=== PATIENT | female | born 1945 | race Caucasian/White ===

== ENCOUNTER 2018-12-09 05:10 | Inpatient (IN) ==
--- NOTE | 2018-12-04 08:43 | Anesthesiology Consultation ---
Date of Service December 04, 2018 Uneventful [place] on 10/28 for Cystoscopy with ureteral dilitation. #4 LMA Assessment & Plan (1) Encounter for pre-operative examination: Chart Review Chart Review: Acceptable Risk for Surgery and Patient NOT seen in Pre Admission Testing Consults Requested none History Surgery Operation Date: 12/09/18 08:50 Proposed Procedures p Robotic Assisted Right Ureteral Excision with Ureto-Ureterostomy and Right Ureteroscopy - Sam King MD Height/Weight Height: 5 ft 4 in Weight: 59.879 kg Allergies Allergy/AdvReac Type Severity Reaction Status Date / Time No Known Allergies Allergy Verified 11/18/18 14:56 Medications Home Medications Medication Instructions Recorded Confirmed Last Taken aspirin 81 mg PO DAILY 10/07/18 11/18/18 10/27/18 07:00 cyanocobalamin (vitamin B-12) 1 ml SUBCUT UD 10/07/18 11/18/18 10/20/18 07:00 duloxetine 30 mg PO QAM 10/07/18 11/18/18 10/28/18 05:00 duloxetine [Cymbalta] 60 mg PO QAM 10/07/18 11/18/18 10/28/18 05:00 isosorbide mononitrate 30 mg PO QAM 10/07/18 11/18/18 10/28/18 05:00 lisinopril 10 mg PO QAM 10/07/18 11/18/18 10/27/18 07:00 scqmtyim-mrw-lzyg-FA-lutein 1 tab PO DAILY 10/07/18 11/18/18 1 Week Ago [Centrum Upatoi Women] ~10/21/18 omeprazole 40 mg PO BID 10/07/18 11/18/18 10/28/18 05:00 pravastatin 40 mg PO HS 10/07/18 11/18/18 10/27/18 23:00 Past Medical History Medical History CVA (cerebral vascular accident) 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 NO FURTHER INVESTIGATION WITH NEEDED. Hyperlipidemia Hypertension Kidney stones Migraine Osteoarthritis Peripheral neuropathy Scoliosis Ureter injury RIGHT URETER "SCARRING" Past Family History Family History Grandfather Family history of diabetes mellitus Mother Family hx of colon cancer Past Surgical History Surgical History History of arm fracture RIGHT UE ORIF History of cataract surgery RT/LEFT History of colonoscopy History of cystoscopy WITH STENT INSERTIONS (TOTAL OF 5) History of dilatation and curettage MULTIPLE History of esophagogastroduodenoscopy (EGD) History of hysterectomy History of tooth extraction Social History Smoking Status: Former smoker Smoking cigarettes per day: QUIT 43 YEARS AGO Do You Dip or Chew Tobacco: No Hx Alcohol Use: Yes Alcohol type: other alcohol intake frequency: holidays/special occasions only Hx Substance Use: No substance use type: does not use Testing Electrocardiogram Date: 08/20/18 Findings: + NSR @ (67) Chest X-Ray Date: 10/13/18 Findings: + NAD Laboratory Results Laboratory Tests 11/22/18 11/22/18 11:39 11:39 WBC 8.32 Hgb 13.9 Hct 40.5 Plt Count 298 Sodium 138 Potassium 3.6 Chloride 107 Carbon Dioxide 27 BUN 18 Creatinine 1.03 Glucose 170 H
[2018-12-09] MEDS ORDERED: CEFAZOLIN 2000MG 2,000 MG/15 ML SYR IV SCH (06:00)
[2018-12-09] MEDS ORDERED: LR 15ML/HR IV SCH (06:00)
[2018-12-09] MEDS ORDERED: BUPIVACAINE 0.5 % 5 MG/1 ML MPF 30ML VIAL ONE (07:01)
[2018-12-09] MEDS ORDERED: DEXAMETHASONE SOD INJ 4 MG/ML VIAL ONE (07:12)
[2018-12-09] MEDS ORDERED: fentaNYL citrate 100 MCG/2 ML VIAL ONE ×2 (07:12→09:23)
[2018-12-09] MEDS ORDERED: LIDOCAINE HCL 2% 2 ML VIAL/AMP(20MG/ML) INFIL ONE (07:12)
[2018-12-09] MEDS ORDERED: ONDANSETRON INJ 2 MG/ML 2 ML VIAL ONE ×2 (07:12→08:22)
[2018-12-09] MEDS ORDERED: NEOSTIGMINE METHYLSULFATE 5 MG/5 ML SYR ONE (07:12)
[2018-12-09] MEDS ORDERED: PROPOFOL IV EMULSION 10 MG/ML 20 ML VIAL IV ONE (07:12)
[2018-12-09] MEDS ORDERED: GLYCOPYRROLATE 0.2 MG/ML VIAL ONE ×2 (07:12→08:22)
[2018-12-09] MEDS ORDERED: MIDAZOLAM HCL 1 MG/ML 2ML VIAL ONE (07:12)
--- NOTE | 2018-12-09 07:21 | History & Physical Bridge Note ---
Date of Service December 09, 2018 History & Physical Bridge Note I have examined the patient, reviewed the History & Physical and in the interval since the performance of the History & Physical I have noted the following changes of clinical significance: no changes noted
[2018-12-09] MEDS ORDERED: ONDANSETRON INJ 2 MG/ML 2 ML VIAL IV PRN ×2 (07:26→15:48)
[2018-12-09] MEDS ORDERED: ePHEDrine sulfate 50 MG/ML AMP IV PRN (07:26)
[2018-12-09] MEDS ORDERED: PHENYLEPHRINE 100MCG/ML 5ML SYR IV PRN (07:26)
[2018-12-09] MEDS ORDERED: HYDROmorphone INJ 1 MG/ML SYRINGE IV PRN (07:26)
[2018-12-09] MEDS ORDERED: MEPERIDINE HCL 25 MG/ML CARP IV PRN (07:26)
[2018-12-09] MEDS ORDERED: ATROPINE SULFATE 0.1 MG/ML 10ML SYR IV PRN (07:26)
[2018-12-09] MEDS ORDERED: fentaNYL citrate 100 MCG/2 ML VIAL IV PRN (07:26)
[2018-12-09] MEDS ORDERED: LABETALOL HCL IV 5 MG/ML 20ML IV PRN (07:26)
[2018-12-09] MEDS ORDERED: PHENYLEPHRINE 100MCG/ML 5ML SYR ONE ×2 (08:22→12:49)
[2018-12-09] MEDS ORDERED: ePHEDrine sulfate 50 MG/ML SYR ONE (08:46)
[2018-12-09] MEDS ORDERED: SURGICEL ABSORB HEMOSTAT 2IN X 14IN TOP ONE (09:46)
[2018-12-09] MEDS: TISSEEL FIBRIN SEALANT 10ML TOP ONE ×2 (09:47→13:49)
[2018-12-09] MEDS ORDERED: LABETALOL HCL IV 5 MG/ML 20ML IV ONE ×2 (10:05→13:29)
[2018-12-09] MEDS ORDERED: HYDROmorphone INJ 2 MG/ML SYR/VIAL ONE (11:47)
[2018-12-09] MEDS ORDERED: PHENYLEPHRINE HCL 10 MG/ML VIAL ONE (12:49)
[2018-12-09] MEDS ORDERED: KETOROLAC 30 MG/ML VIAL ONE (13:47)
[2018-12-09] MEDS ORDERED: ROCURONIUM BROMIDE 10 MG/ML 5 ML VIAL ONE (13:47)
--- NOTE | 2018-12-09 13:55 | Post Operative Brief Note ---
Immediate Post Op Note v1 Date of Surgery December 09, 2018 Pre & Post Diagnosis Operation Date: 12/09/18 07:30 Pre-Op Diagnosis: Right Ureteral Stricture Post-Op Diagnosis: Right Ureteral Stricture Procedure Operation Date: 12/09/18 07:30 Actual Procedures p Right Robotic Assisted Ureteral Excision with Ureto-Ureterostomy, Cystoscopy, Right Ureteroscopy with Right Stent Exchange (Right) - Sam King MD Surgeon Kenney King MD Photographer Scientific Katlyn Mccall MD; Edgar Ortiz Estimated Blood Loss 400 Findings Consistent with Post-Op Diagnosis Drains Mcfarlane Catheter and Giuliano-Luque Drain (10 flat)
[2018-12-09 14:32] LABS: Hematocrit (blood only) 30.4 % (37-47); Hemoglobin 10.4 g/dL (12.0-16.0); Mean Corpuscular Volume 87.6 fL (80-100); Mean Platelet Volume 9.6 fL (7.4-10.4); Platelet Count 247 K/uL (130-400); RDW Coefficient of Variation 12.9 % (11.5-14.5); RDW Standard Deviation 41.7 fL (36.4-46.3); Red Blood Count 3.47 M/uL (4.2-5.4); White Blood Count 17.85 K/uL (4.8-10.8)
--- NOTE | 2018-12-09 14:32 | Operative Report ---
Post Operative Report Pre & Post Diagnosis Operation Date: 12/09/18 07:30 Pre-Op Diagnosis: Right Ureteral Stricture Post-Op Diagnosis: Right Ureteral Stricture Procedure Operation Date: 12/09/18 07:30 Actual Procedures p Cystoscopy, Right Ureteroscopy, Right Ureteral Stent Exchange, Robotic Assisted Laparoscopic/Conversion to open Lysis of Extensive Right Ureteral Adhesions, Excision of portion of Right Ureter, with Uretero-ureterostomy(Right ) - Sam King MD Surgeon Kenney King MD Coordinator Integrated Marketing Katlyn Mccall MD; Edgar Ortiz Estimated Blood Loss 400 Findings Consistent with Post-Op Diagnosis Specimens Portion of right ureter Description of Procedure The patient was identified in the preoperative holding area, appropriate informed consents reviewed and completed and the patient was transported to the operating suite. Upon arrival she received appropriate preoperative antibiotics in the form of Ancef. Adequate general anesthesia was achieved and the patient was placed in dorsal lithotomy position where she was sterilely prepped and draped in standard fashion. I began the case by performing a cystoscopic evaluation and withdrawal of her indwelling right ureteral stent. I utilized the stent to pass a wire into the kidney. I then passed a 10 Green[place]ic double-lumen catheter to the maximal extent possible for placing a second wire. I do not believe this wire bypassed the strictured area of the mid ureter. I then withdrew the 10 [place]ic double-lumen catheter and passed a flexible ureteroscope up to the level of the stricture and left it in place. I placed a Mcfarlane catheter and I used an umbilical tape to tight a flexible ureteroscope to the Mcfarlane catheter. We then turned our attention to the abdominal portion of the case. I began this case by passing a Veress needle per umbilicus and insufflating the abdomen to 15 mmHg. I then placed a supraumbilical port utilizing a 12 mm Visiport and 0 degree lens. Inspection of the abdominal wall revealed no evidence of significant stricture disease. I placed ports in a standard fashion as would be used for robotic prostatectomy with the exception of an absent 5 mm right upper quadrant port. I then docked the robot begin the laparoscopic part of the case. Became very clear that there was some adhesive disease from the cecum to the iliac vessels in the right lower quadrant. I worked cautiously around these areas and attempted to mobilize the cecum medially. Unfortunately , this was extremely adherent and dense. I was able to identify the ureter distal to this area and circumferentially dissected, however superior to the area of adherence, I was uncertain if I identified the ureter accurately. We worked for nearly an hour trying this carefully worked through the scar tissue before deciding that the best approach would be to convert from robotic to open. At that time we counted instruments, undocked the robot, withdrew the ports and we made a right Caba style incision. After retractors were placed, we identified the area of concern, and palpably confirm that this was an extremely dense scar affecting the ureter and tissue immediately overlying the external iliac vessels. I was able to identify the ureter superior to this area of adherence, we controlled this with a vessel loop. We additionally controlled the distal aspect of the ureter with a vessel loop. We cautiously worked from superior to inferior and then again from inferior to superior until we had thinned the area of scar tissue maximally. This took several hours. As we reached the densest area of scarring, this was the most distal aspect of the area, and it was closely adherent posteriorly to the internal iliac vessels. We did encounter some bleeding at this time and had a small injury to 1 of the branches of the hypogastric vein. Initial attempts to control this with clips proved unsuccessful and was ultimately sutured closed. After confirming good hemostasis, we continued our dissection. Unfortunately, the area of densest adherence ultimately did not proved to be safely dissectible, and we left this area intact. We thought we had enough length on the remaining aspects of the ureter ureteroureterostomy and in turn we transected the ureter just below the densest level of scarring as well as just above. Ultimately improved at the upper aspect of this ureter was still quite densely scarred, we excised an area of approximately a centimeter and 1/2-2 cm until he saw open lumen of ureter. The segment that was excised was passed off the table as a specimen. We then spatulated the proximal and distal ureters. I was fearful that there would be too much tension to anastomose these up directly in their current position, therefore we mobilize slightly distally as well as superiorly until we felt that we had enough length to adequately reapproximate the ureter. Utilizing a 2 -0 Vicryl suture placed through the superficial tissues on the outside of the ureters, I tied these together to reapproximate the ureter loosely. I then placed 2 running 2 running 4-0 Vicryl sutures into the ureter on the opposite edges. I run the posterior wall first and then placed a ureteral stent through our incision. We then closed the anterior wall of the ureter completing the closure. I used one additional 2-[address] a buttressing suture suture on the anterior surface of the ureter. There was excellent hemostasis at that time. A PRASAD drain was guided in through 1 of her previous robotic ports. Then began closure of the incisions. Supraumbilical port was closed utilizing 0 Vicryl and then skin marito, other robotic ports were closed with skin marito, the drain was sutured in place with a 0 silk. The Caba style incision was closed in multiple layers, with a 0 Vicryl reapproximating the internal oblique followed by a 0 Vicryl reapproximating the external oblique and then clips across the skin. All and wounds were infiltrated with half percent Marcaine before closure. Dressings were placed over top of the incisions and the case concluded. A Mcfarlane catheter was left in place. There were no complications aside from the need to convert to open secondary to failure to progress with the robotic portion of the case. The patient tolerated the procedure well. Dr. Mccall assisted me from incision to closure and all aspects of the surgery including reapproximation of the ureter. TODD Watkins - served as a second quality assistant throughout the surgery. I attest to the content of the Intraoperative Record and any orders documented therein. Any exceptions are noted below.
--- NOTE | 2018-12-09 14:33 | XRay Report ---
XR KUB CLINICAL HISTORY: post op, ureteral stent placement COMPARISON STUDY: No previous studies for comparison. FINDINGS: Postsurgical changes are present. There are scattered skin marito. There is a right-sided double pigtail nephroureteral stent. There is a surgical drain projecting over the right mid abdomen. There is no pathologic bowel dilatation. There is soft tissue gas within the upper right thigh, like ly postsurgical. Additional areas of soft tissue gas are felt to be postsurgical IMPRESSION: 1. No evidence of pathologic bowel dilatation 2. Double-pigtail right-sided nephroureteral stent Electronically signed by: Ace Chacon M.D. 12/09/2018 2:32 PM
[2018-12-09 14:34] LABS: Mean Corpuscular Hgb Conc 34.2 g/dL (32-36)
--- NOTE | 2018-12-09 14:49 | Anesthesiology Progress Note ---
Date of Service December 09, 2018 Anesthesia Post Procedure Vital Signs Vital Signs: Temp Pulse Pulse Resp BP BP Pulse Ox 12/09/18 14:40 82 16 105/55 L 100 12/09/18 14:30 83 16 108/53 L 100 12/09/18 14:20 83 16 114/68 100 12/09/18 14:11 36.3 C L 95 H 16 101/57 L 99 12/09/18 05:50 36.6 C 75 18 146/81 H 97 Notes Mental Status: alert / awake / arousable Patient Amnestic to Procedure: Yes Nausea / Vomiting: adequately controlled Pain: adequately controlled Airway Patency, RR, SpO2: stable & adequate BP & HR: stable & adequate Hydration State: stable & adequate Anesthetic Complications: no major complications apparent and Pt Satisfied with anesthetic care
[2018-12-09 14:50] LABS: Calcium 7.9 mg/dl (8.5-10.1); Creatinine Clr Calc Pharmacy 57.8 ml/min; Est GFR (African American) 90.8; Est GFR (Non-African American) 78.4
[2018-12-09 15:04] LABS: Immature Granulocytes # (auto) 0.04 K/uL (0.00-0.02); Immature Granulocytes % (auto) 0.2 %; Lymphocytes # (auto) 0.88 K/uL (1.2-3.4); Lymphocytes % (auto) 4.9 %; Monocytes # (auto) 0.88 K/uL (0.11-0.59); Monocytes % (auto) 4.9 %; Neutrophils # (auto) 16.05 K/uL (1.4-6.5)
[2018-12-09] MEDS ORDERED: OXYCODONE HCL IR 5 MG TAB (IMMEDIATE RELEASE) PO PRN (15:48)
[2018-12-09] MEDS ORDERED: MoRPHine SULFATE 4 MG/ML 1 ML CARP\\VIAL IV PRN (15:48)
[2018-12-09 16:46] LABS: Hematocrit (blood only) 30.7 % (37-47); Hemoglobin 10.6 g/dL (12.0-16.0)
[2018-12-09] MEDS: LACTATED RINGER'S 1,000 ML IV SCH (16:46)
[2018-12-09] MEDS: CEFAZOLIN 2000MG 2,000 MG/15 ML SYR IV SCH ×2 (16:47→23:33)
[2018-12-09] MEDS: FAMOTIDINE 20 MG in SYRINGE 3 ML IV SCH (19:47)
[2018-12-09] MEDS: HEPARIN SOD 5,000 UNIT/0.5 ML VIAL SQ SCH (20:44)
[2018-12-09] MEDS: PRAVASTATIN SOD 40 MG TAB PO SCH (20:46)
[2018-12-09] MEDS: PANTOprazole 40 MG TAB PO SCH (20:46)
[2018-12-09] MEDS: DOCUSATE SODIUM 100 MG CAP PO SCH (20:46)
[2018-12-09] MEDS: OXYCODONE HCL IR 5 MG TAB (IMMEDIATE RELEASE) PO PRN (21:08)
[2018-12-09] MEDS: ACETAMINOPHEN 1,000 MG/100 ML VIAL IV PRN (23:41)
[2018-12-10] MEDS: LACTATED RINGER'S 1,000 ML IV SCH ×4 (00:01→16:17)
[2018-12-10] MEDS: OXYCODONE HCL IR 5 MG TAB (IMMEDIATE RELEASE) PO PRN ×2 (03:44→07:55)
--- NOTE | 2018-12-10 07:49 | Urology Progress Note ---
Date of Service December 10, 2018 Assessment & Plan (1) Ureteral stricture: POD #1 s/p ureterolysis/excision/uretero-ureterostomy - progressing appropriately - await labs this AM - VSS - ambulate - slow diet progression - rooney out this AM, cont PRASAD for now Subjective doing ok - some pain - OOB to chair last night - no nausea/vomiting - didn't sleep well Physical Exam 2 Vital Signs (Past 24 Hours): Last Vital Signs Temp 37.6 C H 12/10/18 07:02 Pulse 88 12/10/18 07:02 Resp 16 12/10/18 07:02 BP 110/69 12/10/18 07:02 Pulse Ox 93 12/10/18 07:02 Physical Exam: Comfortable appearing - no apparent distress RRR no resp distress abd soft dressings in place - CDI - PRASAD - scant - serosang rooney - clear no edema
[2018-12-10 08:30] LABS: Hematocrit (blood only) 34.9 % (37-47); Hemoglobin 11.8 g/dL (12.0-16.0); Mean Corpuscular Hgb Conc 33.8 g/dL (32-36); Mean Platelet Volume 10.1 fL (7.4-10.4); Platelet Count 308 K/uL (130-400); RDW Coefficient of Variation 13.2 % (11.5-14.5); RDW Standard Deviation 42.5 fL (36.4-46.3); Red Blood Count 3.92 M/uL (4.2-5.4); White Blood Count 14.94 K/uL (4.8-10.8)
[2018-12-10 08:56] LABS: BUN Creatinine Ratio 18.5 (10-20); Calcium 8.3 mg/dl (8.5-10.1); Creatinine Clr Calc Pharmacy 40.3 ml/min; Est GFR (African American) 58.7; Est GFR (Non-African American) 50.7; Potassium 4.3 mmol/L (3.5-5.1)
[2018-12-10 09:11] LABS: Immature Granulocytes # (auto) 0.02 K/uL (0.00-0.02); Immature Granulocytes % (auto) 0.1 %; Lymphocytes # (auto) 1.38 K/uL (1.2-3.4); Lymphocytes % (auto) 9.2 %; Monocytes # (auto) 0.77 K/uL (0.11-0.59); Monocytes % (auto) 5.2 %; Neutrophils # (auto) 12.77 K/uL (1.4-6.5); Neutrophils % (auto) 85.5 %
[2018-12-10] MEDS: PANTOprazole 40 MG TAB PO SCH ×2 (09:27→20:54)
[2018-12-10] MEDS: DOCUSATE SODIUM 100 MG CAP PO SCH ×2 (09:28→20:54)
[2018-12-10] MEDS: DULOXETINE HCL 30 MG CAP PO SCH (09:28)
[2018-12-10] MEDS: LISINOPRIL 10 MG TAB PO SCH (09:28)
[2018-12-10] MEDS: HEPARIN SOD 5,000 UNIT/0.5 ML VIAL SQ SCH ×2 (09:28→20:55)
[2018-12-10] MEDS: MULTIVITAMIN TAB PO SCH (09:28)
[2018-12-10] MEDS: DULOXETINE HCL 60 MG CAP PO SCH (09:29)
[2018-12-10] MEDS: ISOSORBIDE MONO EXTENDED REL 30 MG TABCR PO SCH (09:30)
[2018-12-10] MEDS: CEFAZOLIN 2000MG 2,000 MG/15 ML SYR IV SCH (09:31)
[2018-12-10] MEDS: FAMOTIDINE 20 MG in SYRINGE 3 ML IV SCH (09:31)
[2018-12-10] MEDS: ACETAMINOPHEN 1,000 MG/100 ML VIAL IV PRN (16:34)
[2018-12-10] MEDS: PRAVASTATIN SOD 40 MG TAB PO SCH (20:54)
[2018-12-11] MEDS: LACTATED RINGER'S 1,000 ML IV SCH ×2 (00:19→08:00)
[2018-12-11] MEDS: OXYCODONE HCL IR 5 MG TAB (IMMEDIATE RELEASE) PO PRN ×2 (02:10→08:00)
[2018-12-11 07:38] LABS: Hematocrit (blood only) 27.7 % (37-47); Hemoglobin 9.4 g/dL (12.0-16.0); Mean Corpuscular Hgb Conc 33.9 g/dL (32-36); Mean Corpuscular Volume 87.7 fL (80-100); Mean Platelet Volume 9.8 fL (7.4-10.4); Platelet Count 214 K/uL (130-400); RDW Coefficient of Variation 13.2 % (11.5-14.5); RDW Standard Deviation 42.8 fL (36.4-46.3); Red Blood Count 3.16 M/uL (4.2-5.4); White Blood Count 17.18 K/uL (4.8-10.8)
[2018-12-11] MEDS: DULOXETINE HCL 30 MG CAP PO SCH (07:57)
[2018-12-11] MEDS: DULOXETINE HCL 60 MG CAP PO SCH (07:57)
[2018-12-11] MEDS: PANTOprazole 40 MG TAB PO SCH (07:57)
[2018-12-11] MEDS: LISINOPRIL 10 MG TAB PO SCH (07:57)
[2018-12-11] MEDS: ISOSORBIDE MONO EXTENDED REL 30 MG TABCR PO SCH (07:57)
[2018-12-11] MEDS: MULTIVITAMIN TAB PO SCH (07:57)
[2018-12-11] MEDS: HEPARIN SOD 5,000 UNIT/0.5 ML VIAL SQ SCH (07:58)
[2018-12-11] MEDS: DOCUSATE SODIUM 100 MG CAP PO SCH (07:58)
[2018-12-11 08:14] LABS: BUN Creatinine Ratio 19.9 (10-20); Creatinine Clr Calc Pharmacy 50.5 ml/min; Est GFR (African American) 77.1; Est GFR (Non-African American) 66.6
[2018-12-11 08:16] LABS: Basophils # (auto) 0.01 K/uL (0-0.2); Basophils % (auto) 0.1 %; Immature Granulocytes # (auto) 0.05 K/uL (0.00-0.02); Immature Granulocytes % (auto) 0.3 %; Lymphocytes # (auto) 1.05 K/uL (1.2-3.4); Lymphocytes % (auto) 6.1 %; Monocytes # (auto) 1.12 K/uL (0.11-0.59); Monocytes % (auto) 6.5 %; Neutrophils # (auto) 14.95 K/uL (1.4-6.5)
--- NOTE | 2018-12-11 10:20 | Urology Progress Note ---
Date of Service December 11, 2018 Assessment & Plan (1) Ureteral stricture: POD #2 s/p ureterolysis/excision/uretero-ureterostomy - clinically looks good - labs have fluctuated, but no clinical signs of bleeding - d/c drain - d/c home later today Subjective Progressing appropriately - ambulated without difficulty -pain is ok - voiding well - tolerating diet - anxious to go home Physical Exam 2 Vital Signs (Past 24 Hours): Last Vital Signs Temp 37.0 C 12/11/18 07:14 Pulse 96 H 12/11/18 07:14 Resp 17 12/11/18 07:14 BP 114/66 12/11/18 07:14 Pulse Ox 93 12/11/18 07:14 Physical Exam: NAD AAOx3 no resp distress dressings removed - incisions appropriate - no signs of infection, etc - drain - serosang (mostly serous) - no lower ext edema
--- NOTE | 2018-12-19 10:22 | Discharge Summary ---
Date of Service December 19, 2018 Admission HPI Per Admitting Provider chronic right ureteral stricture - managed with stent changes, but increasingly difficult to place stents Principal Diagnosis ureteral stricture Discharge Data Allergies Allergy/AdvReac Type Severity Reaction Status Date / Time No Known Allergies Allergy Verified 12/09/18 05:43 Procedures Performed Operation Date: 12/09/18 07:30 Actual Procedures s Robotic Assisted Laparoscopic(Right) - Sam King MD s Cystoscopy, Right Ureteroscopy, Right Ureteral Stent Exchange - Sam King MD p Conversion to open Lysis of Extensive Right Ureteral Adhesions, Excision of portion of Right Ureter, with Uretero-ureterostomy - Sam King MD Hospital Course (1) Ureteral stricture: Pt underwent very challenging R ureterolysis/segmental ureterectomy with uretero-ureterostomy. Extensive scarring in the retroperitoneum. Progressed well during her hospitalization. Drain output was low, serosang. Pain was controlled. Tolerated a diet, ambulatory. D/c'ed home in stable condition Total Time Total Time Spent Total Time Spent (In Minutes): 30 Total Time Includes: Examination of the Patient, Discharge Planning, Medication Reconciliation, Communication With Other Providers and Other Discharge Plan Discharge Items Patient Disposition: Home - Self-Care Reason For Visit: Ureteral Stricture Discharge Diagnosis: ureteral stricture Condition: Good Discharge Goals: Improve disease control and Improve function Activity: As commented below Activity Comment: walking and steps in your home are okay Lifting: No more than 10 pounds Bathing: Keep incision dry Bathing Comment: okay to shower tomorrow. please do not pick/rub marito Sexual Activity: Wait until after follow-up appointment Exercise/Sports: Rest today and Wait until after follow-up appointment Driving/Machine Use: Resume 1 day after discharge Driving/Machine Use Comment: please do not drive while taking prescription pain medication. Non-emergency contact: Urologist Call non-emergency contact if: your pain is not controlled, your pain is worsening, your pain is concerning for you, your temperature is above 101, your wound has increased redness, your wound has increased drainage and your wound pain has increased Follow-up/Referrals: Anibal Salazar [Primary Care Provider] - Diet: Regular Addtl Provider Instructions: Please keep all follow-up appointments as scheduled. Feel free to contact our office with any questions concerns, or need to change followup appointments at [phone]. Please do not drive or operate machinery while taking prescription pain medication. Please use a stool softener (colace) twice a day for two weeks to prevent straining/constipation. It is okay to use AZO over the counter for burning with urination periodically. dry gauze over drain site is okay, change if saturated. Prescriptions: New oxycodone 5 mg capsule 5 mg PO TID PRN (Reason: pain) Qty: 14 RF: 0 docusate sodium [Colace] 100 mg capsule 100 mg PO BID Qty: 60 RF: 0 Continue isosorbide mononitrate 30 mg Tablet Extended Release 24 Hr 30 mg PO QAM RF: 0 omeprazole 40 mg Capsule,Delayed Release(Dr/Ec) 40 mg PO BID RF: 0 duloxetine 30 mg Capsule,Delayed Release(Dr/Ec) 30 mg PO QAM RF: 0 duloxetine [Cymbalta] 60 mg Capsule,Delayed Release(Dr/Ec) 60 mg PO QAM RF: 0 Stand-Alone Forms: [facility] Discharge Orders: Discharge Order (Routine); Ordered 12/11/18 Ordered By: Mini Jason Admission Data Admit Date/Time: 12/09/18 14:05 Attending Provider: Sam King Admit Provider: Sam King Primary Care Provider: Anibal Salazar Service: Surgical Services Other Interventions: Discharge Summary Assessment (RN) Last Done: 12/11/18 11:23 DC Date/Time DO NOT enter until pt leaves facility: 12/11/18 15:05
== END 2018-12-11 15:05 | disposition home or self-care (01) | DRG 659 ==
LOC: ASU 05:10 → 3W 14:05

== ENCOUNTER 2018-12-17 10:35 | Inpatient (IN) ==
[2018-12-17] MEDS ORDERED: ONDANSETRON INJ 2 MG/ML 2 ML VIAL IV STA (11:21)
[2018-12-17] MEDS ORDERED: MoRPHine SULFATE 4 MG/ML 1 ML CARP\\VIAL IV STA (11:21)
[2018-12-17] MEDS ORDERED: SODIUM CHLORIDE 0.9% 500 ML IV SCH (11:30)
[2018-12-17 11:57] LABS: Basophils # (auto) 0.03 K/uL (0-0.2); Basophils % (auto) 0.1 %; Eosinophils # (auto) 0.04 K/uL (0-0.5); Eosinophils % (auto) 0.2 %; Hematocrit (blood only) 27.7 % (37-47); Hemoglobin 9.3 g/dL (12.0-16.0); Immature Granulocytes # (auto) 0.36 K/uL (0.00-0.02); Immature Granulocytes % (auto) 1.7 %; Lymphocytes % (auto) 5.3 %; Mean Corpuscular Hgb Conc 33.6 g/dL (32-36); Mean Corpuscular Volume 88.2 fL (80-100); Mean Platelet Volume 9.3 fL (7.4-10.4); Monocytes # (auto) 1.15 K/uL (0.11-0.59); Monocytes % (auto) 5.5 %; Neutrophils # (auto) 18.18 K/uL (1.4-6.5); Neutrophils % (auto) 87.2 %; Platelet Count 483 K/uL (130-400); RDW Coefficient of Variation 13.5 % (11.5-14.5); RDW Standard Deviation 43.3 fL (36.4-46.3); Red Blood Count 3.14 M/uL (4.2-5.4); White Blood Count 20.86 K/uL (4.8-10.8)
[2018-12-17 12:03] LABS: Albumin Level 2.2 gm/dl (3.4-5.0); BUN Creatinine Ratio 17.4 (10-20); Calcium 8.3 mg/dl (8.5-10.1); Creatinine Clr Calc Pharmacy 64.6 ml/min; Est GFR (African American) 101.3; Est GFR (Non-African American) 87.4; Potassium 3.7 mmol/L (3.5-5.1)
[2018-12-17 12:12] LABS: Albumin Globulin Ratio 0.6 (0.9-2); Bilirubin,Total 0.5 mg/dl (0.2-1); Globulin 3.9 gm/dl (2.5-4.0); Total Protein 6.1 gm/dl (6.4-8.2); Troponin I 1.57 ng/ml (0-0.045)
[2018-12-17] MEDS ORDERED: PIPERACILL/TAZOBAC CONSULT ACTIVE PRN ×2 (12:13→19:39)
[2018-12-17] MEDS ORDERED: PIPERACILLIN/TAZOBACTAM 4.5 GM/120 ML BAG IV ONE (12:13)
[2018-12-17] MEDS ORDERED: OPTIRAY 320 125ml IV PRN (13:08)
--- NOTE | 2018-12-17 13:14 | CT Scan Report ---
CT ANGIOGRAM OF THE CHEST CLINICAL HISTORY: Dyspnea. COMPARISON STUDY: Chest x-ray dated 10/13/2018. TECHNIQUE: Following the IV administration of 120 cc of Optiray 320, CT angiogram of the chest was pe rformed from the upper abdomen to the thoracic inlet utilizing the pulmonary embolus protocol. Images are reviewed in the axial, sagittal, and coronal planes. 3-D MIPS images are created and assessed. I V contrast was administered without complication. A dose lowering technique was utilized adhering to the principles of ALARA. CT DOSE: 792.15 mGycm FINDINGS: Thyroid: Imaged portions of the thyroid gland are normal in size and attenuation. Thoracic aorta: The thoracic aorta is normal in caliber and demonstrates standard 3-vessel arch anato my. No dissection is seen. Pulmonary vasculature: The pulmonary trunk is normal in caliber. There are no filling defects identif ied in main, lobar, or segmental pulmonary branches to suggest pulmonary embolus. Heart: The heart is enlarged and without pericardial effusion. Lungs and pleural spaces: There are small pleural effusions with bibasilar atelectasis. Mild diffuse intraocular septal thickening suggests congestive failure. Atelectasis/scarring is seen in the right middle lobe. Patchy tree-in-bud airspace opacities are seen in the right middle and lower lobes, with dependent consolidation noted at the right lung base. The trachea and central airways are clear. Mediastinum: There is no mediastinal lymphadenopathy. Nely: Clear. Axillae: There is no axillary lymphadenopathy. Upper abdomen: There is a small hiatal hernia. Right-sided hydronephrosis is partially imaged. Trace abdominal ascites is noted in the left upper quadrant. Skeletal structures: The skeletal structures are osteopenic. Degenerative change and hyperkyphosis ar e noted in the thoracic spine. Arthritic change is also seen in the shoulders. There are moderate com pression deformities of T4 and L1. Mild compression deformities are noted involving T1, T6, T7, T8, T 11, and L2. A hemangioma is seen in the body of T10. No lytic or blastic bony lesions are seen. IMPRESSION: 1. There is no evidence of pulmonary embolus in the main, lobar, or segmental pulmonary arteries. 2. Cardiomegaly with evidence of mild congestive failure. 3. Small pleural effusions. 4. There are tree-in-bud airspace opacities identified in the right middle and right lower lobes with airspace consolidation at the right lung base. Correlate clinically for evidence of a mild infectiou s/inflammatory pneumonitis. 5. There is trace ascites noted in the left upper quadrant. 6. Additional findings as above. Electronically signed by: Obed Vazquez M.D. 12/17/2018 1:12 PM
--- NOTE | 2018-12-17 13:23 | CT Scan Report ---
CT abd pelvis IV con only CLINICAL HISTORY: 73 years-old Female presenting with postop, abdominal pain, eval for abscess. TECHNIQUE: Multidetector CT of the abdomen and pelvis was performed after the administration of intra venous contrast. IV contrast: 120 mL of Optiray 320. One or more dose lowering techniques were used c onsistent with the principles of ALARA (as low as reasonably achievable), including automatic exposur e control, mA or kV adjustment to individual patient size, and/or use of iterative reconstruction. COMPARISON: None. CT DOSE (mGy.cm): The estimated cumulative dose is 792.15. FINDINGS: Veterinary Bacteriologist topogram: Skin marito noted along the right abdomen. Right ureteral stent. Gaseous distended l oops of bowel in the left abdomen. Lung bases: Dependent consolidation, in part passive atelectasis in the setting of the small bilatera l simple pleural effusions. Tree-in-bud opacities also noted in the right lower and right middle lobe s. Mild multichamber enlargement of the heart. Aortic valve and mitral annular calcification. No conchita cardial effusion. Liver: Peripheral wedgelike heterogeneously hypodense region in segment 6. This does not exert mass e ffect on the transiting vessels or regional architecture. Similar though less extensive vague hypoden sity along the fissure for the ligamentum teres. Patent vasculature. Biliary: No intrahepatic or extrahepatic biliary ductal dilatation. Gallbladder contains gallstones. The gallbladder is distended. Borderline gallbladder wall thickening. No evidence of tension on the o verlying abdominal wall. Pancreas: Moderate parenchymal atrophy. Prominence of the pancreatic duct at the level of the neck. Spleen: Normal. Splenule noted. Adrenal glands: Normal. Kidneys and ureters: Severe right pelvocaliectasis and distention of the proximal right ureter. A rig ht ureteral stent is in place. Gas is noted within the right renal pelvis with mild urothelial thicke henny of the renal pelvis and proximal right ureter. Cortical thinning of the right kidney consistent with chronic atrophic change. Parenchyma otherwise normal. Normal left renal parenchyma. Mild left pe lviectasis with trace left urothelial thickening suggested. No convincing left hydronephrosis or hydr oureter. Bladder: Distended and containing intraluminal gas likely related to instrumentation. Pelvic organs: Uterus surgically absent. Ovaries normal. Bowel: Diverticulosis of the sigmoid colon with no focal wall thickening or pericolonic inflammatory change. Remainder of the colon is decompressed apart from the cecum. The cecum significant wall thick ening with surrounding interdigitating gas and fluid containing collection. There is suggestion of a gross discontinuity of the terminal ileum (series 6 image 225). The collection tracks to the distal s igmoid colon (series 6 image 245). Several loops of small bowel are abutted by the collection and are thick walled. No clear appendix is visualized. Proximal small bowel is mildly distended with fluid w ith no clear transition point. Peritoneal cavity: Small volume of abdominopelvic free fluid. Rim-enhancing collection in the right l ower quadrant. No free intraperitoneal gas though there is extraluminal gas in the right lower quadra nt collection. Lymph nodes: No enlarged lymph nodes in the abdomen or pelvis. Vasculature: Aorta and IVC patent and normal in caliber. Abdominal wall: Postsurgical changes in the right lower quadrant with gas and fluid and a laminar dis tribution at the surgical incision site with overlying skin marito. Mild inflammatory change of the subjacent abdominal wall musculature of the right abdomen. Mild diffuse body wall edema. Musculoskeletal: Moderate vertebral body height loss of L1 in the setting of osteopenia. IMPRESSION: 1. Rim-enhancing gas and fluid containing collection in the right lower quadrant compatible with abs cess. The appendix is not visualized. Given the presence of overlying postsurgical change, the report ed recent surgery may be appendectomy. Nonetheless, this collection is consistent with a complex absc ess with concern for perforation of terminal ileum and possible fistulization with adjacent loops of bowel, distal sigmoid colon not excluded. Evaluation limited by lack of oral contrast. Surgical consu ltation advised. 2. Extensive inflammatory changes of the adjacent loops of small bowel in the right lower quadrant. 3. No high-grade partial or complete bowel obstruction. 4. Diverticulosis. 5. Hepatic hypodensities, likely geographic hepatic steatosis or perfusional variation. 6. Moderate vertebral body height loss of L1 in the setting of osteopenia. Correlate for point tende rness to exclude acute compression fracture. Electronically signed by: Dejuan Rutledge M.D. 12/17/2018 1:22 PM
--- NOTE | 2018-12-17 14:26 | History & Physical Report ---
Date of Service December 17, 2018 Assessment & Plan (1) Acute abdomen: Small bowel (TI) perforation with fistula/abscess. Will require exploratory laparotomy for small bowel repair versus partial small bowel resection or possible ileostomy. Cardiology was contacted by the ER for EKG changes, elevated troponin. Plan for ICU bed postoperatively. as above. pt with perforated bowel/abcess. discussed options. will need emergent ex-lap. pt very high risk for complications--bleeding/infection/sepsis/dvt/pe/mi/cva/ injury to other organs/possible need for bowel resection or stoma creation etc... questions answered to OR belinda. History of Present Illness Primary Care Provider: Anibal Salazar 73 y/o female POD 8 Cystoscopy, Right Ureteroscopy, Right Ureteral Stent Exchange, Robotic Assisted Laparoscopic/Conversion to open Lysis of Extensive Right Ureteral Adhesions, Excision of portion of Right Ureter, with Uretero- ureterostomy returns to ED today with increasing abdominal pain and anorexia for the past 4 days. No fevers or chills, bowels have been moving. Denies chest pain but some RAMIREZ. CT consistent with terminal ileum perforation with fistula/ abscess. Allergies Allergy/AdvReac Type Severity Reaction Status Date / Time No Known Allergies Allergy Verified 12/09/18 05:43 Home Medications Home Medications Medication Instructions Recorded Confirmed Type duloxetine 30 mg PO QAM 10/07/18 12/17/18 History duloxetine [Cymbalta] 60 mg PO QAM 10/07/18 12/17/18 History isosorbide mononitrate 30 mg PO QAM 10/07/18 12/17/18 History omeprazole 40 mg PO BID 10/07/18 12/17/18 History docusate sodium [Colace] 100 mg PO BID #60 cap 12/11/18 12/17/18 Rx oxycodone 5 mg PO TID PRN #14 cap 12/11/18 12/17/18 Rx Past Med/Surg History Medical History Ureteral stricture CVA (cerebral vascular accident) 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 NO FURTHER INVESTIGATION WITH NEEDED. Hyperlipidemia Hypertension Kidney stones Migraine Osteoarthritis Peripheral neuropathy Scoliosis Ureter injury RIGHT URETER "SCARRING" Surgical History Hx of ureter repair History of arm fracture RIGHT UE ORIF History of cataract surgery RT/LEFT History of colonoscopy History of cystoscopy WITH STENT INSERTIONS (TOTAL OF 5) History of dilatation and curettage MULTIPLE History of esophagogastroduodenoscopy (EGD) History of hysterectomy History of tooth extraction Family History Grandfather Family history of diabetes mellitus Mother Family hx of colon cancer Social History marital status: Current Living Situation: Family current occupational status: retired Feels Safe at Home: Yes Smoking Status: Never smoker Cigarettes per Day: QUIT 43 YEARS AGO Hx Alcohol Use: Yes Alcohol type: other Alcohol Intake Frequency: holidays/ special occasions only Hx Substance Use: No Beliefs That Will Affect Care: None Preferred Language: Mozambican Review of Systems Constitutional: + malaise and + anorexia; no fever and no chills Respiratory: + dyspnea on exertion; no dyspnea Cardiovascular: no chest pain and no chest pain with activity Gastrointestinal: + abdominal pain; no nausea and no vomiting Physical Exam 2 Vital Signs (Past 24 Hours): Last Vital Signs Temp 37.2 C 12/17/18 10:46 Pulse 86 12/17/18 13:00 Resp 21 12/17/18 13:00 BP 129/69 12/17/18 13:00 Pulse Ox 95 12/17/18 13:00 Results & Data Diagnostic Findings CT abd pelvis IV con only CLINICAL HISTORY: 73 years-old Female presenting with postop, abdominal pain, eval for abscess. TECHNIQUE: Multidetector CT of the abdomen and pelvis was performed after the administration of intravenous contrast. IV contrast: 120 mL of Optiray 320. One or more dose lowering techniques were used consistent with the principles of ALARA (as low as reasonably achievable), including automatic exposure control, mA or kV adjustment to individual patient size, and/or use of iterative reconstruction. COMPARISON: None. CT DOSE (mGy.cm): The estimated cumulative dose is 792.15. FINDINGS: Delivery Of Shopping News topogram: Skin marito noted along the right abdomen. Right ureteral stent. Gaseous distended loops of bowel in the left abdomen. Lung bases: Dependent consolidation, in part passive atelectasis in the setting of the small bilateral simple pleural effusions. Tree-in-bud opacities also noted in the right lower and right middle lobes. Mild multichamber enlargement of the heart. Aortic valve and mitral annular calcification. No pericardial effusion. Liver: Peripheral wedgelike heterogeneously hypodense region in segment 6. This does not exert mass effect on the transiting vessels or regional architecture. Similar though less extensive vague hypodensity along the fissure for the ligamentum teres. Patent vasculature. Biliary: No intrahepatic or extrahepatic biliary ductal dilatation. Gallbladder contains gallstones. The gallbladder is distended. Borderline gallbladder wall thickening. No evidence of tension on the overlying abdominal wall. Pancreas: Moderate parenchymal atrophy. Prominence of the pancreatic duct at the level of the neck. Spleen: Normal. Splenule noted. Adrenal glands: Normal. Kidneys and ureters: Severe right pelvocaliectasis and distention of the proximal right ureter. A right ureteral stent is in place. Gas is noted within the right renal pelvis with mild urothelial thickening of the renal pelvis and proximal right ureter. Cortical thinning of the right kidney consistent with chronic atrophic change. Parenchyma otherwise normal. Normal left renal parenchyma. Mild left pelviectasis with trace left urothelial thickening suggested. No convincing left hydronephrosis or hydroureter. Bladder: Distended and containing intraluminal gas likely related to instrumentation. Pelvic organs: Uterus surgically absent. Ovaries normal. Bowel: Diverticulosis of the sigmoid colon with no focal wall thickening or pericolonic inflammatory change. Remainder of the colon is decompressed apart from the cecum. The cecum significant wall thickening with surrounding interdigitating gas and fluid containing collection. There is suggestion of a gross discontinuity of the terminal ileum (series 6 image 225). The collection tracks to the distal sigmoid colon (series 6 image 245). Several loops of small bowel are abutted by the collection and are thick walled. No clear appendix is visualized. Proximal small bowel is mildly distended with fluid with no clear transition point. Peritoneal cavity: Small volume of abdominopelvic free fluid. Rim-enhancing collection in the right lower quadrant. No free intraperitoneal gas though there is extraluminal gas in the right lower quadrant collection. Lymph nodes: No enlarged lymph nodes in the abdomen or pelvis. Vasculature: Aorta and IVC patent and normal in caliber. Abdominal wall: Postsurgical changes in the right lower quadrant with gas and fluid and a laminar distribution at the surgical incision site with overlying skin marito. Mild inflammatory change of the subjacent abdominal wall musculature of the right abdomen. Mild diffuse body wall edema. Musculoskeletal: Moderate vertebral body height loss of L1 in the setting of osteopenia. IMPRESSION: 1. Rim-enhancing gas and fluid containing collection in the right lower quadrant compatible with abscess. The appendix is not visualized. Given the presence of overlying postsurgical change, the reported recent surgery may be appendectomy. Nonetheless, this collection is consistent with a complex abscess with concern for perforation of terminal ileum and possible fistulization with adjacent loops of bowel, distal sigmoid colon not excluded. Evaluation limited by lack of oral contrast. Surgical consultation advised. 2. Extensive inflammatory changes of the adjacent loops of small bowel in the right lower quadrant. 3. No high-grade partial or complete bowel obstruction. 4. Diverticulosis. 5. Hepatic hypodensities, likely geographic hepatic steatosis or perfusional variation. 6. Moderate vertebral body height loss of L1 in the setting of osteopenia. Correlate for point tenderness to exclude acute compression fracture. Electronically signed by: Dejuan Rutledge M.D. 12/17/2018 1:22 PM
[2018-12-17 14:30] LABS: Appearance Urine Clear (Clear); Bilirubin Urine Negative (Negative); Blood Urine Negative (Negative); Color Urine Yellow; Glucose Urine UA Negative (Negative); Ketones Urine Negative (Negative); Leukocyte Esterase Urine Negative (Negative); Nitrite Urine Negative (Negative); Protein Urine Negative (Negative); Specific Gravity Urine 1.017 (1.000-1.030); Urobilinogen Urine Negative (Negative); pH Urine 8.5 (4.5-7.5)
[2018-12-17] MEDS ORDERED: MIDAZOLAM HCL 1 MG/ML 2ML VIAL ONE (14:38)
[2018-12-17] MEDS ORDERED: DEXAMETHASONE SOD INJ 4 MG/ML VIAL ONE (14:38)
[2018-12-17] MEDS ORDERED: SUCCINYLCHOLINE CHLORIDE 20 MG/ML 10 ML VIAL ONE (14:38)
[2018-12-17] MEDS ORDERED: LIDOCAINE HCL 2% 2 ML VIAL/AMP(20MG/ML) INFIL ONE (14:38)
[2018-12-17] MEDS ORDERED: PROPOFOL IV EMULSION 10 MG/ML 20 ML VIAL IV ONE ×2 (14:38→15:57)
[2018-12-17] MEDS ORDERED: fentaNYL citrate 100 MCG/2 ML VIAL ONE ×3 (14:38→15:53)
[2018-12-17] MEDS ORDERED: CISATRACURIUM BESYLATE IV SOLN 2 MG/ML 10 ML VIAL IV ONE (14:38)
[2018-12-17] MEDS ORDERED: ONDANSETRON INJ 2 MG/ML 2 ML VIAL ONE (14:38)
[2018-12-17] MEDS: LACTATED RINGER'S 1,000 ML IV SCH ×2 (15:01→23:37)
--- NOTE | 2018-12-17 15:08 | Anesthesiology Consultation ---
Date of Service December 17, 2018 Assessment & Plan Chart Review Chart Review: Acceptable Risk for Surgery and Patient NOT seen in Pre Admission Testing Consults Requested none ASA [id number] Proposed Anesthesia Anesthesia Type: General Anesthesia Line Insertion: Arterial line Risk / Benefits Reviewed With: PT / POA / Parent / Guardian, Accepts Plan and Informed Consent Obtained NPO Date Last Intake of Fluids: 12/16/18 Time Last Intake of Fluids: 18:30 Date Last Intake of Solids: 12/16/18 Time Last Intake of Solids: 18:30 History Surgery Operation Date: 12/17/18 11:00 Proposed Procedures p Exploratory Laparotomy, Possible Ileostomy - Chet Stephen, DO Height/Weight Height: 5 ft 4 in Weight: 65.6 kg Allergies Allergy/AdvReac Type Severity Reaction Status Date / Time No Known Allergies Allergy Verified 12/09/18 05:43 Medications Home Medications Medication Instructions Recorded Confirmed Last Taken duloxetine 30 mg PO QAM 10/07/18 12/17/18 12/08/18 06:00 duloxetine [Cymbalta] 60 mg PO QAM 10/07/18 12/17/18 12/08/18 06:00 isosorbide mononitrate 30 mg PO QAM 10/07/18 12/17/18 12/09/18 03:00 omeprazole 40 mg PO BID 10/07/18 12/17/18 12/08/18 06:00 docusate sodium [Colace] 100 mg PO BID #60 cap 12/11/18 12/17/18 Unknown oxycodone 5 mg PO TID PRN #14 cap 12/11/18 12/17/18 12/15/18 Active Medications Generic Name Dose Route Start Last Admin Trade Name Freq PRN Reason Stop Dose Admin Lactated Ringer's 1,000 mls @ 125 mls/hr 12/17/18 15:00 12/17/18 15:07 Lr IV 01/16/19 14:59 Infused .Q8H EUNICE Titration Ioversol 120 ml 12/17/18 13:08 12/17/18 13:08 Optiray 320 125ml IV 12/21/18 13:07 120 ml ONCE PRN Administration Interaction Checking Past Medical History Medical History Ureteral stricture Elevated troponin CVA (cerebral vascular accident) 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 NO FURTHER INVESTIGATION WITH NEEDED. Hyperlipidemia Hypertension Kidney stones Migraine Osteoarthritis Peripheral neuropathy Scoliosis Ureter injury RIGHT URETER "SCARRING" Past Family History Family History Grandfather Family history of diabetes mellitus Mother Family hx of colon cancer Past Surgical History Surgical History Hx of ureter repair History of arm fracture RIGHT UE ORIF History of cataract surgery RT/LEFT History of colonoscopy History of cystoscopy WITH STENT INSERTIONS (TOTAL OF 5) History of dilatation and curettage MULTIPLE History of esophagogastroduodenoscopy (EGD) History of hysterectomy History of tooth extraction Past Anesthesia History No Hx of Anesthesia Complications and No Family Hx of Anesthesia Complications History of PONV No Motion Sickness Screening History of Motion Sickness: No Social History Smoking Status: Never smoker Smoking cigarettes per day: QUIT 43 YEARS AGO Hx Alcohol Use: Yes Alcohol type: other alcohol intake frequency: holidays/special occasions only Hx Substance Use: No substance use type: does not use Exercise / Class Metabolic Activity III < 4 Walking/Shop/Light housework Physical Exam Vital Signs Last Vital Signs Temp 37 C 12/17/18 14:42 Pulse 92 H 12/17/18 14:42 Resp 22 12/17/18 14:42 BP 141/72 H 12/17/18 14:42 Pulse Ox 100 12/17/18 14:42 ENMT Mouth: no dentition abnormality Thyromental Distance: < 3.5 Finger Breadths Mallampati Class: II Neck normal visual inspection and trachea midline; neck extension not limited Respiratory normal respiratory effort Auscultation: lungs clear to auscultation bilaterally Cardiovascular Rate/Rhythm: regular rate and regular rhythm Heart Sounds: no murmur Vessels: no carotid bruit Neurologic moves all extremities Motor/Sensory: + sensory deficit Psychiatric Orientation: alert and oriented x 3 Testing Electrocardiogram Date: 12/17/18 Findings: + NSR @ (SR w/ PVC's at 92;ST and T wave abnormalities;inferolateral ischemia) Chest X-Ray Date: 12/17/18 Findings: + cardiomegaly and + pulmonary vascular congestion Laboratory Results 12/17/18 11:35 12/17/18 11:35 Urine Color Yellow 12/17/18 13:54 Urine Appearance Clear (Clear) 12/17/18 13:54 Urine pH 8.5 (4.5-7.5) H 12/17/18 13:54 Ur Specific [place] 1.017 (1.000-1.030) 12/17/18 13:54 Urine Protein Negative (Negative) 12/17/18 13:54 Urine Glucose (UA) Negative (Negative) 12/17/18 13:54 Urine Ketones Negative (Negative) 12/17/18 13:54 Urine Nitrite Negative (Negative) 12/17/18 13:54 Ur Leukocyte Esterase Negative (Negative) 12/17/18 13:54
[2018-12-17] MEDS ORDERED: ALBUMIN HUMAN 5% 12.5 GM/250 ML VIAL IV ONE (15:40)
[2018-12-17] MEDS ORDERED: PHENYLEPHRINE 100MCG/ML 5ML SYR ONE (15:47)
[2018-12-17] MEDS ORDERED: HYDROmorphone INJ 2 MG/ML SYR/VIAL ONE (16:05)
[2018-12-17] MEDS ORDERED: SODIUM CHLORIDE 0.9% 250 ML IV PRN ×2 (16:06→18:00)
[2018-12-17 16:42] LABS: Hematocrit (blood only) 24.5 % (37-47); Hemoglobin 8.4 g/dL (12.0-16.0)
[2018-12-17] MEDS ORDERED: ePHEDrine sulfate 50 MG/ML AMP IV PRN (16:53)
[2018-12-17] MEDS ORDERED: ATROPINE SULFATE 0.1 MG/ML 10ML SYR IV PRN (16:53)
[2018-12-17] MEDS ORDERED: PROMETHAZINE HCL 12.5 MG in SODIUM CHLORIDE 0.9% 50 ML IV PRN (16:53)
[2018-12-17] MEDS ORDERED: NALOXONE HCL 0.4 MG/1 ML VIAL/CARP IV PRN (16:53)
[2018-12-17] MEDS ORDERED: FLUMAZENIL 0.1 MG/1 ML 10 ML VIAL IV PRN (16:53)
[2018-12-17] MEDS ORDERED: LABETALOL HCL IV 5 MG/ML 20ML IV PRN (16:53)
[2018-12-17] MEDS ORDERED: ONDANSETRON INJ 2 MG/ML 2 ML VIAL IV PRN (16:53)
--- NOTE | 2018-12-17 17:15 | Operative Report ---
Post Operative Report Pre & Post Diagnosis Operation Date: 12/17/18 11:00 <No data on this case meets the specified criteria> Pre: perforated viscous post: perforated/ischemic cecum. abdominal abcess Procedure Operation Date: 12/17/18 11:00 Actual Procedures p Exploratory Laparotomy; right hemicolectomy; enterolysis; abdominal washout- Chet Stephen DO Surgeon Chet Stephen DO Prop Cutter michel Sherwood Estimated Blood Loss 20 Findings Consistent with Post-Op Diagnosis Specimens terminal ileum, cecum, right colon Description of Procedure After informed consent was obtained the patient was taken to the operating room and placed in supine position. After successful intubation a Mcfarlane catheter was placed and the abdomen was sterilely prepped and draped in usual fashion. I began with a midline incision from just above the umbilicus down around to the suprapubic region with a 10 blade scalpel. This was carried down through the soft tissue using cautery. We opened the anterior fascia using cautery. We then elevated the peritoneum with hemostats and incised under direct vision using a Metzenbaum scissor. We extended the incision to both poles using cautery. Initially the abdomen looked pristine other than some serous fluid. However I was able to feel a masslike inflammatory process in the right lower quadrant. I finger fractionated the terminal ileum and cecum and immediately encountered a rather large abscess pocket. This did have some stool and succus within it but fortunately was contained and walled off to the right lower quadrant. We did take some cultures. I continued to suction this out and irrigated it as we mobilized the terminal ileum and cecum. We were able to keep this contained to the right lower quadrant manually. I was able to primarily use blunt dissection to free up the white line of Toldt. A lot of this is already been done I suspect during the primary procedure. I was able to identify a very large perforation in the cecum itself. The cecum and proximal portion of the right colon were ischemic for no obvious reason. I found an area of the transverse colon proximal to the middle colic vessels and transected this using a DOUGLAS purple cartridge stapler. I then found a portion of distal small bowel that was proximal to the inflammatory process and also transected this using a DOUGLAS brown cartridge stapler. We then used the LigaSure device to take down the mesentery. We passed off the specimen which included distal small bowel, cecum, right colon and proximal transverse colon. At this point we suctioned out any purulent fluid and then changed our gloves. We then thoroughly irrigated primarily of the right side of the abdomen and pelvis with multiple liters of warm irrigation. At this point in time Dr. King did scrub into the case. We were able to readily identify the ureter as well as his anastomosis. His anastomosis appeared viable. There was no evidence of a leak and there was no evidence of any ischemia. Next I performed a side to side small bowel to transverse colon anastomosis using a DOUGLAS purple cartridge 60 mm stapler. The common enterotomy was closed using a TA 60 stapling device. 3-0 [address] was used to place a crotch stitch as well as to oversew all the staple lines in Lembert fashion. We closed the mesenteric defect using 2-0 Vicryl in a running fashion. The anastomosis was nice and pink and viable. I felt we would be able to perform the primary anastomosis since all of the contamination was contained to the right lower quadrant. Once the anastomosis was made we did several more liters of warm irrigation. There is adequate hemostasis at the end of the procedure. No other gross abnormalities were identified. 2 Delta drains were placed one on each side of the incision 1 angled into the pelvis down the left paracolic gutter and the other up the right paracolic gutter to the subphrenic space. We then closed the fascia using #1 looped PDS in running fashion. Soft tissue was irrigated and closed using skin marito. A silver dressing was applied. The patient was awakened extubated and transferred to the intensive care unit in guarded condition. My physician's itinerant teacher assistant was present for the entire case. He helped prep the patient. Help with exposure during the entire process. Also helped with wound closure and dressing placement. I attest to the content of the Intraoperative Record and any orders documented therein. Any exceptions are noted below.
--- NOTE | 2018-12-17 17:17 | Urology Consultation ---
Date of Consultation December 17, 2018 Assessment & Plan (1) Acute abdomen: History of Present Illness Attending Physician: Chet Stephen, DO Pt 1 weeks /p segmental ureterectomy with uretero-ureterostomy - progressed appropriately for the first 3-4 days post op and then became progressively more ill - stopped eating - increasing abdominal discomfort - denies CP or SOB - presented to ER today - CT - abscess and possible bowel perf near the TI/cecum - Chest - question of pneumonia - EKG - with acute changes, elevated troponin - pt seen and evaluated by Gen Surg who consented and immediately moved to OR for ex lap - I joined them in the OR - Ureter intact - indurate/full, but healthy appearing. Perforation in the cecum - some surrounding ischemia. Subsequent resection of cecum/right colon and TI - no diversion required. Abd irrigated copiously and drained Allergies Allergy/AdvReac Type Severity Reaction Status Date / Time No Known Allergies Allergy Verified 12/09/18 05:43 Home Medications Home Medications Medication Instructions Recorded Confirmed Type duloxetine 30 mg PO QAM 10/07/18 12/17/18 History duloxetine [Cymbalta] 60 mg PO QAM 10/07/18 12/17/18 History isosorbide mononitrate 30 mg PO QAM 10/07/18 12/17/18 History omeprazole 40 mg PO BID 10/07/18 12/17/18 History docusate sodium [Colace] 100 mg PO BID #60 cap 12/11/18 12/17/18 Rx oxycodone 5 mg PO TID PRN #14 cap 12/11/18 12/17/18 Rx Patient History Medical History Ureteral stricture Elevated troponin CVA (cerebral vascular accident) 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 NO FURTHER INVESTIGATION WITH NEEDED. Hyperlipidemia Hypertension Kidney stones Migraine Osteoarthritis Peripheral neuropathy Scoliosis Ureter injury RIGHT URETER "SCARRING" Surgical History Hx of ureter repair History of arm fracture RIGHT UE ORIF History of cataract surgery RT/LEFT History of colonoscopy History of cystoscopy WITH STENT INSERTIONS (TOTAL OF 5) History of dilatation and curettage MULTIPLE History of esophagogastroduodenoscopy (EGD) History of hysterectomy History of tooth extraction Family History Grandfather Family history of diabetes mellitus Mother Family hx of colon cancer Social History marital status: Current Living Situation: Family current occupational status: retired Feels Safe at Home: Yes Smoking Status: Never smoker Cigarettes per Day: QUIT 43 YEARS AGO Hx Alcohol Use: Yes Alcohol type: other Alcohol Intake Frequency: holidays/ special occasions only Hx Substance Use: No Beliefs That Will Affect Care: None Preferred Language: Wolof Review of Systems Constitutional: + fever Eyes: no diplopia Respiratory: no cough and no change in sputum Cardiovascular: no chest pain and no dyspnea at rest Gastrointestinal: + abdominal pain, + bloating and + early satiety Genitourinary (Female): no dysuria and no urinary frequency Musculoskeletal: no back pain and no neck pain Integumentary: no rash Neurologic: no gait abnormality Physical Exam 2 Vital Signs (Past 24 Hours): Last Vital Signs Temp 37 C 12/17/18 14:42 Pulse 92 H 12/17/18 14:42 Resp 22 12/17/18 14:42 BP 141/72 H 12/17/18 14:42 Pulse Ox 100 12/17/18 14:42
[2018-12-17] MEDS: HYDROmorphone INJ 1 MG/ML SYRINGE IV PRN ×5 (17:37→23:51)
[2018-12-17] MEDS ORDERED: HydrALAZINE HCL 20 MG/ML VIAL IV STA ×2 (18:01→18:22)
[2018-12-17] MEDS ORDERED: HydrALAZINE HCL 20 MG/ML VIAL ONE (18:15)
[2018-12-17 18:16] LABS: Hematocrit (blood only) 27.8 % (37-47); Hemoglobin 8.9 g/dL (12.0-16.0)
[2018-12-17 18:26] LABS: BUN Creatinine Ratio 15.2 (10-20); Calcium 7.3 mg/dl (8.5-10.1); Creatinine Clr Calc Pharmacy 67.6 ml/min; Est GFR (African American) 102.8; Est GFR (Non-African American) 88.7
--- NOTE | 2018-12-17 18:26 | Emergency Department Note ---
Entered by Jasmin Goff acting as a scribe for History of Present Illness General Chief complaint: Abdominal Pain Source: patient History of Present Illness Onset (ago): day(s) 8 Location: abdomen (right lower) Pain Consistency: + other (worsening) Maximum Pain Intensity: 9 Quality: + other (radiating) Exacerbated By: + movement Associated symptoms: + denies other symptoms (hematuria), + loss of appetite, + nausea/vomiting (vomiting) and + other (difficult to breathe and talk, overly sensitive skin on legs); no chest pain and no fever/chills (fever) The patient is a 73 year old female who presents to the Emergency Room with complaints of worsening right lower abdominal pain starting 8 days ago. The patient states that she was to have a laparoscopic ureteral surgery [address] King, but when they started the surgery, they realized she had more scar tissue than expected. She states that they ended up having to completely open her up. She reports that they removed the chunk of ureter that had scar tissue that was causing blockages into the kidney and reattached it. She states that since then she has had right lower abdominal pain, but notes that it radiates throughout. She states that the pain is worse with movement. She notes that the pain makes it difficult for her to breathe and talk at the same time. She states that she was on Hydrocodone, but has run out. She notes that she has not been able to eat or drink well and vomited once. She notes that she still has been urinating and that her skin on her legs feels overly sensitive. She notes that is painful even to touch. The patient denies fever, hematuria, seeing Dr. King for this pain, and chest pain. She notes that her follow up appointment is December 22. Home Medications Home Medications Medication Instructions Recorded Confirmed Type duloxetine 30 mg PO QAM 10/07/18 12/17/18 History duloxetine [Cymbalta] 60 mg PO QAM 10/07/18 12/17/18 History isosorbide mononitrate 30 mg PO QAM 10/07/18 12/17/18 History omeprazole 40 mg PO BID 10/07/18 12/17/18 History docusate sodium [Colace] 100 mg PO BID #60 cap 01/31/19 02/06/19 Rx oxycodone 5 mg PO TID PRN #14 cap 12/11/18 12/17/18 Rx Allergies Allergy/AdvReac Type Severity Reaction Status Date / Time No Known Allergies Allergy Verified 12/09/18 05:43 Past Med/Surg History Medical History Ureteral stricture Elevated troponin CVA (cerebral vascular accident) 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 NO FURTHER INVESTIGATION WITH NEEDED. Hyperlipidemia Hypertension Kidney stones Migraine Osteoarthritis Peripheral neuropathy Scoliosis Ureter injury RIGHT URETER "SCARRING" Surgical History Hx of ureter repair History of arm fracture RIGHT UE ORIF History of cataract surgery RT/LEFT History of colonoscopy History of cystoscopy WITH STENT INSERTIONS (TOTAL OF 5) History of dilatation and curettage MULTIPLE History of esophagogastroduodenoscopy (EGD) History of hysterectomy History of tooth extraction Family History Grandfather Family history of diabetes mellitus Mother Family hx of colon cancer Social History marital status: Current Living Situation: Family current occupational status: retired Feels Safe at Home: Yes Smoking Status: Never smoker Cigarettes per Day: QUIT 43 YEARS AGO Hx Alcohol Use: Yes Alcohol type: other Alcohol Intake Frequency: holidays/ special occasions only Hx Substance Use: No Beliefs That Will Affect Care: None Preferred Language: Kazakh Review of Systems See HPI for pertinent positives & negatives. and A total of 10 systems reviewed and were otherwise negative Physical Exam Vital Signs Vital Signs - 24 hr 12/17/18 10:46 12/17/18 11:21 12/17/18 12:19 Temperature 37.2 C Temperature Source Oral Sepsis Recent Fever Within 48 Hours No Sepsis New/Unexplained Change in Mental Status No Sepsis Action Taken by Nursing No Action Required Pulse Rate 84 Pulse Rate [Apical] Pulse Rate [Left Finger] 87 Pulse Rhythm Pulse Rhythm [Apical] Pulse Rhythm [Left Finger] Pulse Strength [Left Finger] Respiratory Rate 12 20 Respiratory Effort / Characteristics Non-Labored Spontaneous Respiratory Depth Normal Respiratory Pattern Regular Blood Pressure 151/79 H Blood Pressure [Right Arm] 146/82 H Blood Pressure Mean 103 Blood Pressure Mean [Right Arm] 103 Blood Pressure Position [Right Arm] Lying Pulse Oximetry 98 96 96 Oxygen Delivery Method Room Air Room Air Room Air Oxygen Flow Rate 12/17/18 13:00 12/17/18 14:31 12/17/18 14:42 Temperature 37 C Temperature Source Oral Sepsis Recent Fever Within 48 Hours Sepsis New/Unexplained Change in Mental Status Sepsis Action Taken by Nursing Pulse Rate 87 Pulse Rate [Apical] Pulse Rate [Left Finger] 86 92 H Pulse Rhythm Pulse Rhythm [Apical] Pulse Rhythm [Left Finger] Regular Pulse Strength [Left Finger] Normal Respiratory Rate 21 20 22 Respiratory Effort / Characteristics Non-Labored Spontaneous Non-Labored Spontaneous Respiratory Depth Normal Normal Respiratory Pattern Regular Regular Blood Pressure 129/69 Blood Pressure [Right Arm] 129/69 141/72 H Blood Pressure Mean Blood Pressure Mean [Right Arm] 89 95 Blood Pressure Position [Right Arm] Lying Sitting Pulse Oximetry 95 95 100 Oxygen Delivery Method Room Air Room Air Room Air Oxygen Flow Rate 12/17/18 17:16 12/17/18 17:25 12/17/18 17:35 Temperature 36.1 C L Temperature Source Temporal Artery Scan Sepsis Recent Fever Within 48 Hours Sepsis New/Unexplained Change in Mental Status Sepsis Action Taken by Nursing Pulse Rate Pulse Rate [Apical] 68 68 64 Pulse Rate [Left Finger] Pulse Rhythm Pulse Rhythm [Apical] Regular Regular Regular Pulse Rhythm [Left Finger] Pulse Strength [Left Finger] Respiratory Rate 17 13 21 Respiratory Effort / Characteristics Non-Labored Non-Labored Non-Labored Respiratory Depth Normal Normal Normal Respiratory Pattern Blood Pressure Blood Pressure [Right Arm] 137/68 150/78 H 162/63 H Blood Pressure Mean Blood Pressure Mean [Right Arm] 91 102 96 Blood Pressure Position [Right Arm] Pulse Oximetry 100 100 99 Oxygen Delivery Method Oxymask Oxymask Oxymask Oxygen Flow Rate 10 10 10 12/17/18 17:45 12/17/18 17:55 12/17/18 18:10 Temperature 36.6 C Temperature Source Temporal Artery Scan Sepsis Recent Fever Within 48 Hours Sepsis New/Unexplained Change in Mental Status Sepsis Action Taken by Nursing Pulse Rate 66 Pulse Rate [Apical] 68 66 Pulse Rate [Left Finger] Pulse Rhythm Regular Pulse Rhythm [Apical] Regular Regular Pulse Rhythm [Left Finger] Pulse Strength [Left Finger] Respiratory Rate 16 15 13 Respiratory Effort / Characteristics Non-Labored Non-Labored Respiratory Depth Normal Normal Respiratory Pattern Blood Pressure 181/85 H Blood Pressure [Right Arm] 160/87 H 170/81 H Blood Pressure Mean 117 Blood Pressure Mean [Right Arm] 111 110 Blood Pressure Position [Right Arm] Pulse Oximetry 100 100 99 Oxygen Delivery Method Oxymask Oxymask Oxygen Flow Rate 10 10 Constitutional: Vital signs reviewed. Eyes: Pupils are equal round reactive to light. Conjunctiva are noninjected. ENT: Pharynx is clear without erythema or exudate. Mucous membranes are moist. Neck supple without meningeal signs. Respiratory: Clear to auscultation bilaterally. Breath sounds are equal bilaterally. Cardiovascular: Regular rate and rhythm. No rubs or gallops. GI: Soft, nondistended. Diffuse abdominal tenderness. No guarding. Incisions are clean, dry, and intact. Bowel sounds are present. Musculoskeletal: No peripheral edema. Diffuse tenderness throughout her lower extremities. Integumentary: No cyanosis. Neurological: The patient is awake and alert. No focal deficits. Psychiatric: Normal affect. Course 1115: Past medical records reviewed. The patient was evaluated in room C8, and a complete history and physical examination were performed. 1217: I reevaluated the patient and she still denies chest pain. She states that she still is short of breath. I discussed test results with her. She is awaiting her CT scans. We are attempting to get an old EKG from her primary care office. 1333: I reevaluated the patient and updated her on her test results. She currently denies any chest pain or shortness of breath. 1336: I discussed the patient's case with Dr. King- Urology. He recommends talking to radiology to determine if she can have a drain placed. He also notes that her heart should take priority and she can be anticoagulated. 1344: I discussed the patient's case with Dr. Rutledge- Radiology. He states that he is uncomfortable doing a drain because there is a donna perforation of the terminal ileum and there is a lot of bowel in the way in terms of the approach for the drain placement. 1351: I discussed the patient's case with Roby Sherwood PA-C -General Surgeon. He states that he has to talk to Dr. Stephen and he will call back. 1358: I discussed the patient's case with Dr. Zhang- Cardiology. He will order an echo for the patient. 1406: I discussed the patient's case with Roby Sherwood PA-C-General Surgeon. He is going to take the patient to the OR. 1414: I went to reevaluate and update the patient on the treatment plan, but ESSENCE Ramirez was already in the room speaking with her. Consultations Consultation #1: I discussed the patient's case with Dr. King- Urology. He recommends talking to radiology to determine if she can have a drain placed. He also notes that her heart should take priority and she can be anticoagulated. Time: 13:36 Consultation #2: I discussed the patient's case with Dr. Rutledge- Radiology. He states that he is uncomfortable doing a drain because there is a donna perforation of the terminal ileum and there is a lot of bowel in the way in terms of the approach for the drain placement. Time: 13:44 Consultation #3: I discussed the patient's case with Roby Sherwood PA-C - Surgeon. He states that he has to talk to Dr. Stephen and he will call back. Time: 13:51 Additional Consultation(s): 1358: I discussed the patient's case with Dr. Zhang - [place]. He will order an echo for the patient. 1406: I discussed the patient's case with Roby Sherwood PA-C-General Surgeon. He is going to take the patient to the OR. Administered Medications Hydromorphone HCl (Dilaudid) 0.25 mg IV Q5M PRN PRN Reason: PACU Use Only-Pain Stop: 12/17/18 21:53 Last Admin: 12/17/18 17:54 Dose: 0.25 mg Admin: 12/17/18 17:47 Dose: 0.25 mg Admin: 12/17/18 17:42 Dose: 0.25 mg Admin: 12/17/18 17:37 Dose: 0.25 mg Lactated Ringer's (Lr) 1,000 mls @ 125 mls/hr IV .Q8H EUNICE Stop: 01/16/19 14:59 Last Infusion: 12/17/18 15:07 Dose: 0 mls/hr Admin: 12/17/18 15:01 Dose: 125 mls/hr Ioversol (Optiray 320 125ml) 120 ml IV ONCE PRN PRN Reason: Interaction Checking Stop: 12/21/18 13:07 Last Admin: 12/17/18 13:08 Dose: 120 ml Discontinued Medications Hydralazine HCl (Hydralazine Hcl) Confirm Administered Dose 20 mg .ROUTE .STK- MED ONE Stop: 12/17/18 18:16 Last Increment: 12/17/18 18:16 Dose: 10 mg Sodium Chloride (Nss) 500 mls @ 999 mls/hr IV .Q31M EUNICE Stop: 12/17/18 12:00 Last Infusion: 12/17/18 12:24 Dose: 0 mls/hr Admin: 12/17/18 11:42 Dose: 999 mls/hr Piperacillin Sod/Tazobactam Sod (Zosyn) 4.5 gm in 120 mls @ 240 mls/hr IV NOW ONE Stop: 12/17/18 12:42 Last Infusion: 12/17/18 13:36 Dose: 0 mls/hr Admin: 12/17/18 12:21 Dose: 240 mls/hr Morphine Sulfate (Morphine Sulfate) 4 mg IV NOW STA Stop: 12/17/18 11:22 Last Admin: 12/17/18 11:41 Dose: 4 mg Ondansetron HCl (Zofran) 4 mg IV NOW STA Stop: 12/17/18 11:22 Last Admin: 12/17/18 11:41 Dose: 4 mg Medical Decision Making Differential Diagnosis Differential diagnoses include post op pain, ileus, bowel obstruction, abscess, UTI. Medical Records Attestation: I reviewed the patient's medical records. Home Medications Current Medication List: was personally reviewed by me Laboratory Data Attestation: I reviewed the patient's lab results. Result diagrams: 12/17/18 17:58 12/17/18 11:35 Lab Results 12/17/18 12/17/18 12/17/18 Range/Units 11:35 11:35 13:54 WBC 20.86 H (4.8-10.8) K/uL RBC 3.14 L (4.2-5.4) M/uL Hgb 9.3 L (12.0-16.0) g/dL Hct 27.7 L (37-47) % MCV 88.2 (80-100) fL MCH 29.6 (25-34) pg MCHC 33.6 (32-36) g/dL RDW Std Deviation 43.3 (36.4-46.3) fL RDW Coeff of Lainey 13.5 (11.5-14.5) % Plt Count 483 H (130-400) K/uL MPV 9.3 (7.4-10.4) fL Immature Gran % (Auto) 1.7 % Neut % (Auto) 87.2 % Lymph % (Auto) 5.3 % [place] % (Auto) 5.5 % Eos % (Auto) 0.2 % Baso % (Auto) 0.1 % Immature Gran # (Auto) 0.36 H (0.00-0.02) K/uL Neut # (Auto) 18.18 H (1.4-6.5) K/uL Lymph # (Auto) 1.10 L (1.2-3.4) K/uL [place] # (Auto) 1.15 H (0.11-0.59) K/uL Eos # (Auto) 0.04 (0-0.5) K/uL Baso # (Auto) 0.03 (0-0.2) K/uL Sodium 139 (136-145) mmol/L Potassium 3.7 (3.5-5.1) mmol/L Chloride 105 (98-107) mmol/L Carbon Dioxide 25 (21-32) mmol/L Anion Gap 9.0 (3-11) BUN 12 (7-18) mg/dl Creatinine 0.68 (0.6-1.2) mg/dl Est Cr Clr Drug Dosing 64.6 ml/min Est GFR ( Amer) 101.3 Est GFR (Non-Af Amer) 87.4 BUN/Creatinine Ratio 17.4 (10-20) Glucose 105 H (70-99) mg/dl Calcium 8.3 L (8.5-10.1) mg/dl Total Bilirubin 0.5 (0.2-1) mg/dl AST 30 (15-37) U/L ALT 96 H (12-78) U/L Alkaline Phosphatase 131 H (45-117) U/L Troponin I 1.570 H* (0-0.045) ng/ml Total Protein 6.1 L (6.4-8.2) gm/dl Albumin 2.2 L (3.4-5.0) gm/dl Globulin 3.9 (2.5-4.0) gm/dl Albumin/Globulin Ratio 0.6 L (0.9-2) Lipase 144 (73-393) U/L Urine Color Yellow Urine Appearance Clear (Clear) Urine pH 8.5 H (4.5-7.5) Ur Specific [place] 1.017 (1.000-1.030) Urine Protein Negative (Negative) Urine Glucose (UA) Negative (Negative) Urine Ketones Negative (Negative) Urine Blood Negative (Negative) Urine Nitrite Negative (Negative) Urine Bilirubin Negative (Negative) Urine Urobilinogen Negative (Negative) Ur Leukocyte Esterase Negative (Negative) Blood Type Antibody Screen Crossmatch 12/17/18 12/17/18 12/17/18 Range/Units 16:05 16:34 17:58 WBC (4.8-10.8) K/uL RBC (4.2-5.4) M/uL Hgb 8.4 L 8.9 L (12.0-16.0) g/dL Hct 24.5 L 27.8 L (37-47) % MCV (80-100) fL MCH (25-34) pg MCHC (32-36) g/dL RDW Std Deviation (36.4-46.3) fL RDW Coeff of Lainey (11.5-14.5) % Plt Count (130-400) K/uL MPV (7.4-10.4) fL Immature Gran % (Auto) % Neut % (Auto) % Lymph % (Auto) % [place] % (Auto) % Eos % (Auto) % Baso % (Auto) % Immature Gran # (Auto) (0.00-0.02) K/uL Neut # (Auto) (1.4-6.5) K/uL Lymph # (Auto) (1.2-3.4) K/uL [place] # (Auto) (0.11-0.59) K/uL Eos # (Auto) (0-0.5) K/uL Baso # (Auto) (0-0.2) K/uL Sodium (136-145) mmol/L Potassium (3.5-5.1) mmol/L Chloride (98-107) mmol/L Carbon Dioxide (21-32) mmol/L Anion Gap (3-11) BUN (7-18) mg/dl Creatinine (0.6-1.2) mg/dl Est Cr Clr Drug Dosing ml/min Est GFR ( Amer) Est GFR (Non-Af Amer) BUN/Creatinine Ratio (10-20) Glucose (70-99) mg/dl Calcium (8.5-10.1) mg/dl Total Bilirubin (0.2-1) mg/dl AST (15-37) U/L ALT (12-78) U/L Alkaline Phosphatase (45-117) U/L Troponin I (0-0.045) ng/ml Total Protein (6.4-8.2) gm/dl Albumin (3.4-5.0) gm/dl Globulin (2.5-4.0) gm/dl Albumin/Globulin Ratio (0.9-2) Lipase (73-393) U/L Urine Color Urine Appearance (Clear) Urine pH (4.5-7.5) Ur Specific [place] (1.000-1.030) Urine Protein (Negative) Urine Glucose (UA) (Negative) Urine Ketones (Negative) Urine Blood (Negative) Urine Nitrite (Negative) Urine Bilirubin (Negative) Urine Urobilinogen (Negative) Ur Leukocyte Esterase (Negative) Blood Type O Positive Antibody Screen NEGATIVE Crossmatch See Detail Imaging Data Radiologist's Impression: Radiology results as stated below per my review and the radiologist's interpretation: CT ANGIOGRAM OF THE CHEST CLINICAL HISTORY: Dyspnea. COMPARISON STUDY: Chest x-ray dated 10/13/2018. TECHNIQUE: Following the IV administration of 120 cc of Optiray 320, CT angiogram of the chest was performed from the upper abdomen to the thoracic inlet utilizing the pulmonary embolus protocol. Images are reviewed in the axial , sagittal, and coronal planes. 3-D MIPS images are created and assessed. IV contrast was administered without complication. A dose lowering technique was utilized adhering to the principles of ALARA. CT DOSE: 792.15 mGycm FINDINGS: Thyroid: Imaged portions of the thyroid gland are normal in size and attenuation. Thoracic aorta: The thoracic aorta is normal in caliber and demonstrates standard 3-vessel arch anatomy. No dissection is seen. Pulmonary vasculature: The pulmonary trunk is normal in caliber. There are no filling defects identified in main, lobar, or segmental pulmonary branches to suggest pulmonary embolus. Heart: The heart is enlarged and without pericardial effusion. Lungs and pleural spaces: There are small pleural effusions with bibasilar atelectasis. Mild diffuse intraocular septal thickening suggests congestive failure. Atelectasis/scarring is seen in the right middle lobe. Patchy tree-in- bud airspace opacities are seen in the right middle and lower lobes, with dependent consolidation noted at the right lung base. The trachea and central airways are clear. Mediastinum: There is no mediastinal lymphadenopathy. Nely: Clear. Axillae: There is no axillary lymphadenopathy. Upper abdomen: There is a small hiatal hernia. Right-sided hydronephrosis is partially imaged. Trace abdominal ascites is noted in the left upper quadrant. Skeletal structures: The skeletal structures are osteopenic. Degenerative change and hyperkyphosis are noted in the thoracic spine. Arthritic change is also seen in the shoulders. There are moderate compression deformities of T4 and L1. Mild compression deformities are noted involving T1, T6, T7, T8, T11, and L2. A hemangioma is seen in the body of T10. No lytic or blastic bony lesions are seen. IMPRESSION: 1. There is no evidence of pulmonary embolus in the main, lobar, or segmental pulmonary arteries. 2. Cardiomegaly with evidence of mild congestive failure. 3. Small pleural effusions. 4. There are tree-in-bud airspace opacities identified in the right middle and right lower lobes with airspace consolidation at the right lung base. Correlate clinically for evidence of a mild infectious/inflammatory pneumonitis. 5. There is trace ascites noted in the left upper quadrant. 6. Additional findings as above. Electronically signed by: Obed Vazquez M.D. 12/17/2018 1:[address] abd pelvis IV con only CLINICAL HISTORY: 73 years-old Female presenting with postop, abdominal pain, eval for abscess. TECHNIQUE: Multidetector CT of the abdomen and pelvis was performed after the administration of intravenous contrast. IV contrast: 120 mL of Optiray 320. One or more dose lowering techniques were used consistent with the principles of ALARA (as low as reasonably achievable), including automatic exposure control, mA or kV adjustment to individual patient size, and/or use of iterative reconstruction. COMPARISON: None. CT DOSE (mGy.cm): The estimated cumulative dose is 792.15. FINDINGS: Or Manager topogram: Skin marito noted along the right abdomen. Right ureteral stent. Gaseous distended loops of bowel in the left abdomen. Lung bases: Dependent consolidation, in part passive atelectasis in the setting of the small bilateral simple pleural effusions. Tree-in-bud opacities also noted in the right lower and right middle lobes. Mild multichamber enlargement of the heart. Aortic valve and mitral annular calcification. No pericardial effusion. Liver: Peripheral wedgelike heterogeneously hypodense region in segment 6. This does not exert mass effect on the transiting vessels or regional architecture. Similar though less extensive vague hypodensity along the fissure for the ligamentum teres. Patent vasculature. Biliary: No intrahepatic or extrahepatic biliary ductal dilatation. Gallbladder contains gallstones. The gallbladder is distended. Borderline gallbladder wall thickening. No evidence of tension on the overlying abdominal wall. Pancreas: Moderate parenchymal atrophy. Prominence of the pancreatic duct at the level of the neck. Spleen: Normal. Splenule noted. Adrenal glands: Normal. Kidneys and ureters: Severe right pelvocaliectasis and distention of the proximal right ureter. A right ureteral stent is in place. Gas is noted within the right renal pelvis with mild urothelial thickening of the renal pelvis and proximal right ureter. Cortical thinning of the right kidney consistent with chronic atrophic change. Parenchyma otherwise normal. Normal left renal parenchyma. Mild left pelviectasis with trace left urothelial thickening suggested. No convincing left hydronephrosis or hydroureter. Bladder: Distended and containing intraluminal gas likely related to instrumentation. Pelvic organs: Uterus surgically absent. Ovaries normal. Bowel: Diverticulosis of the sigmoid colon with no focal wall thickening or pericolonic inflammatory change. Remainder of the colon is decompressed apart from the cecum. The cecum significant wall thickening with surrounding interdigitating gas and fluid containing collection. There is suggestion of a gross discontinuity of the terminal ileum (series 6 image 225). The collection tracks to the distal sigmoid colon (series 6 image 245). Several loops of small bowel are abutted by the collection and are thick walled. No clear appendix is visualized. Proximal small bowel is mildly distended with fluid with no clear transition point. Peritoneal cavity: Small volume of abdominopelvic free fluid. Rim-enhancing collection in the right lower quadrant. No free intraperitoneal gas though there is extraluminal gas in the right lower quadrant collection. Lymph nodes: No enlarged lymph nodes in the abdomen or pelvis. Vasculature: Aorta and IVC patent and normal in caliber. Abdominal wall: Postsurgical changes in the right lower quadrant with gas and fluid and a laminar distribution at the surgical incision site with overlying skin marito. Mild inflammatory change of the subjacent abdominal wall musculature of the right abdomen. Mild diffuse body wall edema. Musculoskeletal: Moderate vertebral body height loss of L1 in the setting of osteopenia. IMPRESSION: 1. Rim-enhancing gas and fluid containing collection in the right lower quadrant compatible with abscess. The appendix is not visualized. Given the presence of overlying postsurgical change, the reported recent surgery may be appendectomy. Nonetheless, this collection is consistent with a complex abscess with concern for perforation of terminal ileum and possible fistulization with adjacent loops of bowel, distal sigmoid colon not excluded. Evaluation limited by lack of oral contrast. Surgical consultation advised. 2. Extensive inflammatory changes of the adjacent loops of small bowel in the right lower quadrant. 3. No high-grade partial or complete bowel obstruction. 4. Diverticulosis. 5. Hepatic hypodensities, likely geographic hepatic steatosis or perfusional variation. 6. Moderate vertebral body height loss of L1 in the setting of osteopenia. Correlate for point tenderness to exclude acute compression fracture. Electronically signed by: Dejuan Rutledge M.D. 12/17/2018 1:22 PM ECG Data Attestation: I personally reviewed and interpreted this ECG as follows: Indication: abdominal pain Rate (beats per minute): 85 Rhythm: normal sinus Findings: + ST depression (inferior and lateral leads) and + T-wave inversion ( inferior and lateral leads); no ST elevation Comparison ECG Date: no prior available Additional Comments: REPEAT EKG: Sinus rhythm at a rate of 92. Persistent ST depression and TWI in the inferior and lateral leads. No ST elevations. Blood Pressure Blood Pressure Findings: Elevated blood pressure Blood Pressure Disposition: Referred to patients primary care provider DEE Junior I did perform a limited focused review of portions of the patient's old chart on the electronic medical record. The patient had ureteral surgery on December [address] King. I did evaluate the patient as noted above. The patient is presenting with right -sided abdominal pain after having recent right ureteral surgery. She also complains of shortness of breath and pain to both legs. She denies any chest pain. IV access was established. The patient was placed on a continuous monitoring manager. I did treat her with IV morphine and Zofran. She was given normal I did order and personally review the patient's 12-lead EKG as described above. Her twelve-lead EKG shows T wave inversions and ST depressions inferior laterally. No old EKG was available for comparison and she denies any chest discomfort. I did order and review the patient's blood work as noted in the electronic medical record. Her white count is significantly elevated. Her troponin is also elevated. I did treat the patient with Zosyn IV. I did obtain a second 12-lead EKG which showed persistent ST-T wave changes. I was able to obtain an old EKG from June from her PCP which did not show these findings. I did discuss the test results with the patient. She is feeling better at this time. She continues to deny any chest pain. She states she feels short of breath when she is talking. She is not hypoxemic. I did order a CT of the chest, abdomen and pelvis. I did review the images myself as well as the radiology report as described above. She has no evidence of pulmonary embolus but she does have pneumonia in the right lower and middle lobe. She also has an abscess and perforation of the ileum. I did discuss case with Dr. King. He recommended talking to radiology for percutaneous drainage of the abscess. I did speak to the radiologist who stated that she would not really be a candidate for percutaneous drainage as she has an obvious bowel perforation. I therefore spoke to general surgery who assessed her and took her immediately to the operating room. I did also speak to Dr. Zhang of cardiology regarding her EKG findings and elevated troponin. He did order a echocardiogram and will assess her once she is out of the operating room. She was also has not started on IV anticoagulation given she is going to the OR. I did discuss the test results with the patient. Impression & Plan Intra-abdominal abscess, Perforated bowel, Multifocal pneumonia, Acute coronary syndrome Critical Care Time I have personally spent 44 minutes of critical care time in the direct management of this patient. This includes bedside care, interpretation of diagnostic studies, and testing, discussion with consultants, patient, and family members, and other required patient management activities. This 44 minutes is in excess of all separately billable procedures. Critical Care Time: Yes Total Critical Care Time: 44 Discharge Plan Visit Data *Final* Discharge Date/Time: 12/17/18 14:37 Chief Complaint: Abdominal Pain ED Provider: Eh Aguilar Discharge Problem: Intra-abdominal abscess, Perforated bowel, Multifocal pneumonia, Acute coronary syndrome Patient Disposition: Admitted As Inpatient Discharge Instructions Interventions: ED Discharge Assessment Last Done: 12/17/18 14:31 The scribe's documentation has been prepared under my direction and personally reviewed by me in its entirety. I confirm that the note above accurately reflects all work, treatment, procedures, and medical decision making performed by me.
[2018-12-17 18:35] LABS: Troponin I 1.27 ng/ml (0-0.045)
--- NOTE | 2018-12-17 18:54 | Anesthesiology Progress Note ---
Date of Service December 17, 2018 Anesthesia Post Procedure Vital Signs Vital Signs: Temp Pulse Pulse Pulse Resp BP BP 12/17/18 18:35 36.8 C 77 15 139/72 12/17/18 18:30 36.8 C 69 15 176/77 H 12/17/18 18:25 73 15 174/71 H 12/17/18 18:15 62 14 173/92 H 12/17/18 18:10 36.6 C 66 13 181/85 H 12/17/18 18:05 70 18 189/87 H 12/17/18 17:55 66 15 12/17/18 17:45 36.7 C 83 68 16 141/58 H 12/17/18 17:35 64 21 12/17/18 17:25 68 13 12/17/18 17:16 36.1 C L 68 17 12/17/18 14:42 37 C 92 H 22 12/17/18 14:31 87 20 129/69 12/17/18 13:00 86 21 12/17/18 12:19 87 20 12/17/18 11:21 12/17/18 10:46 37.2 C 84 12 151/79 H BP Pulse Ox 12/17/18 18:35 157/66 H 98 12/17/18 18:30 99 12/17/18 18:25 169/80 H 97 12/17/18 18:15 173/92 H 99 12/17/18 18:10 99 12/17/18 18:05 177/97 H 98 12/17/18 17:55 170/81 H 100 12/17/18 17:45 160/87 H 97 12/17/18 17:35 162/63 H 99 12/17/18 17:25 150/78 H 100 12/17/18 17:16 137/68 100 12/17/18 14:42 141/72 H 100 12/17/18 14:31 95 12/17/18 13:00 129/69 95 12/17/18 12:19 146/82 H 96 12/17/18 11:21 96 12/17/18 10:46 98 Pain Intensity Right Lower Abdomen: Pain Intensity: 4 Notes Mental Status: alert / awake / arousable Patient Amnestic to Procedure: Yes Nausea / Vomiting: adequately controlled Pain: adequately controlled Airway Patency, RR, SpO2: stable & adequate BP & HR: stable & adequate Hydration State: stable & adequate Anesthetic Complications: no major complications apparent
[2018-12-17 20:25] LABS: Prothrombin Time 10.4 Seconds (9.0-12.0)
[2018-12-17] MEDS: PIPERACILLIN/TAZOBACTAM 3.375 GM in DEXTROSE 5% 100 ML IV SCH (20:49)
[2018-12-17] MEDS: ACETAMINOPHEN 1,000 MG/100 ML VIAL IV SCH (20:49)
[2018-12-17] MEDS ORDERED: CALCIUM CHLORIDE 10% 1,000 MG in SODIUM CHLORIDE 0.9% 50 ML IV STA (21:12)
[2018-12-17 21:15] LABS: Hemoglobin 11.8 g/dL (12.0-16.0)
[2018-12-17] MEDS ORDERED: FUROSEMIDE 20 MG in SYRINGE 0 ML IV ONE (21:30)
[2018-12-17] MEDS: HYDROmorphone INJ 0.5 MG/0.5 ML SYR IV PRN (21:35)
--- NOTE | 2018-12-18 00:10 | Consultation Report ---
DATE OF CONSULTATION: 12/17/2018 CONSULTATION REQUESTED BY: Chet Stephen DO REASON FOR CONSULTATION: The patient status post right hemicolectomy. SUBJECTIVE: A 73-year-old female who was recently operated upon, urological procedure about 8 days ago. Postoperative day #8. Cystoscopy, right ureteroscopy, right ureteral stent exchange, robotic assisted laparoscopic/conversion to open lysis of extensive right ureteral elevations, excision of the portion of the right ureter, with ureterostomy, returns to Emergency Room with increasing abdominal pain, anorexia for the past 4 days. The patient did not have any nausea, vomiting, fever, chills. She has been having a bowel movement. She did not have any shortness of breath. While in the Emergency Room, she had a CT scan done, which revealed terminal ileum perforation with fistula and abscess formation. Currently, patient is postoperative and in to PACU still under sedation. She is not able to give us any kind of information. The patient is status post exploratory laparotomy, right hemicolectomy, enterolysis, abdominal washout by Dr. Stephen. Currently, the patient is hemodynamically stable and there are no issues going on. REVIEW OF SYSTEMS: Unable to obtain secondary to her current medical condition. ALLERGIES: She is not allergic to any medications. HOME MEDICATIONS: She was on duloxetine/Cymbalta also isosorbide mononitrate, omeprazole, Colace, and oxycodone. CURRENT MEDICATIONS: As per the chart, currently, she is getting lactated Ringer's at 125 mL per hour. She is also on pain medications as prescribed by the surgery. PAST MEDICAL HISTORY: Ureteral stricture, CVA, depression, gastroesophageal reflux disease, history of cardiac murmur, hyperlipidemia, hypertension, kidney stones, migraine, osteoarthritis, peripheral neuropathy, scoliosis, ureter injury, right ureter scarring.. PAST SURGICAL HISTORY: History of ureter repair, history of arm fracture, right upper extremity ORIF, history of cataract surgery right/left, history of colonoscopy, history of cystoscopy with stent insertion, history of dilatation and curettage multiple times, history of esophagogastroduodenoscopy EGD, history of hysterectomy, and history of tooth extraction. FAMILY HISTORY: Nothing contributory, apart from grandfather has history of diabetes and mother with colon cancer. SOCIAL HISTORY: She is retired. There is no smoking history, which she quit 43 years ago. She uses alcohol occasionally. Substance abuse, none. OBJECTIVE: GENERAL: Elderly female. Postoperatively, lying in the bed, not in any acute distress. VITAL SIGNS: Her blood pressure is 157/66, pulse is 77, respiratory rate is 15, temperature is 36.8, oxygen saturation is 98 x 4 L nasal cannula O2. Her input is 2970, output is 900. LABORATORY DATA: WBC 20.86, H and H 8.9/27.8 platelets are 483. Differential count is normal. Her sodium is 139, potassium 4.0, chloride 108, CO2 25, anion gap was 6, BUN 10, creatinine 0.65, glucose 144, calcium 7.3, total bili 0.5, AST 30, ALT 96, alkaline phosphatase 131, albumin 3.9. Urine is negative for any abnormalities. Chest CTA, there is no evidence of pulmonary embolus in the main lobar or segmental pulmonary arteries, cardiomegaly with evidence of mild congestive failure, small pleural effusions, tree-in-bud airspace opacities identified in the right middle and right lower lungs with airspace consolidation at the right lung base, trace ascites in the left upper quadrant . Abdominal CT rim-enhancing gas and fluid containing collection and the right lower quadrant compatible with abscess. The appendix is not visualized given the presence of overlying postsurgical change. The reported recent surgery maybe appendectomy. This collection is consistent with complex abscess with concern for perforation of terminal ileum and possible fistulization with adjacent loops of the bowel, distal sigmoid colon, not excluded. Extensive inflammatory changes of the adjacent loops of the small bowel in the right lower quadrant, no high grade partial or complete bowel obstruction, diverticulosis, hepatic hypodensities likely geographic hepatic steatosis and perfusion radiation. IMPRESSION AND PLAN: Acute abdomen, small bowel perforation with fistula/abscess. The patient was taken to the Operating Room, status post right hemicolectomy, exploratory laparotomy, right hemicolectomy, enterolysis, abdominal washout by Dr. Stephen. The patient seems to be stable. 1. Acute abdomen/perforation as above postoperatively. 2. Hypertension. The patient remains on hydralazine on a p.r.n. basis 10 mg q. 6 hours IV. 3. Protonix IV 40 mg. 4. Anemia. She is also being transfused. Will check the H and H. 5. Urological procedure, status post urological procedure seems to be comfortable. We are going to continue with current management as prescribed. We will monitor the patient very closely. I have spent greater than 55 minutes. Thank you very much for allowing me to participate in the care of your patient. If you have got any further questions, please do not hesitate to contact me. TABBY
[2018-12-18] MEDS: HYDROmorphone INJ 1 MG/ML SYRINGE IV PRN ×5 (02:29→12:31)
[2018-12-18] MEDS ORDERED: PNEUMOCOCCAL POLYSACCHARIDES 25 MCG/0.5 ML VIAL/SYR IM ONE (03:45)
[2018-12-18] MEDS ORDERED: PNEUMOCOCCAL ADMINISTRATION CHARGE ONE (03:45)
[2018-12-18] MEDS: ACETAMINOPHEN 1,000 MG/100 ML VIAL IV SCH ×3 (04:51→21:55)
[2018-12-18] MEDS: PIPERACILLIN/TAZOBACTAM 3.375 GM in DEXTROSE 5% 100 ML IV SCH ×3 (04:53→21:42)
[2018-12-18 05:16] LABS: BUN Creatinine Ratio 16.5 (10-20); Creatinine Clr Calc Pharmacy 70.1 ml/min; Est GFR (African American) 101.3; Est GFR (Non-African American) 87.4; Potassium 4.2 mmol/L (3.5-5.1)
[2018-12-18 05:20] LABS: Hematocrit (blood only) 33.9 % (37-47); Hemoglobin 11.9 g/dL (12.0-16.0); Mean Corpuscular Hgb Conc 35.1 g/dL (32-36); Mean Corpuscular Volume 86.5 fL (80-100); Mean Platelet Volume 9.4 fL (7.4-10.4); Platelet Count 518 K/uL (130-400); RDW Coefficient of Variation 13.9 % (11.5-14.5); RDW Standard Deviation 43.9 fL (36.4-46.3); Red Blood Count 3.92 M/uL (4.2-5.4)
[2018-12-18 05:21] LABS: Basophils # (auto) 0.07 K/uL (0-0.2); Basophils % (auto) 0.2 %; Echinocytes 2+; Eosinophils # (auto) 0.01 K/uL (0-0.5); Immature Granulocytes # (auto) 0.45 K/uL (0.00-0.02); Immature Granulocytes % (auto) 1.1 %; Lymphocytes # (auto) 1.01 K/uL (1.2-3.4); Lymphocytes % (auto) 2.5 %; Monocytes # (auto) 1.63 K/uL (0.11-0.59); Monocytes % (auto) 4.1 %; Neutrophils # (auto) 36.73 K/uL (1.4-6.5); Neutrophils % (auto) 92.1 %; Polychromasia 1+; Toxic Granulation 1+
[2018-12-18] MEDS: LACTATED RINGER'S 1,000 ML IV SCH ×2 (07:53→16:28)
--- NOTE | 2018-12-18 08:21 | Surgery Progress Note ---
Date of Service December 18, 2018 Assessment & Plan (1) Perforated bowel: POD 1 doing well so far WBC likely reactive can transfer to floor today ice chips only for now Subjective doing better than expected. states she feels better than before surgery. some incisional pain as expected. Physical Exam 2 Vital Signs (Past 24 Hours): Last Vital Signs Temp 36.4 C L 12/18/18 04:01 Pulse 82 12/18/18 04:30 Resp 14 12/18/18 04:30 BP 124/67 12/18/18 04:00 Pulse Ox 96 12/18/18 04:30 Physical Exam: alert/oriented. nad abd: soft. expected tenderness. PRASAD's both scant/serous.
[2018-12-18] MEDS: ONDANSETRON INJ 2 MG/ML 2 ML VIAL IV PRN (08:22)
--- NOTE | 2018-12-18 08:46 | Critical Care Progress Note ---
Date of Service December 18, 2018 Assessment & Plan (1) Right lower quadrant abscess: 73-year-old female was admitted on 17 December 2018 for multiple days of abdominal pain, anorexia, and found to have a terminal ileal perforation with abscess. TATTOOER: ICU negative. PMH old CVA without deficits, depression, peripheral neuropathy. Presently on Dilaudid and Tylenol (both as needed) for pain postoperatively. Pulm: Currently asymptomatic. CTA chest showed small pleural effusions and question of right-sided opacities. On antibiotics. Received a single dose of Lasix. CVS: Currently asymptomatic. EKG is sinus rhythm rate 92, with occasional PVCs and question of ST depression inferior-laterally. TnI max 1.57, trending downwards. PMH HTN and HLD. Received labetalol and hydralazine for HTN. Cardiology consulted. Echocardiogram pending. ID: Afebrile. WBC trending up to 39 post-op, likely reactive. Abdominal culture pending. On Zosyn. Endo: No known DM or thyroid disease. Monitoring blood sugars. Renal/Lytes: Cr and electrolytes are normal with exception of hypocalcemia. PMH ureteral stricture. 29Jan underwent ureteral lysis, excision, and uretero- ureterostomy. 06Feb intra-op the ureter was intact. UA clear. See urology notes. On maintenance IVF with good urine output. GI: Presented with abdominal pain. CT a/p suggestive of RLQ abscess. 06Feb underwent emergent ex lap, right hemicolectomy, enterolysis, and abdominal washout. See general surgery notes. PMH GERD, on Protonix. Starting on ice chips. Side note: CT a/p suggestive of hepatic steatosis. Heme: Admit Hb 8.4. Transfused 1 unit PRBCs post-op. Presently stable in 11' s. Monitoring. DVT prophy: Lovenox and SCDs. Skin/MSK: CT a/p suggestive of L1 compression fracture. Patient denies acute low back pain. PMH scoliosis. Lines: PIV, left arterial line, Mcfarlane catheter, two abdominal PRASAD drains. Code status: Full code. PT/OT: Deferred. Disposition: Admitted to ICU. Likely transfer to [facility] later today. (2) Perforated bowel: (3) History of CVA (cerebrovascular accident): (4) Depression: (5) Peripheral neuropathy: (6) Pleural effusion: (7) Elevated troponin: (8) Ureteral stricture: (9) Anemia: (10) Compression fracture of L1 vertebra: Supervising Physician Co-Signing Physician Notes Resident Physician Supervision Note: I was present with Dr. Escobedo during the history and exam. I discussed the case with the resident and agree with the findings and plan as documented in the note. Any exceptions or clarifications are listed here: The patient was transfused with 1 unit of packed red blood cell transfusion last night. Overall she did very well. She is hemodynamically stable. Surgery as well as urology has seen this patient this morning and they feel that she has improved significantly and she will be continued on current plan of care including the antibiotics. Cultures are still pending. The antibiotics will be changed according to the culture results. In the meantime she will be transferred to the stepdown unit from the ICU. The patient is also putting out good urine. I have spent greater than 35 minutes of clinical time. Documented By: Olive Boyce Subjective Found patient lying semiupright in bed. She smiles but says that her abdomen continues to hurt. She denies any chest pain, shortness of breath, or other pains. She denies any other particular acute concerns. Physical Exam 2 Vital Signs (Past 24 Hours): Last Vital Signs Temp 36.4 C L 12/18/18 04:01 Pulse 82 12/18/18 04:30 Resp 14 12/18/18 04:30 BP 124/67 12/18/18 04:00 Pulse Ox 96 12/18/18 04:30 Physical Exam: General Appearance: Awake, alert & oriented, mildly uncomfortable due to abdominal pain, but in NAD. CV: +S1S2 RRR, no murmur. Pulm: Diminished throughout. Abdomen: +BS, soft, appropriately tender postop, with large bulky dressing in place. Two PRASAD drains with serosanguineous drainage. Extremities: 1+ bilateral leg edema. No calf tenderness. Moving all extremities naturally and easily. Neuro: No gross neuro deficits. Results & Data Laboratory Results 12/18/18 12/18/18 12/17/18 Range/Units 04:46 04:46 Unknown WBC 39.90 H* D (4.8-10.8) K/uL RBC 3.92 L (4.2-5.4) M/uL Hgb 11.9 L (12.0-16.0) g/dL Hct 33.9 L (37-47) % MCV 86.5 (80-100) fL MCH 30.4 (25-34) pg MCHC 35.1 (32-36) g/dL RDW Std Deviation 43.9 (36.4-46.3) fL RDW Coeff of Lainey 13.9 (11.5-14.5) % Plt Count 518 H (130-400) K/uL MPV 9.4 (7.4-10.4) fL Immature Gran % (Auto) 1.1 % Neut % (Auto) 92.1 % Lymph % (Auto) 2.5 % Fallon % (Auto) 4.1 % Eos % (Auto) 0.0 % Baso % (Auto) 0.2 % Immature Gran # (Auto) 0.45 H (0.00-0.02) K/uL Neut # (Auto) 36.73 H (1.4-6.5) K/uL Lymph # (Auto) 1.01 L (1.2-3.4) K/uL Fallon # (Auto) 1.63 H (0.11-0.59) K/uL Eos # (Auto) 0.01 (0-0.5) K/uL Baso # (Auto) 0.07 (0-0.2) K/uL Toxic Granulation 1+ Polychromasia 1+ Echinocytes 2+ PT (9.0-12.0) Seconds INR (0.9-1.1) Sodium 138 (136-145) mmol/L Potassium 4.2 (3.5-5.1) mmol/L Chloride 106 (98-107) mmol/L Carbon Dioxide 25 (21-32) mmol/L Anion Gap 7.0 (3-11) BUN 11 (7-18) mg/dl Creatinine 0.68 (0.6-1.2) mg/dl Est Cr Clr Drug Dosing 70.1 ml/min Est GFR ( Amer) 101.3 Est GFR (Non-Af Amer) 87.4 BUN/Creatinine Ratio 16.5 (10-20) Glucose 125 H (70-99) mg/dl Calcium 8.0 L (8.5-10.1) mg/dl Total Bilirubin (0.2-1) mg/dl AST (15-37) U/L ALT (12-78) U/L Alkaline Phosphatase (45-117) U/L Troponin I (0-0.045) ng/ml Total Protein (6.4-8.2) gm/dl Albumin (3.4-5.0) gm/dl Globulin (2.5-4.0) gm/dl Albumin/Globulin Ratio (0.9-2) Lipase (73-393) U/L Urine Color Urine Appearance (Clear) Urine pH (4.5-7.5) Ur Specific [place] (1.000-1.030) Urine Protein (Negative) Urine Glucose (UA) (Negative) Urine Ketones (Negative) Urine Blood (Negative) Urine Nitrite (Negative) Urine Bilirubin (Negative) Urine Urobilinogen (Negative) Ur Leukocyte Esterase (Negative) Nasal Screen MRSA (PCR) Negative (Negative) Blood Type Antibody Screen Crossmatch 12/17/18 12/17/18 12/17/18 Range/Units 20:55 17:58 17:58 WBC (4.8-10.8) K/uL RBC (4.2-5.4) M/uL Hgb 11.8 L 8.9 L (12.0-16.0) g/dL Hct 34.0 L 27.8 L (37-47) % MCV (80-100) fL MCH (25-34) pg MCHC (32-36) g/dL RDW Std Deviation (36.4-46.3) fL RDW Coeff of Lainey (11.5-14.5) % Plt Count (130-400) K/uL MPV (7.4-10.4) fL Immature Gran % (Auto) % Neut % (Auto) % Lymph % (Auto) % Fallon % (Auto) % Eos % (Auto) % Baso % (Auto) % Immature Gran # (Auto) (0.00-0.02) K/uL Neut # (Auto) (1.4-6.5) K/uL Lymph # (Auto) (1.2-3.4) K/uL Fallon # (Auto) (0.11-0.59) K/uL Eos # (Auto) (0-0.5) K/uL Baso # (Auto) (0-0.2) K/uL Toxic Granulation Polychromasia Echinocytes PT (9.0-12.0) Seconds INR (0.9-1.1) Sodium 139 (136-145) mmol/L Potassium 4.0 (3.5-5.1) mmol/L Chloride 108 H (98-107) mmol/L Carbon Dioxide 25 (21-32) mmol/L Anion Gap 6.0 (3-11) BUN 10 (7-18) mg/dl Creatinine 0.65 (0.6-1.2) mg/dl Est Cr Clr Drug Dosing 67.6 ml/min Est GFR ( Amer) 102.8 Est GFR (Non-Af Amer) 88.7 BUN/Creatinine Ratio 15.2 (10-20) Glucose 144 H (70-99) mg/dl Calcium 7.3 L (8.5-10.1) mg/dl Total Bilirubin (0.2-1) mg/dl AST (15-37) U/L ALT (12-78) U/L Alkaline Phosphatase (45-117) U/L Troponin I 1.270 H* (0-0.045) ng/ml Total Protein (6.4-8.2) gm/dl Albumin (3.4-5.0) gm/dl Globulin (2.5-4.0) gm/dl Albumin/Globulin Ratio (0.9-2) Lipase (73-393) U/L Urine Color Urine Appearance (Clear) Urine pH (4.5-7.5) Ur Specific [place] (1.000-1.030) Urine Protein (Negative) Urine Glucose (UA) (Negative) Urine Ketones (Negative) Urine Blood (Negative) Urine Nitrite (Negative) Urine Bilirubin (Negative) Urine Urobilinogen (Negative) Ur Leukocyte Esterase (Negative) Nasal Screen MRSA (PCR) (Negative) Blood Type Antibody Screen Crossmatch 12/17/18 12/17/18 12/17/18 Range/Units 16:34 16:05 13:54 WBC (4.8-10.8) K/uL RBC (4.2-5.4) M/uL Hgb 8.4 L (12.0-16.0) g/dL Hct 24.5 L (37-47) % MCV (80-100) fL MCH (25-34) pg MCHC (32-36) g/dL RDW Std Deviation (36.4-46.3) fL RDW Coeff of Lainey (11.5-14.5) % Plt Count (130-400) K/uL MPV (7.4-10.4) fL Immature Gran % (Auto) % Neut % (Auto) % Lymph % (Auto) % Fallon % (Auto) % Eos % (Auto) % Baso % (Auto) % Immature Gran # (Auto) (0.00-0.02) K/uL Neut # (Auto) (1.4-6.5) K/uL Lymph # (Auto) (1.2-3.4) K/uL Fallon # (Auto) (0.11-0.59) K/uL Eos # (Auto) (0-0.5) K/uL Baso # (Auto) (0-0.2) K/uL Toxic Granulation Polychromasia Echinocytes PT (9.0-12.0) Seconds INR (0.9-1.1) Sodium (136-145) mmol/L Potassium (3.5-5.1) mmol/L Chloride (98-107) mmol/L Carbon Dioxide (21-32) mmol/L Anion Gap (3-11) BUN (7-18) mg/dl Creatinine (0.6-1.2) mg/dl Est Cr Clr Drug Dosing ml/min Est GFR ( Amer) Est GFR (Non-Af Amer) BUN/Creatinine Ratio (10-20) Glucose (70-99) mg/dl Calcium (8.5-10.1) mg/dl Total Bilirubin (0.2-1) mg/dl AST (15-37) U/L ALT (12-78) U/L Alkaline Phosphatase (45-117) U/L Troponin I (0-0.045) ng/ml Total Protein (6.4-8.2) gm/dl Albumin (3.4-5.0) gm/dl Globulin (2.5-4.0) gm/dl Albumin/Globulin Ratio (0.9-2) Lipase (73-393) U/L Urine Color Yellow Urine Appearance Clear (Clear) Urine pH 8.5 H (4.5-7.5) Ur Specific [place] 1.017 (1.000-1.030) Urine Protein Negative (Negative) Urine Glucose (UA) Negative (Negative) Urine Ketones Negative (Negative) Urine Blood Negative (Negative) Urine Nitrite Negative (Negative) Urine Bilirubin Negative (Negative) Urine Urobilinogen Negative (Negative) Ur Leukocyte Esterase Negative (Negative) Nasal Screen MRSA (PCR) (Negative) Blood Type O Positive Antibody Screen NEGATIVE Crossmatch See Detail 12/17/18 12/17/18 12/17/18 Range/Units 11:35 11:35 11:35 WBC 20.86 H (4.8-10.8) K/uL RBC 3.14 L (4.2-5.4) M/uL Hgb 9.3 L (12.0-16.0) g/dL Hct 27.7 L (37-47) % MCV 88.2 (80-100) fL MCH 29.6 (25-34) pg MCHC 33.6 (32-36) g/dL RDW Std Deviation 43.3 (36.4-46.3) fL RDW Coeff of Lainey 13.5 (11.5-14.5) % Plt Count 483 H (130-400) K/uL MPV 9.3 (7.4-10.4) fL Immature Gran % (Auto) 1.7 % Neut % (Auto) 87.2 % Lymph % (Auto) 5.3 % Fallon % (Auto) 5.5 % Eos % (Auto) 0.2 % Baso % (Auto) 0.1 % Immature Gran # (Auto) 0.36 H (0.00-0.02) K/uL Neut # (Auto) 18.18 H (1.4-6.5) K/uL Lymph # (Auto) 1.10 L (1.2-3.4) K/uL Fallon # (Auto) 1.15 H (0.11-0.59) K/uL Eos # (Auto) 0.04 (0-0.5) K/uL Baso # (Auto) 0.03 (0-0.2) K/uL Toxic Granulation Polychromasia Echinocytes PT 10.4 (9.0-12.0) Seconds INR 1.0 (0.9-1.1) Sodium 139 (136-145) mmol/L Potassium 3.7 (3.5-5.1) mmol/L Chloride 105 (98-107) mmol/L Carbon Dioxide 25 (21-32) mmol/L Anion Gap 9.0 (3-11) BUN 12 (7-18) mg/dl Creatinine 0.68 (0.6-1.2) mg/dl Est Cr Clr Drug Dosing 64.6 ml/min Est GFR ( Amer) 101.3 Est GFR (Non-Af Amer) 87.4 BUN/Creatinine Ratio 17.4 (10-20) Glucose 105 H (70-99) mg/dl Calcium 8.3 L (8.5-10.1) mg/dl Total Bilirubin 0.5 (0.2-1) mg/dl AST 30 (15-37) U/L ALT 96 H (12-78) U/L Alkaline Phosphatase 131 H (45-117) U/L Troponin I 1.570 H* (0-0.045) ng/ml Total Protein 6.1 L (6.4-8.2) gm/dl Albumin 2.2 L (3.4-5.0) gm/dl Globulin 3.9 (2.5-4.0) gm/dl Albumin/Globulin Ratio 0.6 L (0.9-2) Lipase 144 (73-393) U/L Urine Color Urine Appearance (Clear) Urine pH (4.5-7.5) Ur Specific [place] (1.000-1.030) Urine Protein (Negative) Urine Glucose (UA) (Negative) Urine Ketones (Negative) Urine Blood (Negative) Urine Nitrite (Negative) Urine Bilirubin (Negative) Urine Urobilinogen (Negative) Ur Leukocyte Esterase (Negative) Nasal Screen MRSA (PCR) (Negative) Blood Type Antibody Screen Crossmatch Medications Administered Current Inpatient Medications Enoxaparin Sodium (Lovenox) 40 mg SQ Q24H [facility] Stop: 01/17/19 20:59 Hydromorphone HCl (Dilaudid) 0.5 mg IV Q1H PRN PRN Reason: MILD Pain (Scale 1,2,3) Stop: 12/31/18 19:29 Last Admin: 12/17/18 21:35 Dose: 0.5 mg Hydromorphone HCl (Dilaudid) 1 mg IV Q1H PRN PRN Reason: MODERATE Pain (Scale 4,5,6) Stop: 12/31/18 19:29 Last Admin: 12/18/18 07:53 Dose: 1 mg Lactated Ringer's (Lr) 1,000 mls @ 125 mls/hr IV .Q8H [facility] Stop: 01/16/19 14:59 Last Admin: 12/18/18 07:53 Dose: 125 mls/hr Sodium Chloride (Nss 250ml) 250 mls @ 15 mls/hr IV .[id number] PRN PRN Reason: For Transfusion Stop: 01/16/19 17:59 Acetaminophen (Ofirmev) 1,000 mg in 100 mls @ 400 mls/hr IV Q8H [facility] Stop: 01/16/19 19:59 Last Infusion: 12/18/18 05:20 Dose: Infused Piperacillin Sod/Tazobactam (Sod 3.375 gm/ Dextrose) 115 mls @ 28.75 mls/hr IV Q8H [facility]; Protocol Stop: 12/27/18 19:59 Last Admin: 12/18/18 04:53 Dose: 28.8 mls/hr Pantoprazole Sodium 40 mg/ (Syringe) 10 mls @ 5 mls/min IV DAILY@1100 [facility] Stop: 01/17/19 10:59 Miscellaneous Information (Consult) 1 ea N/A UD PRN PRN Reason: Consult Stop: 01/16/19 19:38 Ondansetron HCl (Zofran) 4 mg IV Q4H PRN PRN Reason: Nausea And Vomiting Stop: 01/16/19 19:29 Last Admin: 12/18/18 08:22 Dose: 4 mg Resident Activity Tracking Resident Involvement: Resident Care Provided Care Provided: Adult Hospital Medicine
[2018-12-18] MEDS: METOPROLOL TARTRATE 1 MG/ML VIAL IV SCH ×4 (10:34→21:47)
[2018-12-18] MEDS: PANTOprazole 40 MG in SYRINGE 0 ML IV SCH (11:22)
--- NOTE | 2018-12-18 11:33 | Urology Progress Note ---
Date of Service December 18, 2018 Assessment & Plan (1) Perforated bowel: POD#1 s/p emergent ex lap for cecal/colonic leak/abscess - progressing as well as could be expected at this stage - transfer out of ICU - rooney out later today - supportive management - slow diet advance Subjective Progressed very well overnight asking for food this AM - pain - predominantly in the RUQ today - urine clear - pending transfer to standard tele bed Physical Exam 2 Vital Signs (Past 24 Hours): Last Vital Signs Temp 36.4 C L 12/18/18 08:59 Pulse 79 12/18/18 10:34 Resp 17 12/18/18 08:01 BP 134/65 12/18/18 08:00 Pulse Ox 99 12/18/18 08:01 Physical Exam: Comfortable appearing no resp distress AAOx3 sinus rhythm incisions dressed, PRASAD serosang rooney clear abd soft/appropriate
--- NOTE | 2018-12-18 12:39 | Cardiology Consultation ---
Date of Consultation December 18, 2018 Assessment & Plan (1) Elevated troponin: Troponin elevation appears to be secondary to acute illness and demand based stress. Echocardiogram demonstrates at least moderate left hypertrophy with very hyperdynamic LV systolic function and no wall motion abnormalities, LV cavity size is small. Hypertrophic nonobstructive cardiomyopathy not excluded but the patient carries a history of prior hypertension. Findings currently do not support acute coronary syndrome Would initiate beta-abelardo therapy with IV metoprolol 2.5 mg every 4 hours. Support blood pressure with volume and treat underlying infectious process (2) Left ventricular hypertrophy: More pronounced on current EKGs. Echocardiogram confirms present. Strain pattern in the basis of elevated blood pressures, elevated heart rate and acute illness (3) Right lower quadrant abscess: As per primary and critical care service History of Present Illness Reason for Consultation: Elevated troponin abnormal EKG Requesting Physician: Dr. Stephen Attending Physician: Chet Stephen, DO History of Present Illness Patient is a 73-year-old female admitted with terminal ileum perforation/pelvic abscess approximately 1 week status post urethral surgery. Initial preoperative screening demonstrated EKG with LV strain pattern, elevated troponin patient is referred for further evaluation. She did undergo emergent hemicolectomy last evening without hemodynamic compromise. Complains of abdominal pain but no chest pain. Notes no prior history of ischemic heart disease. Was evaluated for heart murmur at [facility] and no further investigations had an initial assessment performed per patient she does carry a history of hypertension. And has been maintained on isosorbide for a long period of time per patient. Notes no prior myocardial infarction angina or congestive heart failure. Notes no history of hyperlipidemia. Notes no tachypalpitations syncope or near syncope. Acute infection and bleeding concerns as noted above in urology and surgical consultations. Patient remains n.p.o. postsurgically Allergies Allergy/AdvReac Type Severity Reaction Status Date / Time No Known Allergies Allergy Verified 12/09/18 05:43 Home Medications Home Medications Medication Instructions Recorded Confirmed Type duloxetine 30 mg PO QAM 10/07/18 12/17/18 History duloxetine [Cymbalta] 60 mg PO QAM 10/07/18 12/17/18 History isosorbide mononitrate 30 mg PO QAM 10/07/18 12/17/18 History omeprazole 40 mg PO BID 10/07/18 12/17/18 History docusate sodium [Colace] 100 mg PO BID #60 cap 12/11/18 12/17/18 Rx oxycodone 5 mg PO TID PRN #14 cap 12/11/18 12/17/18 Rx Patient History Medical History Ureteral stricture Elevated troponin CVA (cerebral vascular accident) 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 NO FURTHER INVESTIGATION WITH NEEDED. Hyperlipidemia Hypertension Kidney stones Migraine Osteoarthritis Peripheral neuropathy Scoliosis Ureter injury RIGHT URETER "SCARRING" Surgical History Hx of ureter repair History of arm fracture RIGHT UE ORIF History of cataract surgery RT/LEFT History of colonoscopy History of cystoscopy WITH STENT INSERTIONS (TOTAL OF 5) History of dilatation and curettage MULTIPLE History of esophagogastroduodenoscopy (EGD) History of hysterectomy History of tooth extraction Family History Grandfather Family history of diabetes mellitus Mother Family hx of colon cancer Social History marital status: Current Living Situation: Family Current Living Situation Comment: Lives with son current occupational status: retired Other Information That Helps Us Care for You: No Feels Safe at Home: Yes Safety Concerns: Feels Safe At This Time Smoking Status: Former smoker Do You Dip or Chew Tobacco: No Second Hand Exposure: Yes Tobacco Cessation Education Requested by Patient: No Hx Alcohol Use: Yes Alcohol type: beer and wine Alcohol Intake Frequency: holidays/special occasions only Hx Substance Use: No Beliefs That Will Affect Care: None Preferred Language: Cook Islander Communication Ability: Effective Rn Residential Required: No Review of Systems As per HPI. Physical Exam 2 Vital Signs (Past 24 Hours): Last Vital Signs Temp 36.4 C L 12/18/18 08:59 Pulse 87 12/18/18 12:32 Resp 17 12/18/18 08:01 BP 134/65 12/18/18 08:00 Pulse Ox 99 12/18/18 08:01 Constitutional: + ill appearing Eyes: PERRL, conjunctivae normal, anicteric sclerae ENMT: external ear and nose normal, oropharynx normal Neck: Thin no distinct jugular venous distention, no carotid bruit Respiratory: Mildly diminished breath sounds at right base with crackles with cough Cardiovascular: Rate/Rhythm: regular rate and regular rhythm Heart Sounds: normal S1, normal S2 and + murmur (Grade 2/6 systolic, no diastolic); no gallop Vessels: normal peripheral pulses, normal carotid upstroke and femoral pulses present; no carotid bruit and no abdominal aortic bruit Extremities: + pedal edema (Trace to 1+ pedal) Gastrointestinal (Abdomen): Abdomen is bandaged bowel sounds are quiet PRASAD drains are present Neurologic: PERRL, EOMI, accommodation nl, no face palsy, no dysarthria Psychiatric: Patient mildly sedate but answering questions appropriately Results & Data Laboratory Results Laboratory Results - last 24 hr 12/17/18 12/17/18 12/17/18 11:35 13:54 16:05 WBC RBC Hgb Hct MCV MCH MCHC RDW Std Deviation RDW Coeff of Lainey Plt Count MPV Immature Gran % (Auto) Neut % (Auto) Lymph % (Auto) [place] % (Auto) Eos % (Auto) Baso % (Auto) Immature Gran # (Auto) Neut # (Auto) Lymph # (Auto) [place] # (Auto) Eos # (Auto) Baso # (Auto) Toxic Granulation Polychromasia Echinocytes PT 10.4 INR 1.0 Sodium Potassium Chloride Carbon Dioxide Anion Gap BUN Creatinine Est Cr Clr Drug Dosing Est GFR ( Amer) Est GFR (Non-Af Amer) BUN/Creatinine Ratio Glucose Calcium Troponin I Urine Color Yellow Urine Appearance Clear Urine pH 8.5 H Ur Specific [employer] 1.017 Urine Protein Negative Urine Glucose (UA) Negative Urine Ketones Negative Urine Blood Negative Urine Nitrite Negative Urine Bilirubin Negative Urine Urobilinogen Negative Ur Leukocyte Esterase Negative Nasal Screen MRSA (PCR) Blood Type O Positive Antibody Screen NEGATIVE Crossmatch See Detail 12/17/18 12/17/18 12/17/18 16:34 17:58 17:58 WBC RBC Hgb 8.4 L 8.9 L Hct 24.5 L 27.8 L MCV MCH MCHC RDW Std Deviation RDW Coeff of [place] Plt Count MPV Immature Gran % (Auto) Neut % (Auto) Lymph % (Auto) [place] % (Auto) Eos % (Auto) Baso % (Auto) Immature Gran # (Auto) Neut # (Auto) Lymph # (Auto) [place] # (Auto) Eos # (Auto) Baso # (Auto) Toxic Granulation Polychromasia Echinocytes PT INR Sodium 139 Potassium 4.0 Chloride 108 H Carbon Dioxide 25 Anion Gap 6.0 BUN 10 Creatinine 0.65 Est Cr Clr Drug Dosing 67.6 Est GFR ( Amer) 102.8 Est GFR (Non-Af Amer) 88.7 BUN/Creatinine Ratio 15.2 Glucose 144 H Calcium 7.3 L Troponin I 1.270 H* Urine Color Urine Appearance Urine pH Ur Specific [employer] Urine Protein Urine Glucose (UA) Urine Ketones Urine Blood Urine Nitrite Urine Bilirubin Urine Urobilinogen Ur Leukocyte Esterase Nasal Screen MRSA (PCR) Blood Type Antibody Screen Crossmatch 12/17/18 12/17/18 12/18/18 20:55 Unknown 04:46 WBC 39.90 H* D RBC 3.92 L Hgb 11.8 L 11.9 L Hct 34.0 L 33.9 L MCV 86.5 MCH 30.4 MCHC 35.1 RDW Std Deviation 43.9 RDW Coeff of [place] 13.9 Plt Count 518 H MPV 9.4 Immature Gran % (Auto) 1.1 Neut % (Auto) 92.1 Lymph % (Auto) 2.5 [place] % (Auto) 4.1 Eos % (Auto) 0.0 Baso % (Auto) 0.2 Immature Gran # (Auto) 0.45 H Neut # (Auto) 36.73 H Lymph # (Auto) 1.01 L [place] # (Auto) 1.63 H Eos # (Auto) 0.01 Baso # (Auto) 0.07 Toxic Granulation 1+ Polychromasia 1+ Echinocytes 2+ PT INR Sodium Potassium Chloride Carbon Dioxide Anion Gap BUN Creatinine Est Cr Clr Drug Dosing Est GFR ( Amer) Est GFR (Non-Af Amer) BUN/Creatinine Ratio Glucose Calcium Troponin I Urine Color Urine Appearance Urine pH Ur Specific [employer] Urine Protein Urine Glucose (UA) Urine Ketones Urine Blood Urine Nitrite Urine Bilirubin Urine Urobilinogen Ur Leukocyte Esterase Nasal Screen MRSA (PCR) Negative Blood Type Antibody Screen Crossmatch 12/18/18 04:46 WBC RBC Hgb Hct MCV MCH MCHC RDW Std Deviation RDW Coeff of [place] Plt Count MPV Immature Gran % (Auto) Neut % (Auto) Lymph % (Auto) [place] % (Auto) Eos % (Auto) Baso % (Auto) Immature Gran # (Auto) Neut # (Auto) Lymph # (Auto) [place] # (Auto) Eos # (Auto) Baso # (Auto) Toxic Granulation Polychromasia Echinocytes PT INR Sodium 138 Potassium 4.2 Chloride 106 Carbon Dioxide 25 Anion Gap 7.0 BUN 11 Creatinine 0.68 Est Cr Clr Drug Dosing 70.1 Est GFR ( Amer) 101.3 Est GFR (Non-Af Amer) 87.4 BUN/Creatinine Ratio 16.5 Glucose 125 H Calcium 8.0 L Troponin I Urine Color Urine Appearance Urine pH Ur Specific [employer] Urine Protein Urine Glucose (UA) Urine Ketones Urine Blood Urine Nitrite Urine Bilirubin Urine Urobilinogen Ur Leukocyte Esterase Nasal Screen MRSA (PCR) Blood Type Antibody Screen Crossmatch Diagnostic Findings Echocardiogram: Small left atrial cavity size with at least moderate left hypertrophy and hyperdynamic LV function EF greater than 70% there is a basilar to mid cavity obliteration in systole. There are no wall motion abnormalities there is moderate aortic sclerosis without stenosis
--- NOTE | 2018-12-18 13:08 | Consultation ---
Date of Consultation December 18, 2018 Assessment & Plan (1) Perforated bowel: Status post OR, appears to be doing well, continue antibiotics and supportive care (2) Acute abdomen: As above, also will try to gently adjust pain regimen (3) History of CVA (cerebrovascular accident): She notes this was found incidentally on a CT done for other reasons, and is never noted symptoms from this. Continue secondary risk reduction (4) Peripheral neuropathy: Ongoing outpatient management (5) Elevated troponin: Is almost certainly demand ischemia due to the sepsis from her perforated abdomen. However given her lack of a known cardiac history, her EKG changes, and her troponin elevation, we will check an echocardiogram and serial EKGs. Depending on the findings she may need physiologic testing when she is recovered from the current problem. Supportive care otherwise (6) Anemia: Follow (7) Compression fracture of L1 vertebra: Outpatient management (8) Left ventricular hypertrophy: LVH with strain may also be accounting for her EKG changes and elevated troponin given the extra physiologic demand in her situation (9) DVT prophylaxis: Per surgery History of Present Illness Attending Physician: Chet Stephen, DO She is feeling okay overall, she notes that she does have a decent amount of abdominal pain. She notes the pain meds and not really helping all that much. However she does note that the pain is definitely better than it was whenever she first came in. It is predominantly in her right upper abdomen as well as to a degree epigastric. She denies any overt shortness of breath, noting that she does not feel any air hunger whenever she is at rest. She does note whenever she is talking she has a hard time talking and breathing at the same time, although on directed questioning this seems to be due to abdominal pain. She denies any chest pain pressure or shortness of breath otherwise Allergies Allergy/AdvReac Type Severity Reaction Status Date / Time No Known Allergies Allergy Verified 12/09/18 05:43 Home Medications Home Medications Medication Instructions Recorded Confirmed Type duloxetine 30 mg PO QAM 10/07/18 12/17/18 History duloxetine [Cymbalta] 60 mg PO QAM 10/07/18 12/17/18 History isosorbide mononitrate 30 mg PO QAM 10/07/18 12/17/18 History omeprazole 40 mg PO BID 10/07/18 12/17/18 History docusate sodium [Colace] 100 mg PO BID #60 cap 12/11/18 12/17/18 Rx oxycodone 5 mg PO TID PRN #14 cap 12/11/18 12/17/18 Rx Patient History Medical History Ureteral stricture Elevated troponin CVA (cerebral vascular accident) 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 NO FURTHER INVESTIGATION WITH NEEDED. Hyperlipidemia Hypertension Kidney stones Migraine Osteoarthritis Peripheral neuropathy Scoliosis Ureter injury RIGHT URETER "SCARRING" Surgical History Hx of ureter repair History of arm fracture RIGHT UE ORIF History of cataract surgery RT/LEFT History of colonoscopy History of cystoscopy WITH STENT INSERTIONS (TOTAL OF 5) History of dilatation and curettage MULTIPLE History of esophagogastroduodenoscopy (EGD) History of hysterectomy History of tooth extraction Family History Grandfather Family history of diabetes mellitus Mother Family hx of colon cancer Social History marital status: Current Living Situation: Family Current Living Situation Comment: Lives with son current occupational status: retired Other Information That Helps Us Care for You: No Feels Safe at Home: Yes Safety Concerns: Feels Safe At This Time Smoking Status: Former smoker Do You Dip or Chew Tobacco: No Second Hand Exposure: Yes Tobacco Cessation Education Requested by Patient: No Hx Alcohol Use: Yes Alcohol type: beer and wine Alcohol Intake Frequency: holidays/special occasions only Hx Substance Use: No Beliefs That Will Affect Care: None Preferred Language: French Communication Ability: Effective Experience Specialist Required: No Review of Systems Review of systems otherwise negative except for as above Physical Exam 2 Vital Signs (Past 24 Hours): Last Vital Signs Temp 37 C 12/18/18 12:56 Pulse 81 12/18/18 12:56 Resp 17 12/18/18 12:56 BP 119/66 12/18/18 12:56 Pulse Ox 98 12/18/18 12:56 Physical Exam: General she is awake alert oriented x3, pleasant a bit fatigued appearing, at first she is asleep and resting comfortably and does not appear in any distress, when I wake her up and she is talking she does appear mildly labored breathing although it seems to be focused on abdominal pain. HEENT normal cephalic atraumatic mucous membranes are moist. Cardio is regular without rubs murmurs or gallops. Lungs are diminished throughout most diminished at the bases, but no overt rales rhonchi or wheezes with good effort. Abdomen is surprisingly soft although tender predominantly upper abdomen but not any guarding rebound or rigidity. Extremities show no sinus clubbing or edema. Skin shows no rashes no pallor or icterus. Neuro shows cranial nerves II through XII be grossly intact gross motor and sensory appear intact, mental status shows good recent and remote recall normal mood and affect.
[2018-12-18] MEDS: HYDROmorphone INJ 2 MG/ML SYR/VIAL IV PRN ×3 (14:41→18:37)
[2018-12-18] MEDS: ENOXAPARIN INJ 40 MG/0.4 ML SYR SQ SCH (21:56)
[2018-12-19] MEDS: HYDROmorphone INJ 0.5 MG/0.5 ML SYR IV PRN ×3 (00:02→06:58)
[2018-12-19] MEDS: METOPROLOL TARTRATE 1 MG/ML VIAL IV SCH ×6 (01:17→20:39)
[2018-12-19] MEDS: LACTATED RINGER'S 1,000 ML IV SCH ×2 (01:18→07:49)
[2018-12-19] MEDS: PIPERACILLIN/TAZOBACTAM 3.375 GM in DEXTROSE 5% 100 ML IV SCH ×3 (04:45→20:44)
[2018-12-19] MEDS: ACETAMINOPHEN 1,000 MG/100 ML VIAL IV SCH ×3 (04:48→20:41)
[2018-12-19 07:04] LABS: Hematocrit (blood only) 33.8 % (37-47); Hemoglobin 11.3 g/dL (12.0-16.0); Mean Corpuscular Hgb Conc 33.4 g/dL (32-36); Mean Corpuscular Volume 88.7 fL (80-100); Mean Platelet Volume 9.3 fL (7.4-10.4); Platelet Count 569 K/uL (130-400); RDW Coefficient of Variation 14.2 % (11.5-14.5); RDW Standard Deviation 46.5 fL (36.4-46.3); Red Blood Count 3.81 M/uL (4.2-5.4); White Blood Count 43.55 K/uL (4.8-10.8)
[2018-12-19 07:23] LABS: BUN Creatinine Ratio 22.2 (10-20); Calcium 7.9 mg/dl (8.5-10.1); Creatinine Clr Calc Pharmacy 54.9 ml/min; Est GFR (African American) 85.4; Est GFR (Non-African American) 73.7; Potassium 3.9 mmol/L (3.5-5.1)
--- NOTE | 2018-12-19 07:25 | Urology Progress Note ---
Date of Service December 19, 2018 Assessment & Plan (1) Perforated bowel: POD#2 s/p emergent ex lap for cecal/colonic leak/abscess -Continues gradual recovery -Slow diet advance -Continue ambulation Subjective Gradual improvement from yesterday, ambulated slightly but is uncomfortable with right upper quadrant pain her predominant issue Has some cough, no chest pain Physical Exam 2 Vital Signs (Past 24 Hours): Last Vital Signs Temp 37.4 C 12/19/18 03:57 Pulse 85 12/19/18 03:57 Resp 18 12/19/18 03:57 BP 112/62 12/19/18 03:57 Pulse Ox 94 12/19/18 03:57 Physical Exam: No apparent distress No respiratory distress Tender in the right upper quadrant, appropriateJP serosanguineous Still dressed, other incisions without signs of infection
[2018-12-19 07:27] LABS: Basophils # (auto) 0.04 K/uL (0-0.2); Basophils % (auto) 0.1 %; Eosinophils # (auto) 0.04 K/uL (0-0.5); Eosinophils % (auto) 0.1 %; Immature Granulocytes # (auto) 0.37 K/uL (0.00-0.02); Immature Granulocytes % (auto) 0.8 %; Lymphocytes # (auto) 1.03 K/uL (1.2-3.4); Lymphocytes % (auto) 2.4 %; Monocytes # (auto) 1.66 K/uL (0.11-0.59); Monocytes % (auto) 3.8 %; Neutrophils # (auto) 40.41 K/uL (1.4-6.5); Neutrophils % (auto) 92.8 %; Toxic Granulation 1+
[2018-12-19] MEDS ORDERED: NALOXONE HCL 0.4 MG/1 ML VIAL/CARP IV PRN (08:11)
--- NOTE | 2018-12-19 08:17 | Surgery Progress Note ---
Date of Service December 19, 2018 Assessment & Plan (1) Perforated bowel: POD 2 WBC remains elevated but HR improved, afebrile cont Zosyn will add POT FIREMAN PT/OT keep on sips for now Subjective having more incision pain overnight, no nausea, no flatus, taking some ice Physical Exam 2 Vital Signs (Past 24 Hours): Last Vital Signs Temp 36.9 C 12/19/18 08:00 Pulse 77 12/19/18 08:00 Resp 18 12/19/18 08:00 BP 118/63 12/19/18 08:00 Pulse Ox 99 12/19/18 08:00 Gastrointestinal (Abdomen): Inspection/Auscultation: + abdomen distended (mild ) and + abdominal surgical drain present (approx 40 cc each per shift) Percussion/Palpation: abdomen soft
[2018-12-19] MEDS: SODIUM CHLORIDE 0.9% 1000ML 1,000 ML IV SCH ×2 (09:07→19:00)
[2018-12-19] MEDS: D5W AND 1/2NSS + 20MEQ KCL 20 MEQ/1,000 ML BAG IV SCH ×3 (09:07→20:32)
[2018-12-19] MEDS: HYDROmorphone HCL 0.5MG/ML 50 ML CASSETTE IV PRN ×2 (10:06→14:00)
--- NOTE | 2018-12-19 10:07 | Family Medicine Progress Note ---
Date of Service December 19, 2018 Assessment & Plan (1) Right lower quadrant abscess: Le is a 73 year old female with a PMH of CVA, peripheral neuropathy, L1 compression fracture that presented to [facility] with a RLQ abscess secondary to a urological procedure. She is currently POD #2 for emergent ex lap, right hemicolectomy, enterolysis, and abdominal washout. She is continuing to have significant RLQ pain and is also having a worsening cough and WCC. RLQ abdominal abscess s/p right hemicolectomy, enterolysis and ab washout- patient currently with increased pain overnight requiring large amount of dilaudid, CLASSROOM MONITOR pump ordered for primary team, patient on IV Zosyn, will order KUB to evaluate for post op ileus, advance diet as tolerated Worsening cough and elevated WCC- will order CXR to evaluate for post op pneumonia, currently on Zosyn but this would not cover gram +'s, continue incentive spirometer Hx of CVA - denies any symptoms currently Peripheral neuropathy secondary to vertebral compression fractures- continue duloxetine Elevated troponin- currently trending down, denies any significant chest pain, echo showed LVH and elevated RVSP >40-50mmhg. will need to ask patient about sleep apnea symptoms when better DVT prophylaxis - lovenox Supervising Physician Co-Signing Physician Notes I personally examined the patient and verified all ward points of history and exam, discussed case, and agree with decision making with Dr Willard. Continues to feel slightly better; belly does still hurt but CLASSROOM MONITOR pump is helping quite a bit. Breathing is improving Vitals noted, in general she is less distressed than yesterday, although she does still appear uncomfortable to degree. Breathing is less labored. She does have right basilar rales. Chest x-ray noted to have a right basilar infiltrate Pneumoniagiven that she was vomiting prior to coming in, quite likely this is aspiration in the Zosyn is covering it. However given that she has not diagnosed now, we will need to give consideration to healthcare associated, MRSA nares has been ordered, if negative vancomycin will be needed, otherwise vancomycin coverage on top of the Zosyn would be warranted. Otherwise as above Subjective Patient notes that she was in a lot of pain overnight and required a good amount of dilaudid. She has a CLASSROOM MONITOR pump ordered by the surgical team this morning. The patient also notes that she has had a productive cough and she feels more subjectively short of breath than she did yesterday. She denies any fevers or chills. She still has not had a bowel movement since being admitted. Review of Systems All systems reviewed & are unremarkable except as noted in HPI & below Physical Exam 2 Vital Signs (Past 24 Hours): Last Vital Signs Temp 36.9 C 12/19/18 08:00 Pulse 77 12/19/18 08:00 Resp 18 12/19/18 08:00 BP 118/63 12/19/18 08:00 Pulse Ox 99 12/19/18 08:00 Physical Exam: Gen: patient wincing and appears uncomfortable, non toxic appearing Abdomen: Large bandage over abdomen with drain in place, draining light pink liquid from drain, tender to palpation throughout abdomen with decreased bowel sounds Cardiac: RRR, no murmurs rubs or gallops Lungs: no wheezes, decreased air entry at the bases, RLL crackles Lower extremities: no obvious swelling or edema noted
--- NOTE | 2018-12-19 10:57 | XRay Report ---
XR chest 1V portable CLINICAL HISTORY: Cough, RLL crackles dyspnea COMPARISON STUDY: 10/13/2018 FINDINGS: Mild cardiomegaly. Small parenchymal infiltrate right base. Trace pleural effusions bilater ally. Upper lungs are clear. IMPRESSION: Cardiomegaly with small parenchymal infiltrate right base. Trace pleural fluid/pleural e ffusions bilaterally. The above report was generated using voice recognition software. It may contain grammatical, syntax or spelling errors. Electronically signed by: Wally Steward M.D. 12/19/2018 10:56 AM
--- NOTE | 2018-12-19 11:04 | XRay Report ---
KUB HISTORY: Acute generalized abdominal pain with recent surgery Worsening ab pain COMPARISON: KUB 12/09/2018, CT abdomen and pelvis 12/17/2018. FINDINGS: Surgical clips project about the midline abdomen. Right ureteral stent appears unchanged. Additional surgical clips project about the lower right abdominal wall. Surgical drainage catheter about the lef t abdomen distal tip projects of the central pelvis. Additional drainage catheter is noted, distal ti p about the abdominal right upper quadrant. Nonobstructive bowel gas pattern. No gross pneumatosis or pneumoperitoneum. No urolith or acute fracture. Degenerative changes of the pelvis, hips and spine. IMPRESSION: 1. Nonobstructive bowel gas pattern. 2. Postoperative changes with surgical drainage catheters as above. 3. Stable positioning of the right ureteral stent. Electronically signed by: Av Bautista M.D. 12/19/2018 11:02 AM
--- NOTE | 2018-12-19 11:59 | Cardiology Progress Note ---
Date of Service December 19, 2018 Assessment & Plan (1) Elevated troponin: Troponin elevation appears to be secondary to acute illness and demand based stress. Echocardiogram demonstrates at least moderate left hypertrophy with very hyperdynamic LV systolic function and no wall motion abnormalities, LV cavity size is small. Hypertrophic nonobstructive cardiomyopathy not excluded but the patient carries a history of prior hypertension. Findings currently do not support acute coronary syndrome Would initiate beta-abelardo therapy with IV metoprolol 2.5 mg every 4 hours. Support blood pressure with volume and treat underlying infectious process Plan continue IV metoprolol today when patient consistently taking p.o. we will switch to oral dosing No evidence of ongoing ischemia though EKG abnormal. (2) Left ventricular hypertrophy: More pronounced on current EKGs. Echocardiogram confirms present. Strain pattern in the basis of elevated blood pressures, elevated heart rate and acute illness (3) Right lower quadrant abscess: As per primary and critical care service Subjective Patient seen and examined chart medications telemetry reviewed. Patient appears slightly less ill this morning sitting out of bed in chair but notes nausea and abdominal pain last night. Notes no chest pains or tachypalpitations notes no dizziness or lightheadedness. Physical Exam 2 Vital Signs (Past 24 Hours): Last Vital Signs Temp 36.9 C 12/19/18 08:00 Pulse 77 12/19/18 08:00 Resp 18 12/19/18 10:57 BP 118/74 12/19/18 10:57 Pulse Ox 97 12/19/18 10:57 Constitutional: Less ill-appearing this morning. Eyes: PERRL, conjunctivae normal, anicteric sclerae ENMT: external ear and nose normal, oropharynx normal Cardiovascular: Rate/Rhythm: regular rate and regular rhythm Heart Sounds: normal S1, normal S2 and + murmur (Grade 2/6 systolic, no diastolic); no gallop Vessels: normal peripheral pulses, normal carotid upstroke and femoral pulses present; no carotid bruit and no abdominal aortic bruit Extremities: + pedal edema (Trace to 1+ pedal) Neurologic: PERRL, EOMI, accommodation nl, no face palsy, no dysarthria Results & Data Laboratory Results Laboratory Results - last 24 hr 12/19/18 12/19/18 06:43 06:43 WBC 43.55 H* RBC 3.81 L Hgb 11.3 L Hct 33.8 L MCV 88.7 MCH 29.7 MCHC 33.4 RDW Std Deviation 46.5 H RDW Coeff of Lainey 14.2 Plt Count 569 H MPV 9.3 Immature Gran % (Auto) 0.8 Neut % (Auto) 92.8 Lymph % (Auto) 2.4 Dawes % (Auto) 3.8 Eos % (Auto) 0.1 Baso % (Auto) 0.1 Immature Gran # (Auto) 0.37 H Neut # (Auto) 40.41 H Lymph # (Auto) 1.03 L Dawes # (Auto) 1.66 H Eos # (Auto) 0.04 Baso # (Auto) 0.04 Toxic Granulation 1+ Sodium 137 Potassium 3.9 Chloride 106 Carbon Dioxide 24 Anion Gap 7.0 BUN 18 D Creatinine 0.80 Est Cr Clr Drug Dosing 54.9 Est GFR ( Amer) 85.4 Est GFR (Non-Af Amer) 73.7 BUN/Creatinine Ratio 22.2 H Glucose 89 Calcium 7.9 L ECG Additional Comments: 19-DEC-2018 06:11:50 [facility] Normal sinus rhythm ST & T wave abnormality, consider inferior ischemia ST & T wave abnormality, consider anterolateral ischemia Abnormal ECG When compared with ECG of 17-DEC-2018 12:22, Premature ventricular complexes are no longer Present
[2018-12-19] MEDS: PANTOprazole 40 MG in SYRINGE 0 ML IV SCH (12:21)
--- NOTE | 2018-12-19 12:53 | Surgery Progress Note ---
Date of Service December 19, 2018 Assessment & Plan (1) Perforated bowel: POD 2 ex-lap, right hemicolectomy, abdominal washout clinically improving ok to have some clears. wait for Bowel fx for food WBC increased...?reactive. clinically improving so will wait one more day to further eval. no bowel fx yet Dr. Torres covering for weekend. Subjective feeling better than yesterday. no new complaints. hungry Physical Exam 2 Vital Signs (Past 24 Hours): Last Vital Signs Temp 36.3 C L 12/19/18 12:00 Pulse 93 H 12/19/18 12:00 Resp 18 12/19/18 12:00 BP 102/62 12/19/18 12:00 Pulse Ox 94 12/19/18 12:00 Physical Exam: alert. NAD abdomen: wounds look good. no erythema. no drainage PRASAD's both serous.
[2018-12-19] MEDS ORDERED: VANCOMYCIN CONSULT ACTIVE PRN (14:47)
[2018-12-19] MEDS ORDERED: VANCOMYCIN HCL 1,750 MG in SODIUM CHLORIDE 0.9% 500 ML IV ONE (15:00)
--- NOTE | 2018-12-19 15:23 | Pharmacy Report ---
Pharmacy Abx Initial Consult - Date of Service December 19, 2018 - Pharmacy Dosing Scope Date of Consult: 12/19/18 Consultation requested by: Dr. Willard Pharmacy is consulted to initiate Vancomycin IV dosing therapy, order appropriate labs and adjust drug dose/frequency. - Subjective The patient is a 73 year old F admitted on 12/17/18 17:18 with Right lower quadrant abscess secondary to urological procedure, POD #2 for emergent ex lap, right hemicolectomy, enterolysis, and abdominal washout. She is continuing to have significant RLQ pain and is also having a worsening cough and WBC. Starting IV Vancomycin for postop pneumonia. PMH of CVA, peripheral neuropathy, L1 compression fracture. Patient on IV Zosyn for abscess. - Objective Height: 5 ft 4 in Weight: 65.6 kg Vital Signs (Past 12hrs): Vital Signs Temp Pulse Pulse Resp BP Pulse Ox 12/19/18 14:00 36.8 C 98 H 18 120/68 98 12/19/18 13:00 36.6 C 97 H 20 122/79 98 12/19/18 12:00 36.3 C L 93 H 18 102/62 94 12/19/18 10:57 18 118/74 97 12/19/18 08:00 36.9 C 77 18 118/63 99 12/19/18 03:57 37.4 C 85 18 112/62 94 Lab Results (24hrs): Laboratory Tests (24 Hours) 12/19/18 12/19/18 06:43 06:43 WBC 43.55 H* Neut # (Auto) 40.41 H Creatinine 0.80 Est Cr Clr Drug Dosing 54.9 Micro Results: 12/17/18 Unknown Gram Stain - Final Abdomen Microbiology 12/17/18 Unknown Abdomen Gram Stain - Final 12/17/18 Unknown Abdomen Aerobic and Anaerobic Culture - Preliminary Alpha strep. not enterococcus Probable scout gram neg bacilli - Risk Factors for Resistance * Antimicrobial use within the last 90 days - IV zosyn for abdominal abscess - Assessment & Plan Assessment 73 year old F POD #2 for emergent ex lap, right hemicolectomy, enterolysis, and abdominal washout. She is continuing to have significant RLQ pain and is also having a worsening cough and WBC, starting IV Vancomycin for possible postop pneumonia. Chest Xray ordered. Plan Vancomycin IV for treatment of possible postop pneumonia. Vancomycin IV * Estimated PK Parameters: Vd 0.7 L/kg, Nelson 0.05 hr-1, t1/2 13.9hr * Loading dose: 1750 mg (26.6 mg/kg) * Maintenance dose: 1000 mg IV (15.2 mg/kg) every 18 hours * Goal trough level for pneumonia : 15 to 20 mcg/mL * Trough level ordered for 12/21/18 * Ordered MRSA Nasal swab Piperacillin/tazobactam * 3.375 g IV extended infusion every 8 hours for CrCl greater than 20 mL/min Pharmacy will continue to follow and will adjust dose/frequency as necessary. Thank you.
[2018-12-19] MEDS: ENOXAPARIN INJ 40 MG/0.4 ML SYR SQ SCH (20:43)
[2018-12-20] MEDS: METOPROLOL TARTRATE 1 MG/ML VIAL IV SCH ×6 (00:04→20:26)
[2018-12-20] MEDS: ACETAMINOPHEN 1,000 MG/100 ML VIAL IV SCH ×3 (03:57→20:25)
[2018-12-20] MEDS: PIPERACILLIN/TAZOBACTAM 3.375 GM in DEXTROSE 5% 100 ML IV SCH ×3 (04:05→20:32)
[2018-12-20] MEDS: D5W AND 1/2NSS + 20MEQ KCL 20 MEQ/1,000 ML BAG IV SCH ×3 (04:40→22:31)
[2018-12-20 06:10] LABS: Albumin Level 1.7 gm/dl (3.4-5.0); Calcium 7.4 mg/dl (8.5-10.1); Est GFR (African American) 98.6; Est GFR (Non-African American) 85.1; Potassium 3.7 mmol/L (3.5-5.1)
[2018-12-20 06:13] LABS: Albumin Globulin Ratio 0.5 (0.9-2); Bilirubin,Total 0.4 mg/dl (0.2-1); Globulin 3.6 gm/dl (2.5-4.0); Total Protein 5.3 gm/dl (6.4-8.2)
[2018-12-20 06:15] LABS: Hematocrit (blood only) 29.8 % (37-47); Hemoglobin 9.9 g/dL (12.0-16.0); Mean Corpuscular Hgb Conc 33.2 g/dL (32-36); Mean Corpuscular Volume 89.5 fL (80-100); Platelet Count 583 K/uL (130-400); RDW Coefficient of Variation 14.1 % (11.5-14.5); RDW Standard Deviation 46.4 fL (36.4-46.3); Red Blood Count 3.33 M/uL (4.2-5.4)
[2018-12-20 06:20] LABS: Basophils # (auto) 0.01 K/uL (0-0.2); Echinocytes 1+; Eosinophils # (auto) 0.09 K/uL (0-0.5); Eosinophils % (auto) 0.3 %; Immature Granulocytes # (auto) 0.22 K/uL (0.00-0.02); Immature Granulocytes % (auto) 0.7 %; Lymphocytes # (auto) 1.06 K/uL (1.2-3.4); Lymphocytes % (auto) 3.3 %; Monocytes # (auto) 1.37 K/uL (0.11-0.59); Monocytes % (auto) 4.3 %; Neutrophils # (auto) 28.95 K/uL (1.4-6.5); Neutrophils % (auto) 91.4 %; Polychromasia 1+
[2018-12-20] MEDS ORDERED: PIPERACILL/TAZOBAC CONSULT ACTIVE PRN (09:18)
[2018-12-20] MEDS ORDERED: PIPERACILLIN/TAZOBACTAM 3.375 GM in DEXTROSE 5% 100 ML IV SCH (09:30)
--- NOTE | 2018-12-20 09:36 | Family Medicine Progress Note ---
Date of Service December 20, 2018 Assessment & Plan (1) Right lower quadrant abscess: (1) Right lower quadrant abscess: Le is a 73 year old female with a PMH of CVA, peripheral neuropathy, L1 compression fracture that presented to [facility] with a RLQ abscess secondary to a urological procedure. She is currently POD #2 for emergent ex lap, right hemicolectomy, enterolysis, and abdominal washout. Her WCC is improving today and her pain seems to be better controlled with the WINDSURFING INSTRUCTOR pump RLQ abdominal abscess s/p right hemicolectomy, enterolysis and ab washout- WINDSURFING INSTRUCTOR pump ordered for primary team, patient on IV Zosyn, KUB did not show any obstruction, advance diet as tolerated Worsening cough and elevated WCC- CXR did show a RLL pneumnonia, MRSA nares negative, likely from aspiration event due to vomiting prior to coming into hospital. continue with zosyn, continue incentive spirometer Hx of CVA - denies any symptoms currently Peripheral neuropathy secondary to vertebral compression fractures- continue duloxetine Elevated troponin- currently trending down, denies any significant chest pain, echo showed LVH and elevated RVSP >40-50mmhg. DVT prophylaxis - lovenox Dispo- PT/OT ordered, will likely need acute rehab once doing better medically Supervising Physician Co-Signing Physician Notes I personally examined the patient and verified all ward points of history and exam, discussed case, and agree with decision making with Dr Willard. sleeping comfortably. Vitals noted, sleeping in chair, no distress. breathing unlabored no pallor or icterus. no other acute findings Pneumoniagiven that she was vomiting prior to coming in, quite likely this is aspiration in the Zosyn is covering it. continue supportive care. Otherwise as above Subjective Le appears to be feeling much better this morning. She is sitting in a chair at the bedside. She states she was up all night using her WINDSURFING INSTRUCTOR pump. She notes that her pain has improved to a 3/10. She says she has been tolerating a diet. She still has not had a bowel movement since she arrived and has not been passing gas. She denies any nausea, vomiting. She has been urinating frequently. Physical Exam 2 Vital Signs (Past 24 Hours): Last Vital Signs Temp 36.6 C 12/20/18 07:07 Pulse 77 12/20/18 07:07 Resp 18 12/20/18 07:07 BP 116/74 12/20/18 07:07 Pulse Ox 95 12/20/18 07:07 Physical Exam: Gen: patient sitting in chair next to the bed, appears to be in no distress Abdomen: Large bandage over abdomen with drain in place, draining light pink liquid from drain, tender to palpation throughout abdomen with decreased bowel sounds Cardiac: RRR, no murmurs rubs or gallops Lungs: no wheezes, decreased air entry at the bases, RLL crackles Lower extremities: no obvious swelling or edema noted
[2018-12-20] MEDS ORDERED: VANCOMYCIN HCL 1,000 MG in SODIUM CHLORIDE 0.9% 250 ML IV SCH (10:00)
--- NOTE | 2018-12-20 10:09 | Urology Progress Note ---
Date of Service December 20, 2018 Assessment & Plan (1) Perforated bowel: progressing cr stable cont to follow Subjective improving no nausea pain better no flatus/BM yet - oob to chair, minimal ambulation so far Physical Exam 2 Vital Signs (Past 24 Hours): Last Vital Signs Temp 36.6 C 12/20/18 07:07 Pulse 77 12/20/18 07:07 Resp 18 12/20/18 07:07 BP 116/74 12/20/18 07:07 Pulse Ox 95 12/20/18 07:07 Physical Exam: PRASAD mostly serous abd soft, approp tender incisions look ok
[2018-12-20] MEDS: SODIUM CHLORIDE 0.9% 1000ML 1,000 ML IV SCH (10:12)
[2018-12-20] MEDS: PANTOprazole 40 MG in SYRINGE 0 ML IV SCH (12:12)
--- NOTE | 2018-12-20 13:33 | Cardiology Progress Note ---
Date of Service December 20, 2018 Assessment & Plan (1) Elevated troponin: Troponin elevation appears to be secondary to acute illness and demand based stress. Echocardiogram demonstrates at least moderate left hypertrophy with very hyperdynamic LV systolic function and no wall motion abnormalities, LV cavity size is small. Hypertrophic nonobstructive cardiomyopathy not excluded but the patient carries a history of prior hypertension. Findings currently do not support acute coronary syndrome Would initiate beta-abelardo therapy with IV metoprolol 2.5 mg every 4 hours. Support blood pressure with volume and treat underlying infectious process tolerating clears currently will change metoprolol to po once consistently taking po no further cardiac testing necessary ok to d/c tele from cardiac standpoint. (2) Left ventricular hypertrophy: More pronounced on current EKGs. Echocardiogram confirms present. Strain pattern in the basis of elevated blood pressures, elevated heart rate and acute illness (3) Right lower quadrant abscess: As per primary team Subjective Pt seen and examined, states that she's feeling much better this AM. Abdominal pain is controlled with GRADES 1 THROUGH 5 TEACHER. Does have an appetite, currently eating clears. Denies cp, sob, palpitations, lightheadedness or dizziness. Tele reviewed: sinus rhythm without arrhythmia or significant ectopy. Review of Systems All systems reviewed & are unremarkable except as noted in HPI & below Physical Exam 2 Vital Signs (Past 24 Hours): Last Vital Signs Temp 36.2 C L 12/20/18 10:44 Pulse 93 H 12/20/18 10:44 Resp 18 12/20/18 10:44 BP 125/73 12/20/18 10:44 Pulse Ox 99 12/20/18 10:44 Physical Exam: General: Awake, alert and oriented x 3. No acute distress. HEENT: Normocephalic, atraumatic. Pupils equal, round and reactive to light and accommodation. Extraocular muscles are intact. Anicteric sclera. Moist mucous membranes. Neck: No JVD. No bruit. Cardiovascular: Regular. Positive S-4. Normal S-1 and S-2. No S-3. No murmurs or rubs. Pulmonary: Clear to auscultation B/L. No rales, rhonchi or wheezing Abdomen: Bowel sounds x 4, soft. No rebound, guarding or tenderness. No organomegaly. Extremities: No clubbing, cyanosis or edema. +2 pedal pulses bilaterally. Skin: Warm and dry.
--- NOTE | 2018-12-20 15:19 | Surgery Progress Note ---
Date of Service December 20, 2018 Assessment & Plan (1) Perforated bowel: POD # 3 s/p ex lap, right hemicolectomy for cecal-terminal ileum perforation - vitals stable - Leukocytosis improving to 31K today, afebrile - moderate pain, better controlled with ANIMAL CHIROPRACTOR - No return of bowel function Plan: Continue clear liquids Continue ANIMAL CHIROPRACTOR for pain management Continue IV Abx Continue IV fluids Continue solitario drain to bulb suction repeat am labs SCDs and Lovenox for DVT prophylaxis Protonix IV Dr. Torres has seen and examined pt, agrees with above Subjective Feeling better today, pain is better controlled with ANIMAL CHIROPRACTOR + reflux no nausea or vomiting tolerating clears no flatus or bowel movement urinating without difficulty Physical Exam 2 Vital Signs (Past 24 Hours): Last Vital Signs Temp 36.2 C L 12/20/18 10:44 Pulse 93 H 12/20/18 10:44 Resp 18 12/20/18 10:44 BP 125/73 12/20/18 10:44 Pulse Ox 99 12/20/18 10:44 Constitutional: WD/WN, vitals as above no acute distress and not ill appearing Respiratory: normal respiratory effort, lungs clear to auscultation Cardiovascular: RRR, no murmur, no edema Gastrointestinal (Abdomen): Inspection/Auscultation: abdomen not distended and + abnormal bowel sounds Percussion/Palpation: + abdomen tender and abdomen soft; no guarding and abdomen not rigid Skin: no rashes, warm and dry Psychiatric: A+Ox3, euthymic affect Results & Data Laboratory Results 12/20/18 12/20/18 12/20/18 Range/Units 05:25 05:25 00:08 WBC 31.70 H* D (4.8-10.8) K/uL RBC 3.33 L (4.2-5.4) M/uL Hgb 9.9 L (12.0-16.0) g/dL Hct 29.8 L (37-47) % MCV 89.5 (80-100) fL MCH 29.7 (25-34) pg MCHC 33.2 (32-36) g/dL RDW Std Deviation 46.4 H (36.4-46.3) fL RDW Coeff of Lainey 14.1 (11.5-14.5) % Plt Count 583 H (130-400) K/uL MPV 9.0 (7.4-10.4) fL Immature Gran % (Auto) 0.7 % Neut % (Auto) 91.4 % Lymph % (Auto) 3.3 % Swain % (Auto) 4.3 % Eos % (Auto) 0.3 % Baso % (Auto) 0.0 % Immature Gran # (Auto) 0.22 H (0.00-0.02) K/uL Neut # (Auto) 28.95 H (1.4-6.5) K/uL Lymph # (Auto) 1.06 L (1.2-3.4) K/uL Swain # (Auto) 1.37 H (0.11-0.59) K/uL Eos # (Auto) 0.09 (0-0.5) K/uL Baso # (Auto) 0.01 (0-0.2) K/uL Polychromasia 1+ Echinocytes 1+ Sodium 137 (136-145) mmol/L Potassium 3.7 (3.5-5.1) mmol/L Chloride 108 H (98-107) mmol/L Carbon Dioxide 26 (21-32) mmol/L Anion Gap 3.0 (3-11) BUN 14 (7-18) mg/dl Creatinine 0.71 (0.6-1.2) mg/dl Est Cr Clr Drug Dosing 67.0 ml/min Est GFR ( Amer) 98.6 Est GFR (Non-Af Amer) 85.1 BUN/Creatinine Ratio 20.0 (10-20) Glucose 129 H (70-99) mg/dl Calcium 7.4 L (8.5-10.1) mg/dl Total Bilirubin 0.4 (0.2-1) mg/dl AST 12 L (15-37) U/L ALT 34 (12-78) U/L Alkaline Phosphatase 104 (45-117) U/L Total Protein 5.3 L (6.4-8.2) gm/dl Albumin 1.7 L (3.4-5.0) gm/dl Globulin 3.6 (2.5-4.0) gm/dl Albumin/Globulin Ratio 0.5 L (0.9-2) Nasal Screen MRSA (PCR) Negative (Negative) Crossmatch 12/17/18 Range/Units 16:05 WBC (4.8-10.8) K/uL RBC (4.2-5.4) M/uL Hgb (12.0-16.0) g/dL Hct (37-47) % MCV (80-100) fL MCH (25-34) pg MCHC (32-36) g/dL RDW Std Deviation (36.4-46.3) fL RDW Coeff of Lainey (11.5-14.5) % Plt Count (130-400) K/uL MPV (7.4-10.4) fL Immature Gran % (Auto) % Neut % (Auto) % Lymph % (Auto) % Swain % (Auto) % Eos % (Auto) % Baso % (Auto) % Immature Gran # (Auto) (0.00-0.02) K/uL Neut # (Auto) (1.4-6.5) K/uL Lymph # (Auto) (1.2-3.4) K/uL Swain # (Auto) (0.11-0.59) K/uL Eos # (Auto) (0-0.5) K/uL Baso # (Auto) (0-0.2) K/uL Polychromasia Echinocytes Sodium (136-145) mmol/L Potassium (3.5-5.1) mmol/L Chloride (98-107) mmol/L Carbon Dioxide (21-32) mmol/L Anion Gap (3-11) BUN (7-18) mg/dl Creatinine (0.6-1.2) mg/dl Est Cr Clr Drug Dosing ml/min Est GFR ( Amer) Est GFR (Non-Af Amer) BUN/Creatinine Ratio (10-20) Glucose (70-99) mg/dl Calcium (8.5-10.1) mg/dl Total Bilirubin (0.2-1) mg/dl AST (15-37) U/L ALT (12-78) U/L Alkaline Phosphatase (45-117) U/L Total Protein (6.4-8.2) gm/dl Albumin (3.4-5.0) gm/dl Globulin (2.5-4.0) gm/dl Albumin/Globulin Ratio (0.9-2) Nasal Screen MRSA (PCR) (Negative) Crossmatch See Detail
[2018-12-20] MEDS: ENOXAPARIN INJ 40 MG/0.4 ML SYR SQ SCH (20:28)
[2018-12-20] MEDS: CALCIUM CARBONATE 500 MG CHEWABLE TAB PO PRN (22:30)
[2018-12-20] MEDS: HYDROmorphone HCL 0.5MG/ML 50 ML CASSETTE IV PRN ×2 (23:02→23:55)
[2018-12-21] MEDS: METOPROLOL TARTRATE 1 MG/ML VIAL IV SCH ×6 (00:25→19:45)
[2018-12-21] MEDS: ACETAMINOPHEN 1,000 MG/100 ML VIAL IV SCH ×3 (04:20→19:38)
[2018-12-21] MEDS: PIPERACILLIN/TAZOBACTAM 3.375 GM in DEXTROSE 5% 100 ML IV SCH ×3 (05:00→20:05)
[2018-12-21 06:45] LABS: Hematocrit (blood only) 30.7 % (37-47); Mean Corpuscular Hgb Conc 32.6 g/dL (32-36); Mean Corpuscular Volume 89.8 fL (80-100); Platelet Count 583 K/uL (130-400); RDW Standard Deviation 46.3 fL (36.4-46.3); Red Blood Count 3.42 M/uL (4.2-5.4); White Blood Count 31.64 K/uL (4.8-10.8)
[2018-12-21 06:51] LABS: Basophils # (auto) 0.02 K/uL (0-0.2); Basophils % (auto) 0.1 %; Eosinophils % (auto) 0.3 %; Immature Granulocytes # (auto) 0.21 K/uL (0.00-0.02); Immature Granulocytes % (auto) 0.7 %; Lymphocytes # (auto) 1.04 K/uL (1.2-3.4); Lymphocytes % (auto) 3.3 %; Monocytes # (auto) 1.23 K/uL (0.11-0.59); Monocytes % (auto) 3.9 %; Neutrophils # (auto) 29.04 K/uL (1.4-6.5); Neutrophils % (auto) 91.7 %
[2018-12-21] MEDS: HYDROmorphone HCL 0.5MG/ML 50 ML CASSETTE IV PRN (06:54)
[2018-12-21 06:57] LABS: BUN Creatinine Ratio 15.5 (10-20); Calcium 7.5 mg/dl (8.5-10.1); Creatinine Clr Calc Pharmacy 69.9 ml/min; Est GFR (African American) 101.3; Est GFR (Non-African American) 87.4; Potassium 3.6 mmol/L (3.5-5.1)
[2018-12-21] MEDS: SODIUM CHLORIDE 0.9% 1000ML 1,000 ML IV SCH (07:56)
[2018-12-21] MEDS: D5W AND 1/2NSS + 20MEQ KCL 20 MEQ/1,000 ML BAG IV SCH ×2 (08:02→19:27)
--- NOTE | 2018-12-21 09:37 | Surgery Progress Note ---
Date of Service December 21, 2018 Assessment & Plan (1) Perforated bowel: Postoperative day #5 status post right hemicolectomy Ambulating Peristalsis returning slowly. Would continue clear liquids Pain level has not yet reduced, blood pressure acceptable No tachycardia Doubt diffuse peritonitis at this time Would continue with present measures Present on Admission?: Yes Subjective Postoperative day 5 States having pain mostly on right side near her lateral abdominal wall incision Nursing reports that she is ambulating better however Denies flatus or bowel movements Physical Exam 2 Vital Signs (Past 24 Hours): Last Vital Signs Temp 36.8 C 12/21/18 07:26 Pulse 93 H 12/21/18 07:53 Resp 16 12/21/18 07:26 BP 134/75 12/21/18 07:53 Pulse Ox 97 12/21/18 07:26 Gastrointestinal (Abdomen): Inspection/Auscultation: abdomen not distended Percussion/Palpation: + abdomen tender (Minimal incisional) and abdomen soft Results & Data Laboratory Results 12/21/18 12/21/18 12/17/18 Range/Units 06:09 06:09 16:05 WBC 31.64 H* (4.8-10.8) K/uL RBC 3.42 L (4.2-5.4) M/uL Hgb 10.0 L (12.0-16.0) g/dL Hct 30.7 L (37-47) % MCV 89.8 (80-100) fL MCH 29.2 (25-34) pg MCHC 32.6 (32-36) g/dL RDW Std Deviation 46.3 (36.4-46.3) fL RDW Coeff of Lainey 14.0 (11.5-14.5) % Plt Count 583 H (130-400) K/uL MPV 9.0 (7.4-10.4) fL Immature Gran % (Auto) 0.7 % Neut % (Auto) 91.7 % Lymph % (Auto) 3.3 % Grady % (Auto) 3.9 % Eos % (Auto) 0.3 % Baso % (Auto) 0.1 % Immature Gran # (Auto) 0.21 H (0.00-0.02) K/uL Neut # (Auto) 29.04 H (1.4-6.5) K/uL Lymph # (Auto) 1.04 L (1.2-3.4) K/uL Grady # (Auto) 1.23 H (0.11-0.59) K/uL Eos # (Auto) 0.10 (0-0.5) K/uL Baso # (Auto) 0.02 (0-0.2) K/uL Sodium 137 (136-145) mmol/L Potassium 3.6 (3.5-5.1) mmol/L Chloride 109 H (98-107) mmol/L Carbon Dioxide 24 (21-32) mmol/L Anion Gap 4.0 (3-11) BUN 10 (7-18) mg/dl Creatinine 0.68 (0.6-1.2) mg/dl Est Cr Clr Drug Dosing 69.9 ml/min Est GFR ( Amer) 101.3 Est GFR (Non-Af Amer) 87.4 BUN/Creatinine Ratio 15.5 (10-20) Glucose 111 H (70-99) mg/dl Calcium 7.5 L (8.5-10.1) mg/dl Crossmatch See Detail
--- NOTE | 2018-12-21 10:02 | Urology Progress Note ---
Date of Service December 21, 2018 Assessment & Plan (1) Perforated bowel: slow progression leukocytosis stable cr stable slow diet progression cont supportive care Subjective minimal change overnight tolerating some PO still with pain ambulating no flatus/BM yet Physical Exam 2 Vital Signs (Past 24 Hours): Last Vital Signs Temp 36.8 C 12/21/18 07:26 Pulse 93 H 12/21/18 07:53 Resp 16 12/21/18 07:26 BP 134/75 12/21/18 07:53 Pulse Ox 97 12/21/18 07:26 Physical Exam: AFVSS uncomfortable appearing no resp distress RRR abd tender, soft - JPs serous moderate lower ext edema
--- NOTE | 2018-12-21 11:41 | Surgery Progress Note ---
Date of Service December 21, 2018 Subjective Postoperative day 5 States having pain mostly on right side near her lateral abdominal wall incision Nursing reports that she is ambulating better however Denies flatus or bowel movements Physical Exam 2 Vital Signs (Past 24 Hours): Last Vital Signs Temp 36.9 C 12/21/18 11:25 Pulse 97 H 12/21/18 11:25 Resp 18 12/21/18 11:25 BP 125/70 12/21/18 11:25 Pulse Ox 97 12/21/18 11:25
[2018-12-21] MEDS: PANTOprazole 40 MG in SYRINGE 0 ML IV SCH (12:07)
--- NOTE | 2018-12-21 18:10 | Family Medicine Progress Note ---
Date of Service December 21, 2018 Assessment & Plan (1) Right lower quadrant abscess: Le is a 73 year old female with a PMH of CVA, peripheral neuropathy, L1 compression fracture admitted for treatment and management of a RLQ abscess that occurred secondary to a recent urological procedure. She is currently POD # 2 for emergent ex lap, right hemicolectomy, enterolysis, and abdominal washout. Her WCC is improving today and her pain seems to be better controlled with the COMMISSION ASSOCIATE pump 1. RLQ abdominal abscess: -Occurred after urterolysis and segmental ureterectomy on 12/10/18 -s/p right hemicolectomy, enterolysis and abdominal washout -POD #4 -WBC 31.46 with left shift 29.0, afebrile, BP stable -Complains of abdominal pain today and WBC has not improved much from 12/20/[address] of abdomen to evaluate for abscess if not improved on but prior to 1899 she complained of worsened abdominal pain and CT abdomen with contrast ordered to evaluate for abscess -Continue COMMISSION ASSOCIATE pump -Continue IV Zosyn -Continue Clear liquids as tolerated 2. RLL Pneumonia -Likely secondary to aspiration as the pt had an episode of vomiting prior to admission -Symptomatic cough with confirmatory CXR findings on 12/19 -MRSA nares negative -Continue zosyn -Continue IS to be used concomittantly with COMMISSION ASSOCIATE pump usage 3. Peripheral neuropathy - secondary to vertebral compression fractures - continue duloxetine 4. Elevated troponin -Last check on 12/17/18 -Likely secondary to acute illness -ECHO showed LVH -Currently denies chest pain -Appreciate recommendations from cards: Metoprolol 2.5mg IV q4hr with change to PO when tolerating PO well FEN/GI Fluids: D5W +1/2NSS + 20KCL at 75cc/hr Electrolytes: Monitor and replace as needed Nutrition: Clear liquids GI PPX: Protonix DVT prophylaxis: lovenox and SCD Dispo: Continue inpatient admission. PT/OT ordered. Will need to discharge to rehab facility. (2) Peripheral neuropathy: Supervising Physician Co-Signing Physician Notes I personally examined the patient and verified all ward points of history and exam, discussed case, and agree with decision making with Dr Greene. pain feels about the same. still needing COMMISSION ASSOCIATE. Vitals noted, sleeping in chair, no distress. breathing unlabored no pallor or icterus. no other acute findings abdominal pain /peritonitis - continue current care. if not improving into tomorrow, would get CT abd/pelvis to look for new abscess Pneumoniagiven that she was vomiting prior to coming in, quite likely this is aspiration in the Zosyn is covering it. continue supportive care. Otherwise as above late addendum - paged that pain is worse. CT abd/pelvis stat, signed out to night coverage, informed surgery. Subjective No acute events overnight per nursing. This morning she is sitting up in chair. Complains of right sided abdominal pain. She has been using her COMMISSION ASSOCIATE pump and it does improve pain symptoms. Also has lower extremity edema that is not usually present. She feels tired. Is tolerating clear liquids. Denies n/v. Constitutional: no fever and no chills Respiratory: no cough, no dyspnea and no pain on inspiration Cardiovascular: no chest pain, no palpitations and no syncope Gastrointestinal: + abdominal pain; no heartburn, no vomiting and no constipation Genitourinary (Female): no dysuria and no difficulty urinating Musculoskeletal: no back pain, no neck pain and no joint pain Integumentary: no rash and no lesions Neurologic: no tingling, no numbness and no dizziness Physical Exam 2 Vital Signs (Past 24 Hours): Last Vital Signs Temp 36.8 C 12/21/18 15:20 Pulse 87 12/21/18 16:02 Resp 16 12/21/18 15:20 BP 114/71 12/21/18 16:02 Pulse Ox 97 12/21/18 15:20 Constitutional: WD/WN, vitals as above + ill appearing, average body habitus and cooperative; no acute distress and + uncomfortable sitting up in chair Eyes: EOM intact bilaterally ENMT: external ear and nose normal, oropharynx normal Respiratory: no respiratory distress and no cough Auscultation: + rales; no wheezes slight rales in bilateral lower lobes Cardiovascular: Rate/Rhythm: regular rate and regular rhythm Heart Sounds: normal S1 and normal S2 Extremities: + edema (dependent, non-pitting edema) Gastrointestinal (Abdomen): large abdominal dressing place without drainage J-P drain with serous fluid approximately 30cc Abdomen soft and tender to palpation in RUQ abdominal sounds hypoactive Musculoskeletal: no cyanosis or clubbing, extremities motor strength 5/5 full ROM of all extremities Skin: no rashes, warm and dry Neurologic: moves all extremities and awake
[2018-12-21] MEDS: ENOXAPARIN INJ 40 MG/0.4 ML SYR SQ SCH (21:02)
[2018-12-21] MEDS ORDERED: VANCOMYCIN TROUGH ONE (21:30)
[2018-12-21] MEDS ORDERED: IOVERSOL 100ml IV PRN (22:53)
--- NOTE | 2018-12-21 23:25 | CT Scan Report ---
CT OF THE ABDOMEN AND PELVIS WITH CONTRAST CLINICAL HISTORY: Worsening abdominal pain. COMPARISON STUDY: CT of the abdomen and pelvis December 17, 2018. KUB December 19, 2018. TECHNIQUE: Following IV administration of 92 mL of Optiray-320, axial images of the abdomen and pelvi s were obtained from the lung bases to the proximal femurs. Images were reviewed in the axial, sagitt al, and coronal planes. IV contrast was administered without complication. Automated exposure contro l was utilized for the study. A dose lowering technique was utilized adhering to the principles of A NGA. Oral contrast was administered. CT DOSE: 416.61 mGy.cm FINDINGS: Visualized portions of the lower chest demonstrate moderate cardiomegaly. Small bilateral p leural effusions are noted. Associated airspace opacities favor atelectasis. The liver, spleen, adren al glands, left kidney and pancreas are unremarkable. Gallbladder is mildly distended. There are gall stones within the gallbladder. There is no left hydronephrosis. A right ureteral stent remains in penny ce. Severe right hydronephrosis is unchanged. Urothelial thickening gas within the right collecting s ystem is again noted. The amount of gas has diminished compared to CT of December 17, 2018. Colonic di verticulosis is noted without evidence for acute diverticulitis. There is anasarca. Note is made of i nterval right hemicolectomy. Mild small and large bowel dilatation is noted. This favors an ileus. Op acification of the distal small bowel is suboptimal however contrast likely reaches the colon. There is no transition point to suggest a bowel obstruction. Multiple right abdominal fluid collections are noted, several of which demonstrate mild rim enhancement. These include a subhepatic fluid collectio n that measures 5 x 3.3 cm. A right lower quadrant fluid collection measures approximately 8.9 x 6.9 cm. An additional right lower quadrant fluid collection measures 6.6 x 4.3 cm. Several of these colle ctions may communicate. The dominant abscess shown on CT of December 17, 2018 is no longer identified. Surgical drains are in place. Small amount of extraluminal gas with the operative bed is likely post surgical status post recent laparotomy. IMPRESSION: 1. Status post interval right hemicolectomy. Mild small and large bowel dilatation. The appearance fa vors an ileus. A bowel obstruction could appear similar although is considered less likely. Small rony unt of extraluminal gas which is likely postsurgical. 2. Multiple right abdominal fluid collections, several of which demonstrate mild rim enhancement and several may communicate. Sterility cannot be assessed by CT however rim enhancement raises the possib ility of developing abscesses. 3. Right ureteral stent in place. No change in right hydronephrosis with gas within the collecting sy stem. 4. Anasarca. 5. Small bilateral pleural effusions with bibasilar opacities which favor atelectasis. 6. Cholelithiasis. Mild gallbladder distention. No convincing evidence for acute cholecystitis. Electronically signed by: Kenneth Hurtado M.D. 12/21/2018 11:23 PM
[2018-12-22] MEDS: METOPROLOL TARTRATE 1 MG/ML VIAL IV SCH ×6 (00:53→21:45)
--- NOTE | 2018-12-22 02:01 | Post Operative Brief Note ---
Immediate Post Op Note v1 Date of Surgery December 22, 2018 Pre & Post Diagnosis Operation Date: 12/17/18 11:00 Pre-Op Diagnosis: perforated cecum Post-Op Diagnosis: perforated cecum Procedure Operation Date: 12/17/18 11:00 Actual Procedures p Exploratory Laparotomy,Right sharad- coloectomy, enterlysis and abdominal washout (Not Applicable) - Chet Stephen DO Surgeon Wally Torres MD Steam Clean Machine Operator None Estimated Blood Loss 20 Findings Consistent with Post-Op Diagnosis Specimens None Drains Delta Drain (19fr x2) and Mcfarlane Catheter Anesthesia Type General Complications none
[2018-12-22] MEDS: ACETAMINOPHEN 1,000 MG/100 ML VIAL IV SCH ×3 (03:26→20:36)
[2018-12-22] MEDS: PIPERACILLIN/TAZOBACTAM 3.375 GM in DEXTROSE 5% 100 ML IV SCH ×3 (03:26→20:38)
[2018-12-22 06:27] LABS: Hematocrit (blood only) 26.9 % (37-47); Hemoglobin 8.9 g/dL (12.0-16.0); Mean Corpuscular Hgb Conc 33.1 g/dL (32-36); Mean Corpuscular Volume 89.7 fL (80-100); Platelet Count 607 K/uL (130-400); White Blood Count 24.64 K/uL (4.8-10.8)
[2018-12-22 06:49] LABS: Basophils # (auto) 0.01 K/uL (0-0.2); Eosinophils # (auto) 0.08 K/uL (0-0.5); Eosinophils % (auto) 0.3 %; Immature Granulocytes # (auto) 0.13 K/uL (0.00-0.02); Immature Granulocytes % (auto) 0.5 %; Lymphocytes # (auto) 0.94 K/uL (1.2-3.4); Lymphocytes % (auto) 3.8 %; Monocytes # (auto) 1.06 K/uL (0.11-0.59); Monocytes % (auto) 4.3 %; Neutrophils # (auto) 22.42 K/uL (1.4-6.5); Neutrophils % (auto) 91.1 %; RBC Morphology Unremarkable
[2018-12-22 06:55] LABS: BUN Creatinine Ratio 13.3 (10-20); Calcium 7.3 mg/dl (8.5-10.1); Creatinine Clr Calc Pharmacy 73.1 ml/min; Est GFR (African American) 102.8; Est GFR (Non-African American) 88.7; Potassium 3.5 mmol/L (3.5-5.1)
--- NOTE | 2018-12-22 10:37 | Urology Progress Note ---
Date of Service December 22, 2018 Assessment & Plan (1) Perforated bowel: (2) Ureteral stricture: Progressing slowly. In somewhat low spirits today. Appears generally uncomfortable but states pain is somewhat improved. Using INTERIOR SURFACE INSULATION WORKER appropriately. VS stable, afebrile. Leukocytosis continuing to improve. Encouraged to use IS, ambulate. Working with PT. Will continue to monitor with primary service. Subjective Pt sitting in chair at side of bed at time of evaluation. States incisional pain is better controlled today than yesterday. Reports pain with deep inspiration as well. Using INTERIOR SURFACE INSULATION WORKER appropriately for pain control. Denies significant stent irritation or voiding bother. Voiding spontaneously with adequate output. Tolerating clears okay. Denies nausea/vomiting. Low appetite. Physical Exam 2 Vital Signs (Past 24 Hours): Last Vital Signs Temp 36.8 C 12/22/18 07:48 Pulse 87 12/22/18 08:18 Resp 22 12/22/18 07:48 BP 117/62 12/22/18 08:18 Pulse Ox 98 12/22/18 07:48 Physical Exam: Alert and oriented x3 RRR Moderate serous drainage from incision site. Bilateral PRASAD draining moderate amount of serous. Bilateral lower extremities edematous but no erythema, tenderness. Using RIN hoses off and on.
[2018-12-22] MEDS: D5W AND 1/2NSS + 20MEQ KCL 20 MEQ/1,000 ML BAG IV SCH (11:22)
[2018-12-22] MEDS: PANTOprazole 40 MG in SYRINGE 0 ML IV SCH (11:53)
--- NOTE | 2018-12-22 12:31 | Surgery Progress Note ---
Date of Service December 22, 2018 Assessment & Plan (1) Perforated bowel: POD [address] reviewed. PRASAD's serous will monitor closely clinically. potential for needing to have the abcesses drained awaiting bowel fx keep on clears for now Subjective pt started developing more pain last night. nonspecific. no nausea. CT showed ? abcesses developing otherwise no acute findings. Physical Exam 2 Vital Signs (Past 24 Hours): Last Vital Signs Temp 37.1 C 12/22/18 11:54 Pulse 94 H 12/22/18 11:54 Resp 20 12/22/18 11:54 BP 114/58 L 12/22/18 11:54 Pulse Ox 98 12/22/18 11:54 Physical Exam: alert. mildly uncomfortable abd: soft. incisions look ok. PRASAD's both serous.
--- NOTE | 2018-12-22 17:33 | Family Medicine Progress Note ---
Date of Service December 22, 2018 Assessment & Plan (1) Right lower quadrant abscess: 73-year-old female past medical history of CVA, depression is being consulted by our service for medical management following a emergent ex lap, right hemicolectomy, enterolysis and abdominal washout. Right lower quadrant abdominal abscess following urologic procedure Continue IV Zosyn and CANDY CUTTER MACHINE pump Continue clears as tolerated Occurred following urologic procedure on 12/10/2018 Patient is status post right hemicolectomy, enteral lysis and abdominal washout , postop day 5 The patient remains afebrile and her white count is trending down today to 24.64 from 31.64 Other vital signs have been stable and the patient is expressing less pain compared to yesterday CT of the abdomen last night did show possibility of developing abscesses versus fluidsurgery currently following. Will consider drainage of the abscess of clinical condition begins to deteriorate Right lower lobe pneumonia Likely secondary to aspiration Continue Zosyn Peripheral neuropathy Continue duloxetine Elevated troponin Likely secondary to demand ischemia in the setting of acute illness -no concern of ACS FEN Continuing IV fluids D5 plus half normal saline +20 KCl at 75 cc/h DVT prophylaxis Lovenox and SCDs (2) Acute abdomen: (3) DVT prophylaxis: (4) Anemia: (5) Depression: (6) History of CVA (cerebrovascular accident): (7) Perforated bowel: Supervising Physician Co-Signing Physician Notes Resident Physician Supervision Note: I independently interviewed and examined the patient and verified the ward history and physical, reviewed labs and image studies, discussed the case with the resident Dr. Dubose and agree with the findings and care plan. Subjective 73-year-old female consulted to our service for medical management status post emergent ex lapthe patient's pain is improving, but she continues to use the pain pump. She is tolerating clear liquid diet. She does state that she is quite drowsy and attributes this to the pain medications. She denies any fevers or chills overnight Constitutional: + fatigue; no fever, no chills and no body aches Respiratory: no cough, no chest congestion, no dyspnea, no dyspnea on exertion and no wheezing Cardiovascular: + dyspnea; no chest pain, no radiating jaw, neck or arm pain and no palpitations Gastrointestinal: + abdominal pain; no bloating, no nausea and no vomiting Physical Exam 2 Vital Signs (Past 24 Hours): Last Vital Signs Temp 36.5 C 12/22/18 15:14 Pulse 94 H 12/22/18 16:52 Resp 18 12/22/18 15:14 BP 122/66 12/22/18 16:52 Pulse Ox 92 12/22/18 15:14 Physical Exam: General; patient is resting comfortably, and out of sleep throughout the interview, no acute distress, normocephalic/atraumatic HEENT; neck is supple, nontender, no LAD of the cervical or supraclavicular nodes Cardio; regular rate and rhythm, normal S1-S2, no murmurs rubs or gallops GI; large abdominal dressing, clean, intact, PRASAD drain intact MSK; no cyanosis, clubbing, no deformity, no calf tenderness Psych/neuro; answering questions properly, normal mood/affect, alert and oriented x3, cranial nerves grossly intact Results & Data Laboratory Results Laboratory Last Values WBC 24.64 K/uL (4.8-10.8) H 12/22/18 06:01 RBC 3.00 M/uL (4.2-5.4) L 12/22/18 06:01 Hgb 8.9 g/dL (12.0-16.0) L 12/22/18 06:01 Hct 26.9 % (37-47) L 12/22/18 06:01 MCV 89.7 fL (80-100) 12/22/18 06:01 MCH 29.7 pg (25-34) 12/22/18 06:01 MCHC 33.1 g/dL (32-36) 12/22/18 06:01 RDW Std Deviation 46.0 fL (36.4-46.3) 12/22/18 06:01 RDW Coeff of Lainey 14.0 % (11.5-14.5) 12/22/18 06:01 Plt Count 607 K/uL (130-400) H 12/22/18 06:01 MPV 9.0 fL (7.4-10.4) 12/22/18 06:01 Immature Gran % (Auto) 0.5 % 12/22/18 06:01 Neut % (Auto) 91.1 % 12/22/18 06:01 Lymph % (Auto) 3.8 % 12/22/18 06:01 Sampson % (Auto) 4.3 % 12/22/18 06:01 Eos % (Auto) 0.3 % 12/22/18 06:01 Baso % (Auto) 0.0 % 12/22/18 06:01 Immature Gran # (Auto) 0.13 K/uL (0.00-0.02) H 12/22/18 06:01 Neut # (Auto) 22.42 K/uL (1.4-6.5) H 12/22/18 06:01 Lymph # (Auto) 0.94 K/uL (1.2-3.4) L 12/22/18 06:01 Sampson # (Auto) 1.06 K/uL (0.11-0.59) H 12/22/18 06:01 Eos # (Auto) 0.08 K/uL (0-0.5) 12/22/18 06:01 Baso # (Auto) 0.01 K/uL (0-0.2) 12/22/18 06:01 Toxic Granulation 1+ 12/19/18 06:43 RBC Morphology Unremarkable 12/22/18 06:01 Polychromasia 1+ 12/20/18 05:25 Echinocytes 1+ 12/20/18 05:25 PT 10.4 Seconds (9.0-12.0) 12/17/18 11:35 INR 1.0 (0.9-1.1) 12/17/18 11:35 Sodium 140 mmol/L (136-145) 12/22/18 06:01 Potassium 3.5 mmol/L (3.5-5.1) 12/22/18 06:01 Chloride 109 mmol/L (98-107) H 12/22/18 06:01 Carbon Dioxide 24 mmol/L (21-32) 12/22/18 06:01 Anion Gap 8.0 (3-11) 12/22/18 06:01 BUN 9 mg/dl (7-18) 12/22/18 06:01 Creatinine 0.65 mg/dl (0.6-1.2) 12/22/18 06:01 Est Cr Clr Drug Dosing 73.1 ml/min 12/22/18 06:01 Est GFR ( Amer) 102.8 12/22/18 06:01 Est GFR (Non-Af Amer) 88.7 12/22/18 06:01 BUN/Creatinine Ratio 13.3 (10-20) 12/22/18 06:01 Glucose 122 mg/dl (70-99) H 12/22/18 06:01 Calcium 7.3 mg/dl (8.5-10.1) L 12/22/18 06:01 Total Bilirubin 0.4 mg/dl (0.2-1) 12/20/18 05:25 AST 12 U/L (15-37) L 12/20/18 05:25 ALT 34 U/L (12-78) 12/20/18 05:25 Alkaline Phosphatase 104 U/L (45-117) 12/20/18 05:25 Troponin I 1.270 ng/ml (0-0.045) H* 12/17/18 17:58 Total Protein 5.3 gm/dl (6.4-8.2) L 12/20/18 05:25 Albumin 1.7 gm/dl (3.4-5.0) L 12/20/18 05:25 Globulin 3.6 gm/dl (2.5-4.0) 12/20/18 05:25 Albumin/Globulin Ratio 0.5 (0.9-2) L 12/20/18 05:25 Lipase 144 U/L (73-393) 12/17/18 11:35 Urine Color Yellow 12/17/18 13:54 Urine Appearance Clear (Clear) 12/17/18 13:54 Urine pH 8.5 (4.5-7.5) H 12/17/18 13:54 Ur Specific Emerson 1.017 (1.000-1.030) 12/17/18 13:54 Urine Protein Negative (Negative) 12/17/18 13:54 Urine Glucose (UA) Negative (Negative) 12/17/18 13:54 Urine Ketones Negative (Negative) 12/17/18 13:54 Urine Blood Negative (Negative) 12/17/18 13:54 Urine Nitrite Negative (Negative) 12/17/18 13:54 Urine Bilirubin Negative (Negative) 12/17/18 13:54 Urine Urobilinogen Negative (Negative) 12/17/18 13:54 Ur Leukocyte Esterase Negative (Negative) 12/17/18 13:54 Nasal Screen MRSA (PCR) Negative (Negative) 12/20/18 00:08 Blood Type O Positive 12/17/18 16:05 Antibody Screen NEGATIVE 12/17/18 16:05 Crossmatch See Detail 12/17/18 16:05 Resident Activity Tracking Resident Involvement: Resident Care Provided Care Provided: Adult Hospital Medicine
[2018-12-22] MEDS: ENOXAPARIN INJ 40 MG/0.4 ML SYR SQ SCH (20:49)
[2018-12-22] MEDS: HYDROmorphone HCL 0.5MG/ML 50 ML CASSETTE IV PRN (23:49)
[2018-12-23] MEDS: METOPROLOL TARTRATE 1 MG/ML VIAL IV SCH ×3 (00:28→08:41)
[2018-12-23] MEDS: ACETAMINOPHEN 1,000 MG/100 ML VIAL IV SCH ×3 (03:12→19:51)
[2018-12-23] MEDS: PIPERACILLIN/TAZOBACTAM 3.375 GM in DEXTROSE 5% 100 ML IV SCH ×3 (03:33→19:58)
[2018-12-23] MEDS: D5W AND 1/2NSS + 20MEQ KCL 20 MEQ/1,000 ML BAG IV SCH (05:27)
[2018-12-23 07:09] LABS: Basophils # (auto) 0.01 K/uL (0-0.2); Eosinophils # (auto) 0.09 K/uL (0-0.5); Eosinophils % (auto) 0.4 %; Hematocrit (blood only) 30.3 % (37-47); Hemoglobin 10.1 g/dL (12.0-16.0); Immature Granulocytes # (auto) 0.14 K/uL (0.00-0.02); Immature Granulocytes % (auto) 0.7 %; Lymphocytes # (auto) 0.87 K/uL (1.2-3.4); Lymphocytes % (auto) 4.1 %; Mean Corpuscular Hgb Conc 33.3 g/dL (32-36); Mean Corpuscular Volume 89.6 fL (80-100); Mean Platelet Volume 9.2 fL (7.4-10.4); Monocytes # (auto) 1.11 K/uL (0.11-0.59); Monocytes % (auto) 5.2 %; Neutrophils # (auto) 19.07 K/uL (1.4-6.5); Neutrophils % (auto) 89.6 %; Platelet Count 664 K/uL (130-400); RDW Coefficient of Variation 13.9 % (11.5-14.5); RDW Standard Deviation 46.1 fL (36.4-46.3); Red Blood Count 3.38 M/uL (4.2-5.4); White Blood Count 21.29 K/uL (4.8-10.8)
[2018-12-23 07:42] LABS: BUN Creatinine Ratio 12.7 (10-20); Calcium 7.5 mg/dl (8.5-10.1); Creatinine Clr Calc Pharmacy 79.2 ml/min; Est GFR (African American) 105.5; Est GFR (Non-African American) 91.1; Potassium 3.6 mmol/L (3.5-5.1)
--- NOTE | 2018-12-23 09:41 | Surgery Progress Note ---
Date of Service December 23, 2018 Assessment & Plan (1) Perforated bowel: POD 6 WBC improving, PRASAD's still serous will discuss with radiology fro possible drainage of fluid collection seen with Dr. Stephen as above. pain primarily on right side. IR just drained collection. several marito removed from midline incision with small amount of purulent drainage. no redness to skin or warmth. continue antibiotics +bowel movment today. no n/v. will advance to full liquids. Subjective right sided pain, bowels moved, having new drainage from incision Physical Exam 2 Vital Signs (Past 24 Hours): Last Vital Signs Temp 36.2 C L 12/23/18 07:07 Pulse 85 12/23/18 08:41 Resp 18 12/23/18 07:07 BP 126/76 12/23/18 08:41 Pulse Ox 97 12/23/18 07:07 Gastrointestinal (Abdomen): Inspection/Auscultation: + abdominal surgical incision (no erythema, few marito removed, some purulent drainage) and + abdominal surgical drain present (left 75 cc, right 45 cc overnight still serous ) Percussion/Palpation: abdomen soft
[2018-12-23] MEDS ORDERED: FLUCONAZOLE 200 MG/100 ML BAG IV SCH (10:30)
--- NOTE | 2018-12-23 12:01 | CT Scan Report ---
CT abscess drainage CLINICAL HISTORY: abscess drainage, post op abdominal fluid COMPARISON STUDY: CT of the abdomen and pelvis December 21, 2018. PROCEDURE: Initially, axial unenhanced images through the mid to lower abdomen and pelvis were obtain ed which again demonstrated a right lower quadrant fluid collection that measures approximately 9 x 5 .4 cm. Mild small and large bowel dilatation is noted. There is contrast within the colon. Extralumin al gas is noted. There is moderate gallbladder distention. Gallstones are noted. Right ureteral stent is in place with persistent right hydroureteronephrosis. The right lower quadrant fluid collection w as targeted for drainage. The procedure, risks and benefits were discussed with the patient including the risk of bleeding, infection and injury to adjacent structures. The patient agreed to the procedu re and informed written consent was obtained. The procedure was performed by Dr. Hurtado following a timeout. Skin of the right lower quadrant was prepped and draped in sterile fashion and local anest hesia was achieved with 1% lidocaine. Under intermittent CT guidance, a 22-gauge needle was directed into the fluid collection. Using Seldinger technique, a 10 Lao locking pigtail catheter was insert ed. 90 cc of fluid was aspirated. Initially, the fluid was serous but then became cloudy. Fluid was s ent for analysis. The catheter was secured in place. The patient tolerated the procedure well and no immediate complications were evident. Post procedure CT demonstrated marked decrease in size of the f luid collection. IMPRESSION: 1. Successful CT-guided placement of a 10 Lao locking pigtail catheter with a right lower quadrant fluid collection. 90 cc of fluid sent to the laboratory for analysis. Initially, fluid was serous bu t became cloudy. 2. Moderate gallbladder distention. No significant pericholecystic infiltration. Cholelithiasis. If p ersistent right upper quadrant pain, an ultrasound or hepatobiliary scan is recommended. 3. Multiple small large bowel dilatation which favors an ileus. Several locules of extraluminal gas w hich are likely postsurgical. Electronically signed by: Kenneth Hurtado M.D. 12/23/2018 11:59 AM
--- NOTE | 2018-12-23 12:03 | Family Medicine Progress Note ---
Date of Service December 23, 2018 Assessment & Plan (1) Right lower quadrant abscess: 73-year-old female past medical history of CVA, depression is being consulted by our service for medical management following a emergent ex lap, right hemicolectomy, enterolysis and abdominal washout. Right lower quadrant abdominal abscess following urologic procedure Continue IV Zosyn - Pain control with PROCESSING ARCHIVIST pump Diet advanced to full liquid Occurred following urologic procedure on 12/10/2018 Patient is status post right hemicolectomy, enteral lysis and abdominal washout , postop day 6 The patient remains afebrile and her white count continues to trend down Vital signs remain stable and pain is controlled CT of the abdomen did show possibility of developing abscesses versus fluid 90 cc drained today via CT guided abscess drainagecultures pending Right lower lobe pneumonia Likely secondary to aspiration Continue Zosyn Thrush -Fluconazole Peripheral neuropathy Continue duloxetine Elevated troponin - ? Type 2 VT Evaluated by cardiology. Likely secondary to demand ischemia in the setting of acute illness FEN Continuing IV fluids D5 plus half normal saline +20 KCl at 75 cc/h DVT prophylaxis Lovenox and SCDs (2) Acute abdomen: (3) DVT prophylaxis: (4) Anemia: (5) Depression: (6) History of CVA (cerebrovascular accident): (7) Perforated bowel: Supervising Physician Co-Signing Physician Notes Resident Physician Supervision Note: I independently interviewed and examined the patient and verified the ward history and physical, reviewed labs and image studies, discussed the case with the resident Dr. Dubose and agree with the findings and care plan. Subjective 73-year-old female consulted to our service for medical management status post emergent ex lap-persistent abdominal pain, abdominal abscess plan to drain today. Checking on the patient this evening following the procedure. Constitutional: + fatigue; no fever, no chills and no body aches Cardiovascular: + dyspnea; no chest pain, no radiating jaw, neck or arm pain and no palpitations Gastrointestinal: + abdominal pain; no bloating, no nausea and no vomiting Physical Exam 2 Vital Signs (Past 24 Hours): Last Vital Signs Temp 36.9 C 12/23/18 11:58 Pulse 97 H 12/23/18 11:58 Resp 18 12/23/18 11:58 BP 134/66 12/23/18 11:58 Pulse Ox 96 12/23/18 11:58 Physical Exam: General; patient is resting comfortably, in and out of sleep throughout the interview, no acute distress, normocephalic/atraumatic HEENT; neck is supple, nontender, no LAD of the cervical or supraclavicular nodes Cardio; regular rate and rhythm, normal S1-S2, no murmurs rubs or gallops GI; large abdominal dressing, clean, intact, PRASAD drain intact MSK; no cyanosis, clubbing, no deformity, no calf tenderness Psych/neuro; answering questions properly, normal mood/affect, alert and oriented x3, cranial nerves grossly intact Results & Data Laboratory Results Laboratory Last Values WBC 21.29 K/uL (4.8-10.8) H 12/23/18 06:50 RBC 3.38 M/uL (4.2-5.4) L 12/23/18 06:50 Hgb 10.1 g/dL (12.0-16.0) L 12/23/18 06:50 Hct 30.3 % (37-47) L 12/23/18 06:50 MCV 89.6 fL (80-100) 12/23/18 06:50 MCH 29.9 pg (25-34) 12/23/18 06:50 MCHC 33.3 g/dL (32-36) 12/23/18 06:50 RDW Std Deviation 46.1 fL (36.4-46.3) 12/23/18 06:50 RDW Coeff of Lainey 13.9 % (11.5-14.5) 12/23/18 06:50 Plt Count 664 K/uL (130-400) H 12/23/18 06:50 MPV 9.2 fL (7.4-10.4) 12/23/18 06:50 Immature Gran % (Auto) 0.7 % 12/23/18 06:50 Neut % (Auto) 89.6 % 12/23/18 06:50 Lymph % (Auto) 4.1 % 12/23/18 06:50 Placer % (Auto) 5.2 % 12/23/18 06:50 Eos % (Auto) 0.4 % 12/23/18 06:50 Baso % (Auto) 0.0 % 12/23/18 06:50 Immature Gran # (Auto) 0.14 K/uL (0.00-0.02) H 12/23/18 06:50 Neut # (Auto) 19.07 K/uL (1.4-6.5) H 12/23/18 06:50 Lymph # (Auto) 0.87 K/uL (1.2-3.4) L 12/23/18 06:50 Placer # (Auto) 1.11 K/uL (0.11-0.59) H 12/23/18 06:50 Eos # (Auto) 0.09 K/uL (0-0.5) 12/23/18 06:50 Baso # (Auto) 0.01 K/uL (0-0.2) 12/23/18 06:50 Toxic Granulation 1+ 12/19/18 06:43 RBC Morphology Unremarkable 12/22/18 06:01 Polychromasia 1+ 12/20/18 05:25 Echinocytes 1+ 12/20/18 05:25 PT 10.4 Seconds (9.0-12.0) 12/17/18 11:35 INR 1.0 (0.9-1.1) 12/17/18 11:35 Sodium 139 mmol/L (136-145) 12/23/18 06:50 Potassium 3.6 mmol/L (3.5-5.1) 12/23/18 06:50 Chloride 109 mmol/L (98-107) H 12/23/18 06:50 Carbon Dioxide 23 mmol/L (21-32) 12/23/18 06:50 Anion Gap 7.0 (3-11) 12/23/18 06:50 BUN 8 mg/dl (7-18) 12/23/18 06:50 Creatinine 0.60 mg/dl (0.6-1.2) 12/23/18 06:50 Est Cr Clr Drug Dosing 79.2 ml/min 12/23/18 06:50 Est GFR ( Amer) 105.5 12/23/18 06:50 Est GFR (Non-Af Amer) 91.1 12/23/18 06:50 BUN/Creatinine Ratio 12.7 (10-20) 12/23/18 06:50 Glucose 105 mg/dl (70-99) H 12/23/18 06:50 Calcium 7.5 mg/dl (8.5-10.1) L 12/23/18 06:50 Total Bilirubin 0.4 mg/dl (0.2-1) 12/20/18 05:25 AST 12 U/L (15-37) L 12/20/18 05:25 ALT 34 U/L (12-78) 12/20/18 05:25 Alkaline Phosphatase 104 U/L (45-117) 12/20/18 05:25 Troponin I 1.270 ng/ml (0-0.045) H* 12/17/18 17:58 Total Protein 5.3 gm/dl (6.4-8.2) L 12/20/18 05:25 Albumin 1.7 gm/dl (3.4-5.0) L 12/20/18 05:25 Globulin 3.6 gm/dl (2.5-4.0) 12/20/18 05:25 Albumin/Globulin Ratio 0.5 (0.9-2) L 12/20/18 05:25 Lipase 144 U/L (73-393) 12/17/18 11:35 Urine Color Yellow 12/17/18 13:54 Urine Appearance Clear (Clear) 12/17/18 13:54 Urine pH 8.5 (4.5-7.5) H 12/17/18 13:54 Ur Specific [place] 1.017 (1.000-1.030) 12/17/18 13:54 Urine Protein Negative (Negative) 12/17/18 13:54 Urine Glucose (UA) Negative (Negative) 12/17/18 13:54 Urine Ketones Negative (Negative) 12/17/18 13:54 Urine Blood Negative (Negative) 12/17/18 13:54 Urine Nitrite Negative (Negative) 12/17/18 13:54 Urine Bilirubin Negative (Negative) 12/17/18 13:54 Urine Urobilinogen Negative (Negative) 12/17/18 13:54 Ur Leukocyte Esterase Negative (Negative) 12/17/18 13:54 Fluid Creatinine 0.47 mg/dl 12/23/18 11:05 Nasal Screen MRSA (PCR) Negative (Negative) 12/20/18 00:08 Blood Type O Positive 12/17/18 16:05 Antibody Screen NEGATIVE 12/17/18 16:05 Crossmatch See Detail 12/17/18 16:05 Resident Activity Tracking Resident Involvement: Resident Care Provided Care Provided: Adult [facility]
--- NOTE | 2018-12-23 12:04 | Urology Progress Note ---
Date of Service December 23, 2018 Assessment & Plan (1) Perforated bowel: POD #6 s/p p exp lap; right hemicolectomy; enterolysis; abdominal washout S/p CT guided abscess drainage, 10 Fr locking pigtail catheter to RLQ - 90cc serous to cloudy drained initially. -awaiting cx and creatinine results. Having pain, uncomfortable. using MEDICAL ADMINISTRATIVE TECHNICIAN. Dx with thrush, iv fluconazole added to regimen. Pt asking for sips/chips - RN to clear with general surgery. Will continue to follow. Creatinine from ct nl at 0.47. Continue to follow and monitor drainage Subjective Pt having worsening R sided abdominal pain yesterday into today. AM dressing change with purulent/foul smelling drainage per nursing. CT imaging reviewed, right lower quadrant fluid collection that measures approximately 9 x 5.4 cm, ? abscess. Pt just arrived back to floor at time of evaluation s/p CT guided abscess drainage of this area, removed 90cc serious to cloudy fluid, Sending for Cx and Creatinine. Having significant pain at the present, using MEDICAL ADMINISTRATIVE TECHNICIAN. Denies CP/SOB. Voiding spontaneously without difficulty. Review of Systems All systems reviewed & are unremarkable except as noted in HPI & below Physical Exam 2 Vital Signs (Past 24 Hours): Last Vital Signs Temp 36.9 C 12/23/18 11:58 Pulse 97 H 12/23/18 11:58 Resp 18 12/23/18 11:58 BP 134/66 12/23/18 11:58 Pulse Ox 96 12/23/18 11:58 Physical Exam: a&ox3 uncomfortable RRR, some deep breathing with pain abd tender incisions covered with abd pads
[2018-12-23] MEDS: PANTOprazole 40 MG in SYRINGE 0 ML IV SCH (12:52)
[2018-12-23] MEDS: ENOXAPARIN INJ 40 MG/0.4 ML SYR SQ SCH (21:02)
[2018-12-24] MEDS: D5W AND 1/2NSS + 20MEQ KCL 20 MEQ/1,000 ML BAG IV SCH (03:16)
[2018-12-24] MEDS: PIPERACILLIN/TAZOBACTAM 3.375 GM in DEXTROSE 5% 100 ML IV SCH ×3 (04:06→21:19)
[2018-12-24] MEDS: ACETAMINOPHEN 1,000 MG/100 ML VIAL IV SCH ×3 (04:08→21:19)
[2018-12-24 07:56] LABS: Hematocrit (blood only) 29.9 % (37-47); Hemoglobin 9.9 g/dL (12.0-16.0); Mean Corpuscular Hgb Conc 33.1 g/dL (32-36); Mean Corpuscular Volume 90.6 fL (80-100); Mean Platelet Volume 9.3 fL (7.4-10.4); Platelet Count 783 K/uL (130-400); RDW Coefficient of Variation 14.1 % (11.5-14.5); RDW Standard Deviation 46.4 fL (36.4-46.3); White Blood Count 23.16 K/uL (4.8-10.8)
[2018-12-24 08:21] LABS: Basophils # (auto) 0.03 K/uL (0-0.2); Basophils % (auto) 0.1 %; Eosinophils # (auto) 0.05 K/uL (0-0.5); Eosinophils % (auto) 0.2 %; Immature Granulocytes # (auto) 0.11 K/uL (0.00-0.02); Immature Granulocytes % (auto) 0.5 %; Lymphocytes # (auto) 0.98 K/uL (1.2-3.4); Lymphocytes % (auto) 4.2 %; Neutrophils # (auto) 20.59 K/uL (1.4-6.5); Rouleaux 1+
[2018-12-24 08:22] LABS: Albumin Level 1.7 gm/dl (3.4-5.0); BUN Creatinine Ratio 12.4 (10-20); Calcium 7.9 mg/dl (8.5-10.1); Creatinine Clr Calc Pharmacy 74.3 ml/min; Est GFR (African American) 103.3; Est GFR (Non-African American) 89.2; Potassium 3.5 mmol/L (3.5-5.1)
[2018-12-24 08:25] LABS: Albumin Globulin Ratio 0.4 (0.9-2); Bilirubin,Total 0.6 mg/dl (0.2-1); Globulin 3.8 gm/dl (2.5-4.0); Total Protein 5.5 gm/dl (6.4-8.2)
--- NOTE | 2018-12-24 08:51 | Surgery Progress Note ---
Date of Service December 24, 2018 Assessment & Plan (1) Perforated bowel: POD 7 WBC 23, afebrile, PRASAD's still serous add Boost pudding Subjective tolerating full liquids, no recent BM, pain better Physical Exam 2 Vital Signs (Past 24 Hours): Last Vital Signs Temp 37.1 C 12/24/18 03:46 Pulse 101 H 12/24/18 03:46 Resp 20 12/24/18 03:46 BP 149/64 H 12/24/18 03:46 Pulse Ox 96 12/24/18 03:46 Gastrointestinal (Abdomen): Inspection/Auscultation: + abdominal surgical incision (some drainage on dressing) and + abdominal surgical drain present ( JPs serous 10 & 30 cc, pigtail serosang) Percussion/Palpation: abdomen soft
--- NOTE | 2018-12-24 10:02 | Surgery Progress Note ---
Date of Service December 24, 2018 Assessment & Plan (1) Perforated bowel: slow improvement will let her try light diet today need agressive PT/OT/OOB continue current management otherwise. Keep all 3 drains for now. Subjective states she is feeling improved today. The right sided abdominal pain is much better and she is hungry. Physical Exam 2 Vital Signs (Past 24 Hours): Last Vital Signs Temp 37.1 C 12/24/18 03:46 Pulse 101 H 12/24/18 03:46 Resp 20 12/24/18 03:46 BP 149/64 H 12/24/18 03:46 Pulse Ox 96 12/24/18 03:46 Physical Exam: NAD. alert oral thrush much improved abdomen: soft. expected tenderness. still having some light hogan drainage from midline PRASAD's all putting out only yellow/pink serous fluid.
[2018-12-24] MEDS: FLUCONAZOLE 100 MG/50 ML BAG IV SCH (10:49)
[2018-12-24] MEDS: PANTOprazole 40 MG in SYRINGE 0 ML IV SCH (10:49)
--- NOTE | 2018-12-24 11:48 | Urology Progress Note ---
Date of Service December 24, 2018 Assessment & Plan (1) Perforated bowel: POD #7 s/p p exp lap; right hemicolectomy; enterolysis; abdominal washout pain better controlled today. 3 drains, serosang/serous output PO diet, having to chew very slowly to "get it down". Denies nausea, more of a swallow concern? Will continue to monitor. Subjective POD #7 s/p p exp lap; right hemicolectomy; enterolysis; abdominal washout Pt appears to be in better spirits today Pain better controlled today than yesterday Increased diet, has a better appetite denies CP/N/V. Pain with deep breathing Currently working with OT at time of evaluation Review of Systems All systems reviewed & are unremarkable except as noted in HPI & below Physical Exam 2 Vital Signs (Past 24 Hours): Last Vital Signs Temp 37.1 C 12/24/18 03:46 Pulse 101 H 12/24/18 03:46 Resp 20 12/24/18 03:46 BP 149/64 H 12/24/18 03:46 Pulse Ox 96 12/24/18 03:46 Results & Data Laboratory Results Laboratory Results - last 48 hr 12/23/18 12/23/18 12/23/18 06:50 06:50 11:05 WBC 21.29 H RBC 3.38 L Hgb 10.1 L Hct 30.3 L MCV 89.6 MCH 29.9 MCHC 33.3 RDW Std Deviation 46.1 RDW Coeff of Lainey 13.9 Plt Count 664 H MPV 9.2 Immature Gran % (Auto) 0.7 Neut % (Auto) 89.6 Lymph % (Auto) 4.1 [place] % (Auto) 5.2 Eos % (Auto) 0.4 Baso % (Auto) 0.0 Immature Gran # (Auto) 0.14 H Neut # (Auto) 19.07 H Lymph # (Auto) 0.87 L [place] # (Auto) 1.11 H Eos # (Auto) 0.09 Baso # (Auto) 0.01 Rouleaux Sodium 139 Potassium 3.6 Chloride 109 H Carbon Dioxide 23 Anion Gap 7.0 BUN 8 Creatinine 0.60 Est Cr Clr Drug Dosing 79.2 Est GFR ( Amer) 105.5 Est GFR (Non-Af Amer) 91.1 BUN/Creatinine Ratio 12.7 Glucose 105 H Calcium 7.5 L Total Bilirubin AST ALT Alkaline Phosphatase Total Protein Albumin Globulin Albumin/Globulin Ratio Fluid Creatinine 0.47 12/24/18 12/24/18 07:23 07:23 WBC 23.16 H RBC 3.30 L Hgb 9.9 L Hct 29.9 L MCV 90.6 MCH 30.0 MCHC 33.1 RDW Std Deviation 46.4 H RDW Coeff of Lainey 14.1 Plt Count 783 H MPV 9.3 Immature Gran % (Auto) 0.5 Neut % (Auto) 89.0 Lymph % (Auto) 4.2 [place] % (Auto) 6.0 Eos % (Auto) 0.2 Baso % (Auto) 0.1 Immature Gran # (Auto) 0.11 H Neut # (Auto) 20.59 H Lymph # (Auto) 0.98 L [place] # (Auto) 1.40 H Eos # (Auto) 0.05 Baso # (Auto) 0.03 Rouleaux 1+ Sodium 139 Potassium 3.5 Chloride 106 Carbon Dioxide 25 Anion Gap 8.0 BUN 8 Creatinine 0.64 Est Cr Clr Drug Dosing 74.3 Est GFR ( Amer) 103.3 Est GFR (Non-Af Amer) 89.2 BUN/Creatinine Ratio 12.4 Glucose 104 H Calcium 7.9 L Total Bilirubin 0.6 AST 20 ALT 29 Alkaline Phosphatase 210 H Total Protein 5.5 L Albumin 1.7 L Globulin 3.8 Albumin/Globulin Ratio 0.4 L Fluid Creatinine
--- NOTE | 2018-12-24 16:13 | Family Medicine Progress Note ---
Date of Service December 24, 2018 Assessment & Plan (1) Perforated bowel: ((1) Right lower quadrant abscess: 73-year-old female past medical history of CVA, depression is being consulted by our service for medical management following a emergent ex lap, right hemicolectomy, enterolysis and abdominal washout. Hospitalist team is currently signing off, will see the patient on a as needed basis. Right lower quadrant abdominal abscess following urologic procedure Continue IV Zosyn - Pain control with WOOL WASHER pump Diet advanced to full liquid Occurred following urologic procedure on 12/10/2018 Patient is status post right hemicolectomy, enteral lysis and abdominal washout , postop day 7 The patient remains afebrile and her white count continues to trend down Vital signs remain stable and pain is controlled CT of the abdomen did show possibility of developing abscesses versus fluid 90 cc drained 12/23/[address] guided abscess drainagecultures pending Right lower lobe pneumonia Likely secondary to aspiration Continue Zosyn Thrush -Fluconazole Peripheral neuropathy Continue duloxetine Elevated troponin - ? Type 2 VT Evaluated by cardiology. Likely secondary to demand ischemia in the setting of acute illness FEN patient's showing signs of lower extremity edema, vitals within normal limits , tolerating clear liquids Stop fluids at this time Dispo; patient was working with PT/OT today and will likely need inpatient rehab. 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 (2) Acute abdomen: (3) History of CVA (cerebrovascular accident): (4) Depression: (5) Elevated troponin: Supervising Physician Co-Signing Physician Notes Resident Physician Supervision Note: I independently interviewed and examined the patient and verified the ward history and physical, reviewed labs and image studies, discussed the case with the resident Dr. Dubose and agree with the findings and care plan. Subjective 73-year-old female consulted to our service for medical management status post emergent ex lap. Patient was up in chair today when I came on rounds expresses that she is tolerating clear liquids fine, and will be attempting to advance diet today. Her pain is persistent, but improved. She is working with PT todaywill likely need inpatient rehab. 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 Constitutional: + fatigue; no fever, no chills and no body aches Cardiovascular: + dyspnea; no chest pain, no radiating jaw, neck or arm pain and no palpitations Gastrointestinal: + abdominal pain; no bloating, no nausea and no vomiting Physical Exam 2 Vital Signs (Past 24 Hours): Last Vital Signs Temp 37.1 C 12/24/18 15:42 Pulse 95 H 12/24/18 15:42 Resp 18 12/24/18 15:42 BP 149/81 H 12/24/18 15:42 Pulse Ox 98 12/24/18 15:42 Physical Exam: General; patient is resting comfortably, in and out of sleep throughout the interview, no acute distress, normocephalic/atraumatic HEENT; neck is supple, nontender, no LAD of the cervical or supraclavicular nodes Cardio; regular rate and rhythm, normal S1-S2, no murmurs rubs or gallops GI; large abdominal dressing, clean, intact, PRASAD drain intact MSK; no cyanosis, clubbing, no deformity, no calf tenderness Psych/neuro; answering questions properly, normal mood/affect, alert and oriented x3, cranial nerves grossly intact Results & Data Laboratory Results Laboratory Last Values WBC 23.16 K/uL (4.8-10.8) H 12/24/18 07:23 RBC 3.30 M/uL (4.2-5.4) L 12/24/18 07:23 Hgb 9.9 g/dL (12.0-16.0) L 12/24/18 07:23 Hct 29.9 % (37-47) L 12/24/18 07:23 MCV 90.6 fL (80-100) 12/24/18 07:23 MCH 30.0 pg (25-34) 12/24/18 07:23 MCHC 33.1 g/dL (32-36) 12/24/18 07:23 RDW Std Deviation 46.4 fL (36.4-46.3) H 12/24/18 07:23 RDW Coeff of Lainey 14.1 % (11.5-14.5) 12/24/18 07:23 Plt Count 783 K/uL (130-400) H 12/24/18 07:23 MPV 9.3 fL (7.4-10.4) 12/24/18 07:23 Immature Gran % (Auto) 0.5 % 12/24/18 07:23 Neut % (Auto) 89.0 % 12/24/18 07:23 Lymph % (Auto) 4.2 % 12/24/18 07:23 [place] % (Auto) 6.0 % 12/24/18 07:23 Eos % (Auto) 0.2 % 12/24/18 07:23 Baso % (Auto) 0.1 % 12/24/18 07:23 Immature Gran # (Auto) 0.11 K/uL (0.00-0.02) H 12/24/18 07:23 Neut # (Auto) 20.59 K/uL (1.4-6.5) H 12/24/18 07:23 Lymph # (Auto) 0.98 K/uL (1.2-3.4) L 12/24/18 07:23 [place] # (Auto) 1.40 K/uL (0.11-0.59) H 12/24/18 07:23 Eos # (Auto) 0.05 K/uL (0-0.5) 12/24/18 07:23 Baso # (Auto) 0.03 K/uL (0-0.2) 12/24/18 07:23 Toxic Granulation 1+ 12/19/18 06:43 RBC Morphology Unremarkable 12/22/18 06:01 Polychromasia 1+ 12/20/18 05:25 Echinocytes 1+ 12/20/18 05:25 Rouleaux 1+ 12/24/18 07:23 PT 10.4 Seconds (9.0-12.0) 12/17/18 11:35 INR 1.0 (0.9-1.1) 12/17/18 11:35 Sodium 139 mmol/L (136-145) 12/24/18 07:23 Potassium 3.5 mmol/L (3.5-5.1) 12/24/18 07:23 Chloride 106 mmol/L (98-107) 12/24/18 07:23 Carbon Dioxide 25 mmol/L (21-32) 12/24/18 07:23 Anion Gap 8.0 (3-11) 12/24/18 07:23 BUN 8 mg/dl (7-18) 12/24/18 07:23 Creatinine 0.64 mg/dl (0.6-1.2) 12/24/18 07:23 Est Cr Clr Drug Dosing 74.3 ml/min 12/24/18 07:23 Est GFR ( Amer) 103.3 12/24/18 07:23 Est GFR (Non-Af Amer) 89.2 12/24/18 07:23 BUN/Creatinine Ratio 12.4 (10-20) 12/24/18 07:23 Glucose 104 mg/dl (70-99) H 12/24/18 07:23 Calcium 7.9 mg/dl (8.5-10.1) L 12/24/18 07:23 Total Bilirubin 0.6 mg/dl (0.2-1) 12/24/18 07:23 AST 20 U/L (15-37) 12/24/18 07:23 ALT 29 U/L (12-78) 12/24/18 07:23 Alkaline Phosphatase 210 U/L (45-117) H 12/24/18 07:23 Troponin I 1.270 ng/ml (0-0.045) H* 12/17/18 17:58 Total Protein 5.5 gm/dl (6.4-8.2) L 12/24/18 07:23 Albumin 1.7 gm/dl (3.4-5.0) L 12/24/18 07:23 Globulin 3.8 gm/dl (2.5-4.0) 12/24/18 07:23 Albumin/Globulin Ratio 0.4 (0.9-2) L 12/24/18 07:23 Lipase 144 U/L (73-393) 12/17/18 11:35 Urine Color Yellow 12/17/18 13:54 Urine Appearance Clear (Clear) 12/17/18 13:54 Urine pH 8.5 (4.5-7.5) H 12/17/18 13:54 Ur Specific [place] 1.017 (1.000-1.030) 12/17/18 13:54 Urine Protein Negative (Negative) 12/17/18 13:54 Urine Glucose (UA) Negative (Negative) 12/17/18 13:54 Urine Ketones Negative (Negative) 12/17/18 13:54 Urine Blood Negative (Negative) 12/17/18 13:54 Urine Nitrite Negative (Negative) 12/17/18 13:54 Urine Bilirubin Negative (Negative) 12/17/18 13:54 Urine Urobilinogen Negative (Negative) 12/17/18 13:54 Ur Leukocyte Esterase Negative (Negative) 12/17/18 13:54 Fluid Creatinine 0.47 mg/dl 12/23/18 11:05 Nasal Screen MRSA (PCR) Negative (Negative) 12/20/18 00:08 Blood Type O Positive 12/17/18 16:05 Antibody Screen NEGATIVE 12/17/18 16:05 Crossmatch See Detail 12/17/18 16:05 Resident Activity Tracking Resident Involvement: Resident Care Provided Care Provided: Adult Hospital Medicine
[2018-12-24] MEDS: SODIUM CHLORIDE 0.9% 1000ML 1,000 ML IV SCH (18:30)
[2018-12-24] MEDS: ENOXAPARIN INJ 40 MG/0.4 ML SYR SQ SCH (21:21)
[2018-12-25] MEDS: HYDROmorphone HCL 0.5MG/ML 50 ML CASSETTE IV PRN (03:34)
[2018-12-25] MEDS: PIPERACILLIN/TAZOBACTAM 3.375 GM in DEXTROSE 5% 100 ML IV SCH ×3 (04:31→20:57)
[2018-12-25] MEDS: ACETAMINOPHEN 1,000 MG/100 ML VIAL IV SCH ×3 (04:31→22:10)
--- NOTE | 2018-12-25 08:13 | Surgery Progress Note ---
Date of Service December 25, 2018 Assessment & Plan (1) Perforated bowel: POD 8 labs pending no growth on cx from IR drainage Keep all 3 drains for now. as above. continue current care. pt/ot/ambulate. Subjective loose BM, still having some RUQ pain, not much appetite, using MOLASSES FEED MIXER every couple of hours Physical Exam 2 Vital Signs (Past 24 Hours): Last Vital Signs Temp 36.9 C 12/25/18 07:10 Pulse 102 H 12/25/18 07:10 Resp 15 12/25/18 07:10 BP 118/71 12/25/18 07:10 Pulse Ox 98 12/25/18 07:10 Gastrointestinal (Abdomen): Inspection/Auscultation: + abdominal surgical incision (some drainage on dressing, no erythema) and + abdominal surgical drain present (serous drainage) Percussion/Palpation: abdomen soft
[2018-12-25 08:28] LABS: Hematocrit (blood only) 33.3 % (37-47); Hemoglobin 11.1 g/dL (12.0-16.0); Mean Corpuscular Hgb Conc 33.3 g/dL (32-36); RDW Coefficient of Variation 14.2 % (11.5-14.5); RDW Standard Deviation 46.3 fL (36.4-46.3); White Blood Count 25.09 K/uL (4.8-10.8)
[2018-12-25 08:36] LABS: Mean Platelet Volume 9.6 fL (7.4-10.4); Platelet Count 1023 K/uL (130-400); Platelet Estimate Increased (Normal)
[2018-12-25] MEDS: D5W AND 1/2NSS + 20MEQ KCL 20 MEQ/1,000 ML BAG IV SCH ×2 (09:43→10:55)
[2018-12-25] MEDS: FLUCONAZOLE 100 MG/50 ML BAG IV SCH (09:43)
[2018-12-25] MEDS: PANTOprazole 40 MG in SYRINGE 0 ML IV SCH (09:44)
[2018-12-25] MEDS: ENOXAPARIN INJ 40 MG/0.4 ML SYR SQ SCH (22:16)
[2018-12-26] MEDS: ACETAMINOPHEN 1,000 MG/100 ML VIAL IV SCH ×3 (03:44→22:16)
[2018-12-26] MEDS: PIPERACILLIN/TAZOBACTAM 3.375 GM in DEXTROSE 5% 100 ML IV SCH ×3 (04:09→20:10)
[2018-12-26] MEDS: CALCIUM CARBONATE 500 MG CHEWABLE TAB PO PRN ×2 (04:19→08:36)
[2018-12-26] MEDS: HYDROmorphone HCL 0.5MG/ML 50 ML CASSETTE IV PRN ×2 (07:14→15:26)
[2018-12-26] MEDS ORDERED: FUROSEMIDE 20 MG in SYRINGE 0 ML IV ONE (07:27)
[2018-12-26 08:42] LABS: Hematocrit (blood only) 33.9 % (37-47); Hemoglobin 11.4 g/dL (12.0-16.0); Mean Corpuscular Hgb Conc 33.6 g/dL (32-36); Mean Corpuscular Volume 90.9 fL (80-100); Mean Platelet Volume 9.7 fL (7.4-10.4); Platelet Count 1207 K/uL (130-400); RDW Coefficient of Variation 14.3 % (11.5-14.5); RDW Standard Deviation 46.1 fL (36.4-46.3); Red Blood Count 3.73 M/uL (4.2-5.4); White Blood Count 27.16 K/uL (4.8-10.8)
--- NOTE | 2018-12-26 08:49 | Surgery Progress Note ---
Date of Service December 26, 2018 Assessment & Plan (1) Perforated bowel: POD 9 beginning to improve WBC 27, afebrile, consider removing more marito no growth on cx from IR drainage Keep all 3 drains for now hematology consult. as above. +BM's. poor appetite. "weak" PRASAD's all serous. continue to encourage PO intake. aggressive PT/OT Dr. Heller covering for weekend. Subjective feels a little better, less RUQ pain, had regular food, no BM since yesterday morning, ambulating with PT, using BARN WORKER every couple of hours Physical Exam 2 Vital Signs (Past 24 Hours): Last Vital Signs Temp 36.8 C 12/26/18 07:18 Pulse 94 H 12/26/18 07:18 Resp 16 12/26/18 07:18 BP 125/76 12/26/18 07:18 Pulse Ox 96 12/26/18 07:18 Gastrointestinal (Abdomen): Inspection/Auscultation: + abdominal surgical incision (continues to drain) Percussion/Palpation: abdomen soft left 65 cc, right 40 cc serous, IR drain minimal serosang
[2018-12-26] MEDS: FLUCONAZOLE 100 MG/50 ML BAG IV SCH (08:51)
--- NOTE | 2018-12-26 08:53 | Consultation Report ---
DATE OF CONSULTATION: 12/26/2018 HEMATOLOGIC CONSULTATION REASON FOR CONSULTATION: Thrombocytosis. HISTORY OF PRESENT ILLNESS: Le is a very pleasant but unfortunate 73-year-old female patient who was admitted to [facility] on 17 of December at which time she was postoperative day #8 status post cystoscopy, right ureteroscopy, right ureteral stent exchange and robotic-assisted laparoscopic conversion to open lysis of extensive right ureteral adhesions and excision of portion of the right ureter. The patient apparently for the previous 4 days had suffered increasing abdominal pain and anorexia. She denied any fevers or chills. Emergent CT scan of the abdomen and pelvis confirmed the presence of the terminal ileum with fistula and abscess formation. She was subsequently taken to the operating room by Dr. Stephen who performed an exploratory laparotomy, right hemicolectomy, enterolysis and abdominal washout. The patient is now receiving broad-spectrum antibiotics and has multiple drains in place. She is now postoperative day #9. I have been asked to see her because of anomalies seen in her peripheral blood counts, particularly leukocytosis and progressive thrombocytosis. Her platelet count eclipsed to one million yesterday. She is currently on DVT prophylaxis. PAST MEDICAL HISTORY: Includes status post CVA, gastroesophageal reflux disease, cardiac murmur, hyperlipidemia, hypertension, renal lithiasis, migraine headaches, osteoarthritis, peripheral neuropathy, scoliosis and right ureteral scarring. PAST SURGICAL HISTORY: Includes tooth extraction; hysterectomy; EGD; multiple dilatations and curettage; cystoscopy with stent insertions, total of 5, colonoscopy; cataract surgery; and ORIF, right upper extremity; and history of ureteral repair. HOME MEDICATIONS: Include duloxetine 60 mg p.o. daily, Imdur 30 mg p.o. daily, omeprazole 40 mg p.o. daily, docusate sodium 100 mg p.o. b.i.d., oxycodone 5 mg p.o. t.i.d. p.r.n. ALLERGIES: No known drug allergies. SOCIAL HISTORY: The patient is retired, , quit cigarettes 43 years ago. She is social alcohol consumer. FAMILY HISTORY: Includes diabetes mellitus and colorectal cancer. REVIEW OF SYSTEMS: As per HPI. The patient had presented with acute progressing abdominal pain and the anorexia. She denied any fevers, chills or sweats. SKIN: No rashes or lesions. No history of dermatoses. HEENT: Negative for headaches, lightheadedness or dizziness. No visual or hearing deficits. No sinus symptoms, sore throat or dysphagia. LYMPH: No history of lymphoproliferative disease. CARDIAC: History of murmur. No current angina or palpitations. PULMONARY: Negative for COPD. No shortness of breath, dyspnea or orthopnea. No cough or hemoptysis. GASTROINTESTINAL: As per HPI. GENITOURINARY: As per HPI. MUSCULOSKELETAL: No history of rheumatologic disease. Denies generalized weakness. No arthralgias or myalgias. ENDOCRINE: Negative for diabetes or thyroid disease. NEUROLOGIC: Remote history of stroke. Negative for seizure disorder or migraine headaches. HEMATOLOGIC: Positive for leukocytosis and thrombocytosis. PHYSICAL EXAMINATION: GENERAL: An ill-appearing 73-year-old elderly female. Awake, alert and appropriate, in no acute distress. VITAL SIGNS: Temperature 36.8, pulse 94, respiratory rate 16, blood pressure 125/76. SKIN: Warm, dry, noncyanotic with petechiae, rash or ecchymosis. HEENT: Head is atraumatic, normocephalic. Eyes: PERRLA, EOMI. Sclerae nonicteric. Nares are patent. Throat clear. Tongue midline. No buccal lesions or ulcerations. NECK: Supple. Trachea is midline. HEART: Regular rate and rhythm. No clicks, rubs or murmurs. LUNGS: Clear to auscultation bilaterally. ABDOMEN: Exam limited because of her multiple drains. EXTREMITIES: No clubbing, cyanosis, or edema. Strength and pulses are equal in all 4 quadrants. NEUROLOGICAL: She is awake, alert and oriented x3. Cranial nerves are intact. LABORATORY DATA: These were from 12/25/2018. WBC count 25,090, hemoglobin 11.1, platelet count 1023, absolute neutrophil count 20,500. Chemistries from 12/24/2018. Sodium 139, potassium 3.5, chloride 106, carbon dioxide 25, BUN 8, creatinine 0.64, albumin 1.7. IMPRESSION: 1. Thrombocytosis (reactive). 2. Leukocytosis. 3. Status post right hemicolectomy/exploratory laparotomy, terminal ileal complex abscess, infected abdominal wound, alpha streptococcus, bacteroides and peptostreptococcus species. PLAN: I had the pleasure of visiting with Le at bedside today. This patient recently underwent extensive surgery for abscess formation of the right colon. She has an active wound infection and receiving broad-spectrum antibiotics. Her platelet count has risen exponentially which would suggest a reactive process. I would not work her up for myeloproliferative disorder in this setting. Her platelet count is now over a million and therefore should maintain adequate DVT prophylaxis. Inflammation, infection and iron deficiency are all causes for reactive thrombocytosis. Perhaps obtaining iron studies would be helpful, and if she is deficient, replace intravenously. Continued to treat her aggressively in the hopes of alleviating inflammatory process, thereafter, her platelets should begin to retreat. It would be premature to suggest a cytoreduction. However, when patient does fully recover, obviously her peripheral counts should be monitored. If they fail to spontaneously resolve, then I would pursue a myeloproliferative workup. Truly, nothing further to be done other than her current prescribed care. Thank you very much for allowing me to participate in her care. If any questions or concerns, feel free to contact me at any time.
[2018-12-26 08:55] LABS: BUN Creatinine Ratio 13.8 (10-20); Basophils # (auto) 0.03 K/uL (0-0.2); Basophils % (auto) 0.1 %; Creatinine Clr Calc Pharmacy 55.9 ml/min; Eosinophils # (auto) 0.08 K/uL (0-0.5); Eosinophils % (auto) 0.3 %; Est GFR (African American) 79.3; Est GFR (Non-African American) 68.5; Giant Platelets 1+; Immature Granulocytes # (auto) 0.15 K/uL (0.00-0.02); Immature Granulocytes % (auto) 0.6 %; Lymphocytes # (auto) 2.01 K/uL (1.2-3.4); Lymphocytes % (auto) 7.4 %; Monocytes # (auto) 1.71 K/uL (0.11-0.59); Monocytes % (auto) 6.3 %; Neutrophils # (auto) 23.18 K/uL (1.4-6.5); Neutrophils % (auto) 85.3 %; Potassium 3.2 mmol/L (3.5-5.1)
--- NOTE | 2018-12-26 10:28 | Urology Progress Note ---
Date of Service December 26, 2018 Assessment & Plan (1) Perforated bowel: POD #9 s/p p exp lap; right hemicolectomy; enterolysis; abdominal washout Afebrile, VSS Persistent leukocytosis, Surgery considering taking out more marito Plan to c/s hematology for abnormal platelet count x2days Cr stable, no difficulty with voiding. Continue 3 drains - deep would culture from RLQ on 12/23 final result - no growth. Still having pain, discomfort. Working with PT/OT Will continue to follow Subjective POD #9 s/p p exp lap; right hemicolectomy; enterolysis; abdominal washout Pt sitting up in chair, eating regular diet. Pt still having abd pain, discomfort. Using PRE SALES TECHNICAL ENGINEER frequently Having some difficulty swallowing toast per patient. Review of Systems All systems reviewed & are unremarkable except as noted in HPI & below Physical Exam 2 Vital Signs (Past 24 Hours): Last Vital Signs Temp 36.8 C 12/26/18 07:18 Pulse 94 H 12/26/18 07:18 Resp 16 12/26/18 07:18 BP 125/76 12/26/18 07:18 Pulse Ox 96 12/26/18 07:18 Physical Exam: A&Ox3 shallow resp rate, to prevent discomfort per patient Abd tender Gu: voiding spontaneously
[2018-12-26] MEDS: PANTOprazole 40 MG in SYRINGE 0 ML IV SCH (12:25)
[2018-12-26] MEDS: ONDANSETRON INJ 2 MG/ML 2 ML VIAL IV PRN (16:57)
[2018-12-26] MEDS: ENOXAPARIN INJ 40 MG/0.4 ML SYR SQ SCH (20:11)
[2018-12-27] MEDS: CALCIUM CARBONATE 500 MG CHEWABLE TAB PO PRN (03:23)
[2018-12-27] MEDS: PIPERACILLIN/TAZOBACTAM 3.375 GM in DEXTROSE 5% 100 ML IV SCH ×3 (04:51→21:09)
[2018-12-27] MEDS: ACETAMINOPHEN 1,000 MG/100 ML VIAL IV SCH ×3 (04:51→22:27)
--- NOTE | 2018-12-27 09:42 | Urology Progress Note ---
Date of Service December 27, 2018 Assessment & Plan (1) Perforated bowel: A/P 73 yo female POD# 18 from R open ureteroureterostomy with stent exchange, POD#10 s/p R hemicolectomy and washout, POD#4 s/p radiology drain placement. Continue stent. Continue abdominal drains per Gen Surg service. Slow recovery, some decompensation - PT consulted previously, I would suspect some subacute rehab might be indicated Continue pain control. Slow GI recovery - hopefully BM today with some improvement in appetite. Reactive blood titers - should improve with healing. Continue current care plan, no acute intervention. Findings and plan discussed with patient. Will follow. Subjective Unfortunate 73 yo female POD# 18 from R open ureteroureterostomy with stent exchange, POD#10 s/p R hemicolectomy and washout, POD#4 s/p radiology drain placement who continues her slow recovery. She is OOB on interview to ambulate with assistance to BR for sensation of BM. She notes she is taking small amounts of her regular diet and Boost, no emesis, continues to be limited in her activity and compain of RUQ pain as previous. Hematology consult noted - elevated platelet count felt to be reactive, no new management or evaluation planned. Prior progress notes and surgical service coverage noted. [address], CT images reviewed, R stent in place with functional kidney. No new acute events since last seen by our service. She remains afebrile currently. Physical Exam 2 Vital Signs (Past 24 Hours): Last Vital Signs Temp 36.8 C 12/27/18 07:42 Pulse 118 H 12/27/18 07:42 Resp 15 12/27/18 07:42 BP 137/61 12/27/18 07:42 Pulse Ox 94 12/27/18 07:42 Constitutional: average body habitus Neck: trachea midline; no anterior neck swelling Respiratory: no respiratory distress and does not use accessory muscles Cardiovascular: Vessels: radial pulses present Gastrointestinal (Abdomen): Inspection/Auscultation: abdomen not distended Percussion/Palpation: + abdomen tender and abdomen soft inc c/d/i, drains in place Skin: normal turgor Neurologic: CN's II-XI intact bilaterally and awake; not obtunded Psychiatric: Orientation: oriented x 3 Lymphatic: no lymphadenopathy Results & Data Laboratory Results Laboratory Results - last 48 hr 12/26/18 12/26/1812/26/19 08:10 08:10 17:17 WBC 27.16 H RBC 3.73 L Hgb 11.4 L Hct 33.9 L MCV 90.9 MCH 30.6 MCHC 33.6 RDW Std Deviation 46.1 RDW Coeff of Lainey 14.3 Plt Count 1207 H* MPV 9.7 Immature Gran % (Auto) 0.6 Neut % (Auto) 85.3 Lymph % (Auto) 7.4 [place] % (Auto) 6.3 Eos % (Auto) 0.3 Baso % (Auto) 0.1 Immature Gran # (Auto) 0.15 H Neut # (Auto) 23.18 H Lymph # (Auto) 2.01 [place] # (Auto) 1.71 H Eos # (Auto) 0.08 Baso # (Auto) 0.03 Giant Platelets 1+ Sodium 137 Potassium 3.2 L Chloride 102 Carbon Dioxide 24 Anion Gap 11.0 BUN 12 Creatinine 0.85 Est Cr Clr Drug Dosing 55.9 Est GFR ( Amer) 79.3 Est GFR (Non-Af Amer) 68.5 BUN/Creatinine Ratio 13.8 Glucose 102 H POC Glucose 117 H Calcium 8.0 L
[2018-12-27] MEDS: ONDANSETRON INJ 2 MG/ML 2 ML VIAL IV PRN ×2 (10:19→15:56)
[2018-12-27] MEDS: PANTOprazole 40 MG in SYRINGE 0 ML IV SCH (10:19)
--- NOTE | 2018-12-27 10:31 | Surgery Progress Note ---
Date of Service December 27, 2018 Assessment & Plan (1) Perforated bowel: POD #10 Pt seen and examined with Dr. Heller Reviewed Hematology consult Patient continues to improve slowly. Abdominal pain still present, but improving. Not hungry, feels weak. 3 drains present- continue Will recheck labs in AM. Please call with questions or concerns. POD 9 beginning to improve WBC 27, afebrile, consider removing more marito no growth on cx from IR drainage Keep all 3 drains for now hematology consult. as above. +BM's. poor appetite. "weak" PRASAD's all serous. continue to encourage PO intake. aggressive PT/OT Dr. Heller covering for weekend. Physical Exam 2 Vital Signs (Past 24 Hours): Last Vital Signs Temp 36.8 C 12/27/18 07:42 Pulse 118 H 12/27/18 07:42 Resp 15 12/27/18 07:42 BP 137/61 12/27/18 07:42 Pulse Ox 94 12/27/18 07:42
[2018-12-27 12:05] LABS: Hematocrit (blood only) 30.6 % (37-47); Hemoglobin 10.8 g/dL (12.0-16.0); Mean Corpuscular Hgb Conc 35.3 g/dL (32-36); Mean Corpuscular Volume 90.5 fL (80-100); Mean Platelet Volume 9.4 fL (7.4-10.4); Platelet Count 1086 K/uL (130-400); RDW Coefficient of Variation 14.3 % (11.5-14.5); RDW Standard Deviation 44.9 fL (36.4-46.3); Red Blood Count 3.38 M/uL (4.2-5.4); White Blood Count 21.27 K/uL (4.8-10.8)
[2018-12-27 12:08] LABS: Basophils # (auto) 0.02 K/uL (0-0.2); Basophils % (auto) 0.1 %; Eosinophils # (auto) 0.06 K/uL (0-0.5); Eosinophils % (auto) 0.3 %; Immature Granulocytes % (auto) 0.5 %; Lymphocytes # (auto) 1.13 K/uL (1.2-3.4); Lymphocytes % (auto) 5.3 %; Monocytes # (auto) 1.33 K/uL (0.11-0.59); Monocytes % (auto) 6.3 %; Neutrophils # (auto) 18.63 K/uL (1.4-6.5); Neutrophils % (auto) 87.5 %
--- NOTE | 2018-12-27 13:55 | Progress Note ---
DATE: 12/27/2018 HEMATOLOGY PROGRESS NOTE DIAGNOSES: 1. Reactive thrombocytosis. 2. Leukocytosis. 3. Status post right hemicolectomy/exploratory laparotomy, terminal ileal complex abscess, infected abdominal wound. 4. Alpha streptococcus, bacteroides and peptostreptococcus species. SUBJECTIVE: Le was seen and examined, sitting in chair this morning. She states her discomfort has certainly improved, but clearly has long way to go in the healing process. CBC was not ordered this morning and therefore took the liberty of ordering peripheral counts. Preliminary reading from the organic lab worker, platelets still remain slightly over a million, but certainly down from yesterday's 1.2 million. She continues broad-spectrum antibiotics. Nursing reports no overnight difficulties. PHYSICAL EXAMINATION: GENERAL: She is somewhat somnolent in chair, but does answer questions appropriately. VITAL SIGNS: Temperature 36.8, pulse 118, respiratory rate 15, blood pressure 137/61. SKIN: Without rash or lesion. HEENT: Oral mucosa dry. No buccal lesions or ulcerations. NECK: Supple. Trachea is midline. HEART: Tachy, but regular. LUNGS: Clear to auscultation. ABDOMEN: Deferred. EXTREMITIES: 2+ peripheral edema bilaterally. NEUROLOGIC: Grossly intact. LABORATORY DATA: CBC pending. Preliminary report, platelets slightly over 1 million, but heading in right direction. IMPRESSION: 1. Reactive thrombocytosis. 2. Leukocytosis. 3. Status post right hemicolectomy/exploratory laparotomy, terminal ileal complex abscess with infected abdominal wound. PLAN: Le was seen and examined at bedside today. She is making slow, but steady progress. As anticipated I believe her platelets are heading in the right direction and therefore cytoreduction is not necessary at this time. As she continues in healing process, I fully expect both her platelet and white count to retreat towards normal. Dr. Villela will be taking over service and will make sure Le is signed out to him to further follow. Thank you for allowing me to participate in her care, and if you have questions or concerns, contact me at any time.
[2018-12-27] MEDS ORDERED: METOPROLOL TARTRATE 1 MG/ML VIAL IV STA (15:04)
--- NOTE | 2018-12-27 15:24 | Family Medicine Progress Note ---
Date of Service December 27, 2018 Assessment & Plan (1) Atrial fibrillation: (1) Right lower quadrant abscess: Le is a 73 year old female with a PMH of CVA, peripheral neuropathy, L1 compression fracture that presented to [facility] with a RLQ abscess secondary to a urological procedure. She is currently POD #10 for emergent ex lap, right hemicolectomy, enterolysis, and abdominal washout. She is also POD#4 for abscess drainage. We were asked to see the patient again due to the new finding of atrial fibrillation. New onset Atrial fibrillation with RVR - Will give 25mg of metoprolol tartrate PO now - Start metoprolol succinate 25mg daily tomorrow AM - Patient has a [id number] score of 3 therefore would be an A/C candidate - Will wait to here back from surgery before deciding on A/C as patient may be high risk with recent surgeries - Patient had an echo on 12/18/18 which showed EF>70 with LVH, moderate aortic valve sclerosis and elevated R sided heart pressures Profuse foul smelling diarrhea - patient has been on zosyn for abscess - will check c diff - add daily probiotic PO Right lower quadrant abdominal abscess POD day #10 Continue IV Zosyn - Continue 40mg pantoprazole IV daily - Pain control with PATTERN WORKER pump Diet advanced to minced and moist Occurred following urologic procedure on 12/10/2018 CT of the abdomen did show possibility of developing abscesses versus fluid 90 cc drained 12/23/[address] guided abscess drainagecultures pending Right lower lobe pneumonia Likely secondary to aspiration Continue Zosyn - Lungs are clear now, will order CXR to assess for any worsening in pneumonia Thrush - Fluconazole Hx of CVA - no symptoms currently Peripheral neuropathy Continue duloxetine DVT prophylaxis - lovenox PT/OT following along Supervising Physician Co-Signing Physician Notes Resident Physician Supervision Note: I independently interviewed and examined the patient and verified the ward history and physical, reviewed labs and image studies, discussed the case with the resident Dr. Willard and agree with the findings and care plan. Subjective We were previously consulted on patient during this admission but had signed off. We were asked to see the patient today by the General Surgery team due to a new finding of atrial fibrillation on EKG yesterday evening. On an EKG yesterday evening she was found to have afib with RVR at 104 bpm. After looking at the records it does not appear that that she has a hx of similar. The nurse had also told me today that the patient has been having loose foul smelling bowel movements over the past day. The patient does note that she is fatigued and she is currently feeling nauseated. She has also noted that her lower extremities seem to be more swollen. She has an occasional cough but otherwise denies any chest pain, palpitations, shortness of breath, or dizziness Physical Exam 2 Vital Signs (Past 24 Hours): Last Vital Signs Temp 36.6 C 12/27/18 15:15 Pulse 106 H 12/27/18 15:15 Resp 18 12/27/18 15:15 BP 114/69 12/27/18 15:15 Pulse Ox 95 12/27/18 15:15 Physical Exam: Gen: fatigued appearing but in no acute distress Cardiac: Irregular rate and rhythm, loud 3/6 systolic murmur with radiation to carotids Lungs: clear to auscultation without any wheezes or rhonchi Abdomen: mild generalized tenderness with several drains in place Lower extremities: swollen but with minimal pitting, strong peripheral pulses
[2018-12-27] MEDS ORDERED: METOPROLOL TARTRATE 50 MG TAB PO STA (15:30)
[2018-12-27] MEDS: SODIUM CHLORIDE 0.9% 1000ML 1,000 ML IV SCH (16:30)
--- NOTE | 2018-12-27 16:34 | XRay Report ---
XR chest 1V portable HISTORY: Evaluation of pneumonia COMPARISON: Chest 12/19/2018. FINDINGS: No pneumothorax. Small bilateral pleural effusions have improved. The heart remains borderl ine enlarged. No evidence for pulmonary edema. No new focal lung consolidations to suggest pneumonia. IMPRESSION: Improvement in the small bilateral pleural effusions. No focal lung consolidations to suggest pneumon ia. Electronically signed by: Edgar Arias M.D. 12/27/2018 4:33 PM
[2018-12-27] MEDS: SACCHAROMYCES BOULARDII 250 MG CAP PO SCH (17:36)
[2018-12-27] MEDS ORDERED: Heparin IV Standard *NO* Bolus IV SCH (18:40)
[2018-12-27 19:31] LABS: Hematocrit (blood only) 28.3 % (37-47); Mean Corpuscular Volume 90.4 fL (80-100); Mean Platelet Volume 9.5 fL (7.4-10.4); Platelet Count 944 K/uL (130-400); RDW Coefficient of Variation 14.4 % (11.5-14.5); RDW Standard Deviation 45.6 fL (36.4-46.3); Red Blood Count 3.13 M/uL (4.2-5.4); White Blood Count 18.04 K/uL (4.8-10.8)
[2018-12-27 19:33] LABS: Mean Corpuscular Hgb Conc 35.3 g/dL (32-36)
[2018-12-27 19:50] LABS: INR 1.1 (0.9-1.1); Partial Thromboplastin Time 25.5 Seconds (21.0-31.0); Prothrombin Time 10.7 Seconds (9.0-12.0)
[2018-12-27] MEDS: HEPARIN STANDARD DEXTROSE 25,000 UNITS/500 ML IV SCH (19:51)
[2018-12-27 20:00] LABS: Basophils # (auto) 0.01 K/uL (0-0.2); Basophils % (auto) 0.1 %; Echinocytes 1+; Eosinophils # (auto) 0.06 K/uL (0-0.5); Eosinophils % (auto) 0.3 %; Immature Granulocytes # (auto) 0.08 K/uL (0.00-0.02); Immature Granulocytes % (auto) 0.4 %; Lymphocytes # (auto) 0.93 K/uL (1.2-3.4); Lymphocytes % (auto) 5.2 %; Monocytes # (auto) 1.12 K/uL (0.11-0.59); Monocytes % (auto) 6.2 %; Neutrophils # (auto) 15.84 K/uL (1.4-6.5); Neutrophils % (auto) 87.8 %; Toxic Granulation 1+
[2018-12-27] MEDS ORDERED: PIPERACILL/TAZOBAC CONSULT ACTIVE PRN (20:15)
[2018-12-27] MEDS: HYDROmorphone HCL 0.5MG/ML 50 ML CASSETTE IV PRN (23:12)
[2018-12-28 02:28] LABS: Partial Thromboplastin Ratio 1.5; Partial Thromboplastin Time 38.6 Seconds (21.0-31.0)
[2018-12-28] MEDS ORDERED: HEPARIN IV BOLUS 5,000 UNITS in SYRINGE 0 ML IV ONE (02:45)
[2018-12-28] MEDS: ACETAMINOPHEN 1,000 MG/100 ML VIAL IV SCH (03:23)
[2018-12-28] MEDS: PIPERACILLIN/TAZOBACTAM 3.375 GM in DEXTROSE 5% 100 ML IV SCH ×3 (05:39→18:24)
[2018-12-28 06:50] LABS: Basophils # (auto) 0.01 K/uL (0-0.2); Basophils % (auto) 0.1 %; Eosinophils # (auto) 0.07 K/uL (0-0.5); Eosinophils % (auto) 0.5 %; Hematocrit (blood only) 28.9 % (37-47); Hemoglobin 10.1 g/dL (12.0-16.0); Immature Granulocytes # (auto) 0.07 K/uL (0.00-0.02); Immature Granulocytes % (auto) 0.5 %; Lymphocytes # (auto) 1.21 K/uL (1.2-3.4); Lymphocytes % (auto) 8.4 %; Mean Corpuscular Hgb Conc 34.9 g/dL (32-36); Mean Corpuscular Volume 91.7 fL (80-100); Mean Platelet Volume 9.6 fL (7.4-10.4); Neutrophils # (auto) 12.02 K/uL (1.4-6.5); Neutrophils % (auto) 83.5 %; Platelet Count 964 K/uL (130-400); RDW Coefficient of Variation 14.5 % (11.5-14.5); RDW Standard Deviation 46.3 fL (36.4-46.3); Red Blood Count 3.15 M/uL (4.2-5.4); White Blood Count 14.38 K/uL (4.8-10.8)
[2018-12-28 07:00] LABS: INR 1.1 (0.9-1.1); Prothrombin Time 10.9 Seconds (9.0-12.0)
[2018-12-28] MEDS: CALCIUM CARBONATE 500 MG CHEWABLE TAB PO PRN (07:52)
[2018-12-28] MEDS: METOPROLOL SUCC 25MG EXT REL TAB PO SCH (07:52)
[2018-12-28] MEDS: SACCHAROMYCES BOULARDII 250 MG CAP PO SCH (07:53)
[2018-12-28 07:54] LABS: Albumin Globulin Ratio 0.5 (0.9-2); Albumin Level 1.6 gm/dl (3.4-5.0); BUN Creatinine Ratio 16.7 (10-20); Bilirubin,Total 0.3 mg/dl (0.2-1); Calcium 7.3 mg/dl (8.5-10.1); Creatinine Clr Calc Pharmacy 60.9 ml/min; Ferritin 179.6 ng/ml (8-388); Globulin 3.5 gm/dl (2.5-4.0); Potassium 2.6 mmol/L (3.5-5.1); Total Protein 5.1 gm/dl (6.4-8.2)
[2018-12-28] MEDS: HYDROmorphone HCL 0.5MG/ML 50 ML CASSETTE IV PRN (08:22)
--- NOTE | 2018-12-28 08:35 | Critical Care Consultation ---
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 by mouth every 6 hours as needed for pain Reported history of CVA as incidental finding on CT -Now with paroxysmal A. fib will require bubble study Resp: Presumptive right lower lobe aspiration pneumonia -Finished treatment course of Zosyn -Incentive spirometry CV: New onset atrial fibrillation (paroxysmal) -Agree with heparin for anticoagulation as she may need additional procedures in the near future -Will attempt to achieve rhythm control patient currently rate controlled -Optimize electrolytes, suspect this is an aspect of generalized illness, disease state, postoperative catecholamine surges -Fasting lipid panel -Amiodarone without bolus -Continue with beta-blockade started metoprolol 25 mg twice daily this morning Left ventricular hypertrophy -Metoprolol 12.5 mg twice daily Fluids/Renal: Hypokalemia -20 mEq potassium chloride IV -20 M EQ's potassium acetate -18 mmol potassium phosphate -Recheck electrolytes at 1600 after replacements Hypomagnesemia -2 g IV magnesium -400 mg Mag-Ox nightly with zinc sulfate nightly Diarrhea -C. difficile negative yesterday -Saccharomyces started by family medicine team -PPI started by general surgery ID: Intra-abdominal abscess - Zosyn day total then discontinue GI/Nutrition: Intra-abdominal abscess -Discussed with Dr. Heller -Encourage oral intake: Protein supplementation (boost) -Review CT scan Diarrhea -500 mg methylcellulose -Give with minimal water to act as bulk former Heme: Anemia -Low iron indices -Likely secondary to disease state -Feosol and vitamin C Thrombocytosis -Reviewed hematology consult -Heparin for CVA prevention in the setting of A. fib DVT prophylaxis: Heparin infusion Endocrine: ICU hyperglycemia protocol Vascular access: Patient requiring frequent blood draws, aggressive potassium replenishment, possible TPN will obtain PICC line -IV team unable to visualize vessel of adequate size for PICC placement, they have placed an ultrasound-guided IV Code status: Full code. PT/OT: Aggressive PT OT, out of bed to chair (2) Perforated bowel: (3) History of CVA (cerebrovascular accident): (4) Depression: (5) Peripheral neuropathy: (6) Pleural effusion: (7) Elevated troponin: (8) Ureteral stricture: (9) Anemia: (10) Compression fracture of L1 vertebra: Supervising Physician Co-Signing Physician Notes I have personally spent 100 minutes of critical care time in the direct management of this patient. This is a life/limb threatening event. This includes time spent evaluating patient, direct bedside care, chart review, placing orders, interpretation of diagnostic studies, discussion with consultants, patient, and/or family members regarding treatment decisions, as well as other required patient management activities. This time is exclusive of all separately billable procedures, and teaching time and separate from and in addition to any other critical care service time. History of Present Illness Attending Physician: Chet Stephen DO Patient is a 73-year-old female who was initially seen for stricture of a ureter causing hydronephrosis. December 09 she underwent robotic assisted laparoscopic conversion to open lysis of extensive right ureteral adhesions and excision of a portion of the right ureter with ureteroureterostomy. She was discharged on December 11, patient returned on December 17 with concern for a intra-abdominal abscess. She underwent exploratory laparotomy with a right hemicolectomy, enteral lysis of adhesions and abdominal washout. Abdominal wound cultures have been reviewed which revealed alpha strep, Bacteroides, and Peptostreptococcus. Repeat abdominal cultures from December 23 have been reviewed and there is no growth. Pathology specimens have been reviewed, ureteral specimen was negative for dysplasia or malignancy,: Specimen from December 17, 2018 was also reviewed no reports of malignancy. Patient was treated with Zosyn for intra-abdominal abscess which would also cover presumptive aspiration pneumonia per medicine notes December 20, 2018. The patient underwent IR drainage of an intra-abdominal fluid collection on December 23, 2018 Patient was discontinued from telemetry on December 20, 2018 however patient converted into atrial fibrillation which is new onset on December 27, 2018. Family medicine giving [id number] score of 3 and initiated heparin infusion Family medicine team initially signed off on December 24, 2018. I reviewed the hematology consultation from December 26, 2018 for thrombocytosis : Recommended iron studies all of the indices indicate relatively low iron stores. I asked the patient about cerebrovascular accidents she denied this to me and review of her past medical history there is a remote report of CVA. She also previously denied hypertension however she is on isosorbide which is a rather atypical antihypertensive and would also be a rather atypical antihypertensive if this were also used to treat migraines. Allergies Allergy/AdvReac Type Severity Reaction Status Date / Time No Known Allergies Allergy Verified 12/09/18 05:43 Home Medications Home Medications Medication Instructions Recorded Confirmed Type duloxetine 30 mg PO QAM 10/07/18 12/17/18 History duloxetine [Cymbalta] 60 mg PO QAM 10/07/18 12/17/18 History isosorbide mononitrate 30 mg PO QAM 10/07/18 12/17/18 History omeprazole 40 mg PO BID 10/07/18 12/17/18 History docusate sodium [Colace] 100 mg PO BID #60 cap 12/11/18 12/17/18 Rx oxycodone 5 mg PO TID PRN #14 cap 12/11/18 12/17/18 Rx Patient History Medical History Ureteral stricture Elevated troponin CVA (cerebral vascular accident) 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 NO FURTHER INVESTIGATION WITH NEEDED. Hyperlipidemia Hypertension Kidney stones Migraine Osteoarthritis Peripheral neuropathy Scoliosis Ureter injury RIGHT URETER "SCARRING" Surgical History Hx of ureter repair History of arm fracture RIGHT UE ORIF History of cataract surgery RT/LEFT History of colonoscopy History of cystoscopy WITH STENT INSERTIONS (TOTAL OF 5) History of dilatation and curettage MULTIPLE History of esophagogastroduodenoscopy (EGD) History of hysterectomy History of tooth extraction Family History Grandfather Family history of diabetes mellitus Mother Family hx of colon cancer Social History marital status: Current Living Situation: Family Current Living Situation Comment: Lives with son current occupational status: retired Other Information That Helps Us Care for You: No Feels Safe at Home: Yes Safety Concerns: Feels Safe At This Time Smoking Status: Former smoker Do You Dip or Chew Tobacco: No Second Hand Exposure: Yes Tobacco Cessation Education Requested by Patient: No Hx Alcohol Use: Yes Alcohol type: beer and wine Alcohol Intake Frequency: holidays/special occasions only Hx Substance Use: No Beliefs That Will Affect Care: None Communication Ability: Effective Review of Systems Patient generally feels unwell, no chest pain no shortness of breath. Multiple loose stool bowel movements. Generalized fatigue. No headaches no migraines. Physical Exam 2 Vital Signs (Past 24 Hours): Last Vital Signs Temp 36.6 C 12/28/18 07:35 Pulse 107 H 12/28/18 07:35 Resp 18 12/28/18 07:35 BP 123/74 12/28/18 07:35 Pulse Ox 93 12/28/18 07:35 Results & Data Diagnostic Findings Reviewed echocardiogram December 18, 2018 EF greater than 70% consistent with hypertensive changes given moderate concentric left ventricular hypertrophy and a small left ventricular cavity I have reviewed the cardiology consult December 18, 2018 I have reviewed the medicine consult December 18, 2018: Incidentally found CVA CT abdomen and pelvis December 28, 2018 IMPRESSION: 1. No evidence of bowel obstruction 2. Multiple fluid-filled bowel loops likely representing a postsurgical ileus 3. Postsurgical changes of a right hemicolectomy. Minor bowel wall thickening involving the transverse colon 4. Interval decrease in the size of the multiple intra-abdominal fluid collection status post percutaneous drainage. 5. Cholelithiasis Electronically signed by: Ace Chacon M.D. 12/28/2018 9:35 AM Chest x-ray from December 27, 2018: No active infiltrates, blunted costophrenic angles bilaterally most likely consistent with a small trace pleural effusions. ECG Additional Comments: EKG dated December 28, 2018 time 936: Atrial fibrillation rate [address] segment abnormalities, no comparison to prior. Abnormal EKG.
[2018-12-28] MEDS: ONDANSETRON INJ 2 MG/ML 2 ML VIAL IV PRN (08:36)
[2018-12-28] MEDS ORDERED: POTASSIUM PHOS 3 MMOL/1 ML INFUSION IV STA (09:21)
[2018-12-28] MEDS ORDERED: AMIODARONE / D5W 360 MG/200 ML BAG IV SCH (09:24)
[2018-12-28 09:28] LABS: Partial Thromboplastin Ratio 2.9
[2018-12-28] MEDS ORDERED: OXYCODONE HCL IR 5 MG TAB (IMMEDIATE RELEASE) PO PRN (09:33)
[2018-12-28 09:35] LABS: Partial Thromboplastin Time 74.6 Seconds (21.0-31.0)
--- NOTE | 2018-12-28 09:36 | CT Scan Report ---
CT SCAN OF THE ABDOMEN AND PELVIS WITHOUT CONTRAST CLINICAL HISTORY: Increasing abdominal pain. History of exploratory laparotomy with right hemicolecto my COMPARISON STUDY: December 21, 2018 TECHNIQUE: CT scan of the abdomen and pelvis was performed from the lung bases to the proximal femurs . Images are reviewed in the axial, sagittal, and coronal planes. IV contrast was not administered fo r this examination. A dose lowering technique was utilized adhering to the principles of ALARA. CT DOSE: 527.81 mGy.cm FINDINGS: Lower chest: There are small bilateral pleural effusions. There is minor dependent atelectasis. The h eart is mildly enlarged Liver: The unenhanced liver is normal in size, contour, and attenuation. There is no intrahepatic manuel iary ductal dilatation. Gallbladder: Cholelithiasis Spleen: Normal in size and attenuation. Pancreas: Unremarkable. Adrenal glands: Unremarkable. Kidneys: No renal calculi are visualized. There is a right-sided nephroureteral stent present. There is mild right renal atrophy. Bowel: Evaluation is limited given the lack of intravenous and oral contrast. There are multiple flui d-filled bowel loops. There are no transition zones indicate a high-grade bowel obstruction. There is colonic diverticulosis. There are postsurgical changes of a right hemicolectomy. There is mild bowel wall thickening with the transverse colon. Peritoneum: Multiple surgical drains are visualized. There is mesenteric edema. There is interval dec rease in the size of the peritoneal fluid collections. The right central mesenteric collection measur es 4.9 cm in diameter. This previously measured 6.6 cm. The lower abdominal fluid collection has near ly resolved, status post percutaneous drainage. There is decreasing fluid within the right paracolic gutter. There are postsurgical changes within the anterior abdominal wall with adjacent air bubbles l ikely postsurgical. Vasculature: The abdominal aorta is normal in course and caliber. Adenopathy: None. Pelvic viscera: The uterus is surgically absent. Skeletal structures: There is an old L1 compression fracture. IMPRESSION: 1. No evidence of bowel obstruction 2. Multiple fluid-filled bowel loops likely representing a postsurgical ileus 3. Postsurgical changes of a right hemicolectomy. Minor bowel wall thickening involving the transvers e colon 4. Interval decrease in the size of the multiple intra-abdominal fluid collection status post percuta neous drainage. 5. Cholelithiasis Electronically signed by: Ace Chacon M.D. 12/28/2018 9:35 AM
[2018-12-28 09:48] LABS: Magnesium 1.1 mg/dl (1.8-2.4); Phosphorus 3.5 mg/dl (2.5-4.9)
[2018-12-28] MEDS: PANTOprazole 40 MG in SYRINGE 0 ML IV SCH (10:40)
[2018-12-28] MEDS: NORMOSOL-R 1,000 ML IV SCH (10:45)
--- NOTE | 2018-12-28 10:46 | Urology Progress Note ---
Date of Service December 28, 2018 Assessment & Plan (1) Perforated bowel: A/P 73 yo female POD# 19 from R open ureteroureterostomy with stent exchange, POD#11 s/p R hemicolectomy and washout, POD#5 s/p radiology drain placement. ICU workup for new onset atrial fibrillation. Electrolyte correction. Consider parenteral nutrition depending on GI progress. Therapy for increasing activity. No acute surgical intervention, continue to monitor closely. Findings reviewed with patient. Subjective Unfortunate 73 yo female POD# 19 from R open ureteroureterostomy with stent exchange, POD#11 s/p R hemicolectomy and washout, POD#5 s/p radiology drain placement. Care d/w Gen Surg and ICU service, transferred to higher level care due to unexplained new onset afib and concern over abdominal pain. Her recent CT scan noncontrast is reviewed with Dr. Heller, concern over wound healing - no dehiscence noted, ? small collection in R paracolic gutter cephalad to drain, stent in good position. Hypokalemia noted, WBC and platelet count decreasing. Constitutional: + fatigue Ear, Nose, Mouth, Throat: no hearing loss Respiratory: no hemoptysis Cardiovascular: no chest pain Gastrointestinal: + abdominal pain, + bloating and + nausea Integumentary: no acne Neurologic: no paralysis Hematologic / Lymphatic: no easy bleeding Physical Exam 2 Vital Signs (Past 24 Hours): Last Vital Signs Temp 36.6 C 12/28/18 07:35 Pulse 107 H 12/28/18 07:35 Resp 18 12/28/18 07:35 BP 123/74 12/28/18 07:35 Pulse Ox 93 12/28/18 07:35 Constitutional: average body habitus ENMT: Ears: no external ear abnormality Neck: trachea midline; no anterior neck swelling Respiratory: no respiratory distress and does not use accessory muscles Cardiovascular: Vessels: radial pulses present Gastrointestinal (Abdomen): Inspection/Auscultation: abdomen not distended Percussion/Palpation: + abdomen tender and abdomen soft; no guarding small open area at inferior incision, otherwise c/d/i with marito, drains in place Skin: normal turgor Neurologic: CN's II-XI intact bilaterally and awake; not obtunded Psychiatric: Orientation: oriented x 3 Lymphatic: no lymphadenopathy Results & Data Laboratory Results Laboratory Results - last 48 hr 12/26/18 12/27/18 12/27/18 17:17 11:26 15:41 WBC 21.27 H RBC 3.38 L Hgb 10.8 L Hct 30.6 L MCV 90.5 MCH 32.0 MCHC 35.3 RDW Std Deviation 44.9 RDW Coeff of [place]ain[place] 14.3 Plt Count 1086 H* MPV 9.4 Immature Gran % (Auto) 0.5 Neut % (Auto) 87.5 Lymph % (Auto) 5.3 [place] % (Auto) 6.3 Eos % (Auto) 0.3 Baso % (Auto) 0.1 Immature Gran # (Auto) 0.10 H Neut # (Auto) 18.63 H Lymph # (Auto) 1.13 L [place] # (Auto) 1.33 H Eos # (Auto) 0.06 Baso # (Auto) 0.02 Toxic Granulation Echinocytes PT INR APTT PTT Ratio Sodium Potassium Chloride Carbon Dioxide Anion Gap BUN Creatinine Est Cr Clr Drug Dosing Est GFR ( Amer) Est GFR (Non-Af Amer) BUN/Creatinine Ratio Glucose POC Glucose 117 H Calcium Phosphorus Magnesium Iron TIBC Ferritin Total Bilirubin AST ALT Alkaline Phosphatase Total Protein Albumin Globulin Albumin/Globulin Ratio Stl C. diff Tox B Gene TNP 12/27/18 12/27/18 12/27/18 17:30 19:06 19:06 WBC 18.04 H RBC 3.13 L Hgb 10.0 L Hct 28.3 L MCV 90.4 MCH 31.9 MCHC 35.3 RDW Std Deviation 45.6 RDW Coeff of [place] 14.4 Plt Count 944 H MPV 9.5 Immature Gran % (Auto) 0.4 Neut % (Auto) 87.8 Lymph % (Auto) 5.2 [place] % (Auto) 6.2 Eos % (Auto) 0.3 Baso % (Auto) 0.1 Immature Gran # (Auto) 0.08 H Neut # (Auto) 15.84 H Lymph # (Auto) 0.93 L [place] # (Auto) 1.12 H Eos # (Auto) 0.06 Baso # (Auto) 0.01 Toxic Granulation 1+ Echinocytes 1+ PT 10.7 INR 1.1 APTT 25.5 PTT Ratio 1.0 Sodium Potassium Chloride Carbon Dioxide Anion Gap BUN Creatinine Est Cr Clr Drug Dosing Est GFR ( Amer) Est GFR (Non-Af Amer) BUN/Creatinine Ratio Glucose POC Glucose Calcium Phosphorus Magnesium Iron TIBC Ferritin Total Bilirubin AST ALT Alkaline Phosphatase Total Protein Albumin Globulin Albumin/Globulin Ratio Stl C. diff Tox B Gene Neg C.diff Toxin B 12/28/18 12/28/18 12/28/18 02:05 06:19 06:19 WBC 14.38 H RBC 3.15 L Hgb 10.1 L Hct 28.9 L MCV 91.7 MCH 32.1 MCHC 34.9 RDW Std Deviation 46.3 RDW Coeff of [place]ain[place] 14.5 Plt Count 964 H MPV 9.6 Immature Gran % (Auto) 0.5 Neut % (Auto) 83.5 Lymph % (Auto) 8.4 [place] % (Auto) 7.0 Eos % (Auto) 0.5 Baso % (Auto) 0.1 Immature Gran # (Auto) 0.07 H Neut # (Auto) 12.02 H Lymph # (Auto) 1.21 [place] # (Auto) 1.00 H Eos # (Auto) 0.07 Baso # (Auto) 0.01 Toxic Granulation Echinocytes PT INR APTT 38.6 H PTT Ratio 1.5 Sodium 139 Potassium 2.6 L D Chloride 103 Carbon Dioxide 28 Anion Gap 8.0 BUN 13 Creatinine 0.78 Est Cr Clr Drug Dosing 60.9 Est GFR ( Amer) 88.0 Est GFR (Non-Af Amer) 76.0 BUN/Creatinine Ratio 16.7 Glucose 108 H POC Glucose Calcium 7.3 L Phosphorus Magnesium Iron 23 L TIBC 170 L Ferritin 179.6 Total Bilirubin 0.3 AST 16 ALT 23 Alkaline Phosphatase 172 H Total Protein 5.1 L Albumin 1.6 L Globulin 3.5 Albumin/Globulin Ratio 0.5 L Stl C. diff Tox B Gene 12/28/18 12/28/18 12/28/18 06:19 06:19 08:35 WBC RBC Hgb Hct MCV MCH MCHC RDW Std Deviation RDW Coeff of [place]ainey Plt Count MPV Immature Gran % (Auto) Neut % (Auto) Lymph % (Auto) [place] % (Auto) Eos % (Auto) Baso % (Auto) Immature Gran # (Auto) Neut # (Auto) Lymph # (Auto) [place] # (Auto) Eos # (Auto) Baso # (Auto) Toxic Granulation Echinocytes PT 10.9 INR 1.1 APTT 74.6 H* PTT Ratio 2.9 Sodium Potassium Chloride Carbon Dioxide Anion Gap BUN Creatinine Est Cr Clr Drug Dosing Est GFR ( Amer) Est GFR (Non-Af Amer) BUN/Creatinine Ratio Glucose POC Glucose Calcium Phosphorus 3.5 Magnesium 1.1 L Iron TIBC Ferritin Total Bilirubin AST ALT Alkaline Phosphatase Total Protein Albumin Globulin Albumin/Globulin Ratio Stl C. diff Tox B Gene Diagnostic Findings CT Impression: IMPRESSION: 1. No evidence of bowel obstruction 2. Multiple fluid-filled bowel loops likely representing a postsurgical ileus 3. Postsurgical changes of a right hemicolectomy. Minor bowel wall thickening involving the transverse colon 4. Interval decrease in the size of the multiple intra-abdominal fluid collection status post percutaneous drainage. 5. Cholelithiasis
[2018-12-28] MEDS: POTASSIUM CHLORIDE / WTR 10 MEQ/100 ML PLCT IV SCH ×4 (10:51→18:09)
--- NOTE | 2018-12-28 10:55 | Surgery Progress Note ---
Date of Service December 28, 2018 Assessment & Plan (1) Perforated bowel: POD #11 Pt seen and examined with Dr. Heller. Midline incision examined, probed with q-tip, does not appear to have wound dehiscence. Abdomen tender with palpation- abdominal drains in place- serosang drainage. CT scan of abdomen/pelvis w/o contrast ordered- no evidence of wound dehiscence , Multiple fluid-filled bowel loops likely representing a postsurgical ileus; Minor bowel wall thickening involving the transverse colon; Interval decrease in the size of the multiple intra-abdominal fluid collection status post percutaneous drainage. PRASAD drain creatinine ordered. Patient transferred to ICU for close observation, management of new onset a.fib , and assistance with overall managment. patient NPO at this time. Dr. Heller personally spoke with Dr. Strange regarding care of patient. POD #10 Pt seen and examined with Dr. Heller Reviewed Hematology consult Patient continues to improve slowly. Abdominal pain still present, but improving. Not hungry, feels weak. 3 drains present- continue Will recheck labs in AM. Please call with questions or concerns. POD 9 beginning to improve WBC 27, afebrile, consider removing more marito no growth on cx from IR drainage Keep all 3 drains for now hematology consult. as above. +BM's. poor appetite. "weak" PRASAD's all serous. continue to encourage PO intake. aggressive PT/OT Dr. Heller covering for weekend. Subjective 12/27/2018- received word from nursing that patient had irregular heart rhythm. Hospitalist service had signed off on patient on 12/23/2018. Hospitalist consult was placed. Hospitalist notified and hospitalist ordered EKG. Pt was found to be in a. fib. Dr. Daniel Willard called me to ask if patient can be started on anticoagulation therapy. Dr. Heller ok with starting anticoagulation therapy. IV Heparin started. 12/28/2018 Patient not feeling well this AM- reports increasing abdominal pain, nausea. She is somnolent this AM, but easily arouses when saying her name. per nursing- patient continues to use [employer], but had not pressed [employer]ER since overnight. Physical Exam 2 Vital Signs (Past 24 Hours): Last Vital Signs Temp 36.6 C 12/28/18 07:35 Pulse 107 H 12/28/18 07:35 Resp 18 12/28/18 07:35 BP 123/74 12/28/18 07:35 Pulse Ox 93 12/28/18 07:35 Gastrointestinal (Abdomen): Inspection/Auscultation: + abdomen distended, + abdominal surgical incision (midline incision- distal end of incision is open with purulent drainage. Wound probed with q-tip to asses for possible wound dehiscence- do not believe that there is wound dehiscence. ) and + abdominal surgical drain present (x3 ) Percussion/Palpation: + abdomen tender
[2018-12-28] MEDS: MAGNESIUM SULFATE / D5W 1 GM/100 ML BAG IV SCH ×2 (10:56→11:50)
[2018-12-28] MEDS: ASCORBIC ACID 500 MG TAB PO SCH (10:58)
[2018-12-28] MEDS: FERROUS SULFATE 325 MG TAB PO SCH (10:58)
[2018-12-28] MEDS: METHYLCELLULOSE POWDER 454 GM JAR PO SCH ×2 (10:59→18:12)
[2018-12-28] MEDS: OXYCODONE HCL IR 5 MG TAB (IMMEDIATE RELEASE) PO PRN ×2 (11:02→20:31)
[2018-12-28] MEDS: ACETAMINOPHEN 500 MG TAB PO SCH ×2 (11:03→17:53)
[2018-12-28] MEDS: POTASSIUM ACETATE 10 MEQ in 0.9 % SODIUM CHLORIDE 100 ML IV SCH ×2 (12:42→13:45)
[2018-12-28] MEDS ORDERED: POTASSIUM PHOSPHATE 18 MMOL in SODIUM CHLORIDE 0.9% 500 ML IV ONE ×2 (13:30→19:30)
--- NOTE | 2018-12-28 15:40 | Surgery Progress Note ---
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 Heller. Midline incision examined, probed with q-tip, does not appear to have wound dehiscence. Abdomen tender with palpation- abdominal drains in place- serosang drainage. CT scan of abdomen/pelvis w/o contrast ordered- no evidence of wound dehiscence , Multiple fluid-filled bowel loops likely representing a postsurgical ileus; Minor bowel wall thickening involving the transverse colon; Interval decrease in the size of the multiple intra-abdominal fluid collection status post percutaneous drainage. PRASAD drain creatinine ordered. Patient transferred to ICU for close observation, management of new onset a.fib , and assistance with overall managment. patient NPO at this time. Dr. Heller personally spoke with Dr. Strange regarding care of patient. POD #10 Pt seen and examined with Dr. Heller Reviewed Hematology consult Patient continues to improve slowly. Abdominal pain still present, but improving. Not hungry, feels weak. 3 drains present- continue Will recheck labs in AM. Please call with questions or concerns. POD 9 beginning to improve WBC 27, afebrile, consider removing more marito no growth on cx from IR drainage Keep all 3 drains for now hematology consult. as above. +BM's. poor appetite. "weak" PRASAD's all serous. continue to encourage PO intake. aggressive PT/OT Dr. Heller covering for weekend. Physical Exam 2 Vital Signs (Past 24 Hours): Last Vital Signs Temp 36.4 C L 12/28/18 12:00 Pulse 75 12/28/18 13:00 Resp 16 12/28/18 13:00 BP 93/57 L 12/28/18 13:00 Pulse Ox 95 12/28/18 13:00
[2018-12-28] MEDS: AMIODARONE / D5W 360 MG/200 ML BAG IV SCH (15:56)
[2018-12-28] MEDS: HEPARIN STANDARD DEXTROSE 25,000 UNITS/500 ML IV SCH (15:57)
[2018-12-28 16:18] LABS: Calcium 6.6 mg/dl (8.5-10.1); Creatinine Clr Calc Pharmacy 69.9 ml/min; Est GFR (African American) 101.3; Est GFR (Non-African American) 87.4; Magnesium 1.6 mg/dl (1.8-2.4); Potassium 2.8 mmol/L (3.5-5.1)
[2018-12-28 16:19] LABS: Partial Thromboplastin Ratio 1.9; Phosphorus 3.6 mg/dl (2.5-4.9)
[2018-12-28 16:22] LABS: Partial Thromboplastin Time 49.5 Seconds (21.0-31.0)
[2018-12-28] MEDS ORDERED: MAGNESIUM SULFATE / D5W 1 GM/100 ML BAG IV STA (16:30)
[2018-12-28] MEDS ORDERED: Nursing to Pharmacy Communication ONE (19:11)
[2018-12-28] MEDS ORDERED: MAGNESIUM SULFATE / D5W 1 GM/100 ML BAG IV ONE (19:30)
[2018-12-28] MEDS ORDERED: POTASSIUM CHLORIDE 20 MEQ TABCR PO ONE (19:45)
[2018-12-28] MEDS ORDERED: POTASSIUM ACETATE IV SCH (20:00)
[2018-12-28] MEDS ORDERED: SODIUM CHLORIDE 0.9% IV SCH (20:00)
[2018-12-28] MEDS: MAGNESIUM OXIDE 400 MG TAB PO SCH (20:27)
[2018-12-28] MEDS: ZINC SULFATE 220 MG CAPSULE PO SCH (20:28)
[2018-12-28 20:47] LABS: BUN Creatinine Ratio 14.5 (10-20); Calcium 6.7 mg/dl (8.5-10.1); Creatinine Clr Calc Pharmacy 67.9 ml/min; Est GFR (African American) 100.3; Est GFR (Non-African American) 86.6; Potassium 2.9 mmol/L (3.5-5.1)
[2018-12-29] MEDS: ICU ELECTROLYTE REPLACEMENT PROTOCOL SCH ×4 (00:44→17:52)
[2018-12-29] MEDS: ACETAMINOPHEN 500 MG TAB PO SCH (01:04)
[2018-12-29] MEDS: HYDROmorphone INJ 0.5 MG/0.5 ML SYR IV PRN ×3 (01:34→15:03)
[2018-12-29] MEDS ORDERED: ACETAMINOPHEN 325 MG TAB PO PRN (01:45)
[2018-12-29] MEDS: PIPERACILLIN/TAZOBACTAM 3.375 GM in DEXTROSE 5% 100 ML IV SCH ×3 (02:17→19:36)
[2018-12-29] MEDS: AMIODARONE / D5W 360 MG/200 ML BAG IV SCH ×2 (03:23→16:33)
[2018-12-29 05:05] LABS: Partial Thromboplastin Ratio 2.1
[2018-12-29 05:08] LABS: Partial Thromboplastin Time 55.3 Seconds (21.0-31.0)
[2018-12-29 05:14] LABS: BUN Creatinine Ratio 13.4 (10-20); Calcium 6.3 mg/dl (8.5-10.1); Creatinine Clr Calc Pharmacy 75.5 ml/min; Est GFR (African American) 103.9; Est GFR (Non-African American) 89.6; Magnesium 1.9 mg/dl (1.8-2.4); Phosphorus 2.9 mg/dl (2.5-4.9)
[2018-12-29] MEDS ORDERED: MAGNESIUM SULFATE / D5W 1 GM/100 ML BAG IV ONE (05:44)
--- NOTE | 2018-12-29 07:42 | Critical Care Progress Note ---
Date of Service December 29, 2018 Physical Exam 2 Vital Signs (Past 24 Hours): Last Vital Signs Temp 36.6 C 12/29/18 04:00 Pulse 75 12/29/18 06:00 Resp 16 12/29/18 06:00 BP 120/65 12/29/18 06:00 Pulse Ox 94 12/29/18 06:00
[2018-12-29] MEDS: FERROUS SULFATE 325 MG TAB PO SCH (07:52)
[2018-12-29] MEDS: ASCORBIC ACID 500 MG TAB PO SCH (07:53)
[2018-12-29] MEDS: METOPROLOL SUCC 25MG EXT REL TAB PO SCH (07:53)
[2018-12-29] MEDS: ZINC SULFATE 220 MG CAPSULE PO SCH (07:53)
[2018-12-29] MEDS: MAGNESIUM OXIDE 400 MG TAB PO SCH (07:53)
[2018-12-29] MEDS: SACCHAROMYCES BOULARDII 250 MG CAP PO SCH (07:54)
[2018-12-29] MEDS: METHYLCELLULOSE POWDER 454 GM JAR PO SCH (08:04)
[2018-12-29] MEDS: ONDANSETRON INJ 2 MG/ML 2 ML VIAL IV PRN (08:47)
[2018-12-29] MEDS: DULOXETINE HCL 60 MG CAP PO SCH (08:53)
[2018-12-29] MEDS: PANTOprazole 40 MG TAB PO SCH (08:55)
[2018-12-29] MEDS ORDERED: ZINC SULFATE 220 MG CAPSULE PO SCH (09:00)
[2018-12-29] MEDS ORDERED: CALCIUM GLUCONATE 10% 1,000 MG in SODIUM CHLORIDE 0.9% 50 ML IV ONE (09:00)
[2018-12-29] MEDS: NORMOSOL-R 1,000 ML IV SCH ×3 (10:09→22:24)
--- NOTE | 2018-12-29 10:35 | Urology Progress Note ---
Date of Service December 29, 2018 Assessment & Plan (1) Perforated bowel: A/P 73 yo female POD# 20 from R open ureteroureterostomy with stent exchange, POD#12 s/p R hemicolectomy and washout, POD#6 s/p radiology drain placement. - Converted back to NSR last night - Diet back to clears, tolerating well. 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 - Continue IV electrolyte supplementation. [place] removed from R lateral incision only - Patient tolerated well. Derek were removed without difficulty. Wound well approximated. no ecchymosis, bleeding, erythema, discharge or stranding. Site gently cleansed with diluted hydrogen peroxide/saline to remove mild exudate, dried and steri-strips applied. Left open to air. No acute surgical intervention, continue to monitor closely. Subjective 73 yo female POD# 20 from R open ureteroureterostomy with stent exchange, POD# 12 s/p R hemicolectomy and washout, POD#6 s/p radiology drain placement. Pt more conversive and alert today. Pain largely controlled with PO options. 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 Denies n/v. Tolerating clears. Having some generalized abdominal pain with position changes but improved. Physical Exam 2 Vital Signs (Past 24 Hours): Last Vital Signs Temp 36.9 C 12/29/18 08:00 Pulse 71 12/29/18 09:01 Resp 23 12/29/18 09:01 BP 133/64 12/29/18 09:01 Pulse Ox 97 12/29/18 09:01 Constitutional: well developed and well nourished; no acute distress Eyes: no nystagmus ENMT: Ears: no hearing impairment Neck: trachea midline Respiratory: no respiratory distress and does not use accessory muscles Cardiovascular: Vessels: no JVD Gastrointestinal (Abdomen): Inspection/Auscultation: abdomen not distended and no abdominal edema Musculoskeletal: Head/Neck/Chest: normocephalic Skin: no rashes, warm and dry Neurologic: awake; not confused and not obtunded Psychiatric: Orientation: alert and oriented x 3 Lymphatic: no lymphadenopathy Results & Data Laboratory Results Laboratory Results - last 48 hr 12/27/18 12/27/18 12/27/18 15:41 17:30 19:06 WBC 18.04 H RBC 3.13 L Hgb 10.0 L Hct 28.3 L MCV 90.4 MCH 31.9 MCHC 35.3 RDW Std Deviation 45.6 RDW Coeff of Lainey 14.4 Plt Count 944 H MPV 9.5 Immature Gran % (Auto) 0.4 Neut % (Auto) 87.8 Lymph % (Auto) 5.2 [place] % (Auto) 6.2 Eos % (Auto) 0.3 Baso % (Auto) 0.1 Immature Gran # (Auto) 0.08 H Neut # (Auto) 15.84 H Lymph # (Auto) 0.93 L [place] # (Auto) 1.12 H Eos # (Auto) 0.06 Baso # (Auto) 0.01 Toxic Granulation 1+ Echinocytes 1+ PT INR APTT PTT Ratio Sodium Potassium Chloride Carbon Dioxide Anion Gap BUN Creatinine Est Cr Clr Drug Dosing Est GFR ( Amer) Est GFR (Non-Af Amer) BUN/Creatinine Ratio Glucose POC Glucose Calcium Ionized Calcium Phosphorus Magnesium Iron TIBC Ferritin Total Bilirubin AST ALT Alkaline Phosphatase Total Protein Albumin Globulin Albumin/Globulin Ratio Triglycerides Cholesterol LDL Cholesterol, Calc VLDL Cholesterol, Calc HDL Cholesterol Cholesterol/HDL Ratio Specimen Hemolysis Fluid Creatinine Nasal Screen MRSA (PCR) Stl C. diff Tox B Gene TNP Neg C.diff Toxin B 12/27/18 12/28/18 12/28/18 19:06 02:05 06:19 WBC 14.38 H RBC 3.15 L Hgb 10.1 L Hct 28.9 L MCV 91.7 MCH 32.1 MCHC 34.9 RDW Std Deviation 46.3 RDW Coeff of Lainey 14.5 Plt Count 964 H MPV 9.6 Immature Gran % (Auto) 0.5 Neut % (Auto) 83.5 Lymph % (Auto) 8.4 [place] % (Auto) 7.0 Eos % (Auto) 0.5 Baso % (Auto) 0.1 Immature Gran # (Auto) 0.07 H Neut # (Auto) 12.02 H Lymph # (Auto) 1.21 [place] # (Auto) 1.00 H Eos # (Auto) 0.07 Baso # (Auto) 0.01 Toxic Granulation Echinocytes PT 10.7 INR 1.1 APTT 25.5 38.6 H PTT Ratio 1.0 1.5 Sodium Potassium Chloride Carbon Dioxide Anion Gap BUN Creatinine Est Cr Clr Drug Dosing Est GFR ( Amer) Est GFR (Non-Af Amer) BUN/Creatinine Ratio Glucose POC Glucose Calcium Ionized Calcium Phosphorus Magnesium Iron TIBC Ferritin Total Bilirubin AST ALT Alkaline Phosphatase Total Protein Albumin Globulin Albumin/Globulin Ratio Triglycerides Cholesterol LDL Cholesterol, Calc VLDL Cholesterol, Calc HDL Cholesterol Cholesterol/HDL Ratio Specimen Hemolysis Fluid Creatinine Nasal Screen MRSA (PCR) Stl C. diff Tox B Gene 12/28/18 12/28/18 12/28/18 06:19 06:19 06:19 WBC RBC Hgb Hct MCV MCH MCHC RDW Std Deviation RDW Coeff of Lainey Plt Count MPV Immature Gran % (Auto) Neut % (Auto) Lymph % (Auto) [place] % (Auto) Eos % (Auto) Baso % (Auto) Immature Gran # (Auto) Neut # (Auto) Lymph # (Auto) [place] # (Auto) Eos # (Auto) Baso # (Auto) Toxic Granulation Echinocytes PT 10.9 INR 1.1 APTT PTT Ratio Sodium 139 Potassium 2.6 L D Chloride 103 Carbon Dioxide 28 Anion Gap 8.0 BUN 13 Creatinine 0.78 Est Cr Clr Drug Dosing 60.9 Est GFR ( Amer) 88.0 Est GFR (Non-Af Amer) 76.0 BUN/Creatinine Ratio 16.7 Glucose 108 H POC Glucose Calcium 7.3 L Ionized Calcium Phosphorus 3.5 Magnesium 1.1 L Iron 23 L TIBC 170 L Ferritin 179.6 Total Bilirubin 0.3 AST 16 ALT 23 Alkaline Phosphatase 172 H Total Protein 5.1 L Albumin 1.6 L Globulin 3.5 Albumin/Globulin Ratio 0.5 L Triglycerides Cholesterol LDL Cholesterol, Calc VLDL Cholesterol, Calc HDL Cholesterol Cholesterol/HDL Ratio Specimen Hemolysis Fluid Creatinine Nasal Screen MRSA (PCR) Stl C. diff Tox B Gene 12/28/18 12/28/18 12/28/18 08:35 15:45 15:45 WBC RBC Hgb Hct MCV MCH MCHC RDW Std Deviation RDW Coeff of Lainey Plt Count MPV Immature Gran % (Auto) Neut % (Auto) Lymph % (Auto) [place] % (Auto) Eos % (Auto) Baso % (Auto) Immature Gran # (Auto) Neut # (Auto) Lymph # (Auto) [place] # (Auto) Eos # (Auto) Baso # (Auto) Toxic Granulation Echinocytes PT INR APTT 74.6 H* PTT Ratio 2.9 Sodium 140 Potassium 2.8 L Chloride 103 Carbon Dioxide 27 Anion Gap 10.0 BUN 12 Creatinine 0.68 Est Cr Clr Drug Dosing 69.9 Est GFR ( Amer) 101.3 Est GFR (Non-Af Amer) 87.4 BUN/Creatinine Ratio 17.0 Glucose 112 H POC Glucose Calcium 6.6 L Ionized Calcium 0.99 L Phosphorus 3.6 Magnesium 1.6 L Iron TIBC Ferritin Total Bilirubin AST ALT Alkaline Phosphatase Total Protein Albumin Globulin Albumin/Globulin Ratio Triglycerides Cholesterol LDL Cholesterol, Calc VLDL Cholesterol, Calc HDL Cholesterol Cholesterol/HDL Ratio Specimen Hemolysis Fluid Creatinine Nasal Screen MRSA (PCR) Stl C. diff Tox B Gene 12/28/18 12/28/18 12/28/18 15:45 20:21 20:23 WBC RBC Hgb Hct MCV MCH MCHC RDW Std Deviation RDW Coeff of Lainey Plt Count MPV Immature Gran % (Auto) Neut % (Auto) Lymph % (Auto) [place] % (Auto) Eos % (Auto) Baso % (Auto) Immature Gran # (Auto) Neut # (Auto) Lymph # (Auto) [place] # (Auto) Eos # (Auto) Baso # (Auto) Toxic Granulation Echinocytes PT INR APTT 49.5 H* PTT Ratio 1.9 Sodium 139 Potassium 2.9 L Chloride 104 Carbon Dioxide 27 Anion Gap 8.0 BUN 10 Creatinine 0.70 Est Cr Clr Drug Dosing 67.9 Est GFR ( Amer) 100.3 Est GFR (Non-Af Amer) 86.6 BUN/Creatinine Ratio 14.5 Glucose 126 H POC Glucose 130 H Calcium 6.7 L Ionized Calcium Phosphorus Magnesium Iron TIBC Ferritin Total Bilirubin AST ALT Alkaline Phosphatase Total Protein Albumin Globulin Albumin/Globulin Ratio Triglycerides Cholesterol LDL Cholesterol, Calc VLDL Cholesterol, Calc HDL Cholesterol Cholesterol/HDL Ratio Specimen Hemolysis Fluid Creatinine Nasal Screen MRSA (PCR) Stl C. diff Tox B Gene 12/28/18 12/28/18 12/29/18 Unknown Unknown 04:17 WBC RBC Hgb Hct MCV MCH MCHC RDW Std Deviation RDW Coeff of Lainey Plt Count MPV Immature Gran % (Auto) Neut % (Auto) Lymph % (Auto) [place] % (Auto) Eos % (Auto) Baso % (Auto) Immature Gran # (Auto) Neut # (Auto) Lymph # (Auto) [place] # (Auto) Eos # (Auto) Baso # (Auto) Toxic Granulation Echinocytes PT INR APTT PTT Ratio Sodium 140 Potassium 4.0 D Chloride 108 H Carbon Dioxide 26 Anion Gap 6.0 BUN 8 Creatinine 0.63 Est Cr Clr Drug Dosing 75.5 Est GFR ( Amer) 103.9 Est GFR (Non-Af Amer) 89.6 BUN/Creatinine Ratio 13.4 Glucose 104 H POC Glucose Calcium 6.3 L Ionized Calcium Phosphorus 2.9 Magnesium 1.9 Iron TIBC Ferritin Total Bilirubin AST ALT Alkaline Phosphatase Total Protein Albumin Globulin Albumin/Globulin Ratio Triglycerides 97 Cholesterol 88 LDL Cholesterol, Calc 34 VLDL Cholesterol, Calc 19 HDL Cholesterol 35 Cholesterol/HDL Ratio 3 Specimen Hemolysis Fluid Creatinine 0.50 Nasal Screen MRSA (PCR) Negative Stl C. diff Tox B Gene 12/29/18 04:17 WBC RBC Hgb Hct MCV MCH MCHC RDW Std Deviation RDW Coeff of Lainey Plt Count MPV Immature Gran % (Auto) Neut % (Auto) Lymph % (Auto) [place] % (Auto) Eos % (Auto) Baso % (Auto) Immature Gran # (Auto) Neut # (Auto) Lymph # (Auto) [place] # (Auto) Eos # (Auto) Baso # (Auto) Toxic Granulation Echinocytes PT INR APTT 55.3 H* PTT Ratio 2.1 Sodium Potassium Chloride Carbon Dioxide Anion Gap BUN Creatinine Est Cr Clr Drug Dosing Est GFR ( Amer) Est GFR (Non-Af Amer) BUN/Creatinine Ratio Glucose POC Glucose Calcium Ionized Calcium Phosphorus Magnesium Iron TIBC Ferritin Total Bilirubin AST ALT Alkaline Phosphatase Total Protein Albumin Globulin Albumin/Globulin Ratio Triglycerides Cholesterol LDL Cholesterol, Calc VLDL Cholesterol, Calc HDL Cholesterol Cholesterol/HDL Ratio Specimen Hemolysis Fluid Creatinine Nasal Screen MRSA (PCR) Stl C. diff Tox B Gene
[2018-12-29] MEDS: OXYCODONE HCL IR 5 MG TAB (IMMEDIATE RELEASE) PO PRN (11:22)
[2018-12-29] MEDS: DULOXETINE HCL 30 MG CAP PO SCH (12:12)
[2018-12-29] MEDS: HEPARIN STANDARD DEXTROSE 25,000 UNITS/500 ML IV SCH (14:07)
--- NOTE | 2018-12-29 15:02 | Critical Care Progress Note ---
Date of Service December 29, 2018 Assessment & Plan (1) Atrial fibrillation: Impression: 1. A. fib, rate controlled on amiodarone. 2. Perforated bowel status post right hemicolectomy. Postop day 2. 3. History of hydronephrosis with ureteral stricture status post lysis of adhesion. 4. Diastolic heart failure. 5. History of CVA in the past. No neurologic residua. Plan: 1. Continue pain control. 2. Continue Zosyn due to perforated bowel for acute peritonitis. 3. Amiodarone for rate control. 4. Appreciate surgery and cardiology input. 5. Once the patient is able from a surgical standpoint to start on anticoagulation, she should do so. 6. The patient tolerating oral intake with liquid diet. 7. The patient can be dispositioned to telemetry floor. 8. Out of bed as tolerated. 9. ICU core measures are all metastases. Case discussed with the staff on rounds and details and with the patient, critical care time spent with the patient was 35 minutes. Subjective The patient has minimal abdominal pain, otherwise no nausea or vomiting, she has been stable, no events overnight, she is postop day 2, she remains in A. fib but rate controlled. Physical Exam 2 Vital Signs (Past 24 Hours): Last Vital Signs Temp 36.9 C 12/29/18 12:00 Pulse 72 12/29/18 14:30 Resp 16 12/29/18 14:30 BP 128/71 12/29/18 14:00 Pulse Ox 91 12/29/18 14:30 Physical Exam: Vital signs are stable, no fever reported, heart rate and blood pressure are stable, S1-S2 remains in A. fib, distant breath sounds bilaterally, abdomen is benign, little tenderness expected postop, no edema in the periphery. Neurologically she is intact. No skin rash. Oral mucosa is dry. Results & Data Laboratory Results I have reviewed her labs personally, reviewed also her I's and O's. Diagnostic Findings Reviewed her chest x-ray which did not show any infiltrate, reviewed her echocardiogram which showed ejection fraction more than 70%, LVH, there is no wall motion abnormality or valvular disease. PA pressure is not estimated.
--- NOTE | 2018-12-29 16:24 | Family Medicine Progress Note ---
Date of Service December 29, 2018 Assessment & Plan (1) Perforated bowel: 73-year-old female was admitted on 17 December 2018 for multiple days of abdominal pain, anorexia, and found to have a terminal ileal perforation with abscess. Perforated bowel, intra-abdominal abscess: 06Feb s/p emergent ex lap, right hemicolectomy, lysis, and washout. 12Feb s/p abscess drainage and placement of a drain by radiology. See ongoing general surgery notes. Likely has a postop ileus as suggested by repeat CT a/p. Initially abdomen grew alpha strep, Bacteroides, and Peptostreptococcus. No growth on repeat 12Feb wound cultures. Has transitioned off of Dilaudid PIGMENT PRESSER to oxycodone. Presumptive right lower lobe aspiration pneumonia: Is on Zosyn for planned 14- day course. Afebrile, improving leukocytosis. Encouraging IS. Latest CXR notes improvements in small bilateral pleural effusions. New onset paroxysmal A. fib with RVR: TTE on 17Feb noted EF greater than 70%, mild concentric LVH, no evidence of intra-arterial shunt. Presently rate controlled on amiodarone drip and metoprolol. Optimize electrolytes. On heparin. -We will transition from heparin drip to amiodarone PO daily. Ureteral stricture: [id number] s/p ureteral lysis, excision, and segmental uretero-ureterostomy. See related urology notes. Diarrhea: Resolved. 16Feb C diff negative. On Saccharomyces, pantoprazole, and methylcellulose. Iron deficiency anemia: Hemoglobin stable around 10's. Likely secondary to disease state. On iron and vitamin C. Electrolyte issues: - Hypokalemia: Replacing, monitoring. - Hypomagnesemia: Replace and on supplements. - Hypocalcemia: Replacing, monitoring. Reactive thrombocytosis: Platelets as high as 1207, improving. See hematology consult. Thought to be a reactive process. Peripheral neuropathy: Secondary to vertebral compression fractures. Continue duloxetine. Elevated troponin: On admission, max TnI 1.57, trended down. Likely demand ischemia due to acute illness. See related cardiology notes. Hepatic steatosis and cholelithiasis: As suggested on her CT a/p. L1 compression fracture: As suggested on her CT a/p. Outpatient management. PMH CVA: Incidental finding on CT head with no reported history of symptoms. Thrush: Prior concerns for same, given dose of fluconazole. Presently resolved. Access: PICC line placed. Code status: Full code. Diet: Advancing clear liquid diet per general surgery. DVT prophy: Heparin. PT/OT: Ongoing. Disbo: Stable for transfer out of the ICU to telemetry. Case management on board, referrals for rehab pending. (2) Right lower quadrant abscess: (3) Ileus following gastrointestinal surgery: (4) Aspiration pneumonia: (5) Atrial fibrillation: (6) Ureteral stricture: (7) Diarrhea: (8) Iron deficiency anemia: (9) Hypokalemia: (10) Hypomagnesemia: (11) Hypocalcemia: (12) Thrombocytosis: (13) Peripheral neuropathy: (14) Elevated troponin: (15) Hepatic steatosis: (16) Cholelithiasis: (17) Compression fracture of L1 vertebra: Supervising Physician Co-Signing Physician Notes I personally examined the patient and verified all ward points of history and exam, discussed case, and agree with decision making with Dr Toure. She is overall feeling a little better. She does note that her belly feels bad , but she relates this to having had marito removed earlier. Heart rates are improved. Vitals noted, in general she is very fatigued appearing but otherwise in no distress. Heart rates are in the 70s. Her breathing is unlabored no accessory muscle use good effort New onset A. fibshe is under good control with amiodarone. We can transition this to p.o. It is okay to move her from the ICU from the medical team perspective. Continue anticoagulation, anticipate transitioning her to a direct oral anticoagulant soon. Otherwise as above Subjective Found patient resting rather comfortably. She says her abdomen feels sore and that she has some nausea with movement. Overall she has no particular acute concerns. Physical Exam 2 Vital Signs (Past 24 Hours): Last Vital Signs Temp 36.4 C 12/29/18 16:00 Pulse 67 12/29/18 16:00 Resp 16 12/29/18 16:00 BP 116/65 12/29/18 16:00 Pulse Ox 97 12/29/18 16:00 Physical Exam: General Appearance: Awake, alert & oriented, comfortable in general when not moving about, NAD. CV: +S1S2, irregularly irregular this morning, 2/6 systolic murmur. Pulm: Clear to auscultation throughout. Abdomen: +BS, soft, mild tenderness with drains in place. Extremities: No pedal edema or calf tenderness. Moving all extremities naturally and easily. Neuro: No gross neuro deficits. Results & Data Laboratory Results Laboratory Results WBC 14.38 K/uL (4.8-10.8) H 12/28/18 06:19 RBC 3.15 M/uL (4.2-5.4) L 12/28/18 06:19 Hgb 10.1 g/dL (12.0-16.0) L 12/28/18 06:19 Hct 28.9 % (37-47) L 12/28/18 06:19 MCV 91.7 fL (80-100) 12/28/18 06:19 MCH 32.1 pg (25-34) 12/28/18 06:19 MCHC 34.9 g/dL (32-36) 12/28/18 06:19 RDW Std Deviation 46.3 fL (36.4-46.3) 12/28/18 06:19 RDW Coeff of Lainey 14.5 % (11.5-14.5) 12/28/18 06:19 Plt Count 964 K/uL (130-400) H 12/28/18 06:19 MPV 9.6 fL (7.4-10.4) 12/28/18 06:19 Immature Gran % (Auto) 0.5 % 12/28/18 06:19 Neut % (Auto) 83.5 % 12/28/18 06:19 Lymph % (Auto) 8.4 % 12/28/18 06:19 [place] % (Auto) 7.0 % 12/28/18 06:19 Eos % (Auto) 0.5 % 12/28/18 06:19 Baso % (Auto) 0.1 % 12/28/18 06:19 Immature Gran # (Auto) 0.07 K/uL (0.00-0.02) H 12/28/18 06:19 Neut # (Auto) 12.02 K/uL (1.4-6.5) H 12/28/18 06:19 Lymph # (Auto) 1.21 K/uL (1.2-3.4) 12/28/18 06:19 [place] # (Auto) 1.00 K/uL (0.11-0.59) H 12/28/18 06:19 Eos # (Auto) 0.07 K/uL (0-0.5) 12/28/18 06:19 Baso # (Auto) 0.01 K/uL (0-0.2) 12/28/18 06:19 Toxic Granulation 1+ 12/27/18 19:06 Platelet Estimate Increased (Normal) 12/25/18 07:38 Giant Platelets 1+ 12/26/18 08:10 RBC Morphology Unremarkable 12/22/18 06:01 Polychromasia 1+ 12/20/18 05:25 Echinocytes 1+ 12/27/18 19:06 [place]aux 1+ 12/24/18 07:23 PT 10.9 Seconds (9.0-12.0) 12/28/18 06:19 INR 1.1 (0.9-1.1) 12/28/18 06:19 APTT 55.3 Seconds (21.0-31.0) H* 12/29/18 04:17 PTT Ratio 2.1 12/29/18 04:17 Sodium 140 mmol/L (136-145) 12/29/18 04:17 Potassium 4.0 mmol/L (3.5-5.1) D 12/29/18 04:17 Chloride 108 mmol/L (98-107) H 12/29/18 04:17 Carbon Dioxide 26 mmol/L (21-32) 12/29/18 04:17 Anion Gap 6.0 (3-11) 12/29/18 04:17 BUN 8 mg/dl (7-18) 12/29/18 04:17 Creatinine 0.63 mg/dl (0.6-1.2) 12/29/18 04:17 Est Cr Clr Drug Dosing 75.5 ml/min 12/29/18 04:17 Est GFR ( Amer) 103.9 12/29/18 04:17 Est GFR (Non-Af Amer) 89.6 12/29/18 04:17 BUN/Creatinine Ratio 13.4 (10-20) 12/29/18 04:17 Glucose 104 mg/dl (70-99) H 12/29/18 04:17 POC Glucose 130 (70-99) H 12/28/18 20:23 Calcium 6.3 mg/dl (8.5-10.1) L 12/29/18 04:17 Ionized Calcium 0.99 mmol/L (1.12-1.32) L 12/28/18 15:45 Phosphorus 2.9 mg/dl (2.5-4.9) 12/29/18 04:17 Magnesium 1.9 mg/dl (1.8-2.4) 12/29/18 04:17 Iron 23 mcg/dl (35-150) L 12/28/18 06:19 TIBC 170 mcg/dl (250-450) L 12/28/18 06:19 Ferritin 179.6 ng/ml (8-388) 12/28/18 06:19 Total Bilirubin 0.3 mg/dl (0.2-1) 12/28/18 06:19 AST 16 U/L (15-37) 12/28/18 06:19 ALT 23 U/L (12-78) 12/28/18 06:19 Alkaline Phosphatase 172 U/L (45-117) H 12/28/18 06:19 Troponin I 1.270 ng/ml (0-0.045) H* 12/17/18 17:58 Total Protein 5.1 gm/dl (6.4-8.2) L 12/28/18 06:19 Albumin 1.6 gm/dl (3.4-5.0) L 12/28/18 06:19 Globulin 3.5 gm/dl (2.5-4.0) 12/28/18 06:19 Albumin/Globulin Ratio 0.5 (0.9-2) L 12/28/18 06:19 Triglycerides 97 mg/dl (0-150) 12/29/18 04:17 Cholesterol 88 mg/dl (0-200) 12/29/18 04:17 LDL Cholesterol, Calc 34 mg/dl 12/29/18 04:17 VLDL Cholesterol, Calc 19 mg/dl 12/29/18 04:17 HDL Cholesterol 35 mg/dl 12/29/18 04:17 Cholesterol/HDL Ratio 3 12/29/18 04:17 Lipase 144 U/L (73-393) 12/17/18 11:35 Specimen Hemolysis 12/29/18 04:17 Urine Color Yellow 12/17/18 13:54 Urine Appearance Clear (Clear) 12/17/18 13:54 Urine pH 8.5 (4.5-7.5) H 12/17/18 13:54 Ur Specific [place] 1.017 (1.000-1.030) 12/17/18 13:54 Urine Protein Negative (Negative) 12/17/18 13:54 Urine Glucose (UA) Negative (Negative) 12/17/18 13:54 Urine Ketones Negative (Negative) 12/17/18 13:54 Urine Blood Negative (Negative) 12/17/18 13:54 Urine Nitrite Negative (Negative) 12/17/18 13:54 Urine Bilirubin Negative (Negative) 12/17/18 13:54 Urine Urobilinogen Negative (Negative) 12/17/18 13:54 Ur Leukocyte Esterase Negative (Negative) 12/17/18 13:54 Fluid Creatinine 0.50 mg/dl 12/28/18 Unknown Nasal Screen MRSA (PCR) Negative (Negative) 12/28/18 Unknown Stl C. diff Tox B Gene Neg C.diff Toxin B (Neg) 12/27/18 17:30 Blood Type O Positive 12/17/18 16:05 Antibody Screen NEGATIVE 12/17/18 16:05 Crossmatch See Detail 12/17/18 16:05 Medications Administered Current Inpatient Medications Acetaminophen (Tylenol) 650 mg PO Q4H PRN PRN Reason: Fever/Mild Pain (Pain 1,2,3) Stop: 01/28/19 01:44 Amiodarone HCl (Cordarone) 200 mg PO [facility] Stop: 01/29/19 08:59 Ascorbic Acid (Vitamin C) 500 mg PO [facility] Stop: 01/27/19 09:59 Last Admin: 12/29/18 07:53 Dose: 500 mg Calcium Carbonate (Tums) 1,500 mg PO Q4H PRN PRN Reason: Indigestion Stop: 01/19/19 20:58 Last Admin: 12/28/18 07:52 Dose: 1,500 mg Duloxetine HCl (Cymbalta) 60 mg PO [facility] Stop: 01/28/19 08:59 Last Admin: 12/29/18 08:53 Dose: 60 mg Duloxetine HCl (Cymbalta) 30 mg PO [facility] Stop: 01/28/19 11:59 Last Admin: 12/29/18 12:12 Dose: 30 mg Ferrous Sulfate (Feosol) 325 mg PO [facility] Stop: 01/27/19 09:59 Last Admin: 12/29/18 07:52 Dose: 325 mg Hydromorphone HCl (Dilaudid) 0.5 mg IV Q4H PRN PRN Reason: Severe Pain (7,8,9,10) Stop: 01/11/19 09:32 Last Admin: 12/29/18 15:03 Dose: 0.5 mg Heparin Sodium/Dextrose (Heparin Sodium/Dextrose) 25,000 units in 500 mls @ 25 mls/hr IV .[id number] [facility]; Protocol Stop: 01/26/19 19:59 Last Titration: 12/29/18 15:14 Dose: 1,250 units/hr, 25 mls/hr Parenteral Electrolytes (Normosol-R) 1,000 mls @ 80 mls/hr IV .[id number] [facility] Stop: 01/27/19 09:29 Last Admin: 12/29/18 10:09 Dose: 80 mls/hr Piperacillin Sod/Tazobactam (Sod 3.375 gm/ Dextrose) 115 mls @ 28.75 mls/hr IV Q8H [facility] Stop: 12/30/18 10:59 Last Admin: 12/29/18 12:09 Dose: 29 mls/hr Magnesium Oxide (Mag-Ox) 400 mg PO [facility] Stop: 01/27/19 20:59 Last Admin: 12/29/18 07:53 Dose: 400 mg Methylcellulose (Citrucel) 19 gm PO DAILY [facility] Stop: 01/27/19 09:59 Last Admin: 12/29/18 08:04 Dose: 19 gm Metoprolol Succinate ([facility]rol Xl) [facility] Stop: 01/27/19 08:59 Last Admin: 12/29/18 07:53 Dose: 25 mg Miscellaneous (Icu Electrolyte Replacement Protocol) 0 ea N/A QS [facility] Stop: 01/05/19 00:00 Last Admin: 12/29/18 10:14 Dose: Not Given Miscellaneous Information (Consult) 1 ea N/A UD PRN PRN Reason: Consult Stop: 12/30/18 10:59 Ondansetron HCl (Zofran) 4 mg IV Q4H PRN PRN Reason: Nausea And Vomiting Stop: 01/16/19 19:29 Last Admin: 12/29/18 08:47 Dose: 4 mg Oxycodone HCl (Roxicodone Immediate Rel) 5 mg PO Q6H PRN PRN Reason: Moderate Pain (4,5,6) Stop: 01/11/19 09:32 Last Admin: 12/29/18 11:22 Dose: 5 mg Oxycodone HCl (Roxicodone Immediate Rel) 10 mg PO Q6H PRN PRN Reason: Severe Pain (7,8,9,10) Stop: 01/11/19 09:32 Pantoprazole Sodium (Protonix) 40 mg PO DAILY [facility] Stop: 01/28/19 08:59 Last Admin: 12/29/18 08:55 Dose: 40 mg Saccharomyces Boulardii (Florastor) 250 mg PO DAILY [facility] Stop: 01/26/19 15:44 Last Admin: 12/29/18 07:54 Dose: 250 mg Zinc Sulfate (Zinc Sulfate) 220 mg PO DAILY [facility] Stop: 01/27/19 20:59 Last Admin: 12/29/18 07:53 Dose: 220 mg Resident Activity Tracking Resident Involvement: Resident Care Provided Care Provided: Adult Hospital Medicine
--- NOTE | 2018-12-29 19:43 | Surgery Progress Note ---
Date of Service December 29, 2018 Assessment & Plan (1) Perforated bowel: continue current care. encourage po intake. if she doesn't start eating better, may need to start TPN aggressive PT/OT Subjective pt seen. doing a little better today. poor appetite. Physical Exam 2 Vital Signs (Past 24 Hours): Last Vital Signs Temp 36.4 C 12/29/18 17:00 Pulse 69 12/29/18 18:00 Resp 16 12/29/18 18:00 BP 104/59 L 12/29/18 18:00 Pulse Ox 100 12/29/18 18:00 Physical Exam: alert/oriented. nad. abd: soft. PRASAD's all have serous output. midline still with some lower pole drainage.
[2018-12-30] MEDS: HYDROmorphone INJ 0.5 MG/0.5 ML SYR IV PRN ×5 (00:42→23:23)
[2018-12-30] MEDS: PIPERACILLIN/TAZOBACTAM 3.375 GM in DEXTROSE 5% 100 ML IV SCH (03:31)
[2018-12-30] MEDS: OXYCODONE HCL IR 5 MG TAB (IMMEDIATE RELEASE) PO PRN ×3 (03:32→18:01)
--- NOTE | 2018-12-30 07:41 | Surgery Progress Note ---
Date of Service December 30, 2018 Assessment & Plan (1) Perforated bowel: slowly improving. d/w pt and nurse...need to improve caloric intake..if no improvement soon will need to supplement with TPN will check HIDA scan to eval gallbladder as etiology of pain. add nutritional supplements. pt/ot will need subacute rehab Subjective feeling better this AM than she has been. no new complaints. continues to have RUQ pain. Physical Exam 2 Vital Signs (Past 24 Hours): Last Vital Signs Temp 37.0 C 12/30/18 03:55 Pulse 68 12/30/18 03:55 Resp 18 12/30/18 03:55 BP 115/64 12/30/18 03:55 Pulse Ox 98 12/30/18 03:55 Physical Exam: alert/oriented. NAD. abd: soft. +RUQ ttp.
[2018-12-30] MEDS: DULOXETINE HCL 30 MG CAP PO SCH (08:00)
[2018-12-30] MEDS: DULOXETINE HCL 60 MG CAP PO SCH (08:00)
[2018-12-30] MEDS: SACCHAROMYCES BOULARDII 250 MG CAP PO SCH (08:01)
[2018-12-30] MEDS: PANTOprazole 40 MG TAB PO SCH (08:01)
[2018-12-30] MEDS: MAGNESIUM OXIDE 400 MG TAB PO SCH (08:01)
[2018-12-30] MEDS: ASCORBIC ACID 500 MG TAB PO SCH (08:02)
[2018-12-30] MEDS: FERROUS SULFATE 325 MG TAB PO SCH (08:02)
[2018-12-30 08:13] LABS: Basophils # (auto) 0.01 K/uL (0-0.2); Basophils % (auto) 0.1 %; Eosinophils # (auto) 0.06 K/uL (0-0.5); Eosinophils % (auto) 0.4 %; Hematocrit (blood only) 23.8 % (37-47); Hemoglobin 8.7 g/dL (12.0-16.0); Immature Granulocytes # (auto) 0.06 K/uL (0.00-0.02); Immature Granulocytes % (auto) 0.4 %; Lymphocytes # (auto) 1.15 K/uL (1.2-3.4); Lymphocytes % (auto) 8.4 %; Mean Corpuscular Hgb Conc 36.6 g/dL (32-36); Mean Corpuscular Volume 91.9 fL (80-100); Mean Platelet Volume 9.6 fL (7.4-10.4); Monocytes # (auto) 0.98 K/uL (0.11-0.59); Monocytes % (auto) 7.1 %; Neutrophils # (auto) 11.45 K/uL (1.4-6.5); Neutrophils % (auto) 83.6 %; Platelet Count 751 K/uL (130-400); RDW Standard Deviation 49.1 fL (36.4-46.3); Red Blood Count 2.59 M/uL (4.2-5.4); White Blood Count 13.71 K/uL (4.8-10.8)
[2018-12-30 08:22] LABS: Partial Thromboplastin Ratio 1.5; Partial Thromboplastin Time 39.6 Seconds (21.0-31.0)
[2018-12-30 08:38] LABS: BUN Creatinine Ratio 13.8 (10-20); Calcium 6.7 mg/dl (8.5-10.1); Creatinine Clr Calc Pharmacy 80.6 ml/min; Est GFR (African American) 106.1; Est GFR (Non-African American) 91.6; Magnesium 2.1 mg/dl (1.8-2.4); Potassium 3.6 mmol/L (3.5-5.1)
[2018-12-30 08:42] LABS: Echinocytes 1+
[2018-12-30 08:50] LABS: Phosphorus 2.2 mg/dl (2.5-4.9); T4 Free Thyroxine 1.3 ng/dl (0.8-1.6)
[2018-12-30] MEDS: HEPARIN STANDARD DEXTROSE 25,000 UNITS/500 ML IV SCH (09:07)
[2018-12-30] MEDS: METHYLCELLULOSE POWDER 454 GM JAR PO SCH (09:09)
--- NOTE | 2018-12-30 09:28 | Family Medicine Progress Note ---
Date of Service December 30, 2018 Assessment & Plan (1) Perforated bowel: 73-year-old female was admitted on 17 December 2018 for multiple days of abdominal pain, anorexia, and found to have a terminal ileal perforation with abscess. Perforated bowel, intra-abdominal abscess: 06Feb s/p emergent ex lap, right hemicolectomy, lysis, and washout. 12Feb s/p abscess drainage and placement of a drain by radiology. See ongoing general surgery notes. Likely has a postop ileus as suggested by repeat CT a/p. Initially abdomen grew multiple organisms. No growth (final) on repeat 12Feb wound cultures. Has transitioned off of Dilaudid [employer] to oxycodone. Concerns about her overall poor nutritional intake thus far. General surgery starting nutritional supplements and notes that she may need TPN. - Obtaining HIDA scan today to evaluate RUQ pain. Presumptive right lower lobe aspiration pneumonia: Is on Zosyn for planned 14- day course, final dose today (b). Afebrile, continued improving leukocytosis. Encouraging IS. Latest CXR notes improvements in small bilateral pleural effusions. New onset paroxysmal A. fib with RVR: TTE on noted EF greater than 70%, mild concentric LVH, no evidence of intra-arterial shunt. Presently rate controlled after amiodarone drip (now on PO only) and metoprolol. Optimize electrolytes. On heparin. Ureteral stricture: [id number] s/p ureteral lysis, excision, and segmental uretero-ureterostomy. See related urology notes. Diarrhea: Resolved. 16Feb C diff negative. On Saccharomyces, pantoprazole, and methylcellulose. Iron deficiency anemia: Hemoglobin stable around 10's. Likely secondary to disease state. On iron and vitamin C. Electrolyte issues: - Hypokalemia: Replaced, monitoring. - Hypomagnesemia: Replaced and on supplements. - Hypocalcemia: Replacing, monitoring. Reactive thrombocytosis: Platelets as high as 1207, improved/stable in 900s. See hematology consult. Thought to be a reactive process. Peripheral neuropathy: Secondary to vertebral compression fractures. Continue duloxetine. Elevated troponin: On admission, max TnI 1.57, trended down. Likely demand ischemia due to acute illness. See related cardiology notes. Hepatic steatosis and cholelithiasis: As suggested on her CT a/p. L1 compression fracture: As suggested on her CT a/p. Outpatient management. PMH CVA: Incidental finding on CT head with no reported history of symptoms. Thrush: Prior concerns for same, given dose of fluconazole. Presently resolved. Code status: Full code. Diet: Advanced to regular diet per general surgery. Started on nutrition supplements. DVT prophy: Heparin. PT/OT: Ongoing. Disbo: Will transfer to [facility] / [facility]. Case management on board, referrals for rehab pending. (2) Right lower quadrant abscess: (3) Ileus following gastrointestinal surgery: (4) Aspiration pneumonia: (5) Atrial fibrillation: (6) Ureteral stricture: (7) Diarrhea: (8) Iron deficiency anemia: (9) Hypokalemia: (10) Hypomagnesemia: (11) Hypocalcemia: (12) Thrombocytosis: (13) Peripheral neuropathy: (14) Elevated troponin: (15) Hepatic steatosis: (16) Cholelithiasis: (17) Compression fracture of L1 vertebra: Supervising Physician Co-Signing Physician Notes I personally examined the patient and verified all ward points of history and exam, discussed case, and agree with decision making with Dr Toure. still not eating well, has some RUQ pain. no other new complaints Vitals noted, in general she is very fatigued appearing but otherwise in no distress. Heart rates are in the 70s. Her breathing is unlabored no accessory muscle use good effort, skin no pallor or icterus New onset A. fibshe is under good control with amiodarone, continue. will need to transition to PO anticoagulation once she is clearly no longer at risk for needing further invasive procedures poor PO intake/concern on acute malnutrition - encouraged PO intake/emphasized importance thereof. will defer to surgery in regards to TPN, but certainly if her PO intake does not improve in ~1-2 days will probably need to initiate Otherwise as above Subjective Found patient resting comfortably upright in bed. She says that she does not have much of an appetite but was able to get in some broth and other fluids yesterday. Is passing gas. Says her pain is controlled and she has no immediate concerns. Physical Exam 2 Vital Signs (Past 24 Hours): Last Vital Signs Temp 37.0 C 12/30/18 03:55 Pulse 68 12/30/18 03:55 Resp 18 12/30/18 03:55 BP 115/64 12/30/18 03:55 Pulse Ox 98 12/30/18 03:55 Physical Exam: General Appearance: Awake, alert & oriented, comfortable in general when not moving about, NAD. CV: +S1S2, regular this morning, 2/6 systolic murmur. Pulm: Clear to auscultation throughout. Abdomen: +BS, soft, mild tenderness particularly in RUQ, with drains in place. Extremities: No pedal edema or calf tenderness. Moving all extremities naturally and easily. Neuro: No gross neuro deficits. Results & Data Laboratory Results Laboratory Results WBC 13.71 K/uL (4.8-10.8) H 12/30/18 07:36 RBC 2.59 M/uL (4.2-5.4) L 12/30/18 07:36 Hgb 8.7 g/dL (12.0-16.0) L 12/30/18 07:36 Hct 23.8 % (37-47) L 12/30/18 07:36 MCV 91.9 fL (80-100) 12/30/18 07:36 MCH 33.6 pg (25-34) 12/30/18 07:36 MCHC 36.6 g/dL (32-36) H 12/30/18 07:36 RDW Std Deviation 49.1 fL (36.4-46.3) H 12/30/18 07:36 RDW Coeff of [place] 15.0 % (11.5-14.5) H 12/30/18 07:36 Plt Count 751 K/uL (130-400) H 12/30/18 07:36 MPV 9.6 fL (7.4-10.4) 12/30/18 07:36 Immature Gran % (Auto) 0.4 % 12/30/18 07:36 Neut % (Auto) 83.6 % 12/30/18 07:36 Lymph % (Auto) 8.4 % 12/30/18 07:36 [place] % (Auto) 7.1 % 12/30/18 07:36 Eos % (Auto) 0.4 % 12/30/18 07:36 Baso % (Auto) 0.1 % 12/30/18 07:36 Immature Gran # (Auto) 0.06 K/uL (0.00-0.02) H 12/30/18 07:36 Neut # (Auto) 11.45 K/uL (1.4-6.5) H 12/30/18 07:36 Lymph # (Auto) 1.15 K/uL (1.2-3.4) L 12/30/18 07:36 [place] # (Auto) 0.98 K/uL (0.11-0.59) H 12/30/18 07:36 Eos # (Auto) 0.06 K/uL (0-0.5) 12/30/18 07:36 Baso # (Auto) 0.01 K/uL (0-0.2) 12/30/18 07:36 Toxic Granulation 1+ 12/27/18 19:06 Platelet Estimate Increased (Normal) 12/25/18 07:38 Giant Platelets 1+ 12/26/18 08:10 RBC Morphology Unremarkable 12/22/18 06:01 Polychromasia 1+ 12/20/18 05:25 Echinocytes 1+ 12/30/18 07:36 Rouleaux 1+ 12/24/18 07:23 PT 10.9 Seconds (9.0-12.0) 12/28/18 06:19 INR 1.1 (0.9-1.1) 12/28/18 06:19 APTT 39.6 Seconds (21.0-31.0) H 12/30/18 07:36 PTT Ratio 1.5 12/30/18 07:36 Sodium 138 mmol/L (136-145) 12/30/18 07:36 Potassium 3.6 mmol/L (3.5-5.1) 12/30/18 07:36 Chloride 103 mmol/L (98-107) 12/30/18 07:36 Carbon Dioxide 29 mmol/L (21-32) 12/30/18 07:36 Anion Gap 6.0 (3-11) 12/30/18 07:36 BUN 8 mg/dl (7-18) 12/30/18 07:36 Creatinine 0.59 mg/dl (0.6-1.2) L 12/30/18 07:36 Est Cr Clr Drug Dosing 80.6 ml/min 12/30/18 07:36 Est GFR ( Amer) 106.1 12/30/18 07:36 Est GFR (Non-Af Amer) 91.6 12/30/18 07:36 BUN/Creatinine Ratio 13.8 (10-20) 12/30/18 07:36 Glucose 96 mg/dl (70-99) 12/30/18 07:36 POC Glucose 130 (70-99) H 12/28/18 20:23 Calcium 6.7 mg/dl (8.5-10.1) L 12/30/18 07:36 Ionized Calcium 0.99 mmol/L (1.12-1.32) L 12/28/18 15:45 Phosphorus 2.2 mg/dl (2.5-4.9) L 12/30/18 07:36 Magnesium 2.1 mg/dl (1.8-2.4) 12/30/18 07:36 Iron 23 mcg/dl (35-150) L 12/28/18 06:19 TIBC 170 mcg/dl (250-450) L 12/28/18 06:19 Ferritin 179.6 ng/ml (8-388) 12/28/18 06:19 Total Bilirubin 0.3 mg/dl (0.2-1) 12/28/18 06:19 AST 16 U/L (15-37) 12/28/18 06:19 ALT 23 U/L (12-78) 12/28/18 06:19 Alkaline Phosphatase 172 U/L (45-117) H 12/28/18 06:19 Troponin I 1.270 ng/ml (0-0.045) H* 12/17/18 17:58 Total Protein 5.1 gm/dl (6.4-8.2) L 12/28/18 06:19 Albumin 1.6 gm/dl (3.4-5.0) L 12/28/18 06:19 Globulin 3.5 gm/dl (2.5-4.0) 12/28/18 06:19 Albumin/Globulin Ratio 0.5 (0.9-2) L 12/28/18 06:19 Triglycerides 97 mg/dl (0-150) 12/29/18 04:17 Cholesterol 88 mg/dl (0-200) 12/29/18 04:17 LDL Cholesterol, Calc 34 mg/dl 12/29/18 04:17 VLDL Cholesterol, Calc 19 mg/dl 12/29/18 04:17 HDL Cholesterol 35 mg/dl 12/29/18 04:17 Cholesterol/HDL Ratio 3 12/29/18 04:17 Lipase 144 U/L (73-393) 12/17/18 11:35 TSH 7.890 uIu/ml (0.300-4.500) H 12/30/18 07:36 Free T4 1.30 ng/dl (0.8-1.6) 12/30/18 07:36 Specimen Hemolysis 12/29/18 04:17 Urine Color Yellow 12/17/18 13:54 Urine Appearance Clear (Clear) 12/17/18 13:54 Urine pH 8.5 (4.5-7.5) H 12/17/18 13:54 Ur Specific [place] 1.017 (1.000-1.030) 12/17/18 13:54 Urine Protein Negative (Negative) 12/17/18 13:54 Urine Glucose (UA) Negative (Negative) 12/17/18 13:54 Urine Ketones Negative (Negative) 12/17/18 13:54 Urine Blood Negative (Negative) 12/17/18 13:54 Urine Nitrite Negative (Negative) 12/17/18 13:54 Urine Bilirubin Negative (Negative) 12/17/18 13:54 Urine Urobilinogen Negative (Negative) 12/17/18 13:54 Ur Leukocyte Esterase Negative (Negative) 12/17/18 13:54 Fluid Creatinine 0.50 mg/dl 12/28/18 Unknown Nasal Screen MRSA (PCR) Negative (Negative) 12/28/18 Unknown Stl C. diff Tox B Gene Neg C.diff Toxin B (Neg) 12/27/18 17:30 Blood Type O Positive 12/17/18 16:05 Antibody Screen NEGATIVE 12/17/18 16:05 Crossmatch See Detail 12/17/18 16:05 Medications Administered Current Inpatient Medications Acetaminophen (Tylenol) 650 mg PO Q4H PRN PRN Reason: Fever/Mild Pain (Pain 1,2,3) Stop: 01/28/19 01:44 Last Admin: 12/29/18 23:27 Dose: 650 mg [facility] HCl (Cordarone) [address] [facility]: 01/29/19 08:59 Ascorbic Acid (Vitamin C) [address] [facility] [place] Stop: 01/27/19 09:59 Last Admin: 12/30/18 08:02 Dose: 500 mg Calcium Carbonate (Tums) 1,500 mg PO Q4H PRN PRN Reason: Indigestion Stop: 01/19/19 20:58 Last Admin: 12/28/18 07:52 Dose: 1,500 mg Duloxetine HCl (Cymbalta) 60 mg PO [facility] Stop: 01/28/19 08:59 Last Admin: 12/30/18 08:00 Dose: 60 mg Duloxetine HCl (Cymbalta) 30 mg PO [facility] Stop: 01/28/19 11:59 Last Admin: 12/30/18 08:00 Dose: 30 mg Ferrous Sulfate (Feosol) 325 mg PO [facility] Stop: 01/27/19 09:59 Last Admin: 12/30/18 08:02 Dose: 325 mg Hydromorphone HCl (Dilaudid) 0.5 mg IV Q4H PRN PRN Reason: Severe Pain (7,8,9,10) Stop: 01/11/19 09:32 Last Admin: 12/30/18 05:02 Dose: 0.5 mg Heparin Sodium/Dextrose (Heparin Sodium/Dextrose) 25,000 units in 500 mls @ 25 mls/hr IV .[id number] [facility]; Protocol Stop: 01/26/19 19:59 Last Admin: 12/30/18 09:07 Dose: 1,250 units/hr, 25 mls/hr Parenteral Electrolytes (Normosol-R) 1,000 mls @ 80 mls/hr IV .[id number] [facility] Stop: 01/27/19 09:29 Last Infusion: 12/30/18 06:37 Dose: 80 mls/hr Piperacillin Sod/Tazobactam (Sod 3.375 gm/ Dextrose) 115 mls @ 28.75 mls/hr IV Q8H [facility] Stop: 12/30/18 10:59 Last Admin: 12/30/18 03:31 Dose: 28.8 mls/hr Heparin Sodium (Porcine) 5,000 (units/ Syringe) 5 mls @ 30 mls/min IV ONE ONE Stop: 12/30/18 09:13 Magnesium Oxide (Mag-Ox) 400 mg PO [facility] Stop: 01/27/19 20:59 Last Admin: 12/30/18 08:01 Dose: 400 mg Methylcellulose (Citrucel) 19 gm PO DAILY [facility] Stop: 01/27/19 09:59 Last Admin: 12/30/18 09:09 Dose: Not Given Metoprolol Succinate (Toprol Xl) 25 mg PO QAM [facility] Stop: 01/27/19 08:59 Last Admin: 12/29/18 07:53 Dose: 25 mg Miscellaneous Information (Consult) 1 ea N/A UD PRN PRN Reason: Consult Stop: 12/30/18 10:59 Ondansetron HCl (Zofran) 4 mg IV Q4H PRN PRN Reason: Nausea And Vomiting Stop: 01/16/19 19:29 Last Admin: 12/29/18 08:47 Dose: 4 mg Oxycodone HCl (Roxicodone Immediate Rel) 5 mg PO Q6H PRN PRN Reason: Moderate Pain (4,5,6) Stop: 01/11/19 09:32 Last Admin: 12/30/18 07:37 Dose: 5 mg Oxycodone HCl (Roxicodone Immediate Rel) 10 mg PO Q6H PRN PRN Reason: Severe Pain (7,8,9,10) Stop: 01/11/19 09:32 Last Admin: 12/29/18 17:30 Dose: 10 mg Pantoprazole Sodium (Protonix) 40 mg PO DAILY [facility] Stop: 01/28/19 08:59 Last Admin: 12/30/18 08:01 Dose: 40 mg Saccharomyces Boulardii (Florastor) 250 mg PO DAILY [facility] Stop: 01/26/19 15:44 Last Admin: 12/30/18 08:01 Dose: 250 mg Zinc Sulfate (Zinc Sulfate) 220 mg PO DAILY [facility] Stop: 01/27/19 20:59 Last Admin: 12/29/18 07:53 Dose: 220 mg Resident Activity Tracking Resident Involvement: Resident Care Provided Care Provided: Adult Hospital Medicine
[2018-12-30] MEDS ORDERED: HEPARIN IV BOLUS 5,000 UNITS in SYRINGE 0 ML IV ONE (10:00)
[2018-12-30] MEDS: METOPROLOL SUCC 25MG EXT REL TAB PO SCH (11:49)
[2018-12-30] MEDS: ZINC SULFATE 220 MG CAPSULE PO SCH (11:49)
[2018-12-30] MEDS: NORMOSOL-R 1,000 ML IV SCH ×2 (11:50→23:38)
[2018-12-30] MEDS: AMIODARONE 200 MG TAB PO SCH (11:50)
[2018-12-30] MEDS: ONDANSETRON INJ 2 MG/ML 2 ML VIAL IV PRN (13:38)
--- NOTE | 2018-12-30 14:57 | Nuclear Medicine Report ---
NUCLEAR HEPATOBILIARY SCAN CLINICAL HISTORY: Right upper quadrant abdominal pain. Nausea. COMPARISON STUDY: Abdominal CT dated 12/28/2018. TECHNIQUE: A nuclear hepatobiliary scan was initiated. Dynamic images of the liver and anterior abdom en were obtained at 5 and 10 minutes following the IV administration of 5mCi of technetium 99m [place] ec. The patient declined further imaging due to discomfort. The examination was discontinued at the p atient's request. FINDINGS: The acquired images at 5 and 10 minutes show prompt and homogeneous hepatic uptake. There i s no visualized activity within the biliary tree or the gallbladder by10 minutes. IMPRESSION: 1. A total of 5 mCi of technetium 99m Choletec was injected. 2. The patient discontinued the examination at 10 minutes due to discomfort. The examination is nondi agnostic for assessing acute cholecystitis. Electronically signed by: Obed Vazquez M.D. 12/30/2018 2:56 PM
[2018-12-30 16:23] LABS: Partial Thromboplastin Ratio > 5.1
[2018-12-30 16:27] LABS: Partial Thromboplastin Time > 139.0 Seconds (21.0-31.0)
--- NOTE | 2018-12-30 17:06 | Urology Progress Note ---
Date of Service December 30, 2018 Assessment & Plan (1) Ureteral stricture: gradual recovery after bowel resection and washout - cont rehabilitation - I wonder if her RUQ pain is related to drain position above the liver/ adjacent to diaphragm? Subjective slight progress could not tolerate therapy today secondary to pain some diarrhea tolerating a diet Physical Exam 2 Vital Signs (Past 24 Hours): Last Vital Signs Temp 36.8 C 12/30/18 15:11 Pulse 88 12/30/18 15:11 Resp 16 12/30/18 15:11 BP 150/78 H 12/30/18 15:11 Pulse Ox 90 12/30/18 15:11 Physical Exam: NAD no resp distress RRR - no afib abd soft, drains serous - tender in the extreme right upper quadrant no significant edema
[2018-12-30 18:08] LABS: Partial Thromboplastin Ratio 2.2
[2018-12-30 18:30] LABS: Partial Thromboplastin Time 58.7 Seconds (21.0-31.0)
[2018-12-31 01:07] LABS: Partial Thromboplastin Ratio 2.2
[2018-12-31] MEDS: OXYCODONE HCL IR 5 MG TAB (IMMEDIATE RELEASE) PO PRN ×2 (03:16→09:44)
[2018-12-31] MEDS: HEPARIN STANDARD DEXTROSE 25,000 UNITS/500 ML IV SCH ×2 (04:48→22:25)
[2018-12-31] MEDS: HYDROmorphone INJ 0.5 MG/0.5 ML SYR IV PRN ×2 (06:01→10:53)
[2018-12-31 06:57] LABS: Basophils # (auto) 0.01 K/uL (0-0.2); Basophils % (auto) 0.1 %; Eosinophils # (auto) 0.12 K/uL (0-0.5); Eosinophils % (auto) 0.9 %; Hematocrit (blood only) 27.1 % (37-47); Hemoglobin 9.5 g/dL (12.0-16.0); Immature Granulocytes % (auto) 0.8 %; Lymphocytes # (auto) 1.24 K/uL (1.2-3.4); Lymphocytes % (auto) 9.4 %; Mean Corpuscular Hgb Conc 35.1 g/dL (32-36); Mean Corpuscular Volume 92.5 fL (80-100); Mean Platelet Volume 9.6 fL (7.4-10.4); Monocytes # (auto) 1.23 K/uL (0.11-0.59); Monocytes % (auto) 9.3 %; Neutrophils # (auto) 10.53 K/uL (1.4-6.5); Neutrophils % (auto) 79.5 %; Platelet Count 898 K/uL (130-400); RDW Standard Deviation 48.4 fL (36.4-46.3); Red Blood Count 2.93 M/uL (4.2-5.4); White Blood Count 13.23 K/uL (4.8-10.8)
[2018-12-31 07:28] LABS: BUN Creatinine Ratio 12.6 (10-20); Calcium 7.4 mg/dl (8.5-10.1); Est GFR (African American) 113.6; Phosphorus 2.2 mg/dl (2.5-4.9); Potassium 3.7 mmol/L (3.5-5.1)
[2018-12-31 07:33] LABS: Partial Thromboplastin Ratio 1.9
[2018-12-31 07:37] LABS: Partial Thromboplastin Time 52.7 Seconds (21.0-31.0)
--- NOTE | 2018-12-31 07:44 | Urology Progress Note ---
Date of Service December 31, 2018 Assessment & Plan (1) Ureteral stricture: Ureteral stricture - recovery complicated - fortunately, seems to be improving - I am wondering if her RUQ pain is drain driven - GS discussing drain removals today - likely rehab stay Subjective subjectively improved today - asking when she can leave - feels she wants to get home DIO[place] - cont ambulation - still with RUQ pain Physical Exam 2 Vital Signs (Past 24 Hours): Last Vital Signs Temp 36.8 C 12/30/18 22:49 Pulse 77 12/30/18 22:49 Resp 16 12/30/18 22:49 BP 123/73 12/30/18 22:49 Pulse Ox 91 12/30/18 22:49 Physical Exam: comfortable appearing AFVSS clear/serous fluid in drains - tender in the extreme RUQ - incisions covered/dress mod edema of the lower extremities
--- NOTE | 2018-12-31 08:23 | XRay Report ---
XR chest 2V routine CLINICAL HISTORY: 73 years-old Female presenting with eval effusions. TECHNIQUE: PA and lateral views of the chest were obtained. COMPARISON: 12/27/2018 and CTA chest from 12/17/2018. FINDINGS: Atherosclerosis of the aortic arch. Prominence and tortuosity of the thoracic aorta. Cardiac silhouet te enlarged. Bilateral small pleural effusions stable to slightly increased from prior with slight in terval increase in bibasilar opacity. Underlying hyperinflation may be present. Pulmonary vasculature is not significantly changed. No large pneumothorax. Osteopenia. Degenerative changes of the spine. Partially visualized right ureteral stent and additional catheter or tube projecting over the upper q uadrant. IMPRESSION: 1. Slight interval increase in bilateral pleural effusions and worsened aeration of the lung bases. 2. Cardiomegaly. No evidence of pulmonary edema. Electronically signed by: Dejuan Rutledge M.D. 12/31/2018 8:21 AM
--- NOTE | 2018-12-31 08:27 | Surgery Progress Note ---
Date of Service December 31, 2018 Assessment & Plan (1) Perforated bowel: I can see clear improvement today. hopefully has turned the corner will d/c all 3 PRASAD drains pt/ot continue to encourage PO intake. unable to callum HIDA scan yesterday however pain improved today. will monitor. Subjective feeling better each day. no RUQ pain currently. callum diet. had boost breeze and some fish yesterday. Physical Exam 2 Vital Signs (Past 24 Hours): Last Vital Signs Temp 36.8 C 12/30/18 22:49 Pulse 77 12/30/18 22:49 Resp 16 12/30/18 22:49 BP 123/73 12/30/18 22:49 Pulse Ox 91 12/30/18 22:49 Physical Exam: alert. looks much better today abd: soft. PRASAD's all 3 putting out serous fluid.
[2018-12-31] MEDS: DULOXETINE HCL 60 MG CAP PO SCH (08:54)
[2018-12-31] MEDS: FERROUS SULFATE 325 MG TAB PO SCH (08:55)
[2018-12-31] MEDS: DULOXETINE HCL 30 MG CAP PO SCH (08:55)
[2018-12-31] MEDS: PANTOprazole 40 MG TAB PO SCH (08:56)
[2018-12-31] MEDS: MAGNESIUM OXIDE 400 MG TAB PO SCH (08:56)
[2018-12-31] MEDS: SACCHAROMYCES BOULARDII 250 MG CAP PO SCH (08:56)
[2018-12-31] MEDS: ZINC SULFATE 220 MG CAPSULE PO SCH (08:57)
[2018-12-31] MEDS: ASCORBIC ACID 500 MG TAB PO SCH (08:57)
[2018-12-31] MEDS: AMIODARONE 200 MG TAB PO SCH (09:00)
[2018-12-31] MEDS: METOPROLOL SUCC 25MG EXT REL TAB PO SCH (09:00)
[2018-12-31] MEDS: METHYLCELLULOSE POWDER 454 GM JAR PO SCH (09:01)
--- NOTE | 2018-12-31 09:38 | Family Medicine Progress Note ---
Date of Service December 31, 2018 Assessment & Plan (1) Perforated bowel: 73-year-old female was admitted on 17 December 2018 for multiple days of abdominal pain, anorexia, and found to have a terminal ileal perforation with abscess. Perforated bowel, intra-abdominal abscess: 06Feb s/p emergent ex lap, right hemicolectomy, lysis, and washout. 12Feb s/p abscess drainage and placement of a drain by radiology. See ongoing general surgery notes. Initially abdomen grew multiple organisms. No growth (final) on repeat 12Feb wound cultures. 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 Concerns about her overall poor nutritional intake. General surgery started nutritional supplements. 19Feb attempt at HIDA was unsuccessful due to discomfort. - Surgeons plan on removing drains today. Presumptive right lower lobe aspiration pneumonia: Completed 14 days of Zosyn. Afebrile, continued but stable leukocytosis. Latest CXR notes interval increase in bilateral (but still small) pleural effusions. Encouraging IS. New onset paroxysmal A. fib with RVR: TTE on 17Feb noted EF greater than 70%, mild concentric LVH, no evidence of intra-arterial shunt. Presently rate controlled after amiodarone drip (now on PO only) and metoprolol. Optimize electrolytes. On heparin, will transition to oral once no further procedures are needed. Ureteral stricture: [id number] s/p ureteral lysis, excision, and segmental uretero-ureterostomy. See related urology notes. Diarrhea: Resolved. 16Feb C diff negative. On Saccharomyces, pantoprazole, and methylcellulose. Reactive thrombocytosis: Platelets as high as 1207, improved/stable around 900. See hematology consult. Thought to be a reactive process. Elevated troponin: On admission, max TnI 1.57, trended down. Likely demand ischemia due to acute illness. See related cardiology notes. Thrush: Prior concerns for same, given dose of fluconazole. Presently resolved. Ongoing medical issues: - Iron deficiency anemia: Hemoglobin improving to 9s. Likely secondary to disease state. On iron and vitamin C. - Peripheral neuropathy: Secondary to vertebral compression fractures. Continue duloxetine. - Hepatic steatosis and cholelithiasis: As suggested on her CT a/p. - L1 compression fracture: As suggested on her CT a/p. Outpatient management. - PMH CVA: Incidental finding on CT head with no reported history of symptoms. Electrolyte issues: - Hypokalemia: Replaced, monitoring. - Hypomagnesemia: Replaced and on supplements. - Hypocalcemia: Replacing, monitoring. Code status: Full code. Diet: Advanced to regular diet per general surgery. Started on nutrition supplements. DVT prophy: Heparin. PT/OT: Ongoing. Disbo: Will transfer to [facility]. Case management onboard. Plan remains for patient to be discharged to [facility] when medically stable. (2) Right lower quadrant abscess: (3) Ileus following gastrointestinal surgery: (4) Aspiration pneumonia: (5) Atrial fibrillation: (6) Ureteral stricture: (7) Diarrhea: (8) Iron deficiency anemia: (9) Hypokalemia: (10) Hypomagnesemia: (11) Hypocalcemia: (12) Thrombocytosis: (13) Peripheral neuropathy: (14) Elevated troponin: (15) Hepatic steatosis: (16) Cholelithiasis: (17) Compression fracture of L1 vertebra: Supervising Physician Co-Signing Physician Notes I personally examined the patient and verified all ward points of history and exam, discussed case, and agree with decision making with Dr Toure. trying to eat more but still not really succeeding. does think pain is better since drain removed. Vitals noted, in general she is very fatigued appearing but otherwise in no distress. Heart rates controlled. Her breathing is unlabored no accessory muscle use good effort, skin no pallor or icterus. abd soft nd mild diffuse tender no focal findings no guarding/rebound New onset A. fibshe is under good control with amiodarone, continue. hopefully can transition to PO anticoagulation tomorrow poor PO intake/concern on acute malnutrition - continued to encourage PO intake/ emphasized importance thereof again. 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 otherwise as per surgery Otherwise as above Subjective Found patient sitting in her bedside chair. Overall she said she is comfortable but she continues to have some right upper quadrant pain. Notes no diarrhea today. Says that she is working on taking in more food and did drink a boost. Overall, she says eating continues to make her feel "bloated". Otherwise no acute concerns raised. Physical Exam 2 Vital Signs (Past 24 Hours): Last Vital Signs Temp 36.8 C 12/31/18 07:40 Pulse 76 12/31/18 08:59 Resp 14 12/31/18 07:40 BP 135/77 12/31/18 08:59 Pulse Ox 91 12/31/18 07:40 Physical Exam: General Appearance: Awake, alert & oriented, comfortable in general when not moving about, NAD. CV: +S1S2, regular, 2/6 systolic murmur. Pulm: Clear to auscultation throughout. Abdomen: +BS, soft, mild tenderness particularly in RUQ, with drains in place. Extremities: No pedal edema or calf tenderness. Moving all extremities naturally and easily. Neuro: No gross neuro deficits. Results & Data Laboratory Results Laboratory Results WBC 13.23 K/uL (4.8-10.8) H 12/31/18 06:35 RBC 2.93 M/uL (4.2-5.4) L 12/31/18 06:35 Hgb 9.5 g/dL (12.0-16.0) L 12/31/18 06:35 Hct 27.1 % (37-47) L 12/31/18 06:35 MCV 92.5 fL (80-100) 12/31/18 06:35 MCH 32.4 pg (25-34) 12/31/18 06:35 MCHC 35.1 g/dL (32-36) 12/31/18 06:35 RDW Std Deviation 48.4 fL (36.4-46.3) H 12/31/18 06:35 RDW Coeff of Lainey 15.0 % (11.5-14.5) H 12/31/18 06:35 Plt Count 898 K/uL (130-400) H 12/31/18 06:35 MPV 9.6 fL (7.4-10.4) 12/31/18 06:35 Immature Gran % (Auto) 0.8 % 12/31/18 06:35 Neut % (Auto) 79.5 % 12/31/18 06:35 Lymph % (Auto) 9.4 % 12/31/18 06:35 [place] % (Auto) 9.3 % 12/31/18 06:35 Eos % (Auto) 0.9 % 12/31/18 06:35 Baso % (Auto) 0.1 % 12/31/18 06:35 Immature Gran # (Auto) 0.10 K/uL (0.00-0.02) H 12/31/18 06:35 Neut # (Auto) 10.53 K/uL (1.4-6.5) H 12/31/18 06:35 Lymph # (Auto) 1.24 K/uL (1.2-3.4) 12/31/18 06:35 [place] # (Auto) 1.23 K/uL (0.11-0.59) H 12/31/18 06:35 Eos # (Auto) 0.12 K/uL (0-0.5) 12/31/18 06:35 Baso # (Auto) 0.01 K/uL (0-0.2) 12/31/18 06:35 Toxic Granulation 1+ 12/27/18 19:06 Platelet Estimate Increased (Normal) 12/25/18 07:38 Giant Platelets 1+ 12/26/18 08:10 RBC Morphology Unremarkable 12/22/18 06:01 Polychromasia 1+ 12/20/18 05:25 Echinocytes 1+ 12/30/18 07:36 Rouleaux 1+ 12/24/18 07:23 PT 10.9 Seconds (9.0-12.0) 12/28/18 06:19 INR 1.1 (0.9-1.1) 12/28/18 06:19 APTT 52.7 Seconds (21.0-31.0) H* 12/31/18 06:35 PTT Ratio 1.9 12/31/18 06:35 Sodium 137 mmol/L (136-145) 12/31/18 06:35 Potassium 3.7 mmol/L (3.5-5.1) 12/31/18 06:35 Chloride 103 mmol/L (98-107) 12/31/18 06:35 Carbon Dioxide 29 mmol/L (21-32) 12/31/18 06:35 Anion Gap 5.0 (3-11) 12/31/18 06:35 BUN 6 mg/dl (7-18) L 12/31/18 06:35 Creatinine 0.48 mg/dl (0.6-1.2) L 12/31/18 06:35 Est Cr Clr Drug Dosing 99.0 ml/min 12/31/18 06:35 Est GFR ( Amer) 113.6 12/31/18 06:35 Est GFR (Non-Af Amer) 98.0 12/31/18 06:35 BUN/Creatinine Ratio 12.6 (10-20) 12/31/18 06:35 Glucose 109 mg/dl (70-99) H 12/31/18 06:35 POC Glucose 130 (70-99) H 12/28/18 20:23 Calcium 7.4 mg/dl (8.5-10.1) L 12/31/18 06:35 Ionized Calcium 0.99 mmol/L (1.12-1.32) L 12/28/18 15:45 Phosphorus 2.2 mg/dl (2.5-4.9) L 12/31/18 06:35 Magnesium 2.0 mg/dl (1.8-2.4) 12/31/18 06:35 Iron 23 mcg/dl (35-150) L 12/28/18 06:19 TIBC 170 mcg/dl (250-450) L 12/28/18 06:19 Ferritin 179.6 ng/ml (8-388) 12/28/18 06:19 Total Bilirubin 0.3 mg/dl (0.2-1) 12/28/18 06:19 AST 16 U/L (15-37) 12/28/18 06:19 ALT 23 U/L (12-78) 12/28/18 06:19 Alkaline Phosphatase 172 U/L (45-117) H 12/28/18 06:19 Troponin I 1.270 ng/ml (0-0.045) H* 12/17/18 17:58 Total Protein 5.1 gm/dl (6.4-8.2) L 12/28/18 06:19 Albumin 1.6 gm/dl (3.4-5.0) L 12/28/18 06:19 Globulin 3.5 gm/dl (2.5-4.0) 12/28/18 06:19 Albumin/Globulin Ratio 0.5 (0.9-2) L 12/28/18 06:19 Triglycerides 97 mg/dl (0-150) 12/29/18 04:17 Cholesterol 88 mg/dl (0-200) 12/29/18 04:17 LDL Cholesterol, Calc 34 mg/dl 12/29/18 04:17 VLDL Cholesterol, Calc 19 mg/dl 12/29/18 04:17 HDL Cholesterol 35 mg/dl 12/29/18 04:17 Cholesterol/HDL Ratio 3 12/29/18 04:17 Lipase 144 U/L (73-393) 12/17/18 11:35 TSH 7.890 uIu/ml (0.300-4.500) H 12/30/18 07:36 Free T4 1.30 ng/dl (0.8-1.6) 12/30/18 07:36 Specimen Hemolysis 12/29/18 04:17 Urine Color Yellow 12/17/18 13:54 Urine Appearance Clear (Clear) 12/17/18 13:54 Urine pH 8.5 (4.5-7.5) H 12/17/18 13:54 Ur Specific [place] 1.017 (1.000-1.030) 12/17/18 13:54 Urine Protein Negative (Negative) 12/17/18 13:54 Urine Glucose (UA) Negative (Negative) 12/17/18 13:54 Urine Ketones Negative (Negative) 12/17/18 13:54 Urine Blood Negative (Negative) 12/17/18 13:54 Urine Nitrite Negative (Negative) 12/17/18 13:54 Urine Bilirubin Negative (Negative) 12/17/18 13:54 Urine Urobilinogen Negative (Negative) 12/17/18 13:54 Ur Leukocyte Esterase Negative (Negative) 12/17/18 13:54 Fluid Creatinine 0.50 mg/dl 12/28/18 Unknown Nasal Screen MRSA (PCR) Negative (Negative) 12/28/18 Unknown Stl C. diff Tox B Gene Neg C.diff Toxin B (Neg) 12/27/18 17:30 Blood Type O Positive 12/17/18 16:05 Antibody Screen NEGATIVE 12/17/18 16:05 Crossmatch See Detail 12/17/18 16:05 Medications Administered Current Inpatient Medications Acetaminophen (Tylenol) 650 mg PO Q4H PRN PRN Reason: Fever/Mild Pain (Pain 1,2,3) Stop: 01/28/19 01:44 Last Admin: 12/29/18 23:27 Dose: 650 mg Amiodarone HCl (Cordarone) 200 mg PO [facility] Stop: 01/29/19 08:59 Last Admin: 12/31/18 09:00 Dose: 200 mg Ascorbic Acid (Vitamin C) 500 mg PO [facility] Stop: 01/27/19 09:59 Last Admin: 12/31/18 08:57 Dose: 500 mg Calcium Carbonate (Tums) 1,500 mg PO Q4H PRN PRN Reason: Indigestion Stop: 01/19/19 20:58 Last Admin: 12/28/18 07:52 Dose: 1,500 mg Duloxetine HCl (Cymbalta) 60 mg PO [facility] Stop: 01/28/19 08:59 Last Admin: 12/31/18 08:54 Dose: 60 mg Duloxetine HCl (Cymbalta) 30 mg PO [facility] Stop: 01/28/19 11:59 Last Admin: 12/31/18 08:55 Dose: 30 mg Ferrous Sulfate (Feosol) 325 mg PO [facility] Stop: 01/27/19 09:59 Last Admin: 12/31/18 08:55 Dose: 325 mg Hydromorphone HCl (Dilaudid) 0.5 mg IV Q4H PRN PRN Reason: Severe Pain (7,8,9,10) Stop: 01/11/19 09:32 Last Admin: 12/31/18 10:53 Dose: 0.5 mg Heparin Sodium/Dextrose (Heparin Sodium/Dextrose) 25,000 units in 500 mls @ 26 mls/hr IV .Q0M [facility]; Protocol Stop: 01/26/19 19:59 Last Titration: 12/31/18 08:15 Dose: 1,300 units/hr, 26 mls/hr Parenteral Electrolytes (Normosol-R) 1,000 mls @ 80 mls/hr IV .[id number] [facility] Stop: 01/27/19 09:29 Last Admin: 12/30/18 23:38 Dose: 80 mls/hr Magnesium Oxide (Mag-Ox) 400 mg PO [facility] Stop: 01/27/19 20:59 Last Admin: 12/31/18 08:56 Dose: 400 mg Methylcellulose (Citrucel) 19 gm PO DAILY [facility] Stop: 01/27/19 09:59 Last Admin: 12/31/18 09:01 Dose: 19 gm Metoprolol Succinate (Toprol Xl) 25 mg PO [facility] Stop: 01/27/19 08:59 Last Admin: 12/31/18 09:00 Dose: 25 mg Ondansetron HCl (Zofran) 4 mg IV Q4H PRN PRN Reason: Nausea And Vomiting Stop: 01/16/19 19:29 Last Admin: 12/30/18 13:38 Dose: 4 mg Oxycodone HCl (Roxicodone Immediate Rel) 5 mg PO Q6H PRN PRN Reason: Moderate Pain (4,5,6) Stop: 01/11/19 09:32 Last Admin: 12/31/18 09:44 Dose: 5 mg Oxycodone HCl (Roxicodone Immediate Rel) 10 mg PO Q6H PRN PRN Reason: Severe Pain (7,8,9,10) Stop: 01/11/19 09:32 Last Admin: 12/29/18 17:30 Dose: 10 mg Pantoprazole Sodium (Protonix) 40 mg PO DAILY [facility] Stop: 01/28/19 08:59 Last Admin: 12/31/18 08:56 Dose: 40 mg Saccharomyces Boulardii (Florastor) 250 mg PO DAILY [facility] Stop: 01/26/19 15:44 Last Admin: 12/31/18 08:56 Dose: 250 mg Zinc Sulfate (Zinc Sulfate) 220 mg PO DAILY [facility] Stop: 01/27/19 20:59 Last Admin: 12/31/18 08:57 Dose: 220 mg Resident Activity Tracking Resident Involvement: Resident Care Provided Care Provided: Adult [facility]
[2018-12-31] MEDS: NORMOSOL-R 1,000 ML IV SCH ×2 (12:23→23:31)
[2019-01-01 07:15] LABS: Basophils # (auto) 0.01 K/uL (0-0.2); Basophils % (auto) 0.1 %; Eosinophils # (auto) 0.12 K/uL (0-0.5); Hematocrit (blood only) 24.9 % (37-47); Hemoglobin 8.9 g/dL (12.0-16.0); Immature Granulocytes # (auto) 0.08 K/uL (0.00-0.02); Immature Granulocytes % (auto) 0.7 %; Lymphocytes # (auto) 1.13 K/uL (1.2-3.4); Lymphocytes % (auto) 9.3 %; Mean Corpuscular Hgb Conc 35.7 g/dL (32-36); Mean Corpuscular Volume 92.2 fL (80-100); Mean Platelet Volume 9.8 fL (7.4-10.4); Monocytes # (auto) 1.08 K/uL (0.11-0.59); Monocytes % (auto) 8.9 %; Neutrophils # (auto) 9.75 K/uL (1.4-6.5); Platelet Count 784 K/uL (130-400); RDW Coefficient of Variation 15.7 % (11.5-14.5); White Blood Count 12.17 K/uL (4.8-10.8)
[2019-01-01 07:24] LABS: Partial Thromboplastin Ratio 1.1; Partial Thromboplastin Time 29.6 Seconds (21.0-31.0)
[2019-01-01 07:37] LABS: Echinocytes 1+
[2019-01-01 07:50] LABS: BUN Creatinine Ratio 12.2 (10-20); Calcium 7.3 mg/dl (8.5-10.1); Est GFR (African American) 116.9; Est GFR (Non-African American) 100.8; Magnesium 1.8 mg/dl (1.8-2.4); Potassium 3.6 mmol/L (3.5-5.1)
[2019-01-01 07:54] LABS: Phosphorus 2.8 mg/dl (2.5-4.9)
[2019-01-01] MEDS: SACCHAROMYCES BOULARDII 250 MG CAP PO SCH (08:09)
[2019-01-01] MEDS: METOPROLOL SUCC 25MG EXT REL TAB PO SCH (08:10)
[2019-01-01] MEDS: MAGNESIUM OXIDE 400 MG TAB PO SCH (08:10)
[2019-01-01] MEDS: ASCORBIC ACID 500 MG TAB PO SCH (08:10)
[2019-01-01] MEDS: AMIODARONE 200 MG TAB PO SCH (08:10)
[2019-01-01] MEDS: DULOXETINE HCL 30 MG CAP PO SCH (08:10)
[2019-01-01] MEDS: PANTOprazole 40 MG TAB PO SCH (08:10)
[2019-01-01] MEDS: DULOXETINE HCL 60 MG CAP PO SCH (08:10)
[2019-01-01] MEDS: ZINC SULFATE 220 MG CAPSULE PO SCH (08:10)
[2019-01-01] MEDS: FERROUS SULFATE 325 MG TAB PO SCH (08:10)
[2019-01-01] MEDS: METHYLCELLULOSE POWDER 454 GM JAR PO SCH (08:12)
[2019-01-01] MEDS ORDERED: HEPARIN IV BOLUS 5,000 UNITS in SYRINGE 0 ML IV ONE (08:30)
--- NOTE | 2019-01-01 09:30 | Family Medicine Progress Note ---
Date of Service January 01, 2019 Assessment & Plan (1) Perforated bowel: 73-year-old female was admitted on 17 December 2018 for multiple days of abdominal pain, anorexia, and found to have a terminal ileal perforation with abscess. Perforated bowel, intra-abdominal abscess: 06Feb s/p emergent ex lap, right hemicolectomy, lysis, and washout. 12Feb s/p abscess drainage and placement of a drain by radiology. See ongoing general surgery notes. Initially abdomen grew multiple organisms. No growth (final) on repeat 12Feb wound cultures. Has transitioned off of Dilaudid [employer] to oxycodone. 19Feb attempt at HIDA was unsuccessful due to discomfort. Drains removed 20Feb. Concerns about her overall poor nutritional intake. On nutritional supplements and nutrition was re-consulted. - Could consider adding megace as an appetite stimulant. Presumptive right lower lobe aspiration pneumonia: Completed 14 days of Zosyn. Afebrile, continued but stable leukocytosis. Latest CXR notes interval increase in bilateral (but still small) pleural effusions. Encouraging IS. New onset paroxysmal A. fib with RVR: TTE on noted EF greater than 70%, mild concentric LVH, no evidence of intra-arterial shunt. Presently rate controlled after amiodarone drip (now on PO only) and metoprolol. Optimize electrolytes. - Will stop heparin this evening () and start eliquis. Ureteral stricture: [id number] s/p ureteral lysis, excision, and segmental uretero-ureterostomy. See related urology notes. Diarrhea: Resolved. 16Feb C diff negative. On Saccharomyces, pantoprazole, and methylcellulose. Reactive thrombocytosis: Platelets as high as 1207, improved to 784. See hematology consult. Thought to be a reactive process. Elevated troponin: On admission, max TnI 1.57, trended down. Likely demand ischemia due to acute illness. See related cardiology notes. Thrush: Prior concerns for same, given dose of fluconazole. Presently resolved. Ongoing medical issues: - Iron deficiency anemia: Hemoglobin stable around 9s. Likely secondary to disease state. On iron and vitamin C. - Peripheral neuropathy: Secondary to vertebral compression fractures. Continue duloxetine. - Hepatic steatosis and cholelithiasis: As suggested on her CT a/p. - L1 compression fracture: As suggested on her CT a/p. Outpatient management. - PMH CVA: Incidental finding on CT head with no reported history of symptoms. Electrolyte issues: - Hypokalemia: Replaced, monitoring. - Hypomagnesemia: Replaced and on supplements. - Hypocalcemia: Replacing, monitoring. Code status: Full code. Diet: Advanced to regular diet per general surgery. On nutrition supplements. DVT prophy: Heparin with transition to eliquis. PT/OT: Ongoing. Disbo: Will transfer to [facility]. Case management onboard. Plan remains for patient to be discharged to [facility] when medically stable. Medicine service will sign-off at this point. Please re-consult if any further concerns. (2) Right lower quadrant abscess: (3) Ileus following gastrointestinal surgery: (4) Aspiration pneumonia: (5) Atrial fibrillation: (6) Ureteral stricture: (7) Diarrhea: (8) Iron deficiency anemia: (9) Hypokalemia: (10) Hypomagnesemia: (11) Hypocalcemia: (12) Thrombocytosis: (13) Peripheral neuropathy: (14) Elevated troponin: (15) Hepatic steatosis: (16) Cholelithiasis: (17) Compression fracture of L1 vertebra: Supervising Physician Co-Signing Physician Notes I personally examined the patient and verified all wadr points of history and exam, discussed case, and agree with decision making with Dr Toure. trying to eat more - still poor appetite and bloated after eating but no nausea. Vitals noted, in general she is very fatigued appearing but otherwise in no distress. Her breathing is unlabored no accessory muscle use good effort, skin no pallor or icterus. abd soft nd mild diffuse tender no focal findings no guarding/rebound. had her eat a bite of sandwich in front of me - went down slow but without difficulty New onset A. fibshe is under good control with amiodarone, continue at current dosing. transition to PO eliquis and continue indefinitely poor PO intake/concern on acute malnutrition - continued to encourage PO intake/ emphasized importance thereof again. if she were to continue to have poor intake, can consider appetite stimulant if needed medically stable - would be medically stable for transfer to SNF/rehab emphasis under current plans as above outlined. we will sign off for now, please do not hesitate to contact if we can be of further assistance. Otherwise as above Subjective Found patient resting comfortably in bed. She says she does not have any pain and that her previous right upper quadrant pain seems to have resolved after removal of her drains. Her primary concern is that she has no appetite. She says is not really painful to eat but she does feel bloated. She also notes that she had a black/green colored bowel movement. No noted bright red blood per rectum. No acute concerns. Physical Exam 2 Vital Signs (Past 24 Hours): Last Vital Signs Temp 37.1 C 01/01/19 07:32 Pulse 77 01/01/19 07:32 Resp 14 01/01/19 07:32 BP 158/72 H 01/01/19 07:32 Pulse Ox 92 01/01/19 07:32 Physical Exam: General Appearance: Awake, alert & oriented, comfortable in general when not moving about, NAD. CV: +S1S2, regular, 2/6 systolic murmur. Pulm: Clear to auscultation throughout. Abdomen: +BS, soft, mild tenderness throughout. Extremities: No pedal edema or calf tenderness. Moving all extremities naturally and easily. Neuro: No gross neuro deficits. Results & Data Laboratory Results Laboratory Results WBC 12.17 K/uL (4.8-10.8) H 01/01/19 06:40 RBC 2.70 M/uL (4.2-5.4) L 01/01/19 06:40 Hgb 8.9 g/dL (12.0-16.0) L 01/01/19 06:40 Hct 24.9 % (37-47) L 01/01/19 06:40 MCV 92.2 fL (80-100) 01/01/19 06:40 MCH 33.0 pg (25-34) 01/01/19 06:40 MCHC 35.7 g/dL (32-36) 01/01/19 06:40 RDW Std Deviation 50.0 fL (36.4-46.3) H 01/01/19 06:40 RDW Coeff of Lainey 15.7 % (11.5-14.5) H 01/01/19 06:40 Plt Count 784 K/uL (130-400) H 01/01/19 06:40 MPV 9.8 fL (7.4-10.4) 01/01/19 06:40 Immature Gran % (Auto) 0.7 % 01/01/19 06:40 Neut % (Auto) 80.0 % 01/01/19 06:40 Lymph % (Auto) 9.3 % 01/01/19 06:40 [place] % (Auto) 8.9 % 01/01/19 06:40 Eos % (Auto) 1.0 % 01/01/19 06:40 Baso % (Auto) 0.1 % 01/01/19 06:40 Immature Gran # (Auto) 0.08 K/uL (0.00-0.02) H 01/01/19 06:40 Neut # (Auto) 9.75 K/uL (1.4-6.5) H 01/01/19 06:40 Lymph # (Auto) 1.13 K/uL (1.2-3.4) L 01/01/19 06:40 [place] # (Auto) 1.08 K/uL (0.11-0.59) H 01/01/19 06:40 Eos # (Auto) 0.12 K/uL (0-0.5) 01/01/19 06:40 Baso # (Auto) 0.01 K/uL (0-0.2) 01/01/19 06:40 Toxic Granulation 1+ 12/27/18 19:06 Platelet Estimate Increased (Normal) 12/25/18 07:38 Giant Platelets 1+ 12/26/18 08:10 RBC Morphology Unremarkable 12/22/18 06:01 Polychromasia 1+ 12/20/18 05:25 Echinocytes 1+ 01/01/19 06:40 Rouleaux 1+ 12/24/18 07:23 PT 10.9 Seconds (9.0-12.0) 12/28/18 06:19 INR 1.1 (0.9-1.1) 12/28/18 06:19 APTT 29.6 Seconds (21.0-31.0) 01/01/19 06:40 PTT Ratio 1.1 01/01/19 06:40 Sodium 141 mmol/L (136-145) 01/01/19 06:40 Potassium 3.6 mmol/L (3.5-5.1) 01/01/19 06:40 Chloride 106 mmol/L (98-107) 01/01/19 06:40 Carbon Dioxide 28 mmol/L (21-32) 01/01/19 06:40 Anion Gap 7.0 (3-11) 01/01/19 06:40 BUN 5 mg/dl (7-18) L 01/01/19 06:40 Creatinine 0.44 mg/dl (0.6-1.2) L 01/01/19 06:40 Est Cr Clr Drug Dosing 108.0 ml/min 01/01/19 06:40 Est GFR ( Amer) 116.9 01/01/19 06:40 Est GFR (Non-Af Amer) 100.8 01/01/19 06:40 BUN/Creatinine Ratio 12.2 (10-20) 01/01/19 06:40 Glucose 101 mg/dl (70-99) H 01/01/19 06:40 POC Glucose 130 (70-99) H 12/28/18 20:23 Calcium 7.3 mg/dl (8.5-10.1) L 01/01/19 06:40 Ionized Calcium 0.99 mmol/L (1.12-1.32) L 12/28/18 15:45 Phosphorus 2.8 mg/dl (2.5-4.9) 01/01/19 06:40 Magnesium 1.8 mg/dl (1.8-2.4) 01/01/19 06:40 Iron 23 mcg/dl (35-150) L 12/28/18 06:19 TIBC 170 mcg/dl (250-450) L 12/28/18 06:19 Ferritin 179.6 ng/ml (8-388) 12/28/18 06:19 Total Bilirubin 0.3 mg/dl (0.2-1) 12/28/18 06:19 AST 16 U/L (15-37) 12/28/18 06:19 ALT 23 U/L (12-78) 12/28/18 06:19 Alkaline Phosphatase 172 U/L (45-117) H 12/28/18 06:19 Troponin I 1.270 ng/ml (0-0.045) H* 12/17/18 17:58 Total Protein 5.1 gm/dl (6.4-8.2) L 12/28/18 06:19 Albumin 1.6 gm/dl (3.4-5.0) L 12/28/18 06:19 Globulin 3.5 gm/dl (2.5-4.0) 12/28/18 06:19 Albumin/Globulin Ratio 0.5 (0.9-2) L 12/28/18 06:19 Triglycerides 97 mg/dl (0-150) 12/29/18 04:17 Cholesterol 88 mg/dl (0-200) 12/29/18 04:17 LDL Cholesterol, Calc 34 mg/dl 12/29/18 04:17 VLDL Cholesterol, Calc 19 mg/dl 12/29/18 04:17 HDL Cholesterol 35 mg/dl 12/29/18 04:17 Cholesterol/HDL Ratio 3 12/29/18 04:17 Lipase 144 U/L (73-393) 12/17/18 11:35 TSH 7.890 uIu/ml (0.300-4.500) H 12/30/18 07:36 Free T4 1.30 ng/dl (0.8-1.6) 12/30/18 07:36 Specimen Hemolysis 12/29/18 04:17 Urine Color Yellow 12/17/18 13:54 Urine Appearance Clear (Clear) 12/17/18 13:54 Urine pH 8.5 (4.5-7.5) H 12/17/18 13:54 Ur Specific [place] 1.017 (1.000-1.030) 12/17/18 13:54 Urine Protein Negative (Negative) 12/17/18 13:54 Urine Glucose (UA) Negative (Negative) 12/17/18 13:54 Urine Ketones Negative (Negative) 12/17/18 13:54 Urine Blood Negative (Negative) 12/17/18 13:54 Urine Nitrite Negative (Negative) 12/17/18 13:54 Urine Bilirubin Negative (Negative) 12/17/18 13:54 Urine Urobilinogen Negative (Negative) 12/17/18 13:54 Ur Leukocyte Esterase Negative (Negative) 12/17/18 13:54 Fluid Creatinine 0.50 mg/dl 12/28/18 Unknown Nasal Screen MRSA (PCR) Negative (Negative) 12/28/18 Unknown Stl C. diff Tox B Gene Neg C.diff Toxin B (Neg) 12/27/18 17:30 Blood Type O Positive 12/17/18 16:05 Antibody Screen NEGATIVE 12/17/18 16:05 Crossmatch See Detail 12/17/18 16:05 Medications Administered Current Inpatient Medications Acetaminophen (Tylenol) 650 mg PO Q4H PRN PRN Reason: Fever/Mild Pain (Pain 1,2,3) Stop: 01/28/19 01:44 Last Admin: 12/29/18 23:27 Dose: 650 mg Amiodarone HCl (Cordarone) 200 mg PO [facility] Stop: 01/29/19 08:59 Last Admin: 01/01/19 08:10 Dose: 200 mg Ascorbic Acid (Vitamin C) 500 mg PO [facility] Stop: 01/27/19 09:59 Last Admin: 01/01/19 08:10 Dose: 500 mg Calcium Carbonate (Tums) 1,500 mg PO Q4H PRN PRN Reason: Indigestion Stop: 01/19/19 20:58 Last Admin: 12/28/18 07:52 Dose: 1,500 mg Duloxetine HCl (Cymbalta) 60 mg PO [facility] Stop: 01/28/19 08:59 Last Admin: 01/01/19 08:10 Dose: 60 mg Duloxetine HCl (Cymbalta) 30 mg PO [facility] Stop: 01/28/19 11:59 Last Admin: 01/01/19 08:10 Dose: 30 mg Ferrous Sulfate (Feosol) 325 mg PO [facility] Stop: 01/27/19 09:59 Last Admin: 01/01/19 08:10 Dose: 325 mg Hydromorphone HCl (Dilaudid) 0.5 mg IV Q4H PRN PRN Reason: Severe Pain (7,8,9,10) Stop: 01/11/19 09:32 Last Admin: 12/31/18 10:53 Dose: 0.5 mg Heparin Sodium/Dextrose (Heparin Sodium/Dextrose) 25,000 units in 500 mls @ 31 mls/hr IV .[id number] [facility]; Protocol Stop: 01/26/19 19:59 Last Titration: 01/01/19 08:04 Dose: 1,550 units/hr, 31 mls/hr Parenteral Electrolytes (Normosol-R) 1,000 mls @ 80 mls/hr IV .[id number] [facility] Stop: 01/27/19 09:29 Last Admin: 12/31/18 23:31 Dose: 80 mls/hr Magnesium Oxide (Mag-Ox) 400 mg PO QAM [facility] Stop: 01/27/19 20:59 Last Admin: 01/01/19 08:10 Dose: 400 mg Methylcellulose (Citrucel) 19 gm PO DAILY [facility] Stop: 01/27/19 09:59 Last Admin: 01/01/19 08:12 Dose: 19 gm Metoprolol Succinate (Toprol Xl) 25 mg PO QAM [facility] Stop: 01/27/19 08:59 Last Admin: 01/01/19 08:10 Dose: 25 mg Ondansetron HCl (Zofran) 4 mg IV Q4H PRN PRN Reason: Nausea And Vomiting Stop: 01/16/19 19:29 Last Admin: 12/30/18 13:38 Dose: 4 mg Oxycodone HCl (Roxicodone Immediate Rel) 5 mg PO Q6H PRN PRN Reason: Moderate Pain (4,5,6) Stop: 01/11/19 09:32 Last Admin: 12/31/18 09:44 Dose: 5 mg Oxycodone HCl (Roxicodone Immediate Rel) 10 mg PO Q6H PRN PRN Reason: Severe Pain (7,8,9,10) Stop: 01/11/19 09:32 Last Admin: 12/29/18 17:30 Dose: 10 mg Pantoprazole Sodium (Protonix) 40 mg PO DAILY [facility] Stop: 01/28/19 08:59 Last Admin: 01/01/19 08:10 Dose: 40 mg Saccharomyces Boulardii (Florastor) 250 mg PO DAILY [facility] Stop: 01/26/19 15:44 Last Admin: 01/01/19 08:09 Dose: 250 mg Zinc Sulfate (Zinc Sulfate) 220 mg PO DAILY [facility] Stop: 01/27/19 20:59 Last Admin: 01/01/19 08:10 Dose: 220 mg Resident Activity Tracking Resident Involvement: Resident Care Provided Care Provided: Adult Hospital Medicine
--- NOTE | 2019-01-01 10:12 | Surgery Progress Note ---
Date of Service January 01, 2019 Assessment & Plan (1) Perforated bowel: POD 15 slowly making progress continue therapy hopefully ready for discharge soon Subjective not much appetite but RUQ pain resolved Physical Exam 2 Vital Signs (Past 24 Hours): Last Vital Signs Temp 37.1 C 01/01/19 07:32 Pulse 77 01/01/19 07:32 Resp 14 01/01/19 07:32 BP 158/72 H 01/01/19 07:32 Pulse Ox 92 01/01/19 07:32 Gastrointestinal (Abdomen): Inspection/Auscultation: abdomen not distended Percussion/Palpation: abdomen soft
[2019-01-01] MEDS: ONDANSETRON INJ 2 MG/ML 2 ML VIAL IV PRN (11:57)
[2019-01-01] MEDS: NORMOSOL-R 1,000 ML IV SCH ×2 (11:57→23:54)
--- NOTE | 2019-01-01 12:43 | Surgery Progress Note ---
Date of Service January 01, 2019 Assessment & Plan (1) Perforated bowel: clinically doing ok/no acute surgical issues will d/w case management...we are getting close to being able to transfer to rehab Subjective pt seen. no new complaints. the RUQ pain has resolved. still poor appetite. +BM 's Physical Exam 2 Vital Signs (Past 24 Hours): Last Vital Signs Temp 37.1 C 01/01/19 07:32 Pulse 77 01/01/19 07:32 Resp 14 01/01/19 07:32 BP 158/72 H 01/01/19 07:32 Pulse Ox 92 01/01/19 07:32 Physical Exam: alert. nad abd: soft. nt.
[2019-01-01] MEDS ORDERED: HEPARIN SODIUM/DEXTROSE 25,000 UNITS/500 ML BAG IV SCH (14:30)
[2019-01-01 16:10] LABS: Partial Thromboplastin Ratio > 5.1
[2019-01-01 16:25] LABS: Partial Thromboplastin Time > 139.0 Seconds (21.0-31.0)
[2019-01-01] MEDS: CALCIUM CARBONATE 500 MG CHEWABLE TAB PO PRN (18:21)
[2019-01-01] MEDS: APIXABAN 5 MG TABLET PO SCH (21:00)
[2019-01-02 06:33] LABS: Basophils # (auto) 0.01 K/uL (0-0.2); Basophils % (auto) 0.1 %; Eosinophils # (auto) 0.04 K/uL (0-0.5); Eosinophils % (auto) 0.4 %; Hematocrit (blood only) 27.3 % (37-47); Hemoglobin 9.6 g/dL (12.0-16.0); Immature Granulocytes # (auto) 0.07 K/uL (0.00-0.02); Immature Granulocytes % (auto) 0.6 %; Lymphocytes # (auto) 1.34 K/uL (1.2-3.4); Lymphocytes % (auto) 11.8 %; Mean Corpuscular Hgb Conc 35.2 g/dL (32-36); Mean Corpuscular Volume 92.2 fL (80-100); Mean Platelet Volume 9.6 fL (7.4-10.4); Monocytes # (auto) 1.11 K/uL (0.11-0.59); Monocytes % (auto) 9.7 %; Neutrophils # (auto) 8.82 K/uL (1.4-6.5); Neutrophils % (auto) 77.4 %; Platelet Count 820 K/uL (130-400); RDW Standard Deviation 50.7 fL (36.4-46.3); Red Blood Count 2.96 M/uL (4.2-5.4); White Blood Count 11.39 K/uL (4.8-10.8)
[2019-01-02 06:55] LABS: Partial Thromboplastin Time 27.5 Seconds (21.0-31.0)
[2019-01-02 07:08] LABS: Magnesium 1.7 mg/dl (1.8-2.4); Phosphorus 3.1 mg/dl (2.5-4.9)
[2019-01-02] MEDS: DULOXETINE HCL 30 MG CAP PO SCH ×2 (09:03→12:37)
[2019-01-02] MEDS: AMIODARONE 200 MG TAB PO SCH ×2 (09:03→12:36)
[2019-01-02] MEDS: METOPROLOL SUCC 25MG EXT REL TAB PO SCH ×2 (09:03→12:38)
[2019-01-02] MEDS: FERROUS SULFATE 325 MG TAB PO SCH ×2 (09:04→12:37)
[2019-01-02] MEDS: ASCORBIC ACID 500 MG TAB PO SCH ×2 (09:04→12:38)
[2019-01-02] MEDS: SACCHAROMYCES BOULARDII 250 MG CAP PO SCH ×2 (09:04→12:37)
[2019-01-02] MEDS: ZINC SULFATE 220 MG CAPSULE PO SCH ×2 (09:04→12:39)
[2019-01-02] MEDS: METHYLCELLULOSE POWDER 454 GM JAR PO SCH (09:04)
[2019-01-02] MEDS: PANTOprazole 40 MG TAB PO SCH ×2 (09:05→12:38)
[2019-01-02] MEDS: MAGNESIUM OXIDE 400 MG TAB PO SCH ×2 (09:05→12:38)
[2019-01-02] MEDS: DULOXETINE HCL 60 MG CAP PO SCH ×2 (09:05→12:36)
[2019-01-02] MEDS: APIXABAN 5 MG TABLET PO SCH ×3 (09:05→20:34)
--- NOTE | 2019-01-02 10:33 | Surgery Progress Note ---
Date of Service January 02, 2019 Assessment & Plan (1) Perforated bowel: ?etiology of her early satiety. will check KUB I think she is just generally deconditioned with some depression if KUB ok, would recommend d/c to rehab soon for aggressive therapy. Subjective pt without complaint other than she gets early satiety/difficulty eating much. no n/v. +bm's. Physical Exam 2 Vital Signs (Past 24 Hours): Last Vital Signs Temp 37 C 01/02/19 08:41 Pulse 80 01/02/19 08:41 Resp 20 01/02/19 08:41 BP 160/80 H 01/02/19 08:41 Pulse Ox 95 01/02/19 08:41 Physical Exam: NAD abd: soft. nt. wound looks good. still some lower pole drainage. no erythema
--- NOTE | 2019-01-02 11:09 | XRay Report ---
XR KUB CLINICAL HISTORY: post op nausea COMPARISON STUDY: 12/19/2018 FINDINGS: Anterior skin marito are visualized. There is a right-sided nephroureteral stent. The left -sided pelvic surgical drain have been removed. The right-sided subhepatic surgical drain has been re moved There is no pathologic bowel dilatation. IMPRESSION: No evidence of pathologic bowel dilatation. No change in the orientation of the right-si ded nephroureteral stent. Electronically signed by: Ace Chacno M.D. 01/02/2019 11:08 AM
--- NOTE | 2019-01-02 11:16 | Urology Progress Note ---
Date of Service January 02, 2019 Assessment & Plan (1) Ureteral stricture: A/P 73 yo female POD# 24 from R open ureteroureterostomy with stent exchange, POD#16 s/p R hemicolectomy and washout, POD#10 s/p radiology drain placement. Le's spirits are low today, uninterested in conversing. Abd drains have been d/c'd KUB rechecked due to early satiety- no bowel dilation Plan for rehab soon, case management making arrangements; [facility] or [facility] when medically stable. Will continue to follow. Subjective 73 yo female POD# 24 from R open ureteroureterostomy with stent exchange, POD# 16 s/p R hemicolectomy and washout, POD#10 s/p radiology drain placement. Abd drains d/c'd RUQ pain improved. Tolerating regular diet PO but having early satiety - KUB ordered by surgery. Review of Systems All systems reviewed & are unremarkable except as noted in HPI & below Physical Exam 2 Vital Signs (Past 24 Hours): Last Vital Signs Temp 37 C 01/02/19 08:41 Pulse 80 01/02/19 08:41 Resp 20 01/02/19 08:41 BP 160/80 H 01/02/19 08:41 Pulse Ox 95 01/02/19 08:41 Physical Exam: A&Ox3 RRR oob to chair Abd incisions not assessed per patient request psych: no eye contact, depressed mood Results & Data Laboratory Results Laboratory Results - last 48 hr 01/01/19 01/01/19 01/01/19 06:40 06:40 06:40 WBC 12.17 H RBC 2.70 L Hgb 8.9 L Hct 24.9 L MCV 92.2 MCH 33.0 MCHC 35.7 RDW Std Deviation 50.0 H RDW Coeff of Lainey 15.7 H Plt Count 784 H MPV 9.8 Immature Gran % (Auto) 0.7 Neut % (Auto) 80.0 Lymph % (Auto) 9.3 [place] % (Auto) 8.9 Eos % (Auto) 1.0 Baso % (Auto) 0.1 Immature Gran # (Auto) 0.08 H Neut # (Auto) 9.75 H Lymph # (Auto) 1.13 L [place] # (Auto) 1.08 H Eos # (Auto) 0.12 Baso # (Auto) 0.01 Echinocytes 1+ APTT 29.6 PTT Ratio 1.1 Sodium 141 Potassium 3.6 Chloride 106 Carbon Dioxide 28 Anion Gap 7.0 BUN 5 L Creatinine 0.44 L Est Cr Clr Drug Dosing 108.0 Est GFR ( Amer) 116.9 Est GFR (Non-Af Amer) 100.8 BUN/Creatinine Ratio 12.2 Glucose 101 H Calcium 7.3 L Phosphorus 2.8 Magnesium 1.8 Stl C. diff Tox B Gene 01/01/19 01/01/19 01/02/19 15:41 19:16 06:09 WBC RBC Hgb Hct MCV MCH MCHC RDW Std Deviation RDW Coeff of Lainey Plt Count MPV Immature Gran % (Auto) Neut % (Auto) Lymph % (Auto) [place] % (Auto) Eos % (Auto) Baso % (Auto) Immature Gran # (Auto) Neut # (Auto) Lymph # (Auto) [place] # (Auto) Eos # (Auto) Baso # (Auto) Echinocytes APTT > 139.0 H* 27.5 PTT Ratio > 5.1 1.0 Sodium Potassium Chloride Carbon Dioxide Anion Gap BUN Creatinine Est Cr Clr Drug Dosing Est GFR ( Amer) Est GFR (Non-Af Amer) BUN/Creatinine Ratio Glucose Calcium Phosphorus Magnesium Stl C. diff Tox B Gene Neg C.diff Toxin B 01/02/19 01/02/19 06:09 06:09 WBC 11.39 H RBC 2.96 L Hgb 9.6 L Hct 27.3 L MCV 92.2 MCH 32.4 MCHC 35.2 RDW Std Deviation 50.7 H RDW Coeff of Lainey 16.0 H Plt Count 820 H MPV 9.6 Immature Gran % (Auto) 0.6 Neut % (Auto) 77.4 Lymph % (Auto) 11.8 [place] % (Auto) 9.7 Eos % (Auto) 0.4 Baso % (Auto) 0.1 Immature Gran # (Auto) 0.07 H Neut # (Auto) 8.82 H Lymph # (Auto) 1.34 [place] # (Auto) 1.11 H Eos # (Auto) 0.04 Baso # (Auto) 0.01 Echinocytes APTT PTT Ratio Sodium Potassium Chloride Carbon Dioxide Anion Gap BUN Creatinine Est Cr Clr Drug Dosing Est GFR ( Amer) Est GFR (Non-Af Amer) BUN/Creatinine Ratio Glucose Calcium Phosphorus 3.1 Magnesium 1.7 L Stl C. diff Tox B Gene
[2019-01-02] MEDS: NORMOSOL-R 1,000 ML IV SCH ×2 (12:32→23:51)
[2019-01-03 08:51] LABS: Basophils # (auto) 0.01 K/uL (0-0.2); Basophils % (auto) 0.1 %; Eosinophils # (auto) 0.03 K/uL (0-0.5); Eosinophils % (auto) 0.3 %; Hemoglobin 9.3 g/dL (12.0-16.0); Immature Granulocytes # (auto) 0.07 K/uL (0.00-0.02); Immature Granulocytes % (auto) 0.6 %; Lymphocytes # (auto) 1.32 K/uL (1.2-3.4); Mean Corpuscular Hgb Conc 34.4 g/dL (32-36); Mean Corpuscular Volume 92.2 fL (80-100); Mean Platelet Volume 9.3 fL (7.4-10.4); Monocytes # (auto) 1.12 K/uL (0.11-0.59); Monocytes % (auto) 10.2 %; Neutrophils # (auto) 8.43 K/uL (1.4-6.5); Neutrophils % (auto) 76.8 %; Platelet Count 775 K/uL (130-400); RDW Coefficient of Variation 16.2 % (11.5-14.5); RDW Standard Deviation 52.3 fL (36.4-46.3); Red Blood Count 2.93 M/uL (4.2-5.4); White Blood Count 10.98 K/uL (4.8-10.8)
[2019-01-03 09:02] LABS: Partial Thromboplastin Time 26.2 Seconds (21.0-31.0)
[2019-01-03 09:08] LABS: Magnesium 1.9 mg/dl (1.8-2.4); Phosphorus 3.2 mg/dl (2.5-4.9)
[2019-01-03] MEDS: DULOXETINE HCL 30 MG CAP PO SCH (10:11)
[2019-01-03] MEDS: FERROUS SULFATE 325 MG TAB PO SCH (10:11)
[2019-01-03] MEDS: APIXABAN 5 MG TABLET PO SCH ×2 (10:12→20:17)
[2019-01-03] MEDS: PANTOprazole 40 MG TAB PO SCH (10:12)
[2019-01-03] MEDS: ZINC SULFATE 220 MG CAPSULE PO SCH (10:12)
[2019-01-03] MEDS: MAGNESIUM OXIDE 400 MG TAB PO SCH (10:12)
[2019-01-03] MEDS: AMIODARONE 200 MG TAB PO SCH (10:12)
[2019-01-03] MEDS: SACCHAROMYCES BOULARDII 250 MG CAP PO SCH (10:12)
[2019-01-03] MEDS: ASCORBIC ACID 500 MG TAB PO SCH (10:12)
[2019-01-03] MEDS: DULOXETINE HCL 60 MG CAP PO SCH (10:12)
[2019-01-03] MEDS: METOPROLOL SUCC 25MG EXT REL TAB PO SCH (10:13)
[2019-01-03] MEDS: METHYLCELLULOSE POWDER 454 GM JAR PO SCH (10:16)
--- NOTE | 2019-01-03 11:27 | Surgery Progress Note ---
Date of Service January 03, 2019 pt is stable, not eating much, pt denies abdominal pain, no nausea, no vomiting , some diarrhea, check c-diff, Assessment & Plan (1) Diarrhea: pt is stable, diarrhea, check c-diff will F/u Physical Exam 2 Vital Signs (Past 24 Hours): Last Vital Signs Temp 36.8 C 01/03/19 07:06 Pulse 90 01/03/19 07:24 Resp 16 01/03/19 07:06 BP 159/84 H 01/03/19 07:06 Pulse Ox 93 01/03/19 07:06 Constitutional: WD/WN, vitals as above Neck: trachea midline, no thyromegaly Respiratory: normal respiratory effort, lungs clear to auscultation Cardiovascular: RRR, no murmur, no edema Gastrointestinal (Abdomen): normal bowel sounds, soft, nontender, no hepatosplenomegaly Percussion/Palpation: abdomen soft NT, ND BS + Neurologic: awake Psychiatric: Orientation: alert and oriented x 3 Results & Data Laboratory Results Abnormal lab results 01/03/19 Range/Units 08:30 WBC 10.98 H (4.8-10.8) K/uL RBC 2.93 L (4.2-5.4) M/uL Hgb 9.3 L (12.0-16.0) g/dL Hct 27.0 L (37-47) % RDW Std Deviation 52.3 H (36.4-46.3) fL RDW Coeff of Lainey 16.2 H (11.5-14.5) % Plt Count 775 H (130-400) K/uL Immature Gran # (Auto) 0.07 H (0.00-0.02) K/uL Neut # (Auto) 8.43 H (1.4-6.5) K/uL [place] # (Auto) 1.12 H (0.11-0.59) K/uL
--- NOTE | 2019-01-03 11:35 | Urology Progress Note ---
Date of Service January 03, 2019 Subjective Patient's afebrile vital signs are stable She has no complaints although she says she is not eating much Denies abdominal pain Voiding without problem Assessment Postop bowel perforation Continue treatment per general surgery We will probably need to go to rehab post hospitalization Physical Exam 2 Vital Signs (Past 24 Hours): Last Vital Signs Temp 36.8 C 01/03/19 07:06 Pulse 90 01/03/19 07:24 Resp 16 01/03/19 07:06 BP 159/84 H 01/03/19 07:06 Pulse Ox 93 01/03/19 07:06
[2019-01-03] MEDS: NORMOSOL-R 1,000 ML IV SCH (13:24)
[2019-01-04] MEDS: NORMOSOL-R 1,000 ML IV SCH ×2 (01:41→14:26)
[2019-01-04 08:39] LABS: Basophils # (auto) 0.01 K/uL (0-0.2); Basophils % (auto) 0.1 %; Eosinophils # (auto) 0.08 K/uL (0-0.5); Eosinophils % (auto) 0.7 %; Hematocrit (blood only) 30.2 % (37-47); Hemoglobin 10.5 g/dL (12.0-16.0); Immature Granulocytes # (auto) 0.05 K/uL (0.00-0.02); Immature Granulocytes % (auto) 0.4 %; Lymphocytes # (auto) 1.32 K/uL (1.2-3.4); Lymphocytes % (auto) 11.2 %; Mean Corpuscular Hgb Conc 34.8 g/dL (32-36); Mean Corpuscular Volume 91.8 fL (80-100); Mean Platelet Volume 9.5 fL (7.4-10.4); Monocytes # (auto) 1.14 K/uL (0.11-0.59); Monocytes % (auto) 9.6 %; Neutrophils # (auto) 9.22 K/uL (1.4-6.5); Platelet Count 744 K/uL (130-400); RDW Coefficient of Variation 16.1 % (11.5-14.5); RDW Standard Deviation 51.1 fL (36.4-46.3); Red Blood Count 3.29 M/uL (4.2-5.4); White Blood Count 11.82 K/uL (4.8-10.8)
[2019-01-04 09:00] LABS: Partial Thromboplastin Ratio 0.9; Partial Thromboplastin Time 25.3 Seconds (21.0-31.0)
[2019-01-04 09:11] LABS: Magnesium 2.1 mg/dl (1.8-2.4); Phosphorus 3.4 mg/dl (2.5-4.9)
[2019-01-04] MEDS: AMIODARONE 200 MG TAB PO SCH (09:28)
[2019-01-04] MEDS: DULOXETINE HCL 60 MG CAP PO SCH (09:29)
[2019-01-04] MEDS: DULOXETINE HCL 30 MG CAP PO SCH (09:29)
[2019-01-04] MEDS: SACCHAROMYCES BOULARDII 250 MG CAP PO SCH (09:30)
[2019-01-04] MEDS: FERROUS SULFATE 325 MG TAB PO SCH (09:30)
[2019-01-04] MEDS: APIXABAN 5 MG TABLET PO SCH ×2 (09:30→21:15)
[2019-01-04] MEDS: PANTOprazole 40 MG TAB PO SCH (09:31)
[2019-01-04] MEDS: ZINC SULFATE 220 MG CAPSULE PO SCH (09:31)
[2019-01-04] MEDS: MAGNESIUM OXIDE 400 MG TAB PO SCH (09:31)
[2019-01-04] MEDS: METOPROLOL SUCC 25MG EXT REL TAB PO SCH (09:31)
[2019-01-04] MEDS: ASCORBIC ACID 500 MG TAB PO SCH (09:31)
[2019-01-04] MEDS: METHYLCELLULOSE POWDER 454 GM JAR PO SCH (09:35)
--- NOTE | 2019-01-04 12:38 | Surgery Progress Note ---
Date of Service January 04, 2019 doing same, no abdominal pain, some diarrhea, Assessment & Plan (1) Diarrhea: pt is stable, diarrhea, check c-diff will F/u 01/04/2019 c-diff negative continue treatment, Subjective Postoperative day 5 States having pain mostly on right side near her lateral abdominal wall incision Nursing reports that she is ambulating better however Denies flatus or bowel movements Physical Exam 2 Vital Signs (Past 24 Hours): Last Vital Signs Temp 36.8 C 01/04/19 06:44 Pulse 76 01/04/19 06:44 Resp 18 01/04/19 06:44 BP 156/81 H 01/04/19 06:44 Pulse Ox 94 01/04/19 06:44 Constitutional: WD/WN, vitals as above Neck: trachea midline, no thyromegaly Respiratory: normal respiratory effort, lungs clear to auscultation Cardiovascular: RRR, no murmur, no edema Gastrointestinal (Abdomen): normal bowel sounds, soft, nontender, no hepatosplenomegaly Percussion/Palpation: abdomen soft Neurologic: awake Psychiatric: Orientation: alert and oriented x 3
[2019-01-05] MEDS: NORMOSOL-R 1,000 ML IV SCH ×2 (02:21→15:10)
[2019-01-05 06:48] LABS: Basophils # (auto) 0.03 K/uL (0-0.2); Basophils % (auto) 0.3 %; Eosinophils # (auto) 0.13 K/uL (0-0.5); Eosinophils % (auto) 1.1 %; Hematocrit (blood only) 29.9 % (37-47); Hemoglobin 10.6 g/dL (12.0-16.0); Immature Granulocytes # (auto) 0.05 K/uL (0.00-0.02); Immature Granulocytes % (auto) 0.4 %; Lymphocytes # (auto) 1.46 K/uL (1.2-3.4); Lymphocytes % (auto) 12.3 %; Mean Corpuscular Hgb Conc 35.5 g/dL (32-36); Mean Corpuscular Volume 90.3 fL (80-100); Mean Platelet Volume 9.7 fL (7.4-10.4); Monocytes % (auto) 10.9 %; Neutrophils # (auto) 8.91 K/uL (1.4-6.5); Platelet Count 619 K/uL (130-400); RDW Coefficient of Variation 15.8 % (11.5-14.5); RDW Standard Deviation 50.7 fL (36.4-46.3); Red Blood Count 3.31 M/uL (4.2-5.4); White Blood Count 11.88 K/uL (4.8-10.8)
[2019-01-05 06:58] LABS: Partial Thromboplastin Ratio 0.9; Partial Thromboplastin Time 25.4 Seconds (21.0-31.0)
[2019-01-05] MEDS: APIXABAN 5 MG TABLET PO SCH ×2 (08:27→21:27)
[2019-01-05] MEDS: PANTOprazole 40 MG TAB PO SCH (08:27)
[2019-01-05] MEDS: AMIODARONE 200 MG TAB PO SCH (08:27)
[2019-01-05] MEDS: SACCHAROMYCES BOULARDII 250 MG CAP PO SCH (08:27)
[2019-01-05] MEDS: METOPROLOL SUCC 25MG EXT REL TAB PO SCH (08:27)
[2019-01-05] MEDS: ZINC SULFATE 220 MG CAPSULE PO SCH (08:27)
[2019-01-05] MEDS: DULOXETINE HCL 30 MG CAP PO SCH (08:27)
[2019-01-05] MEDS: MAGNESIUM OXIDE 400 MG TAB PO SCH (08:27)
[2019-01-05] MEDS: ASCORBIC ACID 500 MG TAB PO SCH (08:28)
[2019-01-05] MEDS: FERROUS SULFATE 325 MG TAB PO SCH (08:28)
[2019-01-05] MEDS: METHYLCELLULOSE POWDER 454 GM JAR PO SCH (08:28)
[2019-01-05] MEDS: DULOXETINE HCL 60 MG CAP PO SCH (08:28)
--- NOTE | 2019-01-05 14:40 | Surgery Progress Note ---
Date of Service January 05, 2019 Assessment & Plan (1) Perforated bowel: 01/05/2019 KUB from Saturday- No evidence of pathologic bowel dilatation. No change in the orientation of the right-sided nephroureteral stent. Tolerating regular diet, +passing flatus, moving bowels without issue. Plan is to D/C to [facility] when there is a bed available. Hospitalist team signed off on Pt on 01/01- I personally spoke with Hospitalist, Dr. Daly. She will have one of the residents examine patient and make recommendations with regard to home medications, specifically anticoag medication. ?etiology of her early satiety. will check KUB I think she is just generally deconditioned with some depression if KUB ok, would recommend d/c to rehab soon for aggressive therapy. Subjective Per nursing- Case management on board and is working on placement to [facility]. Will hopefully have a bed today or tomorrow. pt without complaint other than she gets early satiety/difficulty eating much. no n/v. moving her bowels without issue. Constitutional: + malaise and + anorexia; no fever and no chills Respiratory: + dyspnea on exertion; no dyspnea Gastrointestinal: + abdominal pain; no nausea and no vomiting Physical Exam Vital Signs (Past 24 Hours): Last Vital Signs Temp 36.6 C 01/05/19 11:44 Pulse 76 01/05/19 11:44 Resp 18 01/05/19 11:44 BP 148/80 H 01/05/19 11:44 Pulse Ox 96 01/05/19 11:44 Gastrointestinal (Abdomen): Percussion/Palpation: abdomen soft; abdomen nontender and no guarding
[2019-01-06] MEDS: NORMOSOL-R 1,000 ML IV SCH (02:05)
--- NOTE | 2019-01-06 07:51 | Urology Progress Note ---
Date of Service January 06, 2019 Assessment & Plan (1) Ureteral stricture: continues gradual recovery awaiting transfer to rehab will arrange outpt f/u for stent management Subjective subjectively doing better mild pain ambulating in her room Physical Exam 2 Vital Signs (Past 24 Hours): Last Vital Signs Temp 37 C 01/05/19 23:20 Pulse 73 01/05/19 23:20 Resp 16 01/05/19 23:20 BP 155/77 H 01/05/19 23:20 Pulse Ox 96 01/05/19 23:20 Physical Exam: incisions appropriate, abd soft
[2019-01-06 09:10] LABS: Partial Thromboplastin Ratio 0.9; Partial Thromboplastin Time 25.4 Seconds (21.0-31.0)
--- NOTE | 2019-01-06 09:26 | Progress Note ---
DATE: 01/06/2019 HEMATOLOGY PROGRESS NOTE DIAGNOSES: 1. Reactive thrombocytosis. 2. Leukocytosis. 3. Status post right hemicolectomy/exploratory laparotomy, terminal ileal complex abscess and infected abdominal wound. SUBJECTIVE: Le was seen and examined at bedside this morning. Clinically, she looks much, much better that by the last visit with her 10 days prior. Her platelet count is heading towards normal, presently over 600,000, but ultimately going in the right direction. She was started on oral iron supplementation. Le imparts that she is nearing discharge perhaps to [facility]. This was affirmed by the nursing staff this morning. Nursing reports no overnight difficulty otherwise. Overall, I am quite pleased with her progress. PHYSICAL EXAMINATION: GENERAL: She is in no acute distress. VITAL SIGNS: Temperature 37, pulse 73, respiratory rate 16, blood pressure 155/77. SKIN: Without rash or lesion. HEENT: Oral mucosa without erythema or ulceration. HEART: Regular rate and rhythm. LUNGS: Clear to auscultation. ABDOMEN: Soft. Surgical wounds healing well. EXTREMITIES: No clubbing, cyanosis or edema. NEUROLOGICAL: Grossly intact. LABORATORY DATA: These were results from 01/05. WBC 11,880, hemoglobin 10.6, platelet count 619,000. IMPRESSION: 1. Reactive thrombocytosis. 2. Leukocytosis. 3. Status post right hemicolectomy/exploratory laparotomy, terminal ileal complex abscess with infected abdominal wound. PLAN: Le is on her hospital day 20. She is making steady but slow progress. According to Le and the nursing staff, she will most likely be discharged to [facility] when bed becomes available. Surgery has since signed off. I would like to see Le in the office in a month or so if for nothing else to follow up her anemia. I trust her platelet count will retreat to normal as again I believe this was a reactive process and she is not suffering from an underlying myeloproliferative disease. I have nothing further to add at this juncture. Thank you very much for allowing me to participate in her care and will officially sign off this morning.
[2019-01-06] MEDS: AMIODARONE 200 MG TAB PO SCH (09:31)
[2019-01-06] MEDS: APIXABAN 5 MG TABLET PO SCH (09:31)
[2019-01-06] MEDS: SACCHAROMYCES BOULARDII 250 MG CAP PO SCH (09:32)
[2019-01-06] MEDS: PANTOprazole 40 MG TAB PO SCH (09:32)
[2019-01-06] MEDS: DULOXETINE HCL 30 MG CAP PO SCH (09:32)
[2019-01-06] MEDS: FERROUS SULFATE 325 MG TAB PO SCH (09:32)
[2019-01-06] MEDS: MAGNESIUM OXIDE 400 MG TAB PO SCH (09:32)
[2019-01-06] MEDS: DULOXETINE HCL 60 MG CAP PO SCH (09:32)
[2019-01-06] MEDS: METOPROLOL SUCC 25MG EXT REL TAB PO SCH (09:32)
[2019-01-06] MEDS: ZINC SULFATE 220 MG CAPSULE PO SCH (09:32)
[2019-01-06] MEDS: ASCORBIC ACID 500 MG TAB PO SCH (09:32)
[2019-01-06] MEDS: METHYLCELLULOSE POWDER 454 GM JAR PO SCH (09:33)
--- NOTE | 2019-01-06 10:10 | Surgery Progress Note ---
Date of Service January 06, 2019 Assessment & Plan (1) Perforated bowel: 01/06/2019 Final marito from midline incision removed yesterday without incident. Patient tolerating regular diet. Pain controlled. Has not needed pain medication for quite some time. Ok for discharge today to [facility]. Return precautions reviewed with patient. Follow-up with Dr. Stephen in the General Surgery clinic in 1-2 weeks. 01/05/2019 KUB from Saturday- No evidence of pathologic bowel dilatation. No change in the orientation of the right-sided nephroureteral stent. Tolerating regular diet, +passing flatus, moving bowels without issue. Plan is to D/C to [facility] when there is a bed available. Hospitalist team signed off on Pt on 01/01- I personally spoke with Hospitalist, Dr. Daly. She will have one of the residents examine patient and make recommendations with regard to home medications, specifically anticoag medication. ?etiology of her early satiety. will check KUB I think she is just generally deconditioned with some depression if KUB ok, would recommend d/c to rehab soon for aggressive therapy. Subjective Patient continues to improve- plan is for patient to go to [facility] today. No new concerns or complaints. Physical Exam Vital Signs (Past 24 Hours): Last Vital Signs Temp 37 C 01/05/19 23:20 Pulse 73 01/05/19 23:20 Resp 16 01/05/19 23:20 BP 155/77 H 01/05/19 23:20 Pulse Ox 96 01/05/19 23:20
--- NOTE | 2019-01-07 07:59 | Discharge Summary ---
Date of Service January 13, 2019 Admission HPI Per Admitting Provider 73 y/o female POD 8 Cystoscopy, Right Ureteroscopy, Right Ureteral Stent Exchange, Robotic Assisted Laparoscopic/Conversion to open Lysis of Extensive Right Ureteral Adhesions, Excision of portion of Right Ureter, with Uretero- ureterostomy returns to ED today with increasing abdominal pain and anorexia for the past 4 days. No fevers or chills, bowels have been moving. Denies chest pain but some RAMIREZ. 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 Discharge Data Consultations 12/17/18 19:30 Consult Cardiology Routine Consult Boilers Inspector Routine 12/18/18 08:22 Consult Hospitalist Routine 12/24/18 14:22 Consult [facility] talcer Routine 12/25/18 11:20 Consult Hematology Routine 12/27/18 11:33 Consult Hospitalist Routine 12/27/18 13:28 Consult Cardiology Routine Procedures Performed Operation Date: 12/17/18 11:00 Actual Procedures p Exploratory Laparotomy,Right sharad- coloectomy, enterlysis and abdominal washout (Not Applicable) - Chet Stephen DO
--- NOTE | 2019-01-07 07:59 | Discharge Summary ---
Date of Service January 13, 2019 Admission HPI Per Admitting Provider 73 y/o female POD 8 Cystoscopy, Right Ureteroscopy, Right Ureteral Stent Exchange, Robotic Assisted Laparoscopic/Conversion to open Lysis of Extensive Right Ureteral Adhesions, Excision of portion of Right Ureter, with Uretero- ureterostomy returns to ED today with increasing abdominal pain and anorexia for the past 4 days. No fevers or chills, bowels have been moving. Denies chest pain but some RAMIREZ. 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 Discharge Data Consultations 12/17/18 19:30 Consult Cardiology Routine Consult Top Carrier Routine 12/18/18 08:22 Consult Hospitalist Routine 12/24/18 14:22 Consult [facility] community relations police lieutenant Routine 12/25/18 11:20 Consult Hematology Routine 12/27/18 11:33 Consult Hospitalist Routine 12/27/18 13:28 Consult Cardiology Routine Procedures Performed Operation Date: 12/17/18 11:00 Actual Procedures p Exploratory Laparotomy,Right sharad- coloectomy, enterlysis and abdominal washout (Not Applicable) - Chet Stephen DO
--- NOTE | 2019-01-12 22:21 | Discharge Summary ---
PRIMARY DISCHARGE DIAGNOSES: 1. Perforated/ischemic cecum with abdominal abscess. 2. New onset atrial fibrillation. 3. Reactive thrombocytosis. SECONDARY DISCHARGE DIAGNOSES: 1. Depression. 2. Gastroesophageal reflux disease. 3. Hypertension. 4. Peripheral neuropathy. 5. Hyperlipidemia. PROCEDURE PERFORMED: Exploratory laparotomy with right hemicolectomy, enterolysis, and abdominal washout. CONSULTATIONS: 1. Urology routine following recent urologic procedure. 2. [facility] cab station attendant to assist in postoperative care. 3. [facility] hospitalist to assist in medical management. 4. [facility] hematology for thrombocytosis and leukocytosis. HOSPITAL COURSE: The patient is a 73-year-old female who presented to the Emergency Department 8 days following a complex procedure for right ureteral stricture complaining of abdominal pain and loss of appetite. CT was consistent with terminal ileum perforation with fistula with a possible fistula and abscess. She was taken emergently to the operating room for exploratory laparotomy. She had some ischemic changes of the cecum, had a perforation of the ileocecal junction and abscess formation. We proceeded with a right hemicolectomy, abdominal washout and reanastomosis. The procedure was well tolerated. She was transferred to ICU for postoperative monitoring. She remained stable. She was kept on IV Zosyn. Lovenox was used for DVT prophylaxis. On postoperative day #1, she was transferred to the regular surgical floor. Her white count remained elevated at 40,000, but then began to improve. She was slowly making progress. Her white blood cell count was decreasing. She had some returning bowel function, but oral intake was limited. She was complaining of more of a right-sided abdominal pain on postoperative day #5. CT showed developing fluid collections. She remained afebrile. Her white count remained stable. She continued to have pain. She was taken to radiology for CT-guided drainage of the right lower quadrant fluid collection. Cultures eventually returned with no growth. Her other drainage output had been serous. She was moving her bowels by 1 week postoperatively, but her appetite continued to be limited. On postoperative day #11, she was transferred to ICU for new onset atrial fibrillation. She was started on heparin drip and amiodarone. Her metoprolol was continued. Follow up CT showed decreasing size of the abdominal fluid collections. Drains were removed on postoperative day #14. She had been complaining of some right upper quadrant pain, which was alleviated once the drains were removed. We had also question of cholecystitis and HIDA scan have been negative. We asked hematology to see her when her platelet count surpassed 1 million and also given that her white count had been 40,000 a few days following surgery. It attributes to reactive thrombocytosis and there does not appear to be any underlying myeloproliferative disease. She then can be making greater steps forward. She is to continue with therapy. Her appetite was still limited, although her bowels continue to move. She is likely suffering from some situational depression and in addition to her longer standing depression. family services worker assisted with making discharge arrangements. On postoperative day #19, she was stable for discharge to [facility]. The skin marito were removed prior to discharge. There is a small opening in the lower incision, where marito had been removed previously to allow for wound drainage. DISCHARGE INSTRUCTIONS: Transfer to [facility]. Follow up with Dr. Stephen in 1 week. Follow up with Dr. Hernandez in approximately 1 month. Follow up with her PCP in 1-2 weeks. She will follow up with urology regarding a right ureteral stent within the next month as well. DISCHARGE MEDICATIONS: Amiodarone 200 mg daily, Eliquis 5 mg p.o. b.i.d., duloxetine is 90 mg in the morning, ferrous sulfate 325 mg daily, metoprolol 25 mg p.o. daily, zinc sulfate 220 mg daily. Continue her home Colace 100 mg b.i.d., omeprazole 40 mg b.i.d., oxycodone 5 mg as needed. Discontinue previous isosorbide 30 mg daily. [facility]
== END 2019-01-06 17:12 | DRG 856 ==
LOC: ED 10:35 → ASU 14:37 → 1E 17:18 → SUATTDRO 17:18 → 2S 12-18 08:24 → 3W 12-20 17:00 → 1E 12-28 08:21 → 2N 12-29 19:15 → 3N 12-30 17:29

== ENCOUNTER 2019-03-06 14:49 | Inpatient (IN) ==
[2019-03-06] MEDS ORDERED: SODIUM CHLORIDE 0.9% 500 ML IV ONE (16:18)
[2019-03-06 16:44] LABS: Basophils # (auto) 0.01 K/uL (0-0.2); Basophils % (auto) 0.1 %; Eosinophils # (auto) 0.12 K/uL (0-0.5); Eosinophils % (auto) 1.1 %; Hematocrit (blood only) 38.9 % (37-47); Hemoglobin 13.1 g/dL (12.0-16.0); Immature Granulocytes # (auto) 0.03 K/uL (0.00-0.02); Immature Granulocytes % (auto) 0.3 %; Lymphocytes # (auto) 2.86 K/uL (1.2-3.4); Lymphocytes % (auto) 27.3 %; Mean Corpuscular Hgb Conc 33.7 g/dL (32-36); Mean Corpuscular Volume 82.6 fL (80-100); Mean Platelet Volume 9.8 fL (7.4-10.4); Monocytes # (auto) 0.71 K/uL (0.11-0.59); Monocytes % (auto) 6.8 %; Neutrophils # (auto) 6.73 K/uL (1.4-6.5); Neutrophils % (auto) 64.4 %; Platelet Count 409 K/uL (130-400); RDW Coefficient of Variation 13.7 % (11.5-14.5); RDW Standard Deviation 41.6 fL (36.4-46.3); Red Blood Count 4.71 M/uL (4.2-5.4); White Blood Count 10.46 K/uL (4.8-10.8)
[2019-03-06 16:49] LABS: Appearance Urine Clear (Clear); Bilirubin Urine Negative (Negative); Blood Urine Negative (Negative); Color Urine Yellow; Glucose Urine UA Negative (Negative); Ketones Urine Trace (Negative); Leukocyte Esterase Urine Negative (Negative); Nitrite Urine Negative (Negative); Protein Urine Negative (Negative); Specific Gravity Urine 1.015 (1.000-1.030); Urobilinogen Urine Negative (Negative); pH Urine 7.5 (4.5-7.5)
[2019-03-06 16:51] LABS: Albumin Level 3.6 gm/dl (3.4-5.0); BUN Creatinine Ratio 15.9 (10-20); Calcium 9.6 mg/dl (8.5-10.1); Est GFR (African American) 101.8; Est GFR (Non-African American) 87.8; Potassium 3.2 mmol/L (3.5-5.1)
[2019-03-06 16:54] LABS: Albumin Globulin Ratio 0.9 (0.9-2); Bilirubin,Total 0.4 mg/dl (0.2-1); Globulin 3.9 gm/dl (2.5-4.0); Total Protein 7.5 gm/dl (6.4-8.2)
[2019-03-06] MEDS ORDERED: ACETAMINOPHEN 1,000 MG/100 ML VIAL IV STA (16:55)
[2019-03-06] MEDS ORDERED: MoRPHine SULFATE 4 MG/ML 1 ML CARP\\VIAL IV STA (16:55)
[2019-03-06] MEDS ORDERED: IOVERSOL 100ml IV PRN (17:56)
--- NOTE | 2019-03-06 18:14 | CT Scan Report ---
CT abd pelvis IV con only CT DOSE: 232.74 mGy.cm HISTORY: lower abd pain, ureteral stent removal, wound dehi TECHNIQUE: Multiaxial CT images of the abdomen and pelvis were performed following the use of intrave nous contrast. A dose lowering technique was utilized adhering to the principles of ALARA. COMPARISON STUDY: 01/26/2019 FINDINGS: Lung bases are clear. Liver spleen and pancreas are uniform. Interval removal of the right ureteral stent. Slightly prominent right renal pelvis although there is no evidence for hydronephrosis. This may simply represent residual from the prior stent placement. L eft kidney is negative for hydronephrosis. Patient is post right colectomy. An anastomotic line appears patent. Mild increase in distention of s everal small bowel loops in the left flank. Etiology is uncertain. Findings of chronic colonic diverticulosis. No acute diverticulitis. IMPRESSION: 1. Interval removal of the right ureteral stent. 2. Normal postoperative appearance right flank. 3. Interval increase in distention of several loops of small bowel within the left central abdomen ra ising the possibility of adhesions versus postoperative ileus. 4. Chronic colonic diverticulosis with no evidence for acute diverticulitis. 5. The small incision a collection procedure described anterior abdominal wall has shown near complet e resolution. The above report was generated using voice recognition software. It may contain grammatical, syntax or spelling errors. Electronically signed by: Wally Steward M.D. 03/06/2019 6:12 PM
[2019-03-06] MEDS ORDERED: METOCLOPRAMIDE HCL INJ 5 MG/ML 2 ML VIAL IV STA (18:59)
[2019-03-06] MEDS ORDERED: ACETAMINOPHEN 500 MG TAB PO PRN (20:11)
--- NOTE | 2019-03-06 20:15 | History & Physical Report ---
Date of Service March 06, 2019 Assessment & Plan (1) Abdominal pain: Will admit for observation due to clinical findings and CT findings of dilated loops; ?postop ileus Keep NPO Consult general surgery Protonix prn morphine (2) History of CVA (cerebrovascular accident): Continue home meds (3) Peripheral neuropathy: Continue home meds (4) Atrial fibrillation: Continue home meds (5) Hypokalemia: Will replace and monitor (6) Depression: Continue home meds (7) Ureteral stricture: Status post stent removal 03/02. Continue prophylaxis doxy (last dose 03/08) Pt does not think current symptoms are related. Will therefore defer consulting urology. History of Present Illness Chief Complaint: Abdominal pain Primary Care Provider: Anibal Salazar Patient is a pleasant 73 yo F who presents with acute on chronic abdominal pain x 2 days. PMH is significant for cecal perforation s/p R colectomy 12/2018 with resolving wound dehiscence, recent ureteral stricture removal on 03/02/19, CVA, HTN, HLD, Afib. She notes since her operation on her abdomen, she has had some abdominal pain, but notes in the past 2 days it has gotten quite severe. It is associated with constant nausea but no vomiting. She has had bowel movements both today and yesterday. Notes they are semi-formed as she has been on prophylactic doxycycline (per Dr. King, urology, after procedure). She denies any blood or pain with bowel movements. She also notes decreased appetite, early satiety, and 30 pound weight loss in the past 4 months (mostly in the time surrounding her surgery). She was given morphine in the ER and her current pain level is a 2-3/10. Labs were significant for hypokalemia of 3.2. CT was performed which showed interval development of dilated bowel loops, indicating possible postoperative ileus. Dr. Stephen was called, and per ER provider, felt this was non-surgical at this time but would be happy to see her during her inpatient stay. Of note, patient reports she has not taken any of her home medications (including eliquis, htn/hld meds) in several weeks. She has only been taking the scheduled doxycycline. Allergies Allergy/AdvReac Type Severity Reaction Status Date / Time No Known Allergies Allergy Verified 03/06/19 16:32 Home Medications Home Medications Medication Instructions Recorded Confirmed Type omeprazole 40 mg PO BID 10/07/18 03/06/19 History Eliquis 5 mg PO BID 30 Days #60 tab 01/05/19 03/06/19 Rx amiodarone 200 mg PO QAM 30 Days #30 tab 01/05/19 03/06/19 Rx ascorbic acid (vitamin C) [Vitamin 500 mg PO QAM 01/26/19 03/06/19 History C] aspirin 81 mg PO QAM 01/26/19 03/06/19 History duloxetine 90 mg PO QAM 01/26/19 03/06/19 History ferrous sulfate 325 mg PO QAM 01/26/19 03/06/19 History fluticasone propionate [Flonase 1 puff INTRANASAL BID 01/26/19 03/06/19 History Allergy Relief] metoprolol succinate [Toprol XL] 50 mg PO QAM 01/26/19 03/06/19 History pravastatin 20 mg PO HS 01/26/19 03/06/19 History acetaminophen [Tylenol Extra 500 mg PO UD PRN 03/06/19 03/06/19 History Strength] doxycycline hyclate 100 mg PO QAM 03/06/19 03/06/19 History Past Med/Surg History Medical History Atrial fibrillation New onset in setting of acute abdomen during 12/2018 admission. Discharged on Eliquis, to f/u OP with cardio in April Ureteral stricture H/o multiple cysto/stent exchanges. Patient came in for laparoscopic ureteral excision/ureterostomy 12/09; this was converted to open due to extensive scar tissue. Patient to ED 8 days later with acute abdomen --> abdominal abscess requiring ex lap and hemicolectomy. CVA (cerebral vascular accident) OLD INFARCT NOTED ON CT 10+ YEARS AGO; NO SYMPTOMS/DEFICITS Depression Elevated troponin While inpatient 12/17/18, per cardio consult likely 2/2 acute illness and demand ischemia. Environmental allergies GERD (gastroesophageal reflux disease) CONTROLLED Hyperlipidemia Hypertension Migraine CURRENTLY OCCURRING EVERY COUPLE OF WEEKS Osteoarthritis Peripheral neuropathy BOTH FEET AFFECTED - DESCRIBES FOOT LIKE "BLOCK OF WOOD AND FEELS SWOLLEN" Scoliosis Surgical History History of arm fracture RIGHT UE ORIF History of bowel resection 12/2018 2/2 abdominal abscess and small bowel perforation. History of cataract surgery RT/LEFT History of colonoscopy History of cystoscopy WITH STENT INSERTIONS (TOTAL OF 5) History of dilatation and curettage MULTIPLE History of esophagogastroduodenoscopy (EGD) History of hysterectomy History of tooth extraction Hx of ureter repair 12/10/18, robotic/lap converted to open Family History Grandfather Family history of diabetes mellitus Mother Family hx of colon cancer Social History Preferred Language: Bangladeshi Communication Ability: Effective Visual Impairment: No Limitations Beliefs That Will Affect Care: None marital status: Current Living Situation: Family Current Living Situation Comment: Lives with son current occupational status: retired Feels Safe at Home: Yes Smoking Status: Former smoker Cigarettes Per Day: QUIT 44 YEARS AGO Second Hand Exposure: Yes Hx Alcohol Use: Yes Alcohol type: beer and wine Hx Substance Use: No Review of Systems Review of Systems: All systems reviewed & are unremarkable except as noted in HPI & below Constitutional: + fatigue, + weakness and + weight loss; no fever and no chills Gastrointestinal: + abdominal pain, + early satiety, + nausea and + diarrhea/loose stools; no blood in stools Genitourinary: no dysuria, no urinary frequency, no urinary incontinence and no hematuria Integumentary: + non-healing lesions (anterior abdominal wall) and + wounds Neurologic: + paresthesia (peripheral neuropathy lower extremity bilaterally) Physical Exam Constitutional: WD/WN, vitals as above Eyes: PERRL, conjunctivae normal, anicteric sclerae ENMT: external ear and nose normal, oropharynx normal Neck: normal visual inspection Respiratory: normal respiratory effort, lungs clear to auscultation Cardiovascular: Rate/Rhythm: regular rate and regular rhythm Extremities: + pedal edema (trace-1+ bilaterally) Gastrointestinal (Abdomen): Inspection/Auscultation: + abdomen distended and normal bowel sounds Percussion/Palpation: + abdomen tender (epigastric, upper abdomen) Central healing scar, with notable dehiscence at superior margin. Various port sites noted as well. Skin: no rashes, warm and dry Neurologic: PERRL, EOMI, accommodation nl, no face palsy, no dysarthria Psychiatric: A+Ox3, euthymic affect Results & Data Vital Signs (Past 12 Hours) Vital Signs Temp Pulse Pulse Resp BP BP Pulse Ox 03/06/19 20:03 79 18 158/78 H 98 03/06/19 18:45 81 18 150/93 H 98 03/06/19 16:45 77 18 177/100 H 97 03/06/19 16:31 100 03/06/19 15:06 36.6 C 84 20 161/83 H 100 Laboratory Results 03/06/19 03/06/19 03/06/19 Range/Units 16:06 15:56 15:56 WBC 10.46 (4.8-10.8) K/uL RBC 4.71 (4.2-5.4) M/uL Hgb 13.1 (12.0-16.0) g/dL Hct 38.9 (37-47) % MCV 82.6 (80-100) fL MCH 27.8 (25-34) pg MCHC 33.7 (32-36) g/dL RDW Std Deviation 41.6 (36.4-46.3) fL RDW Coeff of Lainey 13.7 (11.5-14.5) % Plt Count 409 H (130-400) K/uL MPV 9.8 (7.4-10.4) fL Immature Gran % (Auto) 0.3 % Neut % (Auto) 64.4 % Lymph % (Auto) 27.3 % [place] % (Auto) 6.8 % Eos % (Auto) 1.1 % Baso % (Auto) 0.1 % Immature Gran # (Auto) 0.03 H (0.00-0.02) K/uL Neut # (Auto) 6.73 H (1.4-6.5) K/uL Lymph # (Auto) 2.86 (1.2-3.4) K/uL [place] # (Auto) 0.71 H (0.11-0.59) K/uL Eos # (Auto) 0.12 (0-0.5) K/uL Baso # (Auto) 0.01 (0-0.2) K/uL Sodium 140 (136-145) mmol/L Potassium 3.2 L (3.5-5.1) mmol/L Chloride 106 (98-107) mmol/L Carbon Dioxide 28 (21-32) mmol/L Anion Gap 7.0 (3-11) BUN 11 (7-18) mg/dl Creatinine 0.67 (0.6-1.2) mg/dl Est Cr Clr Drug Dosing 60.0 ml/min Est GFR ( Amer) 101.8 Est GFR (Non-Af Amer) 87.8 BUN/Creatinine Ratio 15.9 (10-20) Glucose 91 (70-99) mg/dl Calcium 9.6 (8.5-10.1) mg/dl Total Bilirubin 0.4 (0.2-1) mg/dl AST 14 L (15-37) U/L ALT 20 (12-78) U/L Alkaline Phosphatase 109 (45-117) U/L Total Protein 7.5 (6.4-8.2) gm/dl Albumin 3.6 (3.4-5.0) gm/dl Globulin 3.9 (2.5-4.0) gm/dl Albumin/Globulin Ratio 0.9 (0.9-2) Lipase 55 L (73-393) U/L Urine Color Yellow Urine Appearance Clear (Clear) Urine pH 7.5 (4.5-7.5) Ur Specific [place] 1.015 (1.000-1.030) Urine Protein Negative (Negative) Urine Glucose (UA) Negative (Negative) Urine Ketones Trace H (Negative) Urine Blood Negative (Negative) Urine Nitrite Negative (Negative) Urine Bilirubin Negative (Negative) Urine Urobilinogen Negative (Negative) Ur Leukocyte Esterase Negative (Negative) Diagnostic Findings CT abd pelvis IV con only CT DOSE: 232.74 mGy.cm HISTORY: lower abd pain, ureteral stent removal, wound dehi TECHNIQUE: Multiaxial CT images of the abdomen and pelvis were performed following the use of intravenous contrast. A dose lowering technique was utilized adhering to the principles of ALARA. COMPARISON STUDY: 01/26/2019 FINDINGS: Lung bases are clear. Liver spleen and pancreas are uniform. Interval removal of the right ureteral stent. Slightly prominent right renal pelvis although there is no evidence for hydronephrosis. This may simply represent residual from the prior stent placement. Left kidney is negative for hydronephrosis. Patient is post right colectomy. An anastomotic line appears patent. Mild increase in distention of several small bowel loops in the left flank. Etiology is uncertain. Findings of chronic colonic diverticulosis. No acute diverticulitis. IMPRESSION: 1. Interval removal of the right ureteral stent. 2. Normal postoperative appearance right flank. 3. Interval increase in distention of several loops of small bowel within the left central abdomen raising the possibility of adhesions versus postoperative ileus. 4. Chronic colonic diverticulosis with no evidence for acute diverticulitis. 5. The small incision a collection procedure described anterior abdominal wall has shown near complete resolution. The above report was generated using voice recognition software. It may contain grammatical, syntax or spelling errors. Electronically signed by: Wally Steward M.D. 03/06/2019 6:12 PM Medications Administered Current Inpatient Medications Acetaminophen (Tylenol) 500 mg PO UD PRN PRN Reason: Pain Stop: 04/05/19 20:10 Amiodarone HCl (Cordarone) 200 mg PO QAM [facility] Stop: 04/06/19 08:59 Apixaban (Eliquis) 5 mg PO BID [facility] Stop: 04/05/19 20:59 Ascorbic Acid (Vitamin C) 500 mg PO QAM [facility] Stop: 04/06/19 08:59 Aspirin (Ecotrin Ectab) 81 mg PO QAM [facility] Stop: 04/06/19 08:59 Doxycycline Hyclate (Vibramycin) 100 mg PO QAM [facility] Stop: 03/08/19 09:01 Duloxetine HCl (Cymbalta) 90 mg PO QAM [facility] Stop: 04/06/19 08:59 Ferrous Sulfate (Feosol) 325 mg PO QAM [facility] Stop: 04/06/19 08:59 Ioversol (Optiray 320 100ml) 94 ml IV ONCE PRN PRN Reason: Interaction Checking Stop: 03/10/19 17:55 Last Admin: 03/06/19 17:57 Dose: 94 ml Documented by: Metoprolol Succinate (Toprol Xl) 50 mg PO QAM [facility] Stop: 04/06/19 08:59 Non-Formulary Medication (Omeprazole) 40 mg PO BID [facility] Stop: 04/05/19 20:59 Pravastatin Sodium (Pravachol) 20 mg PO HS [facility] Stop: 04/05/19 20:59 Code Status & VTE Plan Code Status Full VTE Prophylaxis Plan VTE Prophylaxis will be ordered: Yes Supervising Physician Co-Signing Physician Notes Pt seen/examined following resident MD Keenan Johnson. Orders and plan of admission formulated with resident. 73 y/o F PMH CVA, HTN, HLD, AF - cecal perforation, R colectomy 12/2018 complicated by wound dehiscence, recent ureteral stricture 03/02/19. Presenting with moderate to severe abdominal pain x 2 days. Reports nausea without vomiting. Denies fevers. CT abdomen shows ileus vs early obstruction. Clinically, she is not obstructed and had a BM earlier in day. OE AAO x 3 S1,2 R CTAB Very tender to palpation of the lower abd, no guarding or rebound No CCE No deficits P: Placed on IVF - bowel rest - surgical eval AM - analgesics, antiemetics as needed Cont Amio, Metop, Eliquis for AF Cont Zocor and Metoprolol for HTN/HLD Resident Activity Tracking Resident Involvement: Resident Care Provided Care Provided: Adult Hospital Medicine
[2019-03-06] MEDS ORDERED: NON-FORMULARY MEDICATION (Omeprazole 40 MG) PO SCH (21:00)
[2019-03-06] MEDS ORDERED: ONDANSETRON INJ 2 MG/ML 2 ML VIAL IV PRN (21:14)
[2019-03-06] MEDS ORDERED: ALUMINUM/MAGNESIUM SUSP 30 ML UDC PO PRN (21:14)
[2019-03-06] MEDS ORDERED: MAGNESIUM HYDROXIDE SUSP 30 ML UDC PO PRN (21:14)
[2019-03-06] MEDS ORDERED: POLYETHYLENE (MIRALAX) 17 GM PACK PO PRN (21:14)
[2019-03-06] MEDS ORDERED: MoRPHine SULFATE 2 MG/ML CARP IV PRN (22:09)
[2019-03-06] MEDS ORDERED: POTASSIUM CHLORIDE 20 MEQ/15 ML UDC PO STA (22:09)
[2019-03-06] MEDS: PRAVASTATIN SOD 20 MG TAB PO SCH (23:20)
[2019-03-06] MEDS: APIXABAN 5 MG TABLET PO SCH (23:20)
--- NOTE | 2019-03-06 23:52 | Emergency Department Note ---
Entered by Mary Moore acting as a scribe for History of Present Illness General Chief complaint: Abdominal Pain Stated complaint: ABD PAIN Time Seen by Provider: 03/06/19 16:17 Source: patient Mode of arrival: ambulatory Limitations: no limitations History of Present Illness Onset (ago): day(s) 2 Location: abdomen Pain Consistency: + constant Maximum Pain Intensity: 4 Current Pain Intensity: 4 Relieved By: + none Exacerbated By: + none Associated symptoms: + other (+diarrhea); no fever/chills and no nausea/vomiting Treatments prior to arrival: none The patient is a 73 year old female who presents to the ED with complaints of abdominal pain. She recently underwent ureteral stricture surgery on December 09 and ended up with a perforated bowel. She underwent emergency surgery 1 week later. She reports her abdomen has never completely healed since November. She saw her PCP earlier today and reports her doctor "dug 2 pieces of clear sutures" out of the surgical wound. The patient states yesterday she began experiencing increased abdominal pain and rates her discomfort as a 4/10 in severity. She also complains of increased bilateral leg pain and swelling since she was in the hospital this past winter, which is being evaluated for neuropathy. She denies any recent fevers, nausea or vomiting. She did have diarrhea 2 days ago. Her last bowel movement was earlier today and normal. Home Medications Home Medications Medication Instructions Recorded Confirmed Type omeprazole 40 mg PO BID 10/07/18 03/06/19 History Eliquis 5 mg PO BID 30 Days #60 tab 01/05/19 03/06/19 Rx amiodarone 200 mg PO QAM 30 Days #30 tab 01/05/19 03/06/19 Rx ascorbic acid (vitamin C) [Vitamin 500 mg PO QAM 01/26/19 03/06/19 History C] aspirin 81 mg PO QAM 01/26/19 03/06/19 History duloxetine 90 mg PO QAM 01/26/19 03/06/19 History ferrous sulfate 325 mg PO QAM 01/26/19 03/06/19 History fluticasone propionate [Flonase 1 puff INTRANASAL BID 01/26/19 03/06/19 History Allergy Relief] metoprolol succinate [Toprol XL] 50 mg PO QAM 01/26/19 03/06/19 History pravastatin 20 mg PO HS 01/26/19 03/06/19 History acetaminophen [Tylenol Extra 500 mg PO UD PRN 03/06/19 03/06/19 History Strength] doxycycline hyclate 100 mg PO QAM 03/06/19 03/06/19 History Allergies Allergy/AdvReac Type Severity Reaction Status Date / Time No Known Allergies Allergy Verified 03/06/19 16:32 Past Med/Surg History Medical History Atrial fibrillation New onset in setting of acute abdomen during 12/2018 admission. Discharged on Eliquis, to f/u OP with cardio in April Ureteral stricture H/o multiple cysto/stent exchanges. Patient came in for laparoscopic ureteral excision/ureterostomy 12/09; this was converted to open due to extensive scar tissue. Patient to ED 8 days later with acute abdomen --> abdominal abscess requiring ex lap and hemicolectomy. Leg fracture, left CVA (cerebral vascular accident) OLD INFARCT NOTED ON CT 10+ YEARS AGO; NO SYMPTOMS/DEFICITS Depression Elevated troponin While inpatient 12/17/18, per cardio consult likely 2/2 acute illness and demand ischemia. Environmental allergies GERD (gastroesophageal reflux disease) CONTROLLED Hyperlipidemia Hypertension Migraine CURRENTLY OCCURRING EVERY COUPLE OF WEEKS Osteoarthritis Peripheral neuropathy BOTH FEET AFFECTED - DESCRIBES FOOT LIKE "BLOCK OF WOOD AND FEELS SWOLLEN" Scoliosis Surgical History History of arm fracture RIGHT UE ORIF History of bowel resection 12/2018 2/2 abdominal abscess and small bowel perforation. 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 and A total of 10 systems reviewed and were otherwise negative Physical Exam Vital Signs Vital Signs - 24 hr 03/06/19 16:45 03/06/19 18:45 03/06/19 20:03 Temperature Temperature Source Pulse Rate [Finger] 77 81 79 Pulse Rhythm [Finger] Regular Regular Pulse Strength [Finger] Normal Normal Respiratory Rate 18 18 18 Respiratory Effort / Characteristics Non-Labored Spontaneous Non-Labored Spontaneous Respiratory Depth Normal Normal Respiratory Pattern Regular Regular Blood Pressure [Left Arm] Blood Pressure [Right Arm] 177/100 H 150/93 H 158/78 H Blood Pressure Mean [Left Arm] Blood Pressure Mean [Right Arm] 125 112 104 Blood Pressure Position [Left Arm] Blood Pressure Position [Right Arm] Lying Lying Pulse Oximetry 97 98 98 Oxygen Delivery Method Room Air Room Air Room Air 03/06/19 21:46 03/06/19 22:10 03/06/19 22:54 Temperature 37.3 C 36.9 C Temperature Source Oral Oral Pulse Rate [Finger] 79 84 77 Pulse Rhythm [Finger] Pulse Strength [Finger] Respiratory Rate 18 18 16 Respiratory Effort / Characteristics Non-Labored Respiratory Depth Normal Respiratory Pattern Regular Blood Pressure [Left Arm] 133/83 Blood Pressure [Right Arm] 139/68 154/70 H Blood Pressure Mean [Left Arm] 99 Blood Pressure Mean [Right Arm] 91 98 Blood Pressure Position [Left Arm] Lying Blood Pressure Position [Right Arm] Sitting Pulse Oximetry 97 91 97 Oxygen Delivery Method Room Air Room Air 03/07/19 07:24 03/07/19 15:17 Temperature 37.0 C 36.7 C Temperature Source Oral Oral Pulse Rate [Finger] 75 66 Pulse Rhythm [Finger] Pulse Strength [Finger] Respiratory Rate 15 18 Respiratory Effort / Characteristics Respiratory Depth Normal Respiratory Pattern Blood Pressure [Left Arm] 118/68 140/79 Blood Pressure [Right Arm] Blood Pressure Mean [Left Arm] 84 99 Blood Pressure Mean [Right Arm] Blood Pressure Position [Left Arm] Lying Sitting Blood Pressure Position [Right Arm] Pulse Oximetry 96 95 Oxygen Delivery Method Room Air Room Air GENERAL: Awake, alert, fatigued/uncomfortable-appearing, in no distress HENT: Normocephalic, atraumatic. Oropharynx with dry mucous membranes and otherwise unremarkable. EYES: Normal conjunctiva. Sclera non-icteric. NECK: Supple. No nuchal rigidity. FROM. No JVD. RESPIRATORY: CTAB, normal effort CARDIAC: Regular rate, normal rhythm. Extremities warm and well perfused. Pulses equal. ABDOMEN: Soft, non-distended. Mild lower abdominal tenderness to palpation. 1 cm superficial wound dehiscence, no discharge. No rebound or guarding. No masses. RECTAL: Deferred. MUSCULOSKELETAL: Chest examination reveals no tenderness. The back is symmetrical on inspection without obvious abnormality. There is no CVA tenderness to palpation. No joint edema. LOWER EXTREMITIES: Calves are equal size bilaterally and non-tender. No edema. No discoloration. NEURO: Normal sensorium. No sensory or motor deficits noted. SKIN: No rash or jaundice noted. Course 1646: The patient was evaluated in room A12A and a complete history and physical was performed. 1907: I discussed the patients case with Dr. Stephen, [facility]. He agrees with further evaluation by the hospital medicine team and will be available to consult as needed. 1951: I discussed the patients case with Dr. Johnson, [facility]. The patient will be further evaluated. Consultations Consultation #1: I discussed the patients case with Dr. Stephen, [facility]. He agrees with further evaluation by the hospital medicine team and will be available to consult as needed. Time: 19:08 Consultation #2: I discussed the patients case with Dr. Johnson, [facility]. The patient will be further evaluated. Time: 19:52 Administered Medications Acetaminophen (Tylenol) 650 mg PO Q4H PRN PRN Reason: pain/fever Stop: 04/05/19 21:13 Last Admin: 03/07/19 11:19 Dose: 650 mg Documented by: [id number] Admin: 03/07/19 06:25 Dose: 650 mg Documented by: [id number] Admin: 03/06/19 23:54 Dose: 650 mg Documented by: [id number] Al Hydrox/Mg Hydrox/Simethicone (Maalox) 30 ml PO Q6H PRN PRN Reason: Dyspepsia Stop: 04/05/19 21:13 Last Admin: 03/07/19 12:19 Dose: 30 ml Documented by: [id number] Amiodarone HCl (Cordarone) 200 mg PO [facility] Stop: 04/06/19 08:59 Last Admin: 03/07/19 08:38 Dose: 200 mg Documented by: [id number] Apixaban (Eliquis) 5 mg PO BID [facility] Stop: 04/05/19 20:59 Last Admin: 03/07/19 08:38 Dose: 5 mg Documented by: [id number] Admin: 03/06/19 23:20 Dose: 5 mg Documented by: [id number] Ascorbic Acid (Vitamin C) 500 mg PO [facility] Stop: 04/06/19 08:59 Last Admin: 03/07/19 08:37 Dose: 500 mg Documented by: [id number] Aspirin (Ecotrin Ectab) 81 mg PO [facility] Stop: 04/06/19 08:59 Last Admin: 03/07/19 08:37 Dose: 81 mg Documented by: [id number] Doxycycline Hyclate (Vibramycin) 100 mg PO Q24H [facility] Stop: 03/08/19 11:01 Last Admin: 03/07/19 10:26 Dose: 100 mg Documented by: [id number] Duloxetine HCl (Cymbalta) 90 mg PO [facility] Stop: 04/06/19 08:59 Last Admin: 03/07/19 08:38 Dose: 90 mg Documented by: [id number] Ferrous Sulfate (Feosol) 325 mg PO [facility] Stop: 04/06/19 08:59 Last Admin: 03/07/19 08:37 Dose: 325 mg Documented by: [id number] Sodium Chloride (Nss 1000ml) 1,000 mls @ 80 mls/hr IV .[id number] [facility] Stop: 03/08/19 03:14 Last Admin: 03/07/19 15:23 Dose: 80 mls/hr Documented by: [id number] Ioversol (Optiray 320 100ml) 94 ml IV ONCE PRN PRN Reason: Interaction Checking Stop: 03/10/19 17:55 Last Admin: 03/06/19 17:57 Dose: 94 ml Documented by: [id number] Metoprolol Succinate (Toprol Xl) 50 mg PO QAM [facility] Stop: 04/06/19 08:59 Last Admin: 03/07/19 08:37 Dose: 50 mg Documented by: [id number] Pantoprazole Sodium (Protonix) 40 mg PO BID [facility] Stop: 04/06/19 08:59 Last Admin: 03/07/19 08:37 Dose: 40 mg Documented by: [id number] Pravastatin Sodium (Pravachol) 20 mg PO HS [facility] Stop: 04/05/19 20:59 Last Admin: 03/06/19 23:20 Dose: 20 mg Documented by: [id number] Discontinued Medications Sodium Chloride (Nss) 500 mls @ 999 mls/hr IV .Q31M ONE Stop: 03/06/19 16:48 Last Infusion: 03/06/19 18:09 Dose: 0 mls/hr Documented by: [id number] Admin: 03/06/19 17:38 Dose: 999 mls/hr Documented by: [id number] Acetaminophen (Ofirmev) 1,000 mg in 100 mls @ 400 mls/hr IV NOW STA Stop: 03/06/19 17:09 Last Admin: 03/06/19 17:39 Dose: Not Given Documented by: [id number] Metoclopramide HCl (Reglan) 10 mg IV NOW STA Stop: 03/06/19 19:00 Last Admin: 03/06/19 19:23 Dose: 10 mg Documented by: [id number] Morphine Sulfate (Morphine Sulfate) 4 mg IV NOW STA Stop: 03/06/19 16:56 Last Admin: 03/06/19 17:38 Dose: 4 mg Documented by: [id number] Potassium Chloride (Katja Ciel Elix) 40 meq PO NOW STA Stop: 03/06/19 22:10 Last Admin: 03/06/19 23:20 Dose: 40 meq Documented by: [id number] Medical Decision Making Differential Diagnosis Differential diagnosis: Etiologies such as appendicitis, diverticulitis, PUD, biliary pathology, UTI, pancreatitis, obstruction, mesenteric ischemia, aortic pathology, infections, inflammatory bowel disease, renal colic, as well as others were entertained. Home Medications Current Medication List: was personally reviewed by me Laboratory Data Attestation: I reviewed the patient's lab results. Result diagrams: 03/07/19 06:30 03/07/19 06:30 Lab Results 04/26/19 04/26/19 04/26/19 Range/Units 15:56 15:56 16:06 WBC 10.46 (4.8-10.8) K/uL RBC 4.71 (4.2-5.4) M/uL Hgb 13.1 (12.0-16.0) g/dL Hct 38.9 (37-47) % MCV 82.6 (80-100) fL MCH 27.8 (25-34) pg MCHC 33.7 (32-36) g/dL RDW Std Deviation 41.6 (36.4-46.3) fL RDW Coeff of Lainey 13.7 (11.5-14.5) % Plt Count 409 H (130-400) K/uL MPV 9.8 (7.4-10.4) fL Immature Gran % (Auto) 0.3 % Neut % (Auto) 64.4 % Lymph % (Auto) 27.3 % Sanborn % (Auto) 6.8 % Eos % (Auto) 1.1 % Baso % (Auto) 0.1 % Immature Gran # (Auto) 0.03 H (0.00-0.02) K/uL Neut # (Auto) 6.73 H (1.4-6.5) K/uL Lymph # (Auto) 2.86 (1.2-3.4) K/uL Sanborn # (Auto) 0.71 H (0.11-0.59) K/uL Eos # (Auto) 0.12 (0-0.5) K/uL Baso # (Auto) 0.01 (0-0.2) K/uL Sodium 140 (136-145) mmol/L Potassium 3.2 L (3.5-5.1) mmol/L Chloride 106 (98-107) mmol/L Carbon Dioxide 28 (21-32) mmol/L Anion Gap 7.0 (3-11) BUN 11 (7-18) mg/dl Creatinine 0.67 (0.6-1.2) mg/dl Est Cr Clr Drug Dosing 60.0 ml/min Est GFR ( Amer) 101.8 Est GFR (Non-Af Amer) 87.8 BUN/Creatinine Ratio 15.9 (10-20) Glucose 91 (70-99) mg/dl Calcium 9.6 (8.5-10.1) mg/dl Total Bilirubin 0.4 (0.2-1) mg/dl AST 14 L (15-37) U/L ALT 20 (12-78) U/L Alkaline Phosphatase 109 (45-117) U/L Total Protein 7.5 (6.4-8.2) gm/dl Albumin 3.6 (3.4-5.0) gm/dl Globulin 3.9 (2.5-4.0) gm/dl Albumin/Globulin Ratio 0.9 (0.9-2) Lipase 55 L (73-393) U/L Urine Color Yellow Urine Appearance Clear (Clear) Urine pH 7.5 (4.5-7.5) Ur Specific Marion 1.015 (1.000-1.030) Urine Protein Negative (Negative) Urine Glucose (UA) Negative (Negative) Urine Ketones Trace H (Negative) Urine Blood Negative (Negative) Urine Nitrite Negative (Negative) Urine Bilirubin Negative (Negative) Urine Urobilinogen Negative (Negative) Ur Leukocyte Esterase Negative (Negative) 03/07/19 03/07/19 Range/Units 06:30 06:30 WBC 6.38 (4.8-10.8) K/uL RBC 4.25 (4.2-5.4) M/uL Hgb 11.6 L (12.0-16.0) g/dL Hct 35.2 L (37-47) % MCV 82.8 (80-100) fL MCH 27.3 (25-34) pg MCHC 33.0 (32-36) g/dL RDW Std Deviation 41.8 (36.4-46.3) fL RDW Coeff of Lainey 13.9 (11.5-14.5) % Plt Count 299 (130-400) K/uL MPV 9.4 (7.4-10.4) fL Immature Gran % (Auto) 0.2 % Neut % (Auto) 62.5 % Lymph % (Auto) 24.9 % Sanborn % (Auto) 10.8 % Eos % (Auto) 1.4 % Baso % (Auto) 0.2 % Immature Gran # (Auto) 0.01 (0.00-0.02) K/uL Neut # (Auto) 3.99 (1.4-6.5) K/uL Lymph # (Auto) 1.59 (1.2-3.4) K/uL Sanborn # (Auto) 0.69 H (0.11-0.59) K/uL Eos # (Auto) 0.09 (0-0.5) K/uL Baso # (Auto) 0.01 (0-0.2) K/uL Sodium 141 (136-145) mmol/L Potassium 4.0 D (3.5-5.1) mmol/L Chloride 108 H (98-107) mmol/L Carbon Dioxide 27 (21-32) mmol/L Anion Gap 6.0 (3-11) BUN 8 (7-18) mg/dl Creatinine 0.56 L (0.6-1.2) mg/dl Est Cr Clr Drug Dosing 71.8 ml/min Est GFR ( Amer) 108.0 Est GFR (Non-Af Amer) 93.2 BUN/Creatinine Ratio 14.6 (10-20) Glucose 85 (70-99) mg/dl Calcium 9.1 (8.5-10.1) mg/dl Total Bilirubin (0.2-1) mg/dl AST (15-37) U/L ALT (12-78) U/L Alkaline Phosphatase (45-117) U/L Total Protein (6.4-8.2) gm/dl Albumin (3.4-5.0) gm/dl Globulin (2.5-4.0) gm/dl Albumin/Globulin Ratio (0.9-2) Lipase (73-393) U/L Urine Color Urine Appearance (Clear) Urine pH (4.5-7.5) Ur Specific Marion (1.000-1.030) Urine Protein (Negative) Urine Glucose (UA) (Negative) Urine Ketones (Negative) Urine Blood (Negative) Urine Nitrite (Negative) Urine Bilirubin (Negative) Urine Urobilinogen (Negative) Ur Leukocyte Esterase (Negative) Imaging Data Radiologist's Impression: Radiology results as stated below per my review and the radiologist's interpretation: CT abd pelvis IV con only CT DOSE: 232.74 mGy.cm HISTORY: lower abd pain, ureteral stent removal, wound dehi TECHNIQUE: Multiaxial CT images of the abdomen and pelvis were performed following the use of intravenous contrast. A dose lowering technique was utilized adhering to the principles of ALARA. COMPARISON STUDY: 01/26/2019 FINDINGS: Lung bases are clear. Liver spleen and pancreas are uniform. Interval removal of the right ureteral stent. Slightly prominent right renal pelvis although there is no evidence for hydronephrosis. This may simply represent residual from the prior stent placement. Left kidney is negative for hydronephrosis. Patient is post right colectomy. An anastomotic line appears patent. Mild increase in distention of several small bowel loops in the left flank. Etiology is uncertain. Findings of chronic colonic diverticulosis. No acute diverticulitis. IMPRESSION: 1. Interval removal of the right ureteral stent. 2. Normal postoperative appearance right flank. 3. Interval increase in distention of several loops of small bowel within the left central abdomen raising the possibility of adhesions versus postoperative ileus. 4. Chronic colonic diverticulosis with no evidence for acute diverticulitis. 5. The small incision a collection procedure described anterior abdominal wall has shown near complete resolution. The above report was generated using voice recognition software. It may contain grammatical, syntax or spelling errors. Electronically signed by: Wally Steward M.D. 03/06/2019 6:12 PM Blood Pressure Blood Pressure Findings: Elevated blood pressure Blood Pressure Disposition: further management by hospitalist DEE Narrative The patient is a pleasant 73-year-old woman with a complicated past medical history of ureteral stricture with surgical repair that was complicated by bowel perforation who presents emergency department with worsening lower abdominal pain with nausea per hpi. Of note, the patient did have her ureteral stent removed earlier this week. On arrival patient is uncomfortable but no acute distress, afebrile stable vital signs. Patient appears clinically dry. On exam the patient has mild lower abdominal tenderness to palpation. 1 cm superficial is related to known wound allowed to heal by 2/2 intention. No rebound or guarding. No masses. WBC and H/H wnl. Platelets 409 likely reactive. Chemistry without acidosis. LFTs unremarkable. UA negative. CT the abdomen pelvis demonstrates normal postoperative right flank but does show interval increase in distention of several loops of bowel that raises the possibility of adhesions versus postoperative ileus. There is resolution of previously appreciated fluid collection at her incision site. Case was discussed with Dr. Stephen, the patient's general surgeon, agrees with plan for admission for observation supportive care/hydration. Confirms patient's 1cm is healing by 2/2 intention and that it is not uncommon for deeper sutures to be expelled at they dissolve. However, given that the patient's work-up is otherwise reassuring he feels it is unlikely that patient will require surgical intervention and so recommends admission to medicine. Case was discussed with Dr. Johnson, [place] admitting resident and Dr. Serna, [facility] hospitalist, who will evaluate the patient for admission. Impression & Plan Abdominal pain, Ileus Discharge Plan Visit Data *Final* Discharge Date/Time: 03/06/19 21:53 Chief Complaint: Abdominal Pain Stated Complaint: ABD PAIN ED Provider: Johann Serrano Discharge Problem: Abdominal pain, Ileus Patient Disposition: Admitted As Inpatient Discharge Instructions Interventions: ED Discharge Assessment Last Done: 03/06/19 21:53 The scribe's documentation has been prepared under my direction and personally reviewed by me in its entirety. I confirm that the note above accurately reflects all work, treatment, procedures, and medical decision making performed by me.
[2019-03-06] MEDS: ACETAMINOPHEN 325 MG TAB PO PRN (23:54)
[2019-03-07] MEDS: ACETAMINOPHEN 325 MG TAB PO PRN ×2 (06:25→11:19)
[2019-03-07 06:44] LABS: Basophils # (auto) 0.01 K/uL (0-0.2); Basophils % (auto) 0.2 %; Eosinophils # (auto) 0.09 K/uL (0-0.5); Eosinophils % (auto) 1.4 %; Hematocrit (blood only) 35.2 % (37-47); Hemoglobin 11.6 g/dL (12.0-16.0); Immature Granulocytes # (auto) 0.01 K/uL (0.00-0.02); Immature Granulocytes % (auto) 0.2 %; Lymphocytes # (auto) 1.59 K/uL (1.2-3.4); Lymphocytes % (auto) 24.9 %; Mean Corpuscular Volume 82.8 fL (80-100); Mean Platelet Volume 9.4 fL (7.4-10.4); Monocytes # (auto) 0.69 K/uL (0.11-0.59); Monocytes % (auto) 10.8 %; Neutrophils # (auto) 3.99 K/uL (1.4-6.5); Neutrophils % (auto) 62.5 %; Platelet Count 299 K/uL (130-400); RDW Coefficient of Variation 13.9 % (11.5-14.5); RDW Standard Deviation 41.8 fL (36.4-46.3); Red Blood Count 4.25 M/uL (4.2-5.4); White Blood Count 6.38 K/uL (4.8-10.8)
[2019-03-07 07:20] LABS: BUN Creatinine Ratio 14.6 (10-20); Calcium 9.1 mg/dl (8.5-10.1); Creatinine Clr Calc Pharmacy 71.8 ml/min; Est GFR (Non-African American) 93.2
--- NOTE | 2019-03-07 08:28 | Family Medicine Progress Note ---
Date of Service March 07, 2019 Assessment & Plan (1) Abdominal pain: 73F with recent colectomy in Dec 2018 presents with worsening nausea and abdo pain x 2 days. Admitted for possible ileus. Abdo Pain x 2 days Will admit for observation due to clinical findings and CT findings of dilated loops; ?postop ileus Per surgery will progress to clear liquid diet, add on sucralfate, IVF (NSS at 100mls/hr) and KUB in the AM c/w Protonix prn morphine History of CVA (cerebrovascular accident) c/w ASA Peripheral neuropathy Continue Tylenol Atrial fibrillation c/w Eliquis and Metoprolol Hypokalemia (resolved) K+ was 4.0 Depression c/w Duloxetine Ureteral stricture Status post stent removal 03/02. Continue prophylaxis doxy (last dose 03/08) Pt does not think current symptoms are related. Will therefore defer consulting urology. Dispo: Med Surg, do not anticipate needs on DC, lives in [place]. FULL CODE (2) History of CVA (cerebrovascular accident): (3) Peripheral neuropathy: (4) Atrial fibrillation: (5) Hypokalemia: (6) Depression: (7) Ureteral stricture: Supervising Physician Co-Signing Physician Notes Attending attestation Pt seen and examined in concert with Dr. Roberto. In agreement with the do cumented findings as noted in the resident documentation with any exceptions or additions as noted here. Amicably chatting in bed. Appetite has returned without nausea. Mild cramping abd pain at rest. On examination, nondistended abd w/ +ve bowel sounds. On overt palpation, patient reports RLQ and diffuse abd pain. With occult palpation with stethescope, no apparent significant TTP appreciated. Trace pitting edema of the B/L LE. Partial SBO - advance diet to clears. Continue PPI and carafate therapy. Monitor for changes. General surgery consultation appreciated. Else see resident documentation as noted. Subjective pt was seen and examined at bedside. Pooped yesterday ER NURSE, not in hospital abdo pain has decreased she expresses desire for steak dinner no vomiting, nausea is now more intermittent. ROS: No chest pain, no SOB, no dyspnea on exertion, no palpitations, no fevers, no chills, no nausea, no vomiting, no diarrhea, no dysuria, no rash. Physical Exam Constitutional: WD/WN, vitals as above Eyes: PERRL, conjunctivae normal, anicteric sclerae ENMT: external ear and nose normal, oropharynx normal Neck: normal visual inspection Respiratory: normal respiratory effort, lungs clear to auscultation Cardiovascular: Rate/Rhythm: regular rate and regular rhythm Gastrointestinal (Abdomen): Inspection/Auscultation: + abdomen distended and normal bowel sounds Percussion/Palpation: + abdomen tender (epigastric, upper abdomen) Skin: no rashes, warm and dry Neurologic: PERRL, EOMI, accommodation nl, no face palsy, no dysarthria Psychiatric: A+Ox3, euthymic affect Results & Data Vital Signs (Past 12 Hours) Vital Signs Temp Pulse Resp BP BP Pulse Ox 03/07/19 07:24 37.0 C 75 15 118/68 96 03/06/19 22:54 36.9 C 77 16 133/83 97 03/06/19 22:10 37.3 C 84 18 154/70 H 91 03/06/19 21:46 79 18 139/68 97 Resident Activity Tracking Resident Involvement: Resident Care Provided Care Provided: Adult Hospital Medicine
[2019-03-07] MEDS: ASCORBIC ACID 500 MG TAB PO SCH (08:37)
[2019-03-07] MEDS: FERROUS SULFATE 325 MG TAB PO SCH (08:37)
[2019-03-07] MEDS: PANTOprazole 40 MG TAB PO SCH ×2 (08:37→20:10)
[2019-03-07] MEDS: ASPIRIN 81 MG ECTAB PO SCH (08:37)
[2019-03-07] MEDS: METOPROLOL SUCC 50MG EXT REL TAB PO SCH (08:37)
[2019-03-07] MEDS: DULOXETINE HCL 30 MG CAP PO SCH (08:38)
[2019-03-07] MEDS: APIXABAN 5 MG TABLET PO SCH ×2 (08:38→20:10)
[2019-03-07] MEDS: AMIODARONE 200 MG TAB PO SCH (08:38)
--- NOTE | 2019-03-07 09:11 | Surgery Progress Note ---
Date of Service March 07, 2019 Assessment & Plan (1) Abdominal pain: clinically doing better suspect some very mild psbo from adhesions. would restart ivf. can try oral clears. will recheck KUB tomorrow restart PPI and carafate that she was on previously. Subjective pt feeling better than yesterday. currently no pain or nausea. Physical Exam Physical Exam: alert. nad. abd: soft. mild distenstion. nt. Results & Data Vital Signs (Past 12 Hours) Vital Signs Temp Pulse Resp BP BP Pulse Ox 03/07/19 07:24 37.0 C 75 15 118/68 96 03/06/19 22:54 36.9 C 77 16 133/83 97 03/06/19 22:10 37.3 C 84 18 154/70 H 91 03/06/19 21:46 79 18 139/68 97
[2019-03-07] MEDS: DOXYCYCLINE HYCLATE 100 MG CAP PO SCH (10:26)
[2019-03-07] MEDS ORDERED: SODIUM CHLORIDE 0.9% 1000ML 1,000 ML IV SCH (14:45)
[2019-03-07] MEDS: SUCRALFATE 1 GM/10 ML UDC PO SCH ×2 (16:38→20:10)
[2019-03-07] MEDS: PRAVASTATIN SOD 20 MG TAB PO SCH (20:10)
--- NOTE | 2019-03-08 07:04 | XRay Report ---
KUB HISTORY: Follow-up study in a patient with ileus and abdominal distention ileus? COMPARISON: CT abdomen and pelvis 03/06/2019 FINDINGS: The bowel gas pattern is non-obstructive. Moderate volume of formed stool is noted about th e rectosigmoid. There is no organomegaly. No renal calculi. No ureteral calculi. No pneumoperitoneum or pneumatosis. No fracture. IMPRESSION: 1. Nonobstructive bowel gas pattern. 2. Moderate volume of formed stool about the rectosigmoid. Electronically signed by: Av Bautista M.D. 03/08/2019 7:03 AM
[2019-03-08] MEDS: ASPIRIN 81 MG ECTAB PO SCH (08:11)
[2019-03-08] MEDS: ASCORBIC ACID 500 MG TAB PO SCH (08:11)
[2019-03-08] MEDS: APIXABAN 5 MG TABLET PO SCH ×2 (08:11→20:36)
[2019-03-08] MEDS: SUCRALFATE 1 GM/10 ML UDC PO SCH ×4 (08:11→20:35)
[2019-03-08] MEDS: FERROUS SULFATE 325 MG TAB PO SCH (08:12)
[2019-03-08] MEDS: DULOXETINE HCL 30 MG CAP PO SCH (08:12)
[2019-03-08] MEDS: AMIODARONE 200 MG TAB PO SCH (08:12)
[2019-03-08] MEDS: PANTOprazole 40 MG TAB PO SCH ×2 (08:13→20:36)
[2019-03-08] MEDS: METOPROLOL SUCC 50MG EXT REL TAB PO SCH (08:13)
--- NOTE | 2019-03-08 09:55 | Surgery Progress Note ---
Date of Service March 08, 2019 Assessment & Plan (1) Abdominal pain: KUB shows resolved small bowel dilation. suspect stool burden in sigmoid as likely etiology will add miralax q1 hour until bowel fx as well as bid suppository increase to full liquids. suspect will improve after stool burden cleared. hopeful d/c tomorrow. Subjective pt continues to have lower abdominal discomfort- worse after PO intake. comes in waves. sounds like bowel spasms. Physical Exam Physical Exam: alert. nad abd: soft. +suprapubic/LLQ tenderness. no g/g/r. non-distended. Results & Data Vital Signs (Past 12 Hours) Vital Signs Temp Pulse Resp BP Pulse Ox Pulse Ox 03/08/19 07:22 36.9 C 63 18 150/96 H 93 03/08/19 00:20 95 03/07/19 23:13 36.8 C 74 18 146/84 H 95
[2019-03-08] MEDS: POLYETHYLENE (MIRALAX) 17 GM PACK PO SCH ×3 (10:31→13:06)
[2019-03-08] MEDS: BISACODYL 10 MG SUPP PR SCH ×2 (10:31→20:35)
[2019-03-08] MEDS: DOXYCYCLINE HYCLATE 100 MG CAP PO SCH (10:31)
--- NOTE | 2019-03-08 10:49 | Family Medicine Progress Note ---
Date of Service March 08, 2019 Assessment & Plan (1) Abdominal pain: 73F with recent right hemicolectomy in Dec 2018 presents with worsening nausea and abdo pain x 2 days. Admitted for possible ileus. Surgery on board. Abdo Pain x 2 days Will admit for observation due to clinical findings and CT findings of dilated loops; ?postop ileus Pt is tolerating clear liquid diet. KUB showed stool, will give dulcolax ND and miralax in hope of clearing bowel. c/w Protonix & sucralfate prn morphine History of CVA (cerebrovascular accident) c/w ASA Peripheral neuropathy Continue Tylenol Atrial fibrillation c/w Eliquis and Metoprolol Hypokalemia (resolved) Depression c/w Duloxetine Ureteral stricture Status post stent removal 03/02. Continue outpatient prophylaxis doxy (last dose 03/08) Pt does not think current symptoms are related. Will therefore defer consulting urology. Dispo: Med Surg, do not anticipate needs on DC, lives in [place]. DC Saturday hopefully. FULL CODE (2) History of CVA (cerebrovascular accident): (3) Peripheral neuropathy: (4) Atrial fibrillation: (5) Hypokalemia: (6) Depression: (7) Ureteral stricture: Supervising Physician Co-Signing Physician Notes Attending attestation Pt seen and examined in concert with Dr. Roberto. In agreement with the documented findings as noted in the resident documentation with any exceptions or additions as noted here. Today, complaining of some decreased appetite and nausea approx 30 minutes following POI, likely 2/2 stool burden visible on KUB. On examination, abd NT/ND, BS +ve. Trace pitting edema to the mid brown b/l Partial SBO - general surgery recommendation of bowel regimen appreciated. Monitor for changes/improvement today. Continue PPI and carafate. Else see resident documentation as noted. Subjective No acute events overnight. Pt continues to have nausea. No BM. No vomiting. Pt is tolerating her clear liquid diet. KUB showed stool. ROS: No chest pain, no SOB, no dyspnea on exertion, no palpitations, no fevers, no chills, + nausea, no vomiting, no diarrhea, no dysuria, no rash. Physical Exam Constitutional: WD/WN, vitals as above Eyes: PERRL, conjunctivae normal, anicteric sclerae ENMT: external ear and nose normal, oropharynx normal Neck: normal visual inspection Respiratory: normal respiratory effort, lungs clear to auscultation Cardiovascular: Rate/Rhythm: regular rate and regular rhythm Gastrointestinal (Abdomen): Inspection/Auscultation: + abdomen distended and normal bowel sounds Percussion/Palpation: + abdomen tender (epigastric, upper abdomen) Skin: no rashes, warm and dry Neurologic: PERRL, EOMI, accommodation nl, no face palsy, no dysarthria Psychiatric: A+Ox3, euthymic affect Results & Data Vital Signs (Past 12 Hours) Vital Signs Temp Pulse Resp BP Pulse Ox Pulse Ox 03/08/19 07:22 36.9 C 63 18 150/96 H 93 03/08/19 00:20 95 03/07/19 23:13 36.8 C 74 18 146/84 H 95 Resident Activity Tracking Resident Involvement: Resident Care Provided Care Provided: Adult Hospital Medicine
[2019-03-08] MEDS: PRAVASTATIN SOD 20 MG TAB PO SCH (20:36)
[2019-03-09 06:45] LABS: Basophils # (auto) 0.01 K/uL (0-0.2); Basophils % (auto) 0.2 %; Eosinophils # (auto) 0.08 K/uL (0-0.5); Eosinophils % (auto) 1.5 %; Hematocrit (blood only) 33.6 % (37-47); Hemoglobin 11.3 g/dL (12.0-16.0); Lymphocytes % (auto) 29.8 %; Mean Corpuscular Hgb Conc 33.6 g/dL (32-36); Mean Corpuscular Volume 81.8 fL (80-100); Mean Platelet Volume 9.7 fL (7.4-10.4); Monocytes % (auto) 11.2 %; Neutrophils # (auto) 3.08 K/uL (1.4-6.5); Neutrophils % (auto) 57.3 %; Platelet Count 317 K/uL (130-400); RDW Coefficient of Variation 13.6 % (11.5-14.5); RDW Standard Deviation 41.1 fL (36.4-46.3); Red Blood Count 4.11 M/uL (4.2-5.4); White Blood Count 5.37 K/uL (4.8-10.8)
[2019-03-09 07:24] LABS: BUN Creatinine Ratio 10.7 (10-20); Calcium 8.4 mg/dl (8.5-10.1); Creatinine Clr Calc Pharmacy 69.3 ml/min; Est GFR (African American) 106.7; Est GFR (Non-African American) 92.1; Potassium 3.6 mmol/L (3.5-5.1)
[2019-03-09] MEDS: SUCRALFATE 1 GM/10 ML UDC PO SCH ×4 (08:41→21:16)
[2019-03-09] MEDS: PANTOprazole 40 MG TAB PO SCH ×2 (08:42→21:18)
[2019-03-09] MEDS: APIXABAN 5 MG TABLET PO SCH ×2 (08:42→21:17)
[2019-03-09] MEDS: FERROUS SULFATE 325 MG TAB PO SCH (08:42)
[2019-03-09] MEDS: METOPROLOL SUCC 50MG EXT REL TAB PO SCH (08:43)
[2019-03-09] MEDS: DULOXETINE HCL 30 MG CAP PO SCH (08:43)
[2019-03-09] MEDS: AMIODARONE 200 MG TAB PO SCH (08:43)
[2019-03-09] MEDS: ASCORBIC ACID 500 MG TAB PO SCH (08:43)
[2019-03-09] MEDS: ASPIRIN 81 MG ECTAB PO SCH (08:43)
[2019-03-09] MEDS: BISACODYL 10 MG SUPP PR SCH ×2 (08:44→21:17)
--- NOTE | 2019-03-09 08:51 | Surgery Progress Note ---
Date of Service March 09, 2019 Assessment & Plan (1) Abdominal pain: ? etiology will recheck KUB to see if there is still a large stool burden. if so, will re- institute bowel regiment. would keep on full liquids for now dilated small bowel resolved. Subjective feeling improved but still having some lower pain, worse after eating. multiple bm's. Physical Exam Physical Exam: alert. nad. appears comfortable abd: soft. mild lower abdominal tenderness Results & Data Vital Signs (Past 12 Hours) Vital Signs Temp Pulse Resp BP Pulse Ox 03/09/19 07:34 36.7 C 70 16 154/82 H 94 03/08/19 22:55 36.9 C 71 16 150/79 H 94
--- NOTE | 2019-03-09 10:44 | Family Medicine Progress Note ---
Date of Service March 09, 2019 Assessment & Plan (1) Abdominal pain: 73 yo female was admitted on 06 March 2019 for acute on chronic abdominal pain. Abdominal pain: Recent cecal perforation s/p right colectomy in Dec 2018 with resolving wound dehiscence, recent ureteral stricture removal on [id number]. Concern for post-op ileus on initial CT. See surgery consult notes. Suspect stool burden in sigmoid as etiology of symptoms (as seen on Apr KUB). Started on scheduled sucralfate and dulcolax. MOM prn. Hypokalemia: As low as 3.2. Replaced, monitoring. Prior medical issues - Ureteral stricture: S/p stent removal on Apr. On doxy for prophylaxis. - CVA: On aspirin. - HTN, HLD, Afib: On pravastatin. On Eliquis, metoprolol , and amiodarone. - Depression: On duloxetine. - GERD: On protonix. - Migraines. - Peripheral neuropathy. - Diverticulosis: As seen on CT a/p on Apr. - Anemia: On daily iron. Code status: Full code. Diet: Full liquid diet during day, but will advance to regular this evening per surgery recommendations. DVT prophy: Apparently had been off of elqius for past few weeks. Here is back on eliquis. PT/OT: Deferred. Disbo: Admitted to [facility]. Lives at home. (2) Hypokalemia: (3) Ureteral stricture: (4) History of CVA (cerebrovascular accident): (5) Hypertension: (6) Hyperlipidemia: (7) Atrial fibrillation: (8) Depression: (9) GERD (gastroesophageal reflux disease): (10) Migraine: (11) Peripheral neuropathy: (12) Diverticulosis: (13) Anemia: Supervising Physician Co-Signing Physician Notes I personally examined the patient and verified all ward points of history and exam, discussed case, and agree with decision making with Dr Toure. Feeling better, tolerating diet reasonably well. Vitals noted, in general she is pleasant no distress. HEENT normocephalic atraumatic mucous membranes moist. Abdomen is soft with mild diffuse tenderness but absolutely no guarding/rebound/rigidity. Partial SBOimproving. Advance diet slowly, hopefully home tomorrow. Otherwise as above Subjective Found patient sitting up comfortably in the bed. Says that her abdominal discomfort is a little better than yesterday. Some nausea yesterday, none at present, without emesis. Had a couple BM over past 24 hours. Says that she has bilateral lower quadrant discomfort, today more on the right than left (opposite of yesterday). Otherwise denies any particular concerns. Physical Exam Physical Exam: General Appearance: Awake, alert & oriented, comfortable in general, NAD. CV: +S1S2 RRR, no murmur. Pulm: Clear to auscultation throughout. Abdomen: +BS, soft, mild ttp in bilateral lower quadrants. Non-distended. Midline dressing in place, surgical scars well-healed. Extremities: No pedal edema or calf tenderness. Moving all extremities naturally and easily. Neuro: No gross neuro deficits. Results & Data Vital Signs (Past 12 Hours) Vital Signs Temp Pulse Resp BP Pulse Ox 03/09/19 07:34 36.7 C 70 16 154/82 H 94 03/08/19 22:55 36.9 C 71 16 150/79 H 94 Laboratory Results 03/09/19 03/09/19 Range/Units 06:14 06:14 WBC 5.37 (4.8-10.8) K/uL RBC 4.11 L (4.2-5.4) M/uL Hgb 11.3 L (12.0-16.0) g/dL Hct 33.6 L (37-47) % MCV 81.8 (80-100) fL MCH 27.5 (25-34) pg MCHC 33.6 (32-36) g/dL RDW Std Deviation 41.1 (36.4-46.3) fL RDW Coeff of Lainey 13.6 (11.5-14.5) % Plt Count 317 (130-400) K/uL MPV 9.7 (7.4-10.4) fL Immature Gran % (Auto) 0.0 % Neut % (Auto) 57.3 % Lymph % (Auto) 29.8 % Isabela % (Auto) 11.2 % Eos % (Auto) 1.5 % Baso % (Auto) 0.2 % Immature Gran # (Auto) 0.00 (0.00-0.02) K/uL Neut # (Auto) 3.08 (1.4-6.5) K/uL Lymph # (Auto) 1.60 (1.2-3.4) K/uL Isabela # (Auto) 0.60 H (0.11-0.59) K/uL Eos # (Auto) 0.08 (0-0.5) K/uL Baso # (Auto) 0.01 (0-0.2) K/uL Sodium 140 (136-145) mmol/L Potassium 3.6 (3.5-5.1) mmol/L Chloride 106 (98-107) mmol/L Carbon Dioxide 28 (21-32) mmol/L Anion Gap 6.0 (3-11) BUN 6 L (7-18) mg/dl Creatinine 0.58 L (0.6-1.2) mg/dl Est Cr Clr Drug Dosing 69.3 ml/min Est GFR ( Amer) 106.7 Est GFR (Non-Af Amer) 92.1 BUN/Creatinine Ratio 10.7 (10-20) Glucose 93 (70-99) mg/dl Calcium 8.4 L (8.5-10.1) mg/dl Diagnostic Findings KUB CLINICAL HISTORY: ileus, stool burden COMPARISON STUDY: CT of the abdomen and pelvis March 06, 2019. KUB March 08, 2019. FINDINGS: The bowel gas pattern is normal. The amount of stool within the rectum has diminished since exam of March 08, 2019. The amount stool within the colon is within normal limits. IMPRESSION: 1. No evidence for a bowel obstruction. 2. Interval decrease in rectosigmoid stool. Medications Administered Current Inpatient Medications Acetaminophen (Tylenol) 650 mg PO Q4H PRN PRN Reason: pain/fever Stop: 04/05/19 21:13 Last Admin: 03/07/19 11:19 Dose: 650 mg Documented by: Al Hydrox/Mg Hydrox/Simethicone (Maalox) 30 ml PO Q6H PRN PRN Reason: Dyspepsia Stop: 04/05/19 21:13 Last Admin: 03/07/19 12:19 Dose: 30 ml Documented by: Amiodarone HCl (Cordarone) 200 mg PO QAM [facility] Stop: 04/06/19 08:59 Last Admin: 03/09/19 08:43 Dose: 200 mg Documented by: Apixaban (Eliquis) 5 mg PO BID [facility] Stop: 04/05/19 20:59 Last Admin: 03/09/19 08:42 Dose: 5 mg Documented by: Ascorbic Acid (Vitamin C) 500 mg PO [facility] Stop: 04/06/19 08:59 Last Admin: 03/09/19 08:43 Dose: 500 mg Documented by: Aspirin (Ecotrin Ectab) 81 mg PO [facility] Stop: 04/06/19 08:59 Last Admin: 03/09/19 08:43 Dose: 81 mg Documented by: Bisacodyl (Dulcolax) 10 mg MA BID [facility] Stop: 04/07/19 09:59 Last Admin: 03/09/19 08:44 Dose: 10 mg Documented by: Duloxetine HCl (Cymbalta) 90 mg PO [facility] Stop: 04/06/19 08:59 Last Admin: 03/09/19 08:43 Dose: 90 mg Documented by: Ferrous Sulfate (Feosol) 325 mg PO [facility] Stop: 04/06/19 08:59 Last Admin: 03/09/19 08:42 Dose: 325 mg Documented by: Ioversol (Optiray 320 100ml) 94 ml IV ONCE PRN PRN Reason: Interaction Checking Stop: 03/10/19 17:55 Last Admin: 03/06/19 17:57 Dose: 94 ml Documented by: Magnesium Hydroxide (Milk Of Magnesia) 30 ml PO Q6H PRN PRN Reason: Constipation Stop: 04/05/19 21:13 Metoprolol Succinate (Toprol Xl) 50 mg PO [facility] Stop: 04/06/19 08:59 Last Admin: 03/09/19 08:43 Dose: 50 mg Documented by: Morphine Sulfate (Morphine Sulfate) 2 mg IV Q4H PRN PRN Reason: Pain Stop: 03/20/19 22:08 Ondansetron HCl (Zofran) 4 mg IV Q6H PRN PRN Reason: Nausea Stop: 04/05/19 21:13 Pantoprazole Sodium (Protonix) 40 mg PO BID [facility] Stop: 04/06/19 08:59 Last Admin: 03/09/19 08:42 Dose: 40 mg Documented by: Pravastatin Sodium (Pravachol) 20 mg PO [facility] Stop: 04/05/19 20:59 Last Admin: 03/08/19 20:36 Dose: 20 mg Documented by: Sucralfate (Carafate) 1 gm PO QID [facility] Stop: 04/06/19 16:59 Last Admin: 03/09/19 08:41 Dose: 1 gm Documented by: Resident Activity Tracking Resident Involvement: Resident Care Provided Care Provided: Adult Hospital Medicine
[2019-03-09] MEDS: PRAVASTATIN SOD 20 MG TAB PO SCH (21:18)
[2019-03-10] MEDS: ASPIRIN 81 MG ECTAB PO SCH (08:49)
[2019-03-10] MEDS: FERROUS SULFATE 325 MG TAB PO SCH (08:49)
[2019-03-10] MEDS: METOPROLOL SUCC 50MG EXT REL TAB PO SCH (08:49)
[2019-03-10] MEDS: DULOXETINE HCL 30 MG CAP PO SCH (08:49)
[2019-03-10] MEDS: PANTOprazole 40 MG TAB PO SCH (08:49)
[2019-03-10] MEDS: AMIODARONE 200 MG TAB PO SCH (08:49)
[2019-03-10] MEDS: BISACODYL 10 MG SUPP PR SCH (08:50)
[2019-03-10] MEDS: APIXABAN 5 MG TABLET PO SCH (08:50)
[2019-03-10] MEDS: ASCORBIC ACID 500 MG TAB PO SCH (08:50)
[2019-03-10] MEDS: SUCRALFATE 1 GM/10 ML UDC PO SCH ×2 (08:51→13:19)
--- NOTE | 2019-03-10 09:27 | Discharge Summary ---
Date of Service March 10, 2019 Admission HPI Per Admitting Provider Patient is a pleasant 73 yo F who presents with acute on chronic abdominal pain x 2 days. PMH is significant for cecal perforation s/p R colectomy 12/2018 with resolving wound dehiscence, recent ureteral stricture removal on 03/02/19, CVA, HTN, HLD, Afib. She notes since her operation on her abdomen, she has had some abdominal pain, but notes in the past 2 days it has gotten quite severe. It is associated with constant nausea but no vomiting. She has had bowel movements both today and yesterday. Notes they are semi-formed as she has been on prophylactic doxycycline (per Dr. King, urology, after procedure). She denies any blood or pain with bowel movements. She also notes decreased appetite, early satiety, and 30 pound weight loss in the past 4 months (mostly in the time surrounding her surgery). She was given morphine in the ER and her current pain level is a 2-3/10. Labs were significant for hypokalemia of 3.2. CT was performed which showed interval development of dilated bowel loops, indicating possible postoperative ileus. Dr. Stephen was called, and per ER provider, felt this was non-surgical at this time but would be happy to see her during her inpatient stay. Of note, patient reports she has not taken any of her home medications (including eliquis, htn/hld meds) in several weeks. She has only been taking the scheduled doxycycline. Admission Exam Per Admitting Provider Constitutional: WD/WN, vitals as above Eyes: PERRL, conjunctivae normal, anicteric sclerae ENMT: external ear and nose normal, oropharynx normal Neck: normal visual inspection Respiratory: normal respiratory effort, lungs clear to auscultation Cardiovascular: Rate/Rhythm: regular rate and regular rhythm Extremities: + pedal edema (trace-1+ bilaterally) Gastrointestinal (Abdomen): Inspection/Auscultation: + abdomen distended and normal bowel sounds Percussion/Palpation: + abdomen tender (epigastric, upper abdomen) Central healing scar, with notable dehiscence at superior margin. Various port sites noted as well. Skin: no rashes, warm and dry Neurologic: PERRL, EOMI, accommodation nl, no face palsy, no dysarthria Psychiatric: A+Ox3, euthymic affect Principal Diagnosis Abdominal pain Discharge Exam General Appearance: Awake, alert & oriented, comfortable in general, NAD. CV: +S1S2 RRR, no murmur. Pulm: Clear to auscultation throughout. Abdomen: +BS, soft, mild ttp in bilateral lower quadrants. Non-distended. Midline dressing in place, surgical scars well-healed. Extremities: No pedal edema or calf tenderness. Moving all extremities naturally and easily. Neuro: No gross neuro deficits. Discharge Data Allergies Allergy/AdvReac Type Severity Reaction Status Date / Time No Known Allergies Allergy Verified 03/06/19 16:32 Consultations General surgery progress note assessment and plan on 10 March 2019 (1) Abdominal pain: Pt seen and examined with Dr. Stephen Much improved today. Repeat KUB yesterday reviewed- stool amount within normal limits. Tolerating regular diet. Ok for discharge today from surgical standpoint. Patient to follow-up in General Surgery clinic PRN. As above. Patient feeling better tolerating diet. Okay for discharge from our standpoint. Follow-up as needed. Ordered Studies CT abdomen pelvis with IV contrast only on 06 March 2019 IMPRESSION: 1. Interval removal of the right ureteral stent. 2. Normal postoperative appearance right flank. 3. Interval increase in distention of several loops of small bowel within the left central abdomen raising the possibility of adhesions versus postoperative ileus. 4. Chronic colonic diverticulosis with no evidence for acute diverticulitis. 5. The small incision a collection procedure described anterior abdominal wall has shown near complete resolution. KUB on 09 March 2019 IMPRESSION: 1. No evidence for a bowel obstruction. 2. Interval decrease in rectosigmoid stool. Hospital Course (1) Abdominal pain: 73 yo female was admitted on 06 March 2019 for acute on chronic abdominal pain. Abdominal pain: Recent cecal perforation s/p right colectomy in Dec 2018 with resolving wound dehiscence, recent ureteral stricture removal on . Concern for post-op ileus on initial CT. See surgery consult notes. Suspect stool burden in sigmoid as etiology of symptoms (as seen on KUB). Started on scheduled sucralfate and dulcolax. MOM prn. Tolerated regular diet starting evening before day of discharge without N/V or worsening abdominal symptoms. - Recommended daily use of Colace as well as occasional use of MiraLAX as needed at home. Hypokalemia: As low as 3.2. Replaced, monitoring. Ongoing medical issues: - Ureteral stricture: S/p stent removal on 22Apr. Completed course of doxycycline for prophylaxis. - CVA: On aspirin. - HTN, HLD, Afib: On pravastatin. On Eliquis, metoprolol , and amiodarone. - Depression: On duloxetine. - GERD: On protonix. - Migraines. - Peripheral neuropathy. - Diverticulosis: As seen on CT a/p on 26Apr. - Anemia: On daily iron. (2) Hypokalemia: (3) Ureteral stricture: (4) History of CVA (cerebrovascular accident): (5) Hypertension: (6) Hyperlipidemia: (7) Atrial fibrillation: (8) Depression: (9) GERD (gastroesophageal reflux disease): (10) Migraine: (11) Peripheral neuropathy: (12) Diverticulosis: (13) Anemia: Total Time Total Time Spent Total Time Spent (In Minutes): < 30 min Discharge Plan Discharge Items Patient Disposition: Home - Self-Care Reason For Visit: ABDOMINAL PAIN Discharge Diagnosis: Abdominal pain Discharge Goals: Decrease discomfort and Prevent disease Activity: Per 'Additional Instructions' section Non-emergency contact: Primary Care Provider and Surgeon Call non-emergency contact if: you have any medication questions Follow-up/Referrals: [facility] [Provider Group] - 03/16/19 1:30 pm (Please, follow up at [facility]. on SaturdayMarch 16 at 1:30 pm. *This clinic is located at [address] in [place]. If you have any questions, call the clinic at [phone].) Anibal Salazar [Primary Care Provider] - 03/13/19 11:00 am (Please, follow up at Dr. Salazar's office on SaturdayMarch 13 at 11:00 am. *If you need to change this appointment, call the office at [phone].) Diet: Regular Addtl Provider Instructions: You were admitted to the hospital on March 06, 2019 due to worsening abdominal pain. While here, after multiple imaging scans it appeared that your intestines were not quite moving stool through properly. This may have been the result following your ureteral stricture procedure, though it is hard to tell for sure. After treatment with multiple bowel motility medicines, your symptoms have improved. - It is recommended going forward that you consider daily use of medicine such as Colace (this is purchased [id number]). You can also try a capful of MiraLAX as needed for constipation symptoms. Otherwise, you should continue the same medicines that you were on prior to this admission. Please follow-up with your primary care provider as soon as possible for close post-hospitalization continuity of care. Please return to the nearest emergency department if you develop any return of your abdominal pain, vomiting, unable to pass any gas, or with any other emergent concerns. Prescriptions: Continued metoprolol succinate [Toprol XL] 50 mg Tablet Extended Release 24 Hr 50 mg PO QAM RF: 0 aspirin 81 mg Tablet,Delayed Release (Dr/Ec) 81 mg PO QAM RF: 0 ascorbic acid (vitamin C) [Vitamin C] 500 mg Tablet 500 mg PO QAM RF: 0 pravastatin 20 mg Tablet 20 mg PO HS RF: 0 fluticasone propionate [Flonase Allergy Relief] 50 mcg/actuation Damar,Suspension 1 puff Intranasal BID RF: 0 duloxetine 30 mg capsule,delayed release(DR/EC) 90 mg PO QAM RF: 0 ferrous sulfate 325 mg (65 mg iron) tablet,delayed release (DR/EC) 325 mg PO QAM RF: 0 omeprazole 40 mg Capsule,Delayed Release(Dr/Ec) 40 mg PO BID RF: 0 Eliquis 5 mg Tablet 5 mg PO BID 30 Days Qty: 60 RF: 2 amiodarone 200 mg Tablet 200 mg PO QAM 30 Days Qty: 30 RF: 2 acetaminophen [Tylenol Extra Strength] 500 mg Tablet 500 mg PO UD PRN (Reason: Pain) RF: 0 Discontinued doxycycline hyclate 100 mg capsule 100 mg PO QAM RF: 0 Stand-Alone Forms: Call Back Authorization, [facility] Discharge Orders: Discharge Order (Routine); Ordered 03/10/19 Ordered By: Av Toure Admission Data Admit Date/Time: 03/09/19 10:44 Attending Provider: Cem Summers Admit Provider: Tena Johnson Primary Care Provider: Anibal Salazar Other Providers: Robbin Serna ; Chet Stephen ; Sam Reece Service: Medical Other Interventions: Discharge Summary Assessment (RN) Last Done: 03/10/19 13:24 DC Date/Time DO NOT enter until pt leaves facility: 03/10/19 14:45 Supervising Physician Co-Signing Physician Notes I personally examined the patient and verified all ward points of history and exam, discussed case, and agree with decision making with Dr Toure. Feeling better, tolerating diet well. Vitals noted, in general she is pleasant no distress. HEENT normocephalic atraumatic mucous membranes moist. Abdomen is soft with mild diffuse tenderness but absolutely no guarding/rebound/rigidity. Partial SBOimproving, probably with some element of constipation contributing as well. stable for home, close f/u. Otherwise as above Resident Activity Tracking Resident Involvement: Resident Care Provided Care Provided: Adult Hospital Medicine
--- NOTE | 2019-03-10 10:09 | Surgery Progress Note ---
Date of Service March 10, 2019 Assessment & Plan (1) Abdominal pain: Pt seen and examined with Dr. Stephen Much improved today. Repeat KUB yesterday reviewed- stool amount within normal limits. Tolerating regular diet. Ok for discharge today from surgical standpoint. Patient to follow-up in General Surgery clinic PRN. As above. Patient feeling better tolerating diet. Okay for discharge from our standpoint. Follow-up as needed. Subjective Patient doing well today- tolerating regular diet without abdominal pain, nausea or vomiting. Physical Exam Gastrointestinal (Abdomen): Inspection/Auscultation: abdomen not distended Percussion/Palpation: + abdomen tender (much improved since admission ) Results & Data Vital Signs (Past 12 Hours) Vital Signs Temp Pulse Resp BP Pulse Ox 03/09/19 23:18 36.7 C 75 16 152/70 H 94
== END 2019-03-10 14:45 | disposition home or self-care (01) | DRG 392 ==
LOC: 3W 14:49 → ED 14:49 → SUATTDRO 21:22 → 3W 21:53